=== PATIENT | female | born 1935 | race Caucasian/White ===

== ENCOUNTER 2018-09-27 10:06 | Inpatient (IN) | payer MEDICARE, OTHER ==
[2018-09-27] MEDS ORDERED: Albuterol/Ipratropium 3.0-0.5 MG/3 ML Neb Soln NEB PRN (10:23)
[2018-09-27] MEDS ORDERED: Sodium Chloride 0.9% 5 ML Syringe FLUSH PRN (10:23)
[2018-09-27] MEDS ORDERED: [UNRECOGNIZED DRUG - OTHER] ONE (11:00)
[2018-09-27] MEDS: Levofloxacin/Dextrose 5%-Water 100 ML IV SCH (12:00)
[2018-09-27] MEDS: Albuterol/Ipratropium 3.0-0.5 MG/3 ML Neb Soln NEB SCH ×3 (12:02→21:32)
[2018-09-27] MEDS: [UNRECOGNIZED DRUG - REMARK] TOP SCH ×4 (12:02→23:07)
[2018-09-27] MEDS: Sodium Chloride 7% 4 ML Neb Soln NEB SCH ×3 (12:02→21:32)
[2018-09-27] MEDS: Levofloxacin/Dextrose 5%-Water 50 ML IV SCH (13:04)
--- NOTE | 2018-09-27 13:33 | PCM.HP ---
H&P History of Present Illness - General Date of Service: 09/27/18 Admit Problem/Dx: Admission Diagnosis/Problem Admission Diagnosis/Problem Pneumonia - History of Present Illness Initial Comments - Free Text/Narative: Mrs. Davis is an 83yoF who was initially admitted to [facility] due to significant shortness of breath, hypoxia respiratory failure due to pneumonia. She is alert recent resident of [facility] from [facility] following an inpatient stay at [facility] in [place] for a recurrent hemorrhagic cerebellar CVA. She was mechanically intubated and subsequently had tracheostomy and PEG tube placement. She had an extended treatment course for VAP with levofloxacin. She was unable to have tracheostomy removed due to increased secretions. She was treated in acute care at [facility] for antibiotics and aggressive pulmonary toileting due to complexity of care, time-consuming care components not a good candidate for return back to [place]. She was admitted into SNF here at [facility] awaiting [facility] a [facility] likely in the [facility]. - Related Data Allergies/Adverse Reactions: Allergies Allergy/AdvReac Type Severity Reaction Status Date / Time No Known Drug Allergies Allergy Cannot Verified 09/27/18 11:18 Remember Home Medications: Home Meds Albuterol/Ipratropium [DuoNeb 3.0-0.5 MG/3 ML] 1 vial NEB ONETIME PRN 09/20/18 [ History] Albuterol/Ipratropium [DuoNeb 3.0-0.5 MG/3 ML] 1 vial NEB QID 09/20/18 [History] Bumetanide 0.5 mg PEGTUBE DAILY 09/20/18 [History] Carvedilol 25 mg PEGTUBE BIDMEALS 09/20/18 [History] Cholecalciferol (Vitamin D3) [Vitamin D3] 2,000 unit PEGTUBE DAILY 09/20/18 [ History] Lisinopril 2.5 mg PEGTUBE DAILY 09/20/18 [History] Omeprazole 20 mg PEGTUBE BIDAC 09/20/18 [History] Sertraline [Zoloft] 50 mg PEGTUBE DAILY 09/20/18 [History] amLODIPine [Norvasc] 5 mg PEGTUBE DAILY 09/20/18 [History] atorvaSTATin [Lipitor] 10 mg PEGTUBE BEDTIME 09/20/18 [History] Latanoprost [Xalatan] 1 drop EYEBOTH DAILY 09/22/18 [History] Sodium Chloride 7% [HyperSal 7%] 4 ml NEB QID 09/22/18 [History] Past Medical History HEENT History: Reports: Cataract, Impaired Vision Cardiovascular History: Reports: Hypertension Respiratory History: Reports: Other (See Below) Other Respiratory History: tracheostomy since CVA in July, [place], hx pneumonia Gastrointestinal History: Reports: Colon Polyp Genitourinary History: Reports: Urinary Incontinence, Other (See Below) Other Genitourinary History: UTI now 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 3 years ago and July 2108 - hemoragic strokes First on L second on R -unable to speak due to trach - moves to request - transfers with [facility]standable to make needs known Psychiatric History: Reports: Depression Endocrine/Metabolic History: Reports: Vitamin D Deficiency Hematologic History: Reports: None - Infectious Disease History Infectious Disease History: Reports: Chicken Pox - Past Surgical History HEENT Surgical History: Reports: Cataract Surgery Cardiovascular Surgical History: Reports: None GI Surgical History: Reports: Colonoscopy, Other (See Below) Other GI Surgeries/Procedures: peg tube in place - continues feeding. alot of drooling - suctions mouth out per self Female Surgical History: Reports: None Endocrine Surgical History: Reports: None Neurological Surgical History: Reports: None Social & Family History - Family History Family Medical History: Unobtainable - Tobacco Use Smoking Status *Q: Never Smoker - Caffeine Use Caffeine Use: Reports: None Caffeine Use Comment: PEG tube. - Recreational Drug Use Recreational Drug Use: No H&P Review of Systems - Review of Systems: Review Of Systems: See Below General: Denies: Fever Exam - Exam Exam: See Below - Vital Signs Vital Signs: Last Vital Signs Temp 97.9 F 09/27/18 11:33 Pulse 73 09/27/18 11:33 Resp 22 H 09/27/18 11:33 BP 135/79 09/27/18 11:33 Pulse Ox 94 L 09/27/18 12:11 Weight: 152 lb - Exam Quality Assessment: Supplemental Oxygen. No: Skin Breakdown (No skin breakdown however erythremia) General: Alert, Cooperative, Mild Distress HEENT: EOMI, Hearing Intact Neck: Supple Lungs: Rhonchi. No: Wheezing Cardiovascular: Regular Rate, Regular Rhythm, Normal S1, Normal S2 GI/Abdominal Exam: Soft, Other (PEG tube). No: Distended, Rigid (Female) Exam: Deferred Rectal (Female) Exam: Deferred Back Exam: No: CVA Tenderness (L), CVA Tenderness (R) Extremities: Normal Capillary Refill. No: Pedal Edema Peripheral Pulses: 1+: Posterior Tibial (R), Dorsalis Pedis (L), 2+: Radial (L) , Radial (R), Posterior Tibial (L) Skin: Other (Redness to buttocks) Neurological: Normal Tone, Sensation Intact, Focal Deficit. No: Normal Speech Neuro Extensive - Mental Status: Alert Neuro Extensive - Motor, Sensory, Reflexes: Motor/Sensory Deficits Psychiatric: Alert Problem List Initiated/Reviewed/Updated: Yes Orders Last 24hrs: Active Orders 24 hr Category Date Time Status Patient Status [ADT] Routine ADT 09/27/18 10:36 Ordered Communication Order [RC] 0600,1200,1800,0000 Care 09/27/18 10:23 Active Communication Order [RC] Q8HR Care 09/27/18 10:23 Active Feeding Tube Managment [Enteral Feedings] [RC] 0600, Care 09/27/18 10:23 Active 1200,1800,0000 Intake and Output [RC] 1400,2200,0600 Care 09/27/18 10:23 Active Oxygen Therapy [RC] PRN Care 09/27/18 10:23 Active Peripheral IV Care [RC] QSHIFT Care 09/27/18 10:23 Active RT Aerosol Therapy [RC] ASDIRECTED Care 09/27/18 10:24 Active RT Sputum Induction [RC] Click to Edit Care 09/27/18 10:23 Active Tube Feeding [Enteral Feedings] [RC] CONTINUOUS Care 09/27/18 10:23 Active Vital Signs [RC] 0300,0700,1100,1500,1900,2300 Care 09/27/18 10:23 Active Albuterol/Ipratropium [DuoNeb 3.0-0.5 MG/3 ML] Med 09/27/18 10:23 Active 3 ml NEB BEDTIME PRN Albuterol/Ipratropium [DuoNeb 3.0-0.5 MG/3 ML] Med 09/27/18 11:00 Active 3 ml NEB QIDRT Carvedilol [Coreg] Med 09/27/18 21:00 Active 25 mg PEGTUBE BID Cholecalciferol (Vitamin D3) [Vitamin D3] Med 09/28/18 09:00 Active 2,000 units PEGTUBE DAILY Latanoprost [Xalatan 0.005% Ophth Soln] Med 09/28/18 09:00 Active 0 ml EYEBOTH DAILY Levofloxacin/Dextrose 5%-Water [Levaquin in D5W 250 MG/ Med 09/27/18 12:30 Active 50 ML] 50 ml IV Q48H Levofloxacin/Dextrose 5%-Water [Levaquin in D5W 500 MG/ Med 09/27/18 11:30 Active 100 ML] 100 ml IV Q48H Lisinopril [Prinivil] Med 09/28/18 09:00 Active 5 mg PEGTUBE DAILY Non-Formulary Medication [NF Drug] Med 09/27/18 11:00 Active 1 each TOP Q4HR Omeprazole [FIRST-Omeprazole] Med 09/27/18 17:30 Active 10 each GTUBE BIDAC Psyllium Husk/Aspartame [Metamucil Sugar Free] Med 09/28/18 09:00 Active 1 pkt PEGTUBE DAILY Sertraline [Zoloft] Med 09/28/18 09:00 Active 50 mg PEGTUBE DAILY Sodium Chloride 0.9% [Saline Flush] Med 09/27/18 10:23 Active 10 ml FLUSH Q8HR PRN Sodium Chloride 7% [HyperSal 7%] Med 09/27/18 11:00 Active 4 ml NEB QIDRT amLODIPine [Norvasc] Med 09/28/18 09:00 Active 5 mg FTUBE DAILY atorvaSTATin [Lipitor] Med 09/27/18 21:00 Active 10 mg PEGTUBE BEDTIME cefTRIAXone [Rocephin] Med 09/27/18 17:00 Active 1 gm IVPUSH Q24H Antiembolic Hose [OM.PC] Routine Oth 09/27/18 10:23 Ordered Peripheral IV Insertion Adult [OM.PC] Routine Oth 09/27/18 10:23 Ordered Code Status [Resuscitation Status] Routine Resus Stat 09/27/18 10:38 Ordered Medication Orders Albuterol/Ipratropium (Duoneb 3.0-0.5 Mg/3 Ml) 3 ml NEB QIDRT LIANNE Last Admin: 09/27/18 12:02 Dose: Albuterol/Ipratropium (Duoneb 3.0-0.5 Mg/3 Ml) 3 ml NEB BEDTIME PRN PRN Reason: Shortness of Breath Amlodipine Besylate (Norvasc) 5 mg FTUBE DAILY [facility] Atorvastatin Calcium (Lipitor) 10 mg PEGTUBE BEDTIME LIANNE Carvedilol (Coreg) 25 mg PEGTUBE BID [facility] Ceftriaxone Sodium (Rocephin) 1 gm IVPUSH Q24H LIANNE Cholecalciferol (Vitamin D3) 2,000 units PEGTUBE DAILY [facility] Levofloxacin/Dextrose (Levaquin In D5w 500 Mg/100 Ml) 100 mls @ 100 mls/hr IV Q48H [facility] Last Admin: 09/27/18 12:00 Dose: 100 mls/hr Levofloxacin/Dextrose (Levaquin In D5w 250 Mg/50 Ml) 50 mls @ 50 mls/hr IV Q48H [facility] Last Admin: 09/27/18 13:04 Dose: 50 mls/hr Latanoprost (Xalatan 0.005% Ophth Soln) 0 ml EYEBOTH DAILY [facility] Lisinopril (Prinivil) 5 mg PEGTUBE DAILY [facility] Non-Form Get (Ointment) 1 each TOP Q4HR [facility] Last Admin: 09/27/18 12:02 Dose: 1 each Omeprazole (First-Omeprazole) 10 each GTUBE BIDAC LIANNE Psyllium Husk (Metamucil Sugar Free) 1 pkt PEGTUBE DAILY [facility] Sertraline HCl (Zoloft) 50 mg PEGTUBE DAILY [facility] Sodium Chloride (Saline Flush) 10 ml FLUSH Q8HR PRN PRN Reason: Keep Vein Open Sodium Chloride (Hypersal 7%) 4 ml NEB QIDRT [facility] Last Admin: 09/27/18 12:02 Dose: Assessment/Plan Comment:: HISTORY OF PRESENT ILLNESS: Mrs. Davis is an 83yoF who was initially admitted to [facility] due to significant shortness of breath, hypoxia respiratory failure due to pneumonia. She is alert recent resident of [facility] from [facility] following an inpatient stay at [facility] in [place] for a recurrent hemorrhagic cerebellar CVA. She was mechanically intubated and subsequently had tracheostomy and PEG tube placement. She had an extended treatment course for VAP with levofloxacin. She was unable to have tracheostomy removed due to increased secretions. She was treated in acute care at [facility] for antibiotics and aggressive pulmonary toileting due to complexity of care, time-consuming care components not a good candidate for return back to [place]. She was admitted into SNF here at [facility] awaiting placement back to a [facility] with subacute capabilities likely in the [place] area. Primary hospital problems Pneumonia, POA, HCAP, recent VAP, on abx Syncopal/unresponsive event at [facility] Acute on chronic hypoxic respiratory failure, Possible aspiration event Increased secretions, improving Tracheostomy status Leukocytosis, neutrophilia UTI, Escherichia coli, pseudomonal Protein calorie malnutrition Stable Chronic problems HFpEF, restarted JERMAINE inhibition therapy Elevated troponin, likely type II, trended down Hx recurrent intracerebral hemorrhages Atrial fibrillation: [id number] VASc high, Continue carvedilol. Anticoagulation contraindicated HTN, restarted amlodipine 09/21 HLD: Continue atorvastatin. GERD: Continue omeprazole. Changed to suspension Vitamin D deficiency: Continue vitamin D. Depression, major, recurrent: Continue sertraline Glaucoma: Continue latanoprost. Maintenance Saline locked, NPO. Reduced residual parameters, No emesis or vomiting, PEG tube feedings, changed to Isosource, add psyllium PPX: Teds, Pharmacologic DVT prophylaxis contraindicated in the setting of recurrent hemorrhagic CVA; PPI for GI prophylaxis, changed to suspension Code status: DNR. Emergency contact: (Naga), Son (Lew). Patient's sister on rounds this morning, she was updated on patient's status and agrees with plan of care. Disposition: Placed in SNF here at [facility], ongoing antibiotics and aggressive pulmonary toileting, awaiting placement back to a long-term care center with subacute capabilities--likely in the [facility]. PT consult. Changed to feeding to Isosource, add psyllium
[2018-09-27] MEDS: Sodium Chloride 0.9% 10 ML Syringe FLUSH PRN (17:08)
[2018-09-27] MEDS: cefTRIAXone 1 GM Vial IVPUSH SCH (17:08)
[2018-09-27] MEDS: Omeprazole 2 MG/ML 150 ML Kit GTUBE SCH (18:10)
[2018-09-27] MEDS: atorvaSTATin 10 MG Tab PEGTUBE SCH (21:31)
[2018-09-27] MEDS: Carvedilol 12.5 MG Tab PEGTUBE SCH (21:31)
[2018-09-28] MEDS: [UNRECOGNIZED DRUG - REMARK] TOP SCH ×6 (01:30→22:30)
[2018-09-28] MEDS: Sodium Chloride 7% 4 ML Neb Soln NEB SCH ×4 (05:52→21:51)
[2018-09-28] MEDS: Albuterol/Ipratropium 3.0-0.5 MG/3 ML Neb Soln NEB SCH ×4 (05:52→21:50)
[2018-09-28 07:53] LABS: ANION GAP 12.8 mmol/L (5-15); CHLORIDE,CL 99 mmol/L (98-115); SODIUM,NA 141 mmol/L (136-145)
[2018-09-28] MEDS: Omeprazole 2 MG/ML 150 ML Kit GTUBE SCH ×2 (08:58→17:17)
[2018-09-28] MEDS: Sodium Chloride 0.9% 10 ML Syringe FLUSH PRN ×3 (09:09→16:47)
[2018-09-28] MEDS: Carvedilol 12.5 MG Tab PEGTUBE SCH ×2 (09:53→20:57)
[2018-09-28] MEDS: amLODIPine 5 MG Tab FTUBE SCH (09:56)
[2018-09-28] MEDS: Psyllium Husk Powder Sugar Free 5.85 GM Packet PEGTUBE SCH (09:56)
[2018-09-28] MEDS: Lisinopril 5 MG Tab PEGTUBE SCH (09:57)
[2018-09-28] MEDS: Cholecalciferol (Vitamin D3) 1,000 Unit Tab PEGTUBE SCH (09:57)
[2018-09-28] MEDS: Sertraline 50 MG Tab PEGTUBE SCH (09:58)
[2018-09-28] MEDS: Latanoprost 0.005% Ophth Soln 2.5 ML Bottle EYEBOTH SCH (10:09)
[2018-09-28] MEDS: cefTRIAXone 1 GM Vial IVPUSH SCH (16:43)
[2018-09-28] MEDS: atorvaSTATin 10 MG Tab PEGTUBE SCH (20:57)
[2018-09-29] MEDS: [UNRECOGNIZED DRUG - REMARK] TOP SCH ×5 (04:05→19:23)
[2018-09-29] MEDS: Sodium Chloride 7% 4 ML Neb Soln NEB SCH ×4 (05:36→21:55)
[2018-09-29] MEDS: Albuterol/Ipratropium 3.0-0.5 MG/3 ML Neb Soln NEB SCH ×4 (05:36→21:55)
[2018-09-29] MEDS: Omeprazole 2 MG/ML 150 ML Kit GTUBE SCH ×2 (06:36→17:32)
[2018-09-29] MEDS: Sodium Chloride 0.9% 10 ML Syringe FLUSH PRN (06:36)
[2018-09-29] MEDS: Carvedilol 12.5 MG Tab PEGTUBE SCH ×2 (09:12→21:25)
[2018-09-29] MEDS: Psyllium Husk Powder Sugar Free 5.85 GM Packet PEGTUBE SCH (09:13)
[2018-09-29] MEDS: amLODIPine 5 MG Tab FTUBE SCH (09:14)
[2018-09-29] MEDS: Lisinopril 5 MG Tab PEGTUBE SCH (09:14)
[2018-09-29] MEDS: Cholecalciferol (Vitamin D3) 1,000 Unit Tab PEGTUBE SCH (09:14)
[2018-09-29] MEDS: Sertraline 50 MG Tab PEGTUBE SCH (09:15)
[2018-09-29] MEDS: Latanoprost 0.005% Ophth Soln 2.5 ML Bottle EYEBOTH SCH (09:15)
[2018-09-29] MEDS: Levofloxacin/Dextrose 5%-Water 100 ML IV SCH (12:07)
[2018-09-29] MEDS: Levofloxacin/Dextrose 5%-Water 50 ML IV SCH (13:33)
[2018-09-29] MEDS: cefTRIAXone 1 GM Vial IVPUSH SCH (16:40)
[2018-09-29] MEDS: atorvaSTATin 10 MG Tab PEGTUBE SCH (21:25)
[2018-09-30] MEDS: [UNRECOGNIZED DRUG - REMARK] TOP SCH ×5 (01:21→16:22)
[2018-09-30] MEDS: Albuterol/Ipratropium 3.0-0.5 MG/3 ML Neb Soln NEB SCH ×4 (04:49→21:48)
[2018-09-30] MEDS: Sodium Chloride 7% 4 ML Neb Soln NEB SCH ×4 (04:49→21:48)
[2018-09-30] MEDS: Omeprazole 2 MG/ML 150 ML Kit GTUBE SCH ×2 (06:30→17:35)
[2018-09-30] MEDS: Psyllium Husk Powder Sugar Free 5.85 GM Packet PEGTUBE SCH (08:58)
[2018-09-30] MEDS: Cholecalciferol (Vitamin D3) 1,000 Unit Tab PEGTUBE SCH (09:00)
[2018-09-30] MEDS: Latanoprost 0.005% Ophth Soln 2.5 ML Bottle EYEBOTH SCH (09:00)
[2018-09-30] MEDS: Sertraline 50 MG Tab PEGTUBE SCH (09:01)
[2018-09-30] MEDS: Carvedilol 12.5 MG Tab PEGTUBE SCH ×2 (09:05→20:07)
[2018-09-30] MEDS: Lisinopril 5 MG Tab PEGTUBE SCH (09:05)
[2018-09-30] MEDS: amLODIPine 5 MG Tab FTUBE SCH (09:05)
[2018-09-30] MEDS: Sodium Chloride 0.9% 10 ML Syringe FLUSH PRN (16:30)
[2018-09-30] MEDS: cefTRIAXone 1 GM Vial IVPUSH SCH (16:31)
[2018-09-30] MEDS: Zinc Oxide/Eucerin/Nystatin/Karaya 237 ML JAR TOP SCH (20:07)
[2018-09-30] MEDS: atorvaSTATin 10 MG Tab PEGTUBE SCH (20:07)
[2018-10-01] MEDS: Sodium Chloride 0.9% 10 ML Syringe FLUSH PRN ×3 (05:43→17:11)
[2018-10-01] MEDS: Sodium Chloride 7% 4 ML Neb Soln NEB SCH ×4 (06:22→21:23)
[2018-10-01] MEDS: Albuterol/Ipratropium 3.0-0.5 MG/3 ML Neb Soln NEB SCH ×4 (06:22→21:22)
[2018-10-01] MEDS: Carvedilol 12.5 MG Tab PEGTUBE SCH ×2 (08:38→20:35)
[2018-10-01] MEDS: Lisinopril 5 MG Tab PEGTUBE SCH (08:39)
[2018-10-01] MEDS: amLODIPine 5 MG Tab FTUBE SCH (08:39)
[2018-10-01] MEDS: Sertraline 50 MG Tab PEGTUBE SCH (08:40)
[2018-10-01] MEDS: Cholecalciferol (Vitamin D3) 1,000 Unit Tab PEGTUBE SCH (08:40)
[2018-10-01] MEDS: Omeprazole 2 MG/ML 150 ML Kit GTUBE SCH ×2 (08:45→17:08)
[2018-10-01] MEDS: Latanoprost 0.005% Ophth Soln 2.5 ML Bottle EYEBOTH SCH (08:53)
[2018-10-01] MEDS: Psyllium Husk Powder Sugar Free 5.85 GM Packet PEGTUBE SCH (09:01)
[2018-10-01] MEDS: Zinc Oxide/Eucerin/Nystatin/Karaya 237 ML JAR TOP SCH ×4 (09:14→20:35)
[2018-10-01] MEDS: Levofloxacin/Dextrose 5%-Water 100 ML IV SCH (11:18)
[2018-10-01] MEDS: Sodium Chloride 0.9% 50 ML IV SCH (11:31)
[2018-10-01] MEDS: Levofloxacin/Dextrose 5%-Water 50 ML IV SCH (12:34)
[2018-10-01] MEDS: cefTRIAXone 1 GM Vial IVPUSH SCH (17:08)
[2018-10-01] MEDS: atorvaSTATin 10 MG Tab PEGTUBE SCH (20:35)
[2018-10-02] MEDS: Albuterol/Ipratropium 3.0-0.5 MG/3 ML Neb Soln NEB SCH ×4 (06:00→22:10)
[2018-10-02] MEDS: Sodium Chloride 7% 4 ML Neb Soln NEB SCH ×4 (06:00→22:10)
[2018-10-02] MEDS: Latanoprost 0.005% Ophth Soln 2.5 ML Bottle EYEBOTH SCH (08:07)
[2018-10-02] MEDS: Omeprazole 2 MG/ML 150 ML Kit GTUBE SCH ×2 (08:07→17:55)
[2018-10-02] MEDS: Psyllium Husk Powder Sugar Free 5.85 GM Packet PEGTUBE SCH (08:08)
[2018-10-02] MEDS: Cholecalciferol (Vitamin D3) 1,000 Unit Tab PEGTUBE SCH (08:09)
[2018-10-02] MEDS: amLODIPine 5 MG Tab FTUBE SCH (08:09)
[2018-10-02] MEDS: Sertraline 50 MG Tab PEGTUBE SCH (08:09)
[2018-10-02] MEDS: Lisinopril 5 MG Tab PEGTUBE SCH (08:09)
[2018-10-02] MEDS: B.Bifidum/B.Longum/L.Acidophilus/L.Rhamnosus (Probiotic) Cap PEGTUBE SCH (08:09)
[2018-10-02] MEDS: Carvedilol 12.5 MG Tab PEGTUBE SCH ×2 (08:09→22:00)
[2018-10-02] MEDS: Zinc Oxide/Eucerin/Nystatin/Karaya 237 ML JAR TOP SCH ×4 (08:10→22:00)
[2018-10-02] MEDS: Sodium Chloride 0.9% 50 ML IV SCH (11:28)
[2018-10-02] MEDS: cefTRIAXone 1 GM Vial IVPUSH SCH (17:09)
[2018-10-02] MEDS: Sodium Chloride 0.9% 10 ML Syringe FLUSH PRN (17:10)
[2018-10-02] MEDS: atorvaSTATin 10 MG Tab PEGTUBE SCH (21:59)
[2018-10-03] MEDS: Albuterol/Ipratropium 3.0-0.5 MG/3 ML Neb Soln NEB SCH ×4 (05:20→21:44)
[2018-10-03] MEDS: Sodium Chloride 7% 4 ML Neb Soln NEB SCH ×4 (05:20→21:44)
[2018-10-03] MEDS: Omeprazole 2 MG/ML 150 ML Kit GTUBE SCH ×2 (06:32→16:30)
[2018-10-03] MEDS: B.Bifidum/B.Longum/L.Acidophilus/L.Rhamnosus (Probiotic) Cap PEGTUBE SCH (08:34)
[2018-10-03] MEDS: Carvedilol 12.5 MG Tab PEGTUBE SCH ×2 (08:34→21:27)
[2018-10-03] MEDS: Psyllium Husk Powder Sugar Free 5.85 GM Packet PEGTUBE SCH (08:34)
[2018-10-03] MEDS: Cholecalciferol (Vitamin D3) 1,000 Unit Tab PEGTUBE SCH (08:35)
[2018-10-03] MEDS: amLODIPine 5 MG Tab FTUBE SCH (08:35)
[2018-10-03] MEDS: Latanoprost 0.005% Ophth Soln 2.5 ML Bottle EYEBOTH SCH (08:35)
[2018-10-03] MEDS: Lisinopril 5 MG Tab PEGTUBE SCH (08:35)
[2018-10-03] MEDS: Sertraline 50 MG Tab PEGTUBE SCH (08:35)
[2018-10-03] MEDS: Zinc Oxide/Eucerin/Nystatin/Karaya 237 ML JAR TOP SCH ×4 (09:35→21:27)
[2018-10-03] MEDS: Levofloxacin/Dextrose 5%-Water 100 ML IV SCH (11:19)
[2018-10-03] MEDS: Sodium Chloride 0.9% 50 ML IV SCH (11:26)
[2018-10-03] MEDS: Sodium Chloride 0.9% 10 ML Syringe FLUSH PRN (11:34)
[2018-10-03] MEDS: Levofloxacin/Dextrose 5%-Water 50 ML IV SCH (12:59)
[2018-10-03] MEDS: cefTRIAXone 1 GM Vial IVPUSH SCH (16:19)
[2018-10-03] MEDS: atorvaSTATin 10 MG Tab PEGTUBE SCH (21:27)
[2018-10-04] MEDS: Albuterol/Ipratropium 3.0-0.5 MG/3 ML Neb Soln NEB SCH ×4 (04:33→21:23)
[2018-10-04] MEDS: Sodium Chloride 7% 4 ML Neb Soln NEB SCH ×4 (04:49→21:23)
[2018-10-04] MEDS: Omeprazole 2 MG/ML 150 ML Kit GTUBE SCH ×2 (06:44→17:48)
[2018-10-04] MEDS: B.Bifidum/B.Longum/L.Acidophilus/L.Rhamnosus (Probiotic) Cap PEGTUBE SCH (08:23)
[2018-10-04] MEDS: Sertraline 50 MG Tab PEGTUBE SCH (08:23)
[2018-10-04] MEDS: Cholecalciferol (Vitamin D3) 1,000 Unit Tab PEGTUBE SCH (08:23)
[2018-10-04] MEDS: amLODIPine 5 MG Tab FTUBE SCH (08:23)
[2018-10-04] MEDS: Latanoprost 0.005% Ophth Soln 2.5 ML Bottle EYEBOTH SCH (08:24)
[2018-10-04] MEDS: Carvedilol 12.5 MG Tab PEGTUBE SCH ×2 (08:24→21:28)
[2018-10-04] MEDS: Lisinopril 5 MG Tab PEGTUBE SCH (08:24)
[2018-10-04] MEDS: Zinc Oxide/Eucerin/Nystatin/Karaya 237 ML JAR TOP SCH ×4 (08:24→21:24)
[2018-10-04] MEDS: Psyllium Husk Powder Sugar Free 5.85 GM Packet PEGTUBE SCH ×2 (08:25→21:23)
[2018-10-04] MEDS: Sodium Chloride 0.9% 10 ML Syringe FLUSH PRN ×2 (08:32→16:32)
[2018-10-04] MEDS ORDERED: Fluconazole 100 MG Tab PO ONE (10:05)
[2018-10-04] MEDS ORDERED: guaiFENesin 100 MG/5 ML Soln 5 ML UD Cup PO SCH (11:00)
[2018-10-04] MEDS ORDERED: Fluconazole 100 MG Tab PEGTUBE ONE (11:30)
[2018-10-04] MEDS: guaiFENesin 100 MG/5 ML Soln 5 ML UD Cup PEGTUBE SCH ×2 (17:48→22:26)
[2018-10-04] MEDS: atorvaSTATin 10 MG Tab PEGTUBE SCH (21:24)
[2018-10-05] MEDS: guaiFENesin 100 MG/5 ML Soln 5 ML UD Cup PEGTUBE SCH ×4 (05:37→23:29)
[2018-10-05] MEDS: Albuterol/Ipratropium 3.0-0.5 MG/3 ML Neb Soln NEB SCH ×4 (05:56→21:17)
[2018-10-05] MEDS: Sodium Chloride 7% 4 ML Neb Soln NEB SCH ×4 (05:57→21:17)
[2018-10-05] MEDS: Omeprazole 2 MG/ML 150 ML Kit GTUBE SCH ×2 (07:45→17:00)
[2018-10-05] MEDS: Cholecalciferol (Vitamin D3) 1,000 Unit Tab PEGTUBE SCH (08:28)
[2018-10-05] MEDS: Carvedilol 12.5 MG Tab PEGTUBE SCH ×2 (08:28→20:43)
[2018-10-05] MEDS: B.Bifidum/B.Longum/L.Acidophilus/L.Rhamnosus (Probiotic) Cap PEGTUBE SCH (08:29)
[2018-10-05] MEDS: Sertraline 50 MG Tab PEGTUBE SCH (08:29)
[2018-10-05] MEDS: Lisinopril 5 MG Tab PEGTUBE SCH (08:29)
[2018-10-05] MEDS: amLODIPine 5 MG Tab FTUBE SCH (08:29)
[2018-10-05] MEDS: Psyllium Husk Powder Sugar Free 5.85 GM Packet PEGTUBE SCH ×2 (08:29→20:44)
[2018-10-05] MEDS: Zinc Oxide/Eucerin/Nystatin/Karaya 237 ML JAR TOP SCH ×4 (08:29→20:43)
[2018-10-05] MEDS: Latanoprost 0.005% Ophth Soln 2.5 ML Bottle EYEBOTH SCH (10:03)
[2018-10-05] MEDS: Nystatin Susp 100,000 Unit/ML 5 ML UD Cup PO SCH ×3 (13:53→20:44)
[2018-10-05] MEDS: atorvaSTATin 10 MG Tab PEGTUBE SCH (20:43)
[2018-10-06] MEDS: Sodium Chloride 7% 4 ML Neb Soln NEB SCH ×2 (04:29→14:42)
[2018-10-06] MEDS: Albuterol/Ipratropium 3.0-0.5 MG/3 ML Neb Soln NEB SCH (04:29)
[2018-10-06] MEDS: guaiFENesin 100 MG/5 ML Soln 5 ML UD Cup PEGTUBE SCH ×4 (04:46→22:07)
[2018-10-06] MEDS: Omeprazole 2 MG/ML 150 ML Kit GTUBE SCH ×2 (09:00→17:14)
[2018-10-06] MEDS: Zinc Oxide/Eucerin/Nystatin/Karaya 237 ML JAR TOP SCH ×4 (09:18→22:06)
[2018-10-06] MEDS: Sertraline 50 MG Tab PEGTUBE SCH (09:19)
[2018-10-06] MEDS: B.Bifidum/B.Longum/L.Acidophilus/L.Rhamnosus (Probiotic) Cap PEGTUBE SCH (09:20)
[2018-10-06] MEDS: Lisinopril 5 MG Tab PEGTUBE SCH (09:20)
[2018-10-06] MEDS: amLODIPine 5 MG Tab FTUBE SCH (09:20)
[2018-10-06] MEDS: Psyllium Husk Powder Sugar Free 5.85 GM Packet PEGTUBE SCH ×2 (09:20→22:08)
[2018-10-06] MEDS: Carvedilol 12.5 MG Tab PEGTUBE SCH ×2 (09:20→22:07)
[2018-10-06] MEDS: Cholecalciferol (Vitamin D3) 1,000 Unit Tab PEGTUBE SCH (09:20)
[2018-10-06] MEDS: Nystatin Susp 100,000 Unit/ML 5 ML UD Cup PO SCH ×4 (09:21→22:07)
[2018-10-06] MEDS: Latanoprost 0.005% Ophth Soln 2.5 ML Bottle EYEBOTH SCH (09:22)
[2018-10-06 09:55] LABS: ANION GAP 16.6 mmol/L (5-15); CHLORIDE,CL 97 mmol/L (98-115); SODIUM,NA 145 mmol/L (136-145)
[2018-10-06] MEDS: atorvaSTATin 10 MG Tab PEGTUBE SCH (22:07)
[2018-10-07] MEDS: guaiFENesin 100 MG/5 ML Soln 5 ML UD Cup PEGTUBE SCH ×4 (06:16→22:20)
[2018-10-07] MEDS: Omeprazole 2 MG/ML 150 ML Kit GTUBE SCH ×2 (07:33→17:52)
[2018-10-07] MEDS: Sertraline 50 MG Tab PEGTUBE SCH (09:10)
[2018-10-07] MEDS: Latanoprost 0.005% Ophth Soln 2.5 ML Bottle EYEBOTH SCH (09:11)
[2018-10-07] MEDS: Cholecalciferol (Vitamin D3) 1,000 Unit Tab PEGTUBE SCH (09:11)
[2018-10-07] MEDS: Lisinopril 5 MG Tab PEGTUBE SCH (09:11)
[2018-10-07] MEDS: amLODIPine 5 MG Tab FTUBE SCH (09:11)
[2018-10-07] MEDS: Nystatin Susp 100,000 Unit/ML 5 ML UD Cup PO SCH ×4 (09:12→20:04)
[2018-10-07] MEDS: Psyllium Husk Powder Sugar Free 5.85 GM Packet PEGTUBE SCH ×2 (09:12→20:04)
[2018-10-07] MEDS: B.Bifidum/B.Longum/L.Acidophilus/L.Rhamnosus (Probiotic) Cap PEGTUBE SCH (09:12)
[2018-10-07] MEDS: Zinc Oxide/Eucerin/Nystatin/Karaya 237 ML JAR TOP SCH ×4 (09:13→20:04)
[2018-10-07] MEDS: Carvedilol 12.5 MG Tab PEGTUBE SCH ×2 (09:13→20:03)
--- NOTE | 2018-10-07 11:00 | PCM.PN ---
- General Info Date of Service: 10/07/18 Admission Dx/Problem (Free Text): Pneumonia, deconditioning Subjective Update: Mrs. Davis denies any complaints this morning, including pain or difficulty breathing. Remainder of history limited due to tracheostomy status. Nursing report and documentation shows ongoing improvement in toleration of PEG tube feedings with residuals in the past 48hrs of 5-60. Periods of time between suctioning have increased and more recently has been only superficially with Yankauer and not deep suction. No new concerns. - Patient Data Vitals - Most Recent: Last Vital Signs Temp 36.4 C 10/07/18 06:22 Pulse 73 10/07/18 09:13 Resp 20 10/06/18 06:51 BP 143/76 H 10/07/18 09:13 Pulse Ox 94 L 10/07/18 06:22 Weight - Most Recent: 68.039 kg I&O - Last 24 Hours: Intake & Output 10/06/18 10/07/18 10/07/18 22:59 06:59 14:59 Intake Total 669 500 Balance 669 500 Med Orders - Current: Current Medications Albuterol/Ipratropium (Duoneb 3.0-0.5 Mg/3 Ml) 3 ml NEB BEDTIME PRN PRN Reason: Shortness of Breath Albuterol/Ipratropium (Duoneb 3.0-0.5 Mg/3 Ml) 3 ml NEB QID PRN PRN Reason: Shortness of Breath Amlodipine Besylate (Norvasc) 5 mg FTUBE DAILY [facility] Last Admin: 10/07/18 09:11 Dose: 5 mg Atorvastatin Calcium (Lipitor) 10 mg PEGTUBE BEDTIME LIANNE Last Admin: 10/06/18 22:07 Dose: 10 mg Carvedilol (Coreg) 25 mg PEGTUBE BID [facility] Last Admin: 10/07/18 09:13 Dose: 25 mg Cholecalciferol (Vitamin D3) 2,000 units PEGTUBE DAILY [facility] Last Admin: 10/07/18 09:11 Dose: 2,000 units Guaifenesin (Robitussin) 200 mg PEGTUBE Q6HR [facility] Last Admin: 10/07/18 06:16 Dose: 200 mg Lactobacillus Acidophilus/Rhamnosus (Multi-Lissette Plus) 1 cap PEGTUBE DAILY [facility] Last Admin: 10/07/18 09:12 Dose: 1 cap Latanoprost (Xalatan 0.005% Ophth Soln) 0 ml EYEBOTH DAILY [facility] Last Admin: 10/07/18 09:11 Dose: 1 drop Lisinopril (Prinivil) 5 mg PEGTUBE DAILY [facility] Last Admin: 10/07/18 09:11 Dose: 5 mg Multi-Ingred Cream/Lotion/Oil/Oint (Kmed) 0 ml TOP QID [facility] Last Admin: 10/07/18 09:13 Dose: 1 applic Nystatin (Mycostatin) 5 ml PO QID [facility] Last Admin: 10/07/18 09:12 Dose: 5 ml Omeprazole (First-Omeprazole) 10 each GTUBE BIDAC [facility] Last Admin: 10/07/18 07:33 Dose: 10 ml Psyllium Husk (Metamucil Sugar Free) 1 pkt PEGTUBE BID [facility] Last Admin: 10/07/18 09:12 Dose: 1 pkt Sertraline HCl (Zoloft) 50 mg PEGTUBE DAILY [facility] Last Admin: 10/07/18 09:10 Dose: 50 mg Sodium Chloride (Saline Flush) 10 ml FLUSH Q8HR PRN PRN Reason: Keep Vein Open Last Admin: 10/04/18 16:32 Dose: 10 ml Sodium Chloride (Hypersal 7%) 4 ml NEB QID PRN PRN Reason: Other Discontinued Medications Albuterol/Ipratropium (Duoneb 3.0-0.5 Mg/3 Ml) 3 ml NEB QIDRT [facility] Last Admin: 10/06/18 04:29 Dose: 3 ml Ceftriaxone Sodium (Rocephin) 1 gm IVPUSH Q24H [facility] Stop: 10/03/18 18:00 Last Admin: 10/03/18 16:19 Dose: 1 gm Fluconazole (Diflucan) 150 mg PO ONETIME ONE Stop: 10/04/18 10:06 Last Admin: 10/04/18 11:36 Dose: Not Given Fluconazole (Diflucan) 150 mg PEGTUBE ONETIME ONE Stop: 10/04/18 11:31 Last Admin: 10/04/18 12:35 Dose: 150 mg Guaifenesin (Robitussin) 200 mg PO Q6HR [facility] Last Admin: 10/04/18 12:15 Dose: Not Given Levofloxacin/Dextrose (Levaquin In D5w 500 Mg/100 Ml) 100 mls @ 100 mls/hr IV Q48H [facility] Stop: 10/03/18 13:00 Last Admin: 10/03/18 11:19 Dose: 100 mls/hr Levofloxacin/Dextrose (Levaquin In D5w 250 Mg/50 Ml) 50 mls @ 50 mls/hr IV Q48H [facility] Stop: 10/03/18 13:00 Last Admin: 10/03/18 12:59 Dose: 50 mls/hr Sodium Chloride (Normal Saline) 50 mls @ 20 mls/hr IV DAILY@1130 [facility] Last Admin: 10/03/18 11:26 Dose: Not Given Non-Form Get (Ointment) 1 each TOP Q4HR [facility] Last Admin: 09/30/18 16:22 Dose: 1 each Psyllium Husk (Metamucil Sugar Free) 1 pkt PEGTUBE DAILY [facility] Last Admin: 10/04/18 08:25 Dose: 1 pkt Sodium Chloride (Hypersal 7%) 4 ml NEB QIDRT [facility] Last Admin: 10/06/18 14:42 Dose: Not Given - Exam Physical Findings Comments:: GENERAL: Elderly white female with tracheostomy in place lying in hospital bed in no acute distress. HEENT: Normocephalic, atraumatic. Conjunctiva clear. Nares patent without discharge. Mucous membranes moist, posterior pharynx unremarkable. NECK: Tracheostomy in place without surrounding erythema. CV: Irregularly irregular, no murmurs, rubs, or gallops. 2+ radial pulses. PULMONARY: No distress, diminished breath sounds in bases bilaterally, no wheezes, rales, or rhonchi. ABDOMEN: PEG tube site without surrounding erythema. Positive bowel sounds, soft , nontender, nondistended. EXTREMITIES: No edema, cyanosis, or clubbing. MUSCULOSKELETAL: Moves all extremities. DERMATOLOGIC: Intertriginous areas in groin and under breasts with faint redness. PSYCHIATRIC: Alert, nods and shakes head seemingly appropriate in response to questions. - Problem List Review Problem List Initiated/Reviewed/Updated: Yes - Plan Plan:: HPI summary: Mrs. Davis is an 83yoF with history notable for extended hospitalization at [facility] for a recurrent hemorrhagic cerebellar CVA for which she was mechanically intubated, developed ventilatory associated pneumonia, and subsequently had tracheostomy and PEG tube placement. She was subsequently transferred to [facility]. She was unable to have tracheostomy removed due to increased secretions and was eventually discharged to [facility] in [place], [place]. On 09/20/18, she was initially admitted to the [facility] due to significant shortness of breath, hypoxia, and respiratory failure found to be due to pneumonia and also with NSTEMI. She had clinical improvement with antibiotics and and aggressive pulmonary toileting. Due to complexity of care, she was deemed to not be a good candidate for return back to [facility] and was instead transferred [facility] for ongoing care awaiting improvement in clinical status and eventual appropriate placement closer to family in the [facility]. Interval hospital course: Since admission to [facility], she has finished the 2 week course of antibiotics for pneumonia and has had overall improvement in respiratory status , including less frequent suctioning. Tube feedings have resumed via the PEG tube and she has had overall good toleration of this with recent residuals improved from prior. From a clinical standpoint, she appears to be at her prior baseline respiratory status when she was discharged from [facility], though she has ongoing care needs due to tracheostomy status and PEG tube. 's primary concern is regarding the removal of the tracheostomy, which he states was promised to him to only be in place for a few weeks. Has been working for the last few days with local social work staff as well as with staff at [facility] transitional care unit and [facility] and are coordinating for possible transfer for tracheostomy capping trial and eventual revision if deemed appropriate. Primary hospital problems: Deconditioning, stable Increased secretions, improving, likely at baseline Tracheostomy status Protein calorie malnutrition Pneumonia, bilateral, healthcare acquired, recent VAP, s/p abx course, resolved UTI, Escherichia coli and Pseudomonas, s/p abx course, resolved Stable, chronic problems: HFpEF: Volume status neutral. Continue current management. Hx NSTEMI: Troponin downtrended during acute hospitalization. No ongoing clinical concerns. Hx recurrent intracerebral hemorrhages Atrial fibrillation: Continue carvedilol. [id number] high, but anticoagulation contraindicated in setting of recurrent hemorrhagic CVAs. HTN: Controlled. Continue amlodipine. HLD: Continue atorvastatin. GERD: Continue omeprazole. Vitamin D deficiency: Continue vitamin D. Depression, major, recurrent: Continue sertraline. Glaucoma: Continue latanoprost. Maintenance FEN: No IVF. Electrolytes stable. PEG tube feedings, changed to Osmolyte with psyllium with good toleration. PPX: Teds as pharmacologic DVT prophylaxis contraindicated in setting of recurrent hemorrhagic CVAs. PPI for GI prophylaxis. Code status: DNR. Emergency contact: (Naga) and Son (Lew), who have been notified of patient status on multiple occasions recently. Disposition: Continue on swing bed status. As mentioned above, has been in contact on multiple occasions with outside facilities to consider transfer for possible tracheostomy capping trial and long-term placement. Appreciate social work assistance with ongoing coordination for this patient's care.
[2018-10-07] MEDS: atorvaSTATin 10 MG Tab PEGTUBE SCH (20:03)
[2018-10-08] MEDS: guaiFENesin 100 MG/5 ML Soln 5 ML UD Cup PEGTUBE SCH ×4 (04:03→22:36)
[2018-10-08] MEDS: Omeprazole 2 MG/ML 150 ML Kit GTUBE SCH ×2 (06:31→17:37)
[2018-10-08] MEDS: amLODIPine 5 MG Tab FTUBE SCH (08:12)
[2018-10-08] MEDS: B.Bifidum/B.Longum/L.Acidophilus/L.Rhamnosus (Probiotic) Cap PEGTUBE SCH (08:12)
[2018-10-08] MEDS: Cholecalciferol (Vitamin D3) 1,000 Unit Tab PEGTUBE SCH (08:12)
[2018-10-08] MEDS: Nystatin Susp 100,000 Unit/ML 5 ML UD Cup PO SCH ×4 (08:13→21:56)
[2018-10-08] MEDS: Sertraline 50 MG Tab PEGTUBE SCH (08:13)
[2018-10-08] MEDS: Psyllium Husk Powder Sugar Free 5.85 GM Packet PEGTUBE SCH ×2 (08:13→21:55)
[2018-10-08] MEDS: Latanoprost 0.005% Ophth Soln 2.5 ML Bottle EYEBOTH SCH (08:13)
[2018-10-08] MEDS: Lisinopril 5 MG Tab PEGTUBE SCH (08:13)
[2018-10-08] MEDS: Carvedilol 12.5 MG Tab PEGTUBE SCH ×2 (08:13→21:56)
[2018-10-08] MEDS: Zinc Oxide/Eucerin/Nystatin/Karaya 237 ML JAR TOP SCH (10:03)
[2018-10-08] MEDS: atorvaSTATin 10 MG Tab PEGTUBE SCH (21:55)
[2018-10-09] MEDS: guaiFENesin 100 MG/5 ML Soln 5 ML UD Cup PEGTUBE SCH ×4 (05:46→23:50)
[2018-10-09] MEDS: Omeprazole 2 MG/ML 150 ML Kit GTUBE SCH ×2 (07:22→17:33)
[2018-10-09] MEDS: Latanoprost 0.005% Ophth Soln 2.5 ML Bottle EYEBOTH SCH (08:52)
[2018-10-09] MEDS: Psyllium Husk Powder Sugar Free 5.85 GM Packet PEGTUBE SCH ×2 (08:52→21:07)
[2018-10-09] MEDS: Nystatin Susp 100,000 Unit/ML 5 ML UD Cup PO SCH ×4 (08:54→21:07)
[2018-10-09] MEDS: Cholecalciferol (Vitamin D3) 1,000 Unit Tab PEGTUBE SCH (08:55)
[2018-10-09] MEDS: B.Bifidum/B.Longum/L.Acidophilus/L.Rhamnosus (Probiotic) Cap PEGTUBE SCH (08:55)
[2018-10-09] MEDS: Sertraline 50 MG Tab PEGTUBE SCH (08:55)
[2018-10-09] MEDS: Carvedilol 12.5 MG Tab PEGTUBE SCH ×2 (08:57→21:06)
[2018-10-09] MEDS: amLODIPine 5 MG Tab FTUBE SCH (08:57)
[2018-10-09] MEDS: Lisinopril 5 MG Tab PEGTUBE SCH (08:57)
[2018-10-09] MEDS: atorvaSTATin 10 MG Tab PEGTUBE SCH (21:06)
[2018-10-10] MEDS: Zinc Oxide/Eucerin/Nystatin/Karaya 237 ML JAR TOP PRN ×2 (04:23→11:34)
[2018-10-10] MEDS: guaiFENesin 100 MG/5 ML Soln 5 ML UD Cup PEGTUBE SCH ×4 (05:47→23:55)
[2018-10-10] MEDS: Omeprazole 2 MG/ML 150 ML Kit GTUBE SCH ×2 (07:27→17:30)
[2018-10-10] MEDS: Carvedilol 12.5 MG Tab PEGTUBE SCH ×2 (08:51→21:25)
[2018-10-10] MEDS: Psyllium Husk Powder Sugar Free 5.85 GM Packet PEGTUBE SCH ×2 (08:51→21:32)
[2018-10-10] MEDS: amLODIPine 5 MG Tab FTUBE SCH (08:51)
[2018-10-10] MEDS: B.Bifidum/B.Longum/L.Acidophilus/L.Rhamnosus (Probiotic) Cap PEGTUBE SCH (08:51)
[2018-10-10] MEDS: Lisinopril 5 MG Tab PEGTUBE SCH (08:51)
[2018-10-10] MEDS: Cholecalciferol (Vitamin D3) 1,000 Unit Tab PEGTUBE SCH (08:51)
[2018-10-10] MEDS: Sertraline 50 MG Tab PEGTUBE SCH (08:51)
[2018-10-10] MEDS: Nystatin Susp 100,000 Unit/ML 5 ML UD Cup PO SCH ×4 (08:52→21:43)
[2018-10-10] MEDS: Latanoprost 0.005% Ophth Soln 2.5 ML Bottle EYEBOTH SCH (09:09)
[2018-10-10] MEDS: Fluconazole 100 MG Tab PEGTUBE SCH (12:15)
[2018-10-10] MEDS: atorvaSTATin 10 MG Tab PEGTUBE SCH (21:25)
[2018-10-11] MEDS: guaiFENesin 100 MG/5 ML Soln 5 ML UD Cup PEGTUBE SCH ×4 (05:45→22:10)
[2018-10-11] MEDS: Albuterol/Ipratropium 3.0-0.5 MG/3 ML Neb Soln NEB PRN (06:15)
[2018-10-11] MEDS: Sodium Chloride 7% 4 ML Neb Soln NEB PRN (06:16)
[2018-10-11] MEDS: Sertraline 50 MG Tab PEGTUBE SCH (10:13)
[2018-10-11] MEDS: Latanoprost 0.005% Ophth Soln 2.5 ML Bottle EYEBOTH SCH (10:15)
[2018-10-11] MEDS: Cholecalciferol (Vitamin D3) 1,000 Unit Tab PEGTUBE SCH (10:15)
[2018-10-11] MEDS: B.Bifidum/B.Longum/L.Acidophilus/L.Rhamnosus (Probiotic) Cap PEGTUBE SCH (10:16)
[2018-10-11] MEDS: amLODIPine 5 MG Tab FTUBE SCH (10:16)
[2018-10-11] MEDS: Nystatin Susp 100,000 Unit/ML 5 ML UD Cup PO SCH ×4 (10:16→22:07)
[2018-10-11] MEDS: Lisinopril 5 MG Tab PEGTUBE SCH (10:16)
[2018-10-11] MEDS: Fluconazole 100 MG Tab PEGTUBE SCH (10:17)
[2018-10-11] MEDS: Carvedilol 12.5 MG Tab PEGTUBE SCH ×2 (10:17→22:06)
[2018-10-11] MEDS: Psyllium Husk Powder Sugar Free 5.85 GM Packet PEGTUBE SCH ×2 (10:17→22:08)
[2018-10-11] MEDS: Omeprazole 2 MG/ML 150 ML Kit GTUBE SCH ×2 (10:17→16:40)
[2018-10-11] MEDS: atorvaSTATin 10 MG Tab PEGTUBE SCH (22:07)
[2018-10-12] MEDS: Albuterol/Ipratropium 3.0-0.5 MG/3 ML Neb Soln NEB PRN (04:07)
[2018-10-12] MEDS: Sodium Chloride 7% 4 ML Neb Soln NEB PRN (04:07)
[2018-10-12] MEDS: guaiFENesin 100 MG/5 ML Soln 5 ML UD Cup PEGTUBE SCH ×4 (05:41→22:25)
[2018-10-12 07:56] LABS: CHLORIDE,CL 98 mmol/L (98-115); SODIUM,NA 139 mmol/L (136-145)
--- NOTE | 2018-10-12 08:08 | CR ---
[id number] RAD/RAD Chest PA or AP 1V EXAM: FRONTAL CHEST INDICATION: Decreased oxygenation. COMPARISON: October 04, 2018. DISCUSSION: Significant hypoinflation limits this assessment. Bibasilar atelectasis and possible infiltrates. Tracheostomy appliance overlying the mid to upper trachea. Blunting of lateral costophrenic angles raises the possibility of small effusions. IMPRESSION: 1. Mild bibasilar atelectasis and probable infiltrates. Douglas Acuña MD 10/12/18 0804 Thank you for allowing us to participate in the care of your patient.
[2018-10-12] MEDS: Omeprazole 2 MG/ML 150 ML Kit GTUBE SCH ×2 (08:40→16:45)
[2018-10-12] MEDS: B.Bifidum/B.Longum/L.Acidophilus/L.Rhamnosus (Probiotic) Cap PEGTUBE SCH (08:41)
[2018-10-12] MEDS: Psyllium Husk Powder Sugar Free 5.85 GM Packet PEGTUBE SCH ×2 (08:41→20:24)
[2018-10-12] MEDS: Fluconazole 100 MG Tab PEGTUBE SCH (08:41)
[2018-10-12] MEDS: Cholecalciferol (Vitamin D3) 1,000 Unit Tab PEGTUBE SCH (08:41)
[2018-10-12] MEDS: Sertraline 50 MG Tab PEGTUBE SCH (08:41)
[2018-10-12] MEDS: Nystatin Susp 100,000 Unit/ML 5 ML UD Cup PO SCH ×4 (09:06→20:24)
[2018-10-12] MEDS: Latanoprost 0.005% Ophth Soln 2.5 ML Bottle EYEBOTH SCH (09:09)
[2018-10-12] MEDS: Zinc Oxide/Eucerin/Nystatin/Karaya 237 ML JAR TOP PRN (09:11)
[2018-10-12] MEDS: Sodium Chloride 0.9% 100 ML IV SCH (10:50)
[2018-10-12] MEDS: Piperacillin/Tazobactam 4.5 GM in Sodium Chloride 0.9% 100 ML IV SCH ×3 (11:19→22:25)
[2018-10-12] MEDS: Sodium Chloride 0.9% 10 ML Syringe FLUSH PRN ×3 (14:07→18:30)
[2018-10-12] MEDS: atorvaSTATin 10 MG Tab PEGTUBE SCH (20:24)
[2018-10-13] MEDS: Sodium Chloride 0.9% 10 ML Syringe FLUSH PRN ×4 (05:07→22:22)
[2018-10-13] MEDS: Piperacillin/Tazobactam 4.5 GM in Sodium Chloride 0.9% 100 ML IV SCH ×4 (05:10→22:19)
[2018-10-13] MEDS: Zinc Oxide/Eucerin/Nystatin/Karaya 237 ML JAR TOP PRN (05:29)
[2018-10-13] MEDS: guaiFENesin 100 MG/5 ML Soln 5 ML UD Cup PEGTUBE SCH ×4 (05:29→22:19)
[2018-10-13] MEDS: Sodium Chloride 7% 4 ML Neb Soln NEB PRN (06:07)
[2018-10-13] MEDS: Albuterol/Ipratropium 3.0-0.5 MG/3 ML Neb Soln NEB PRN (06:08)
[2018-10-13] MEDS: Omeprazole 2 MG/ML 150 ML Kit GTUBE SCH ×2 (06:49→17:32)
[2018-10-13] MEDS: Lisinopril 5 MG Tab PEGTUBE SCH (08:59)
[2018-10-13] MEDS: amLODIPine 5 MG Tab FTUBE SCH (08:59)
[2018-10-13] MEDS: Carvedilol 12.5 MG Tab PEGTUBE SCH ×2 (08:59→22:20)
[2018-10-13] MEDS: Sertraline 50 MG Tab PEGTUBE SCH (08:59)
[2018-10-13] MEDS: Fluconazole 100 MG Tab PEGTUBE SCH (08:59)
[2018-10-13] MEDS: Nystatin Susp 100,000 Unit/ML 5 ML UD Cup PO SCH ×4 (09:00→22:19)
[2018-10-13] MEDS: B.Bifidum/B.Longum/L.Acidophilus/L.Rhamnosus (Probiotic) Cap PEGTUBE SCH (09:00)
[2018-10-13] MEDS: Cholecalciferol (Vitamin D3) 1,000 Unit Tab PEGTUBE SCH (09:00)
[2018-10-13] MEDS: Latanoprost 0.005% Ophth Soln 2.5 ML Bottle EYEBOTH SCH (09:00)
[2018-10-13] MEDS: Psyllium Husk Powder Sugar Free 5.85 GM Packet PEGTUBE SCH ×2 (09:00→22:20)
[2018-10-13] MEDS: Sodium Chloride 0.9% 100 ML IV SCH ×2 (10:53→22:54)
[2018-10-13] MEDS: atorvaSTATin 10 MG Tab PEGTUBE SCH (22:20)
[2018-10-14] MEDS: Piperacillin/Tazobactam 4.5 GM in Sodium Chloride 0.9% 100 ML IV SCH ×4 (05:04→22:05)
[2018-10-14] MEDS: guaiFENesin 100 MG/5 ML Soln 5 ML UD Cup PEGTUBE SCH ×4 (05:11→22:05)
[2018-10-14] MEDS: Omeprazole 2 MG/ML 150 ML Kit GTUBE SCH ×2 (07:25→16:47)
[2018-10-14] MEDS: Albuterol/Ipratropium 3.0-0.5 MG/3 ML Neb Soln NEB PRN (07:48)
[2018-10-14] MEDS: Sodium Chloride 7% 4 ML Neb Soln NEB PRN (07:49)
[2018-10-14] MEDS: Nystatin Susp 100,000 Unit/ML 5 ML UD Cup PO SCH ×4 (08:37→21:12)
[2018-10-14] MEDS: Cholecalciferol (Vitamin D3) 1,000 Unit Tab PEGTUBE SCH (08:37)
[2018-10-14] MEDS: B.Bifidum/B.Longum/L.Acidophilus/L.Rhamnosus (Probiotic) Cap PEGTUBE SCH (08:37)
[2018-10-14] MEDS: Fluconazole 100 MG Tab PEGTUBE SCH (08:37)
[2018-10-14] MEDS: amLODIPine 5 MG Tab FTUBE SCH (08:37)
[2018-10-14] MEDS: Lisinopril 5 MG Tab PEGTUBE SCH (08:37)
[2018-10-14] MEDS: Sertraline 50 MG Tab PEGTUBE SCH (08:38)
[2018-10-14] MEDS: Psyllium Husk Powder Sugar Free 5.85 GM Packet PEGTUBE SCH ×2 (08:38→21:12)
[2018-10-14] MEDS: Carvedilol 12.5 MG Tab PEGTUBE SCH ×2 (08:38→21:12)
[2018-10-14] MEDS: Latanoprost 0.005% Ophth Soln 2.5 ML Bottle EYEBOTH SCH (08:40)
[2018-10-14] MEDS: Sodium Chloride 0.9% 100 ML IV SCH (10:31)
[2018-10-14] MEDS: atorvaSTATin 10 MG Tab PEGTUBE SCH (21:12)
[2018-10-15] MEDS: guaiFENesin 100 MG/5 ML Soln 5 ML UD Cup PEGTUBE SCH ×4 (04:48→22:57)
[2018-10-15] MEDS: Piperacillin/Tazobactam 4.5 GM in Sodium Chloride 0.9% 100 ML IV SCH ×4 (04:49→22:58)
[2018-10-15] MEDS: Omeprazole 2 MG/ML 150 ML Kit GTUBE SCH ×2 (07:53→17:13)
[2018-10-15] MEDS: Nystatin Susp 100,000 Unit/ML 5 ML UD Cup PO SCH ×2 (09:09→12:00)
[2018-10-15] MEDS: Cholecalciferol (Vitamin D3) 1,000 Unit Tab PEGTUBE SCH (09:10)
[2018-10-15] MEDS: B.Bifidum/B.Longum/L.Acidophilus/L.Rhamnosus (Probiotic) Cap PEGTUBE SCH (09:10)
[2018-10-15] MEDS: Psyllium Husk Powder Sugar Free 5.85 GM Packet PEGTUBE SCH ×2 (09:11→20:13)
[2018-10-15] MEDS: Sertraline 50 MG Tab PEGTUBE SCH (09:11)
[2018-10-15] MEDS: amLODIPine 5 MG Tab FTUBE SCH (09:12)
[2018-10-15] MEDS: Carvedilol 12.5 MG Tab PEGTUBE SCH ×2 (09:12→20:11)
[2018-10-15] MEDS: Lisinopril 5 MG Tab PEGTUBE SCH (09:13)
[2018-10-15] MEDS: Fluconazole 100 MG Tab PEGTUBE SCH (09:14)
[2018-10-15] MEDS: Latanoprost 0.005% Ophth Soln 2.5 ML Bottle EYEBOTH SCH (09:15)
[2018-10-15] MEDS: Sodium Chloride 0.9% 100 ML IV SCH (10:36)
[2018-10-15] MEDS: Nystatin Susp 100,000 Unit/ML 60 ML Bottle PO SCH ×3 (15:29→20:36)
[2018-10-15] MEDS: atorvaSTATin 10 MG Tab PEGTUBE SCH (20:13)
[2018-10-16] MEDS: Sodium Chloride 0.9% 10 ML Syringe FLUSH PRN ×2 (01:31→05:49)
[2018-10-16] MEDS: Piperacillin/Tazobactam 4.5 GM in Sodium Chloride 0.9% 100 ML IV SCH ×4 (04:57→22:31)
[2018-10-16] MEDS: Sodium Chloride 0.9% 100 ML IV SCH ×2 (04:58→10:45)
[2018-10-16] MEDS: guaiFENesin 100 MG/5 ML Soln 5 ML UD Cup PEGTUBE SCH ×4 (05:08→22:15)
[2018-10-16] MEDS: Omeprazole 2 MG/ML 150 ML Kit GTUBE SCH ×2 (07:24→18:01)
[2018-10-16] MEDS: Cholecalciferol (Vitamin D3) 1,000 Unit Tab PEGTUBE SCH (09:45)
[2018-10-16] MEDS: Psyllium Husk Powder Sugar Free 5.85 GM Packet PEGTUBE SCH ×2 (09:45→21:58)
[2018-10-16] MEDS: B.Bifidum/B.Longum/L.Acidophilus/L.Rhamnosus (Probiotic) Cap PEGTUBE SCH (09:46)
[2018-10-16] MEDS: Sertraline 50 MG Tab PEGTUBE SCH (09:46)
[2018-10-16] MEDS: Fluconazole 100 MG Tab PEGTUBE SCH (09:46)
[2018-10-16] MEDS: Latanoprost 0.005% Ophth Soln 2.5 ML Bottle EYEBOTH SCH (09:46)
[2018-10-16] MEDS: Nystatin Susp 100,000 Unit/ML 60 ML Bottle PO SCH ×4 (09:47→21:59)
[2018-10-16] MEDS: amLODIPine 5 MG Tab FTUBE SCH (09:50)
[2018-10-16] MEDS: Lisinopril 5 MG Tab PEGTUBE SCH (09:50)
[2018-10-16] MEDS: Carvedilol 12.5 MG Tab PEGTUBE SCH ×2 (09:50→21:58)
[2018-10-16] MEDS: atorvaSTATin 10 MG Tab PEGTUBE SCH (21:58)
[2018-10-17] MEDS: Nystatin Susp 100,000 Unit/ML 60 ML Bottle PO SCH ×4 (01:00→20:32)
[2018-10-17] MEDS: guaiFENesin 100 MG/5 ML Soln 5 ML UD Cup PEGTUBE SCH ×4 (04:56→22:31)
[2018-10-17] MEDS: Piperacillin/Tazobactam 4.5 GM in Sodium Chloride 0.9% 100 ML IV SCH ×4 (04:57→22:32)
[2018-10-17] MEDS: Sodium Chloride 0.9% 10 ML Syringe FLUSH PRN ×2 (04:57→05:44)
[2018-10-17] MEDS: Omeprazole 2 MG/ML 150 ML Kit GTUBE SCH ×2 (07:35→17:50)
[2018-10-17] MEDS: B.Bifidum/B.Longum/L.Acidophilus/L.Rhamnosus (Probiotic) Cap PEGTUBE SCH (08:46)
[2018-10-17] MEDS: Fluconazole 100 MG Tab PEGTUBE SCH (08:46)
[2018-10-17] MEDS: Latanoprost 0.005% Ophth Soln 2.5 ML Bottle EYEBOTH SCH (08:46)
[2018-10-17] MEDS: Lisinopril 5 MG Tab PEGTUBE SCH (08:46)
[2018-10-17] MEDS: Cholecalciferol (Vitamin D3) 1,000 Unit Tab PEGTUBE SCH (08:46)
[2018-10-17] MEDS: Sertraline 50 MG Tab PEGTUBE SCH (08:46)
[2018-10-17] MEDS: amLODIPine 5 MG Tab FTUBE SCH (08:46)
[2018-10-17] MEDS: Carvedilol 12.5 MG Tab PEGTUBE SCH ×2 (08:46→20:36)
[2018-10-17] MEDS: Psyllium Husk Powder Sugar Free 5.85 GM Packet PEGTUBE SCH ×2 (10:05→20:32)
--- NOTE | 2018-10-17 10:26 | PCM.PN ---
- General Info Date of Service: 10/17/18 Subjective Update: Mrs. Davis denies any complaints this morning, including pain or difficulty breathing. Remainder of history limited due to tracheostomy status. No new concerns. Has started to ambulate in room some. Functional Status: Reports: Tolerating Diet, Ambulating. Denies: New Symptoms - Review of Systems General: Reports: No Symptoms Pulmonary: Reports: Sputum Cardiovascular: Denies: Chest Pain, Edema Gastrointestinal: Denies: Abdominal Pain Genitourinary: Reports: Incontinence Psychiatric: Denies: Agitation - Patient Data Vitals - Most Recent: Last Vital Signs Temp 97.4 F 10/17/18 06:15 Pulse 68 10/17/18 08:46 Resp 20 10/17/18 06:15 BP 150/71 H 10/17/18 08:46 Pulse Ox 94 L 10/17/18 06:15 Weight - Most Recent: 159 lb 9 oz I&O - Last 24 Hours: Intake & Output 10/16/18 10/17/18 10/17/18 22:59 06:59 14:59 Intake Total 553 1512 Balance 553 1512 Lab Results Last 24 Hours: Laboratory Results - last 24 hr 10/16/18 Range/Units 11:45 Vancomycin Trough 22.7 H* (10-20) ug/mL Med Orders - Current: Current Medications Albuterol/Ipratropium (Duoneb 3.0-0.5 Mg/3 Ml) 3 ml NEB BEDTIME PRN PRN Reason: Shortness of Breath Albuterol/Ipratropium (Duoneb 3.0-0.5 Mg/3 Ml) 3 ml NEB QID PRN PRN Reason: Shortness of Breath Last Admin: 10/14/18 07:48 Dose: 3 ml Amlodipine Besylate (Norvasc) 5 mg FTUBE DAILY [facility] Last Admin: 10/17/18 08:46 Dose: 5 mg Atorvastatin Calcium (Lipitor) 10 mg PEGTUBE BEDTIME [facility] Last Admin: 10/16/18 21:58 Dose: 10 mg Carvedilol (Coreg) 25 mg PEGTUBE BID [facility] Last Admin: 10/17/18 08:46 Dose: 25 mg Cholecalciferol (Vitamin D3) 2,000 units PEGTUBE DAILY [facility] Last Admin: 10/17/18 08:46 Dose: 2,000 units Fluconazole (Diflucan) 200 mg PEGTUBE DAILY [facility] Stop: 10/17/18 11:46 Last Admin: 10/17/18 08:46 Dose: 200 mg Guaifenesin (Robitussin) 200 mg PEGTUBE Q6HR [facility] Last Admin: 10/17/18 04:56 Dose: 200 mg Piperacillin Sod/Tazobactam (Sod 4.5 gm/ Sodium Chloride) 100 mls @ 200 mls/hr IV Q6HR [facility] Last Admin: 10/17/18 04:57 Dose: 200 mls/hr Sodium Chloride (Normal Saline) 100 mls @ 100 mls/hr IV Q24H [facility] Last Admin: 10/16/18 10:45 Dose: 100 mls/hr Vancomycin HCl 1 gm/ Sodium (Chloride) 270 mls @ 180 mls/hr IV Q24H [facility] Last Admin: 10/16/18 23:26 Dose: 180 mls/hr Lactobacillus Acidophilus/Rhamnosus (Multi-Lissette Plus) 1 cap PEGTUBE DAILY [facility] Last Admin: 10/17/18 08:46 Dose: 1 cap Latanoprost (Xalatan 0.005% Ophth Soln) 0 ml EYEBOTH DAILY [facility] Last Admin: 10/17/18 08:46 Dose: 1 drop Lisinopril (Prinivil) 5 mg PEGTUBE DAILY [facility] Last Admin: 10/17/18 08:46 Dose: 5 mg Multi-Ingred Cream/Lotion/Oil/Oint (Kmed) 1 ml TOP QID PRN PRN Reason: Other Last Admin: 10/13/18 05:29 Dose: 1 applic Nystatin (Mycostatin) 5 ml PO QID [facility] Last Admin: 10/17/18 08:50 Dose: 5 ml Omeprazole (First-Omeprazole) 10 each GTUBE BIDAC [facility] Last Admin: 10/17/18 07:35 Dose: 10 ml Psyllium Husk (Metamucil Sugar Free) 1 pkt PEGTUBE BID [facility] Last Admin: 10/17/18 10:05 Dose: 1 pkt Sertraline HCl (Zoloft) 50 mg PEGTUBE DAILY [facility] Last Admin: 10/17/18 08:46 Dose: 50 mg Sodium Chloride (Saline Flush) 10 ml FLUSH Q8HR PRN PRN Reason: Keep Vein Open Last Admin: 10/17/18 05:44 Dose: 10 ml Sodium Chloride (Hypersal 7%) 4 ml NEB QID PRN PRN Reason: Other Last Admin: 10/14/18 07:49 Dose: 4 ml Vancomycin HCl (Pharmacy To Dose - Vancomycin) 1 dose .XX ASDIRECTED [facility] Discontinued Medications Albuterol/Ipratropium (Duoneb 3.0-0.5 Mg/3 Ml) 3 ml NEB QIDRT [facility] Last Admin: 10/06/18 04:29 Dose: 3 ml Bacitracin (Get Ointment) 237 ml .ROUTE .STK-MED ONE Stop: 09/27/18 11:01 Ceftriaxone Sodium (Rocephin) 1 gm IVPUSH Q24H [facility] Stop: 10/03/18 18:00 Last Admin: 10/03/18 16:19 Dose: 1 gm Fluconazole (Diflucan) 150 mg PO ONETIME ONE Stop: 10/04/18 10:06 Last Admin: 10/04/18 11:36 Dose: Not Given Fluconazole (Diflucan) 150 mg PEGTUBE ONETIME ONE Stop: 10/04/18 11:31 Last Admin: 10/04/18 12:35 Dose: 150 mg Guaifenesin (Robitussin) 200 mg PO Q6HR [facility] Last Admin: 10/04/18 12:15 Dose: Not Given Levofloxacin/Dextrose (Levaquin In D5w 500 Mg/100 Ml) 100 mls @ 100 mls/hr IV Q48H [facility] Stop: 10/03/18 13:00 Last Admin: 10/03/18 11:19 Dose: 100 mls/hr Levofloxacin/Dextrose (Levaquin In D5w 250 Mg/50 Ml) 50 mls @ 50 mls/hr IV Q48H [facility] Stop: 10/03/18 13:00 Last Admin: 10/03/18 12:59 Dose: 50 mls/hr Sodium Chloride (Normal Saline) 50 mls @ 20 mls/hr IV DAILY@1130 [facility] Last Admin: 10/03/18 11:26 Dose: Not Given Vancomycin HCl 1 gm/ Sodium (Chloride) 270 mls @ 180 mls/hr IV Q12H [facility] Last Admin: 10/16/18 12:52 Dose: Not Given Multi-Ingred Cream/Lotion/Oil/Oint (Kmed) 0 ml TOP QID [facility] Last Admin: 10/08/18 10:03 Dose: Not Given Non-Form Get (Ointment) 1 each TOP Q4HR [facility] Last Admin: 09/30/18 16:22 Dose: 1 each Nystatin (Mycostatin) 5 ml PO QID [facility] Last Admin: 10/15/18 12:00 Dose: 5 ml Psyllium Husk (Metamucil Sugar Free) 1 pkt PEGTUBE DAILY [facility] Last Admin: 10/04/18 08:25 Dose: 1 pkt Sodium Chloride (Hypersal 7%) 4 ml NEB QIDRT [facility] Last Admin: 10/06/18 14:42 Dose: Not Given - Exam Quality Assessment: Supplemental Oxygen General: Alert, Oriented, Cooperative, No Acute Distress Lungs: Rhonchi Cardiovascular: Regular Rate, Regular Rhythm GI/Abdominal Exam: Soft, No Distention. No: Distended Back Exam: No: CVA Tenderness (L), CVA Tenderness (R) Extremities: No Pedal Edema Peripheral Pulses: 2+: Radial (L), Radial (R) Skin: Warm, Dry, Intact Psy/Mental Status: Alert. No: Agitated - Problem List Review Problem List Initiated/Reviewed/Updated: Yes - My Orders Last 24 Hours: My Active Orders 10/16/18 23:00 Vancomycin 1 gm Sodium Chloride 0.9% [Normal Saline] 250 ml IV Q24H - Plan Plan:: HPI summary: Mrs. 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 She was subsequently transferred to [facility]. She was unable to have tracheostomy removed due to increased secretions and was eventually discharged to [facility] in [place], [place]. On 09/20/18, she was initially admitted to the [facility] due to significant shortness of breath, hypoxia, and respiratory failure found to be due to pneumonia and also with NSTEMI. She had clinical improvement with antibiotics and and aggressive pulmonary toileting. Due to complexity of care, she was deemed to not be a good candidate for return back to [facility] and was instead transferred to [facility] bed status at [facility] for ongoing care awaiting improvement in clinical status and eventual appropriate placement closer to family in the [place] area. Interval hospital course: [facility], she has finished the 2 week course of antibiotics for pneumonia and has had overall improvement in respiratory status , including less frequent suctioning. Tube feedings have resumed via the PEG tube and she has had overall good toleration of this with recent residuals improved from prior. From a clinical standpoint, she appears to be at her prior baseline respiratory status when she was discharged from [facility], though she has ongoing care needs due to tracheostomy status and PEG tube. 's primary concern is regarding the removal of the tracheostomy, which he states was promised to him to only be in place for a few weeks. [facility] and [facility] no willing to accept patient for capping trial at this time. [facility] is a possibility for capping trial at some point. She would likely need overnight capping trial. On Oct 12, patient started to have increased secretions with elevated WBC, Cxr confirmed probable infiltrate. she was stated on dual abx with broad spectrum and vancomycin. No fevers. But has been improving. Update today, patient started to ambulate in room, major improvement in status. Primary hospital problems: Pneumonia, bilateral, HCAP, recurrent. On abx, improving clinically. Deconditioning, stable Ongoing secretions, slight improvment Tracheostomy status Protein calorie malnutrition UTI, Escherichia coli and Pseudomonas, s/p abx course, resolved Stable, chronic problems: HFpEF: Volume status neutral. Continue current management. Hx NSTEMI: Troponin downtrended during acute hospitalization. No ongoing clinical concerns. Hx recurrent intracerebral hemorrhages Atrial fibrillation: Continue carvedilol. [id number] high, but anticoagulation contraindicated in setting of recurrent hemorrhagic CVAs. HTN: Controlled. Continue amlodipine. HLD: Continue atorvastatin. GERD: Continue omeprazole. Vitamin D deficiency: Continue vitamin D. Depression, major, recurrent: Continue sertraline. Glaucoma: Continue latanoprost. Maintenance FEN: No IVF. Electrolytes stable. PEG tube feedings, now on Osmolyte with psyllium with good toleration. Residuals low. PPX: Teds as pharmacologic DVT prophylaxis contraindicated in setting of recurrent hemorrhagic CVAs. PPI for GI prophylaxis. Code status: DNR. Emergency contact: (Naga) and Son (Lew), who have been notified of patient status on multiple occasions recently. Disposition: Continue on swing bed status. Repeat CXR in am with labs, kamily can de- escalate abx. Patient will likely need capping trial as some point in future especially in light of her progressing and and starting to ambulate. cont working with SS here with outside facilities to consider transfer for possible tracheostomy OVERNIGHT capping trial and long-term placement.
[2018-10-17] MEDS: Sodium Chloride 0.9% 100 ML IV SCH (11:29)
[2018-10-17] MEDS: atorvaSTATin 10 MG Tab PEGTUBE SCH (20:32)
[2018-10-18] MEDS: Sodium Chloride 7% 4 ML Neb Soln NEB PRN (04:31)
[2018-10-18] MEDS: Piperacillin/Tazobactam 4.5 GM in Sodium Chloride 0.9% 100 ML IV SCH ×4 (04:32→22:42)
[2018-10-18] MEDS: guaiFENesin 100 MG/5 ML Soln 5 ML UD Cup PEGTUBE SCH ×4 (05:15→22:20)
[2018-10-18] MEDS: Omeprazole 2 MG/ML 150 ML Kit GTUBE SCH ×2 (07:13→17:58)
[2018-10-18 07:40] LABS: ANION GAP 12.8 mmol/L (5-15); CHLORIDE,CL 102 mmol/L (98-115); SODIUM,NA 141 mmol/L (136-145)
[2018-10-18] MEDS: Psyllium Husk Powder Sugar Free 5.85 GM Packet PEGTUBE SCH ×2 (09:27→21:57)
[2018-10-18] MEDS: Lisinopril 5 MG Tab PEGTUBE SCH (09:28)
[2018-10-18] MEDS: Sertraline 50 MG Tab PEGTUBE SCH (09:28)
[2018-10-18] MEDS: amLODIPine 5 MG Tab FTUBE SCH (09:28)
[2018-10-18] MEDS: Latanoprost 0.005% Ophth Soln 2.5 ML Bottle EYEBOTH SCH (09:28)
[2018-10-18] MEDS: B.Bifidum/B.Longum/L.Acidophilus/L.Rhamnosus (Probiotic) Cap PEGTUBE SCH (09:28)
[2018-10-18] MEDS: Nystatin Susp 100,000 Unit/ML 60 ML Bottle PO SCH ×2 (09:28→13:03)
[2018-10-18] MEDS: Cholecalciferol (Vitamin D3) 1,000 Unit Tab PEGTUBE SCH (09:28)
[2018-10-18] MEDS: Carvedilol 12.5 MG Tab PEGTUBE SCH ×2 (09:28→21:50)
[2018-10-18] MEDS ORDERED: Potassium Bicarbonate/Potassium Chloride 25 MEQ Tab.Eff PO ONE ×2 (09:39→17:00)
[2018-10-18] MEDS: Sodium Chloride 0.9% 100 ML IV SCH (10:25)
--- NOTE | 2018-10-18 10:59 | CR ---
[id number] RAD/RAD Chest PA or AP 1V EXAM: SINGLE VIEW CHEST. INDICATION: FOLLOW-UP PNEUMONIA COMPARISON: CORRELATION IS MADE WITH THE EXAM OF OCTOBER 12, 2018. FINDINGS: Bibasilar hypoventilatory changes are seen with pleural reaction. The cardiac silhouette is stable. IMPRESSION: NO CHANGE SINCE LAST EXAM. Alonzo Campos MD 10/18/18 2946 Thank you for allowing us to participate in the care of your patient.
[2018-10-18] MEDS: Nystatin Susp 100,000 Unit/ML 5 ML UD Cup PO SCH ×2 (17:51→22:18)
[2018-10-18] MEDS: atorvaSTATin 10 MG Tab PEGTUBE SCH (21:50)
[2018-10-19] MEDS: Piperacillin/Tazobactam 4.5 GM in Sodium Chloride 0.9% 100 ML IV SCH ×4 (05:06→23:30)
[2018-10-19] MEDS: Sodium Chloride 0.9% 10 ML Syringe FLUSH PRN ×2 (05:09→18:58)
[2018-10-19] MEDS: guaiFENesin 100 MG/5 ML Soln 5 ML UD Cup PEGTUBE SCH ×4 (06:00→23:40)
[2018-10-19 08:27] LABS: ANION GAP 15.3 mmol/L (5-15); CHLORIDE,CL 102 mmol/L (98-115); SODIUM,NA 143 mmol/L (136-145)
[2018-10-19] MEDS: Nystatin Susp 100,000 Unit/ML 5 ML UD Cup PO SCH ×4 (09:00→20:39)
[2018-10-19] MEDS: Latanoprost 0.005% Ophth Soln 2.5 ML Bottle EYEBOTH SCH (09:02)
[2018-10-19] MEDS: Sertraline 50 MG Tab PEGTUBE SCH (09:02)
[2018-10-19] MEDS: amLODIPine 5 MG Tab FTUBE SCH (09:03)
[2018-10-19] MEDS: Cholecalciferol (Vitamin D3) 1,000 Unit Tab PEGTUBE SCH (09:03)
[2018-10-19] MEDS: Carvedilol 12.5 MG Tab PEGTUBE SCH ×2 (09:03→20:41)
[2018-10-19] MEDS: Lisinopril 5 MG Tab PEGTUBE SCH (09:03)
[2018-10-19] MEDS: B.Bifidum/B.Longum/L.Acidophilus/L.Rhamnosus (Probiotic) Cap PEGTUBE SCH (09:03)
[2018-10-19] MEDS: Omeprazole 2 MG/ML 150 ML Kit GTUBE SCH ×2 (09:04→18:45)
[2018-10-19] MEDS: Psyllium Husk Powder Sugar Free 5.85 GM Packet PEGTUBE SCH ×2 (09:04→20:39)
[2018-10-19] MEDS: Sodium Chloride 0.9% 100 ML IV SCH (11:49)
[2018-10-19] MEDS: atorvaSTATin 10 MG Tab PEGTUBE SCH (20:39)
[2018-10-19] MEDS: Zinc Oxide/Eucerin/Nystatin/Karaya 237 ML JAR TOP PRN (21:15)
[2018-10-20] MEDS: Piperacillin/Tazobactam 4.5 GM in Sodium Chloride 0.9% 100 ML IV SCH ×4 (05:17→23:17)
[2018-10-20] MEDS: guaiFENesin 100 MG/5 ML Soln 5 ML UD Cup PEGTUBE SCH ×4 (05:47→22:11)
[2018-10-20] MEDS: Omeprazole 2 MG/ML 150 ML Kit GTUBE SCH ×2 (07:28→17:36)
[2018-10-20] MEDS: Nystatin Susp 100,000 Unit/ML 5 ML UD Cup PO SCH ×2 (09:20→12:47)
[2018-10-20] MEDS: Latanoprost 0.005% Ophth Soln 2.5 ML Bottle EYEBOTH SCH (09:20)
[2018-10-20] MEDS: Cholecalciferol (Vitamin D3) 1,000 Unit Tab PEGTUBE SCH (09:23)
[2018-10-20] MEDS: B.Bifidum/B.Longum/L.Acidophilus/L.Rhamnosus (Probiotic) Cap PEGTUBE SCH (09:23)
[2018-10-20] MEDS: Psyllium Husk Powder Sugar Free 5.85 GM Packet PEGTUBE SCH ×2 (09:23→22:10)
[2018-10-20] MEDS: Sertraline 50 MG Tab PEGTUBE SCH (09:23)
[2018-10-20] MEDS: Lisinopril 5 MG Tab PEGTUBE SCH (09:27)
[2018-10-20] MEDS: amLODIPine 5 MG Tab FTUBE SCH (09:28)
[2018-10-20] MEDS: Carvedilol 12.5 MG Tab PEGTUBE SCH ×2 (09:28→22:10)
[2018-10-20] MEDS: Sodium Chloride 0.9% 10 ML Syringe FLUSH PRN ×2 (10:59→17:38)
[2018-10-20] MEDS: Sodium Chloride 0.9% 100 ML IV SCH (11:00)
[2018-10-20] MEDS: Zinc Oxide/Eucerin/Nystatin/Karaya 237 ML JAR TOP PRN ×3 (12:44→22:42)
[2018-10-20] MEDS: Nystatin Susp 100,000 Unit/ML 60 ML Bottle PO SCH ×2 (17:35→22:10)
[2018-10-20] MEDS: atorvaSTATin 10 MG Tab PEGTUBE SCH (22:09)
[2018-10-21] MEDS: Piperacillin/Tazobactam 4.5 GM in Sodium Chloride 0.9% 100 ML IV SCH ×4 (04:49→23:15)
[2018-10-21] MEDS: guaiFENesin 100 MG/5 ML Soln 5 ML UD Cup PEGTUBE SCH ×4 (04:53→23:52)
[2018-10-21] MEDS: Psyllium Husk Powder Sugar Free 5.85 GM Packet PEGTUBE SCH ×2 (09:30→21:55)
[2018-10-21] MEDS: Lisinopril 5 MG Tab PEGTUBE SCH (09:30)
[2018-10-21] MEDS: Latanoprost 0.005% Ophth Soln 2.5 ML Bottle EYEBOTH SCH (09:30)
[2018-10-21] MEDS: Nystatin Susp 100,000 Unit/ML 60 ML Bottle PO SCH ×4 (09:30→21:56)
[2018-10-21] MEDS: B.Bifidum/B.Longum/L.Acidophilus/L.Rhamnosus (Probiotic) Cap PEGTUBE SCH (09:30)
[2018-10-21] MEDS: Cholecalciferol (Vitamin D3) 1,000 Unit Tab PEGTUBE SCH (09:30)
[2018-10-21] MEDS: Omeprazole 2 MG/ML 150 ML Kit GTUBE SCH ×2 (09:30→18:33)
[2018-10-21] MEDS: amLODIPine 5 MG Tab FTUBE SCH (09:30)
[2018-10-21] MEDS: Sertraline 50 MG Tab PEGTUBE SCH (09:30)
[2018-10-21] MEDS: Carvedilol 12.5 MG Tab PEGTUBE SCH ×2 (09:30→21:55)
[2018-10-21] MEDS: Sodium Chloride 0.9% 100 ML IV SCH ×2 (11:50→23:10)
[2018-10-21] MEDS: Sodium Chloride 0.9% 10 ML Syringe FLUSH PRN ×2 (11:52→13:00)
[2018-10-21] MEDS: atorvaSTATin 10 MG Tab PEGTUBE SCH (21:55)
[2018-10-22] MEDS: Piperacillin/Tazobactam 4.5 GM in Sodium Chloride 0.9% 100 ML IV SCH ×4 (05:28→23:02)
[2018-10-22] MEDS: guaiFENesin 100 MG/5 ML Soln 5 ML UD Cup PEGTUBE SCH ×4 (05:31→23:47)
[2018-10-22] MEDS: Omeprazole 2 MG/ML 150 ML Kit GTUBE SCH ×2 (08:24→18:41)
[2018-10-22] MEDS: Psyllium Husk Powder Sugar Free 5.85 GM Packet PEGTUBE SCH ×2 (08:24→21:21)
[2018-10-22] MEDS: Cholecalciferol (Vitamin D3) 1,000 Unit Tab PEGTUBE SCH (08:24)
[2018-10-22] MEDS: Latanoprost 0.005% Ophth Soln 2.5 ML Bottle EYEBOTH SCH (08:24)
[2018-10-22] MEDS: Lisinopril 5 MG Tab PEGTUBE SCH (08:24)
[2018-10-22] MEDS: Carvedilol 12.5 MG Tab PEGTUBE SCH ×2 (08:25→21:23)
[2018-10-22] MEDS: Nystatin Susp 100,000 Unit/ML 60 ML Bottle PO SCH ×4 (08:25→21:33)
[2018-10-22] MEDS: Sertraline 50 MG Tab PEGTUBE SCH (08:25)
[2018-10-22] MEDS: amLODIPine 5 MG Tab FTUBE SCH (08:25)
[2018-10-22] MEDS: B.Bifidum/B.Longum/L.Acidophilus/L.Rhamnosus (Probiotic) Cap PEGTUBE SCH (08:25)
[2018-10-22] MEDS: Sodium Chloride 0.9% 100 ML IV SCH (12:10)
[2018-10-22] MEDS: Sodium Chloride 0.9% 10 ML Syringe FLUSH PRN (12:50)
[2018-10-22] MEDS: atorvaSTATin 10 MG Tab PEGTUBE SCH (21:21)
[2018-10-23] MEDS: Piperacillin/Tazobactam 4.5 GM in Sodium Chloride 0.9% 100 ML IV SCH ×4 (05:37→23:28)
[2018-10-23] MEDS: guaiFENesin 100 MG/5 ML Soln 5 ML UD Cup PEGTUBE SCH ×2 (05:37→11:42)
[2018-10-23] MEDS: Sodium Chloride 0.9% 10 ML Syringe FLUSH PRN ×4 (05:40→23:29)
[2018-10-23] MEDS: Omeprazole 2 MG/ML 150 ML Kit GTUBE SCH ×2 (06:33→17:24)
[2018-10-23] MEDS: Sertraline 50 MG Tab PEGTUBE SCH (08:33)
[2018-10-23] MEDS: Nystatin Susp 100,000 Unit/ML 60 ML Bottle PO SCH ×4 (08:33→20:26)
[2018-10-23] MEDS: Latanoprost 0.005% Ophth Soln 2.5 ML Bottle EYEBOTH SCH (08:33)
[2018-10-23] MEDS: Psyllium Husk Powder Sugar Free 5.85 GM Packet PEGTUBE SCH ×2 (08:33→20:25)
[2018-10-23] MEDS: Lisinopril 5 MG Tab PEGTUBE SCH (08:34)
[2018-10-23] MEDS: amLODIPine 5 MG Tab FTUBE SCH (08:34)
[2018-10-23] MEDS: Carvedilol 12.5 MG Tab PEGTUBE SCH ×2 (08:34→20:25)
[2018-10-23] MEDS: Cholecalciferol (Vitamin D3) 1,000 Unit Tab PEGTUBE SCH (08:34)
[2018-10-23] MEDS: B.Bifidum/B.Longum/L.Acidophilus/L.Rhamnosus (Probiotic) Cap PEGTUBE SCH (08:34)
[2018-10-23] MEDS: Sodium Chloride 0.9% 100 ML IV SCH (10:38)
[2018-10-23] MEDS ORDERED: Lisinopril 20 MG Tab PO SCH (12:30)
[2018-10-23] MEDS ORDERED: Lisinopril 5 MG Tab PO ONE (13:28)
[2018-10-23] MEDS: atorvaSTATin 10 MG Tab PEGTUBE SCH (20:25)
[2018-10-24] MEDS: Piperacillin/Tazobactam 4.5 GM in Sodium Chloride 0.9% 100 ML IV SCH ×4 (05:09→23:21)
[2018-10-24] MEDS: Sodium Chloride 0.9% 10 ML Syringe FLUSH PRN ×4 (05:12→23:18)
[2018-10-24] MEDS: Omeprazole 2 MG/ML 150 ML Kit GTUBE SCH ×2 (06:12→18:06)
[2018-10-24] MEDS: Latanoprost 0.005% Ophth Soln 2.5 ML Bottle EYEBOTH SCH (08:26)
[2018-10-24] MEDS: Nystatin Susp 100,000 Unit/ML 60 ML Bottle PO SCH ×4 (08:26→20:27)
[2018-10-24] MEDS: Cholecalciferol (Vitamin D3) 1,000 Unit Tab PEGTUBE SCH (08:28)
[2018-10-24] MEDS: amLODIPine 5 MG Tab FTUBE SCH (08:29)
[2018-10-24] MEDS: B.Bifidum/B.Longum/L.Acidophilus/L.Rhamnosus (Probiotic) Cap PEGTUBE SCH (08:29)
[2018-10-24] MEDS: Sertraline 50 MG Tab PEGTUBE SCH (08:29)
[2018-10-24] MEDS: Lisinopril 20 MG Tab PO SCH (08:29)
[2018-10-24] MEDS: Carvedilol 12.5 MG Tab PEGTUBE SCH ×2 (08:29→20:31)
[2018-10-24] MEDS: Psyllium Husk Powder Sugar Free 5.85 GM Packet PEGTUBE SCH ×2 (08:30→20:26)
[2018-10-24] MEDS: Sodium Chloride 0.9% 100 ML IV SCH (11:12)
[2018-10-24] MEDS: atorvaSTATin 10 MG Tab PEGTUBE SCH (20:26)
[2018-10-25] MEDS: Piperacillin/Tazobactam 4.5 GM in Sodium Chloride 0.9% 100 ML IV SCH (05:13)
[2018-10-25] MEDS: Omeprazole 2 MG/ML 150 ML Kit GTUBE SCH ×2 (06:16→17:46)
[2018-10-25] MEDS: Sodium Chloride 7% 4 ML Neb Soln NEB PRN (06:55)
[2018-10-25] MEDS: Albuterol/Ipratropium 3.0-0.5 MG/3 ML Neb Soln NEB PRN (06:56)
[2018-10-25] MEDS: B.Bifidum/B.Longum/L.Acidophilus/L.Rhamnosus (Probiotic) Cap PEGTUBE SCH (08:06)
[2018-10-25] MEDS: Psyllium Husk Powder Sugar Free 5.85 GM Packet PEGTUBE SCH ×2 (08:06→20:23)
[2018-10-25] MEDS: Nystatin Susp 100,000 Unit/ML 60 ML Bottle PO SCH ×4 (08:08→20:24)
[2018-10-25] MEDS: Lisinopril 20 MG Tab PO SCH (08:08)
[2018-10-25] MEDS: amLODIPine 5 MG Tab FTUBE SCH (08:08)
[2018-10-25] MEDS: Cholecalciferol (Vitamin D3) 1,000 Unit Tab PEGTUBE SCH (08:09)
[2018-10-25] MEDS: Latanoprost 0.005% Ophth Soln 2.5 ML Bottle EYEBOTH SCH (08:09)
[2018-10-25] MEDS: Sertraline 50 MG Tab PEGTUBE SCH (08:10)
[2018-10-25] MEDS: Carvedilol 12.5 MG Tab PEGTUBE SCH ×2 (08:31→20:24)
[2018-10-25] MEDS: Sodium Chloride 0.9% 100 ML IV SCH (17:57)
[2018-10-25] MEDS: atorvaSTATin 10 MG Tab PEGTUBE SCH (20:23)
[2018-10-26] MEDS: Omeprazole 2 MG/ML 150 ML Kit GTUBE SCH ×2 (06:14→17:20)
[2018-10-26] MEDS: Sodium Chloride 7% 4 ML Neb Soln NEB PRN (06:31)
[2018-10-26] MEDS: Albuterol/Ipratropium 3.0-0.5 MG/3 ML Neb Soln NEB PRN (06:32)
[2018-10-26] MEDS: Psyllium Husk Powder Sugar Free 5.85 GM Packet PEGTUBE SCH ×2 (08:33→21:35)
[2018-10-26] MEDS: Cholecalciferol (Vitamin D3) 1,000 Unit Tab PEGTUBE SCH (08:34)
[2018-10-26] MEDS: Nystatin Susp 100,000 Unit/ML 60 ML Bottle PO SCH (08:35)
[2018-10-26] MEDS: B.Bifidum/B.Longum/L.Acidophilus/L.Rhamnosus (Probiotic) Cap PEGTUBE SCH (08:35)
[2018-10-26] MEDS: Sertraline 50 MG Tab PEGTUBE SCH (08:35)
[2018-10-26] MEDS: Carvedilol 12.5 MG Tab PEGTUBE SCH ×2 (08:36→21:23)
[2018-10-26] MEDS: Latanoprost 0.005% Ophth Soln 2.5 ML Bottle EYEBOTH SCH (08:36)
[2018-10-26] MEDS: amLODIPine 5 MG Tab FTUBE SCH (08:36)
[2018-10-26] MEDS: Lisinopril 20 MG Tab PO SCH (08:37)
[2018-10-26] MEDS ORDERED: Fluconazole 100 MG Tab PEGTUBE ONE ×2 (09:00→11:00)
[2018-10-26] MEDS: atorvaSTATin 10 MG Tab PEGTUBE SCH (21:23)
[2018-10-27] MEDS: Sodium Chloride 7% 4 ML Neb Soln NEB PRN (06:03)
[2018-10-27] MEDS: Albuterol/Ipratropium 3.0-0.5 MG/3 ML Neb Soln NEB PRN (06:03)
[2018-10-27] MEDS: Omeprazole 2 MG/ML 150 ML Kit GTUBE SCH ×2 (06:48→17:15)
[2018-10-27 07:55] LABS: ANION GAP 13.8 mmol/L (5-15); CHLORIDE,CL 97 mmol/L (98-115); SODIUM,NA 142 mmol/L (136-145)
[2018-10-27] MEDS: B.Bifidum/B.Longum/L.Acidophilus/L.Rhamnosus (Probiotic) Cap PEGTUBE SCH (09:49)
[2018-10-27] MEDS: Latanoprost 0.005% Ophth Soln 2.5 ML Bottle EYEBOTH SCH (09:49)
[2018-10-27] MEDS: Psyllium Husk Powder Sugar Free 5.85 GM Packet PEGTUBE SCH ×2 (09:49→21:03)
[2018-10-27] MEDS: Sertraline 50 MG Tab PEGTUBE SCH (09:49)
[2018-10-27] MEDS: Fluconazole 100 MG Tab PEGTUBE SCH (09:49)
[2018-10-27] MEDS: Cholecalciferol (Vitamin D3) 1,000 Unit Tab PEGTUBE SCH (09:49)
--- NOTE | 2018-10-27 09:52 | PCM.PN ---
- General Info Date of Service: 10/27/18 Subjective Update: Mrs. Davis denies any complaints this morning, including pain or difficulty breathing. Remainder of history limited due to tracheostomy status. No new concerns. Has started to ambulate in room some. Functional Status: Reports: Pain Controlled, Urinating, New Symptoms (this morning nursing staff and respiratory therapists noticed possible aspiration with thicker mucus secretions decreased saturations however improved quite rapidly after aggressive suctioning with mucous plug removal.) - Review of Systems General: Denies: Fever Pulmonary: Reports: Sputum Cardiovascular: Denies: Edema Gastrointestinal: Reports: Other. Denies: Diarrhea - Patient Data Vitals - Most Recent: Last Vital Signs Temp 97.3 F 10/27/18 06:12 Pulse 74 10/27/18 06:12 Resp 20 10/27/18 06:12 BP 133/70 10/27/18 06:12 Pulse Ox 84 L 10/27/18 06:12 Weight - Most Recent: 151 lb 3.2 oz I&O - Last 24 Hours: Intake & Output 10/26/18 10/27/18 10/27/18 22:59 06:59 14:59 Intake Total 471 993 Balance 471 993 Lab Results Last 24 Hours: Laboratory Results - last 24 hr 10/27/18 Range/Units 07:25 Sodium 142 (136-145) mmol/L Potassium 3.1 L (3.3-5.3) mmol/L Chloride 97 L (98-115) mmol/L Carbon Dioxide 34.3 H (21.0-32.0) mmol/L Anion Gap 13.8 (5-15) mmol/L BUN 18 (6-25) mg/dL Creatinine 0.54 (0.51-1.17) mg/dL Est Cr Clr Drug Dosing 65.30 mL/min Estimated GFR (MDRD) > 60 mL/min Glucose 128 H (75 - 99) mg/dL Calcium 9.2 (8.7-10.3) mg/dL Med Orders - Current: Current Medications Albuterol/Ipratropium (Duoneb 3.0-0.5 Mg/3 Ml) 3 ml NEB BEDTIME PRN PRN Reason: Shortness of Breath Last Admin: 10/18/18 04:31 Dose: 3 ml Albuterol/Ipratropium (Duoneb 3.0-0.5 Mg/3 Ml) 3 ml NEB QID PRN PRN Reason: Shortness of Breath Last Admin: 10/27/18 06:03 Dose: 3 ml Amlodipine Besylate (Norvasc) 5 mg FTUBE DAILY [facility] Last Admin: 10/26/18 08:36 Dose: 5 mg Atorvastatin Calcium (Lipitor) 10 mg PEGTUBE BEDTIME [facility] Last Admin: 10/26/18 21:23 Dose: 10 mg Carvedilol (Coreg) 25 mg PEGTUBE BID [facility] Last Admin: 10/26/18 21:23 Dose: 25 mg Cholecalciferol (Vitamin D3) 2,000 units PEGTUBE DAILY [facility] Last Admin: 10/26/18 08:34 Dose: 2,000 units Fluconazole (Diflucan) 100 mg PEGTUBE DAILY [facility] Stop: 11/02/18 09:01 Lactobacillus Acidophilus/Rhamnosus (Multi-Lissette Plus) 1 cap PEGTUBE DAILY [facility] Last Admin: 10/26/18 08:35 Dose: 1 cap Latanoprost (Xalatan 0.005% Ophth Soln) 0 ml EYEBOTH DAILY [facility] Last Admin: 10/26/18 08:36 Dose: 1 drop Lisinopril (Prinivil) 20 mg PO DAILY [facility] Last Admin: 10/26/18 08:37 Dose: 20 mg Multi-Ingred Cream/Lotion/Oil/Oint (Kmed) 1 ml TOP QID PRN PRN Reason: Other Last Admin: 10/20/18 22:42 Dose: 1 applic Omeprazole (First-Omeprazole) 10 each GTUBE 0600,1800 [facility] Last Admin: 10/27/18 06:48 Dose: 10 ml Psyllium Husk (Metamucil Sugar Free) 1 pkt PEGTUBE BID [facility] Last Admin: 10/26/18 21:35 Dose: 1 pkt Sertraline HCl (Zoloft) 50 mg PEGTUBE DAILY [facility] Last Admin: 10/26/18 08:35 Dose: 50 mg Sodium Chloride (Saline Flush) 10 ml FLUSH Q8HR PRN PRN Reason: Keep Vein Open Last Admin: 10/24/18 23:18 Dose: 10 ml Sodium Chloride (Hypersal 7%) 4 ml NEB QID PRN PRN Reason: Other Last Admin: 10/27/18 06:03 Dose: 4 ml Discontinued Medications Albuterol/Ipratropium (Duoneb 3.0-0.5 Mg/3 Ml) 3 ml NEB QIDRT [facility] Last Admin: 10/06/18 04:29 Dose: 3 ml Bacitracin (Get Ointment) 237 ml .ROUTE .STK-MED ONE Stop: 09/27/18 11:01 Ceftriaxone Sodium (Rocephin) 1 gm IVPUSH Q24H [facility] Stop: 10/03/18 18:00 Last Admin: 10/03/18 16:19 Dose: 1 gm Fluconazole (Diflucan) 150 mg PO ONETIME ONE Stop: 10/04/18 10:06 Last Admin: 10/04/18 11:36 Dose: Not Given Fluconazole (Diflucan) 150 mg PEGTUBE ONETIME ONE Stop: 10/04/18 11:31 Last Admin: 10/04/18 12:35 Dose: 150 mg Fluconazole (Diflucan) 200 mg PEGTUBE DAILY [facility] Stop: 10/17/18 11:46 Last Admin: 10/17/18 08:46 Dose: 200 mg Fluconazole (Diflucan) 200 mg PEGTUBE ONETIME ONE Stop: 10/26/18 09:01 Last Admin: 10/26/18 11:28 Dose: Not Given Fluconazole (Diflucan) 200 mg PEGTUBE ONETIME ONE Stop: 10/26/18 11:01 Last Admin: 10/26/18 11:30 Dose: 200 mg Guaifenesin (Robitussin) 200 mg PO Q6HR [facility] Last Admin: 10/04/18 12:15 Dose: Not Given Guaifenesin (Robitussin) 200 mg PEGTUBE Q6HR [facility] Last Admin: 10/23/18 11:42 Dose: 200 mg Levofloxacin/Dextrose (Levaquin In D5w 500 Mg/100 Ml) 100 mls @ 100 mls/hr IV Q48H [facility] Stop: 10/03/18 13:00 Last Admin: 10/03/18 11:19 Dose: 100 mls/hr Levofloxacin/Dextrose (Levaquin In D5w 250 Mg/50 Ml) 50 mls @ 50 mls/hr IV Q48H [facility] Stop: 10/03/18 13:00 Last Admin: 10/03/18 12:59 Dose: 50 mls/hr Sodium Chloride (Normal Saline) 50 mls @ 20 mls/hr IV DAILY@1130 [facility] Last Admin: 10/03/18 11:26 Dose: Not Given Piperacillin Sod/Tazobactam (Sod 4.5 gm/ Sodium Chloride) 100 mls @ 200 mls/hr IV Q6HR [facility] Stop: 10/25/18 08:00 Last Admin: 10/25/18 05:13 Dose: 200 mls/hr Vancomycin HCl 1 gm/ Sodium (Chloride) 270 mls @ 180 mls/hr IV Q12H [facility] Last Admin: 10/16/18 12:52 Dose: Not Given Sodium Chloride (Normal Saline) 100 mls @ 100 mls/hr IV Q24H [facility] Last Admin: 10/25/18 17:57 Dose: Not Given Vancomycin HCl 1 gm/ Sodium (Chloride) 270 mls @ 180 mls/hr IV Q24H [facility] Last Admin: 10/19/18 07:29 Dose: Not Given Vancomycin HCl 1.5 gm/ Sodium (Chloride) 250 mls @ 166.667 mls/hr IV Q24H [facility] Stop: 10/25/18 08:00 Last Admin: 10/25/18 00:08 Dose: 166.667 mls/hr Lisinopril (Prinivil) 5 mg PEGTUBE DAILY [facility] Last Admin: 10/23/18 08:34 Dose: 5 mg Lisinopril (Prinivil) 20 mg PO DAILY [facility] Last Admin: 10/23/18 13:30 Dose: Not Given Lisinopril (Prinivil) 15 mg PO ONETIME ONE Stop: 10/23/18 13:29 Last Admin: 10/23/18 14:21 Dose: 15 mg Multi-Ingred Cream/Lotion/Oil/Oint (Kmed) 0 ml TOP QID [facility] Last Admin: 10/08/18 10:03 Dose: Not Given Non-Form Get (Ointment) 1 each TOP Q4HR [facility] Last Admin: 09/30/18 16:22 Dose: 1 each Nystatin (Mycostatin) 5 ml PO QID [facility] Last Admin: 10/15/18 12:00 Dose: 5 ml Nystatin (Mycostatin) 5 ml PO QID [facility] Stop: 10/18/18 15:00 Last Admin: 10/18/18 13:03 Dose: 5 ml Nystatin (Mycostatin) 5 ml PO QID [facility] Last Admin: 10/20/18 12:47 Dose: 5 ml Nystatin (Mycostatin) 5 ml PO QID [facility] Last Admin: 10/26/18 08:35 Dose: 5 ml Omeprazole (First-Omeprazole) 10 each GTUBE BIDAC [facility] Last Admin: 10/23/18 17:24 Dose: 10 ml Potassium Bicarb/Potassium Chloride (Potassium Chloride, Effervescent) 25 meq PO ONETIME ONE Stop: 10/18/18 09:40 Last Admin: 10/18/18 10:26 Dose: 25 meq Potassium Bicarb/Potassium Chloride (Potassium Chloride, Effervescent) 25 meq PO ONETIME ONE Stop: 10/18/18 17:01 Last Admin: 10/18/18 17:51 Dose: 25 meq Psyllium Husk (Metamucil Sugar Free) 1 pkt PEGTUBE DAILY [facility] Last Admin: 10/04/18 08:25 Dose: 1 pkt Sodium Chloride (Hypersal 7%) 4 ml NEB QIDRT [facility] Last Admin: 10/06/18 14:42 Dose: Not Given Vancomycin HCl (Pharmacy To Dose - Vancomycin) 1 dose .XX ASDIRECTED [facility] - Exam Quality Assessment: Supplemental Oxygen General: Alert, Cooperative Neck: No JVD Lungs: Rhonchi (rhonchi anterior right grimes) GI/Abdominal Exam: Soft, Other (slightly hypotensive bowel tones). No: Distended, Rigid, Rebound, Tender (Female) Exam: Deferred Extremities: No Pedal Edema Peripheral Pulses: 2+: Radial (L), Radial (R) Psy/Mental Status: Alert. No: Agitated - Problem List Review Problem List Initiated/Reviewed/Updated: Yes - My Orders Last 24 Hours: My Active Orders 10/27/18 11:00 Pulse Oximetry [RC] Q4HR - Plan Plan:: HPI summary: Mrs. Davis is an 83yoF with history notable for extended hospitalization at [facility] in [place] for a recurrent hemorrhagic cerebellar CVA for which she was mechanically intubated, developed ventilatory associated pneumonia, and subsequently had tracheostomy and PEG tube placement. She was subsequently transferred to [facility]3]. She was unable to have tracheostomy removed due to increased secretions and was eventually discharged to [facility] in [place], [place]. On 09/20/18, she was initially admitted to the [facility] due to significant shortness of breath, hypoxia, and respiratory failure found to be due to pneumonia and also with NSTEMI. She had clinical improvement with antibiotics and and aggressive pulmonary toileting. Due to complexity of care, she was deemed to not be a good candidate for return back to [facility] and was instead transferred to swing bed status at [facility] for ongoing care awaiting improvement in clinical status and eventual appropriate placement closer to family in the [facility]. Patient's latest antibiotic course completed October 25 due to aspiration On the morning of October 27 she did have an increased residual 195 mL with possible mucus/aspi mucus plugging which required aggressive suctioning. Oxygen saturation did decrease mid 80s however this did improve quickly after removal of mucous. From a clinical standpoint, she appears to vacillate between requiring aggressive suctioning and it improves for a considerable time frame. 's primary concern is regarding the removal of the tracheostomy, which he states was promised to him to only be in place for a few weeks. [facility] and [facility] no willing to accept patient for capping trial at this time. [facility] is a possibility for capping trial at some point. She would likely need overnight capping trial. On Oct 12, patient started to have increased secretions with elevated WBC, Cxr confirmed probable infiltrate. she was stated on dual abx with broad spectrum and vancomycin however antibiotics were discontinued on October 25 after completion. No fevers. Update today, this morning patient required aggressive suctioning due to likely mucus plugging and/or aspiration with the O2 saturations 84% ostially contributed to higher peg tube residuals 195 mL. after removal of increased secrons improved. Primary hospital problems: Pneumonia, bilateral, HCAP, recurrent, resolved, completed third course of Abx hypokalemia, supplement today Deconditioning, stable Ongoing secretions, Tracheostomy status Protein calorie malnutrition, 6 pound weight loss to date, Stable, chronic problems: HFpEF: Volume status neutral. Continue current management. Hx NSTEMI: Troponin downtrended during acute hospitalization. No ongoing clinical concerns. Hx recurrent intracerebral hemorrhages Atrial fibrillation: Continue carvedilol. [id number] high, but anticoagulation contraindicated in setting of recurrent hemorrhagic CVAs. HTN: Controlled. Continue amlodipine. HLD: Continue atorvastatin. GERD: Continue omeprazole. Vitamin D deficiency: Continue vitamin D. Depression, major, recurrent: Continue sertraline. Glaucoma: Continue latanoprost. Maintenance FEN: No IVF. will need K+ replacment. Cont with PEG tube feedings with Osmolyte with psyllium. residuals higher than expected at 195 ml. since patient is at her minimal caloric intake will add E-mycin /prokinetic agent to assist with reduced residuals. PPX: Teds as pharmacologic DVT prophylaxis contraindicated in setting of recurrent hemorrhagic CVAs. PPI for GI prophylaxis. Code status: DNR. Emergency contact: (Naga) and Son (Lew), who have been notified of patient status on multiple occasions recently. Disposition: Continue on swing bed status. Repeat Cxr today, residuals higher than expected at 195 ml. since patient is at her minimal caloric intake will add E-mycin to assist with reduced residuals. Add 7% saline with duo nebs to increase pulmonary irritation to facilitate coughing/pulmonary toileting effort by patient. cont working with outside facilities in including [facility] in [place] to consider transfer for possible tracheostomy OVERNIGHT capping trial and long- term placement.
[2018-10-27] MEDS: amLODIPine 5 MG Tab FTUBE SCH (09:54)
[2018-10-27] MEDS: Carvedilol 12.5 MG Tab PEGTUBE SCH ×2 (09:55→21:03)
[2018-10-27] MEDS: Lisinopril 20 MG Tab PO SCH (09:55)
[2018-10-27] MEDS: Potassium Bicarbonate/Potassium Chloride 25 MEQ Tab.Eff PO SCH (10:34)
--- NOTE | 2018-10-27 12:32 | CR ---
[id number] RAD/RAD Chest PA or AP 1V EXAM: FRONTAL CHEST INDICATION: Pneumonia. COMPARISON: October 18, 2018. DISCUSSION: Dense left base infiltrates have increased relative to the prior examination. The right lung is clear. Heart size is obscured. A tracheostomy appliance is unchanged in position. IMPRESSION: 1. Dense left base infiltrates have increased. Douglas Acuña MD 10/27/18 [id number] Thank you for allowing us to participate in the care of your patient.
[2018-10-27] MEDS: Erythromycin Ethylsuccinate Susp 200 MG/5 ML 100 ML Bottle PO SCH ×2 (14:38→21:04)
[2018-10-27] MEDS ORDERED: Albuterol/Ipratropium 3.0-0.5 MG/3 ML Neb Soln NEB SCH (21:00)
[2018-10-27] MEDS: atorvaSTATin 10 MG Tab PEGTUBE SCH (21:03)
[2018-10-27] MEDS: Sodium Chloride 7% 4 ML Neb Soln INH SCH (21:04)
[2018-10-27] MEDS: Albuterol/Ipratropium 3.0-0.5 MG/3 ML Neb Soln NEB SCH (21:04)
[2018-10-27] MEDS ORDERED: Erythromycin Ethylsuccinate Susp 200 MG/5 ML 100 ML Bottle PO SCH ×2 (22:00)
[2018-10-28] MEDS: Omeprazole 2 MG/ML 150 ML Kit GTUBE SCH ×2 (05:57→18:08)
[2018-10-28] MEDS: Erythromycin Ethylsuccinate Susp 200 MG/5 ML 100 ML Bottle PO SCH ×2 (05:57→16:01)
[2018-10-28] MEDS: Sodium Chloride 7% 4 ML Neb Soln INH SCH ×2 (08:46→21:28)
[2018-10-28] MEDS: Albuterol/Ipratropium 3.0-0.5 MG/3 ML Neb Soln NEB SCH ×2 (08:46→21:28)
[2018-10-28] MEDS ORDERED: Lisinopril 10 MG Tab PO SCH (09:45)
[2018-10-28] MEDS: Cholecalciferol (Vitamin D3) 1,000 Unit Tab PEGTUBE SCH (10:22)
[2018-10-28] MEDS: Latanoprost 0.005% Ophth Soln 2.5 ML Bottle EYEBOTH SCH (10:22)
[2018-10-28] MEDS: Lisinopril 20 MG Tab PO SCH (10:22)
[2018-10-28] MEDS: Sertraline 50 MG Tab PEGTUBE SCH (10:22)
[2018-10-28] MEDS: Potassium Bicarbonate/Potassium Chloride 25 MEQ Tab.Eff PO SCH (10:22)
[2018-10-28] MEDS: amLODIPine 5 MG Tab FTUBE SCH (10:23)
[2018-10-28] MEDS: Psyllium Husk Powder Sugar Free 5.85 GM Packet PEGTUBE SCH ×2 (10:23→21:32)
[2018-10-28] MEDS: B.Bifidum/B.Longum/L.Acidophilus/L.Rhamnosus (Probiotic) Cap PEGTUBE SCH (10:23)
[2018-10-28] MEDS: Fluconazole 100 MG Tab PEGTUBE SCH (10:23)
[2018-10-28] MEDS: Carvedilol 12.5 MG Tab PEGTUBE SCH ×2 (10:24→21:34)
[2018-10-28] MEDS: Zinc Oxide/Eucerin/Nystatin/Karaya 237 ML JAR TOP PRN ×2 (11:35→16:11)
[2018-10-28 12:13] LABS: ANION GAP 8.4 mmol/L (5-15); CHLORIDE,CL 99 mmol/L (98-115); SODIUM,NA 136 mmol/L (136-145)
[2018-10-28] MEDS ORDERED: Erythromycin Ethylsuccinate Susp 200 MG/5 ML 100 ML Bottle GTUBE SCH (15:42)
[2018-10-28] MEDS: Erythromycin Ethylsuccinate Susp 200 MG/5 ML 100 ML Bottle GTUBE SCH ×2 (16:00→21:31)
[2018-10-28] MEDS: atorvaSTATin 10 MG Tab PEGTUBE SCH (21:35)
[2018-10-29] MEDS: Omeprazole 2 MG/ML 150 ML Kit GTUBE SCH ×2 (05:53→18:32)
[2018-10-29] MEDS: Erythromycin Ethylsuccinate Susp 200 MG/5 ML 100 ML Bottle GTUBE SCH ×3 (05:53→23:20)
[2018-10-29] MEDS: Psyllium Husk Powder Sugar Free 5.85 GM Packet PEGTUBE SCH ×2 (09:35→23:01)
[2018-10-29] MEDS: Sertraline 50 MG Tab PEGTUBE SCH (09:35)
[2018-10-29] MEDS: Potassium Bicarbonate/Potassium Chloride 25 MEQ Tab.Eff PO SCH (09:35)
[2018-10-29] MEDS: Cholecalciferol (Vitamin D3) 1,000 Unit Tab PEGTUBE SCH (09:35)
[2018-10-29] MEDS: B.Bifidum/B.Longum/L.Acidophilus/L.Rhamnosus (Probiotic) Cap PEGTUBE SCH (09:35)
[2018-10-29] MEDS: Fluconazole 100 MG Tab PEGTUBE SCH (09:36)
[2018-10-29] MEDS: amLODIPine 5 MG Tab FTUBE SCH (09:39)
[2018-10-29] MEDS: Lisinopril 20 MG Tab GTUBE SCH (09:39)
[2018-10-29] MEDS: Carvedilol 12.5 MG Tab PEGTUBE SCH ×2 (09:40→23:01)
[2018-10-29] MEDS: Latanoprost 0.005% Ophth Soln 2.5 ML Bottle EYEBOTH SCH (09:47)
[2018-10-29] MEDS: Albuterol/Ipratropium 3.0-0.5 MG/3 ML Neb Soln NEB SCH ×2 (10:17→23:36)
[2018-10-29] MEDS: Sodium Chloride 7% 4 ML Neb Soln INH SCH ×2 (10:18→23:36)
--- NOTE | 2018-10-29 11:50 | PCM.SN ---
- Free Text/Narrative Note: I was consulted to change out the trach for a patient requiring frequent suctioning and respiratory care. This is a patient that suffered a bleed back in June. The last change of the trach was on August 04 at [facility] with no difficulty. I spoke with the son on 10-29-17 whom seemed to understand the necessity for this routine care his mother is requiring at this time. The primary care team has been working diligently to try to get her placed in a facility that would be able to try a wean process and if she did not pass then placing a permanent tracheostomy. Due to the amount of secretion the patient is having, the likelyhood of a successful wean is very minimal. I spoke with her following my discussion with the son and he was very angry. He was raising his voice, and using lots of very inappropriate language. I did ask for him to consent to us changing out this trach for her as part of routine and his response was " If I would like to kill her on Thursday then to go ahead" . I told the that this is not consent and I will let her primary provider know and will contact him again on Thursday. We will not proceed without appropriate consent. Karlene Kolb MOBILE ENGINEER
[2018-10-29] MEDS: atorvaSTATin 10 MG Tab PEGTUBE SCH (23:01)
[2018-10-30] MEDS: Erythromycin Ethylsuccinate Susp 200 MG/5 ML 100 ML Bottle GTUBE SCH ×2 (05:44→18:07)
[2018-10-30] MEDS: Omeprazole 2 MG/ML 150 ML Kit GTUBE SCH ×2 (05:48→18:06)
[2018-10-30] MEDS: Latanoprost 0.005% Ophth Soln 2.5 ML Bottle EYEBOTH SCH (08:55)
[2018-10-30] MEDS: Fluconazole 100 MG Tab PEGTUBE SCH (08:57)
[2018-10-30] MEDS: Cholecalciferol (Vitamin D3) 1,000 Unit Tab PEGTUBE SCH (08:57)
[2018-10-30] MEDS: B.Bifidum/B.Longum/L.Acidophilus/L.Rhamnosus (Probiotic) Cap PEGTUBE SCH (08:57)
[2018-10-30] MEDS: Sertraline 50 MG Tab PEGTUBE SCH (08:57)
[2018-10-30] MEDS: Psyllium Husk Powder Sugar Free 5.85 GM Packet PEGTUBE SCH ×2 (08:58→21:23)
[2018-10-30] MEDS: amLODIPine 5 MG Tab FTUBE SCH (09:01)
[2018-10-30] MEDS: Carvedilol 12.5 MG Tab PEGTUBE SCH ×2 (09:01→21:22)
[2018-10-30] MEDS: Lisinopril 20 MG Tab GTUBE SCH (09:01)
[2018-10-30] MEDS: Potassium Bicarbonate/Potassium Chloride 25 MEQ Tab.Eff GTUBE SCH (09:04)
[2018-10-30] MEDS: Albuterol/Ipratropium 3.0-0.5 MG/3 ML Neb Soln NEB SCH ×2 (09:24→21:21)
[2018-10-30] MEDS: Sodium Chloride 7% 4 ML Neb Soln INH SCH ×2 (09:24→21:21)
[2018-10-30] MEDS: Potassium Bicarbonate/Potassium Chloride 25 MEQ Tab.Eff PO SCH (09:28)
[2018-10-30] MEDS: atorvaSTATin 10 MG Tab PEGTUBE SCH (21:22)
[2018-10-31] MEDS: Erythromycin Ethylsuccinate Susp 200 MG/5 ML 100 ML Bottle GTUBE SCH ×2 (06:00→18:15)
[2018-10-31] MEDS: Omeprazole 2 MG/ML 150 ML Kit GTUBE SCH ×2 (06:00→18:15)
[2018-10-31] MEDS: Fluconazole 100 MG Tab PEGTUBE SCH (08:35)
[2018-10-31] MEDS: Sertraline 50 MG Tab PEGTUBE SCH (08:35)
[2018-10-31] MEDS: B.Bifidum/B.Longum/L.Acidophilus/L.Rhamnosus (Probiotic) Cap PEGTUBE SCH (08:35)
[2018-10-31] MEDS: Lisinopril 20 MG Tab GTUBE SCH (08:35)
[2018-10-31] MEDS: Cholecalciferol (Vitamin D3) 1,000 Unit Tab PEGTUBE SCH (08:35)
[2018-10-31] MEDS: amLODIPine 5 MG Tab FTUBE SCH (08:35)
[2018-10-31] MEDS: Carvedilol 12.5 MG Tab PEGTUBE SCH ×2 (08:36→22:11)
[2018-10-31] MEDS: Potassium Bicarbonate/Potassium Chloride 25 MEQ Tab.Eff GTUBE SCH (08:36)
[2018-10-31] MEDS: Sodium Chloride 7% 4 ML Neb Soln INH SCH ×2 (08:37→22:09)
[2018-10-31] MEDS: Latanoprost 0.005% Ophth Soln 2.5 ML Bottle EYEBOTH SCH (08:37)
[2018-10-31] MEDS: Albuterol/Ipratropium 3.0-0.5 MG/3 ML Neb Soln NEB SCH ×2 (08:37→22:09)
[2018-10-31] MEDS: Psyllium Husk Powder Sugar Free 5.85 GM Packet PEGTUBE SCH ×2 (09:07→22:16)
[2018-10-31] MEDS: Zinc Oxide/Eucerin/Nystatin/Karaya 237 ML JAR TOP PRN (19:30)
[2018-10-31] MEDS: atorvaSTATin 10 MG Tab PEGTUBE SCH (22:10)
[2018-11-01] MEDS: Omeprazole 2 MG/ML 150 ML Kit GTUBE SCH ×2 (05:47→18:52)
[2018-11-01] MEDS: Erythromycin Ethylsuccinate Susp 200 MG/5 ML 100 ML Bottle GTUBE SCH ×2 (05:47→18:51)
[2018-11-01] MEDS: Carvedilol 12.5 MG Tab PEGTUBE SCH ×2 (08:19→21:28)
[2018-11-01] MEDS: amLODIPine 5 MG Tab FTUBE SCH (08:20)
[2018-11-01] MEDS: Lisinopril 20 MG Tab GTUBE SCH (08:20)
[2018-11-01] MEDS: Latanoprost 0.005% Ophth Soln 2.5 ML Bottle EYEBOTH SCH (08:21)
[2018-11-01] MEDS: Sodium Chloride 7% 4 ML Neb Soln INH SCH ×2 (08:38→21:23)
[2018-11-01] MEDS: Albuterol/Ipratropium 3.0-0.5 MG/3 ML Neb Soln NEB SCH ×2 (08:38→21:23)
[2018-11-01] MEDS ORDERED: Glycopyrrolate 0.2 MG/ML 5 ML MDV IVPUSH SCH (10:30)
[2018-11-01] MEDS ORDERED: Albuterol/Ipratropium 3.0-0.5 MG/3 ML Neb Soln NEB SCH (10:30)
[2018-11-01] MEDS: Sodium Chloride 0.9% 10 ML Syringe FLUSH PRN (10:58)
[2018-11-01] MEDS: Zinc Oxide/Eucerin/Nystatin/Karaya 237 ML JAR TOP PRN ×2 (11:09→18:53)
[2018-11-01] MEDS: Sertraline 50 MG Tab PEGTUBE SCH (11:38)
[2018-11-01] MEDS: Fluconazole 100 MG Tab PEGTUBE SCH (11:38)
[2018-11-01] MEDS: Potassium Bicarbonate/Potassium Chloride 25 MEQ Tab.Eff GTUBE SCH (11:39)
[2018-11-01] MEDS: Psyllium Husk Powder Sugar Free 5.85 GM Packet PEGTUBE SCH ×2 (11:39→21:28)
[2018-11-01] MEDS: Cholecalciferol (Vitamin D3) 1,000 Unit Tab PEGTUBE SCH (11:39)
[2018-11-01] MEDS: B.Bifidum/B.Longum/L.Acidophilus/L.Rhamnosus (Probiotic) Cap PEGTUBE SCH (11:39)
[2018-11-01 12:09] LABS: ANION GAP 14.4 mmol/L (5-15); CHLORIDE,CL 100 mmol/L (98-115); SODIUM,NA 142 mmol/L (136-145)
[2018-11-01] MEDS: atorvaSTATin 10 MG Tab PEGTUBE SCH (21:28)
[2018-11-02] MEDS: Erythromycin Ethylsuccinate Susp 200 MG/5 ML 100 ML Bottle GTUBE SCH ×2 (05:59→17:32)
[2018-11-02] MEDS: Omeprazole 2 MG/ML 150 ML Kit GTUBE SCH ×2 (06:01→17:32)
[2018-11-02] MEDS: Albuterol/Ipratropium 3.0-0.5 MG/3 ML Neb Soln NEB SCH ×2 (08:33→20:57)
[2018-11-02] MEDS: Psyllium Husk Powder Sugar Free 5.85 GM Packet PEGTUBE SCH ×2 (09:08→21:02)
[2018-11-02] MEDS: Sertraline 50 MG Tab PEGTUBE SCH (09:08)
[2018-11-02] MEDS: Potassium Bicarbonate/Potassium Chloride 25 MEQ Tab.Eff GTUBE SCH (09:08)
[2018-11-02] MEDS: Carvedilol 12.5 MG Tab PEGTUBE SCH ×2 (09:08→21:02)
[2018-11-02] MEDS: B.Bifidum/B.Longum/L.Acidophilus/L.Rhamnosus (Probiotic) Cap PEGTUBE SCH (09:09)
[2018-11-02] MEDS: Cholecalciferol (Vitamin D3) 1,000 Unit Tab PEGTUBE SCH (09:09)
[2018-11-02] MEDS: Lisinopril 20 MG Tab GTUBE SCH (09:09)
[2018-11-02] MEDS: Fluconazole 100 MG Tab PEGTUBE SCH (09:10)
[2018-11-02] MEDS: amLODIPine 5 MG Tab FTUBE SCH (09:10)
[2018-11-02] MEDS: Latanoprost 0.005% Ophth Soln 2.5 ML Bottle EYEBOTH SCH (09:32)
[2018-11-02] MEDS: Zinc Oxide/Eucerin/Nystatin/Karaya 237 ML JAR TOP PRN (09:33)
[2018-11-02] MEDS: Sodium Chloride 7% 4 ML Neb Soln INH SCH ×2 (09:33→20:57)
[2018-11-02] MEDS: atorvaSTATin 10 MG Tab PEGTUBE SCH (21:02)
--- NOTE | 2018-11-02 22:43 | PCM.PN ---
- General Info Date of Service: 11/01/18 Subjective Update: Mrs. Davis denies any complaints this morning, including pain or difficulty breathing. Remainder of history limited due to tracheostomy status. Nursing report and documentation notes increased need for suctioning. No new concerns. - Patient Data Vitals - Most Recent: Last Vital Signs Temp 36.4 C 11/02/18 09:05 Pulse 90 11/02/18 21:02 Resp 26 H 11/02/18 09:05 BP 143/80 H 11/02/18 21:02 Pulse Ox 92 L 11/02/18 18:29 Weight - Most Recent: 65.589 kg I&O - Last 24 Hours: Intake & Output 11/02/18 11/02/18 11/02/18 06:59 14:59 22:59 Intake Total 646 204 378 Balance 646 204 378 Med Orders - Current: Current Medications Albuterol/Ipratropium (Duoneb 3.0-0.5 Mg/3 Ml) 3 ml NEB BEDTIME PRN PRN Reason: Shortness of Breath Last Admin: 10/18/18 04:31 Dose: 3 ml Albuterol/Ipratropium (Duoneb 3.0-0.5 Mg/3 Ml) 3 ml NEB QID PRN PRN Reason: Shortness of Breath Last Admin: 10/27/18 06:03 Dose: 3 ml Albuterol/Ipratropium (Duoneb 3.0-0.5 Mg/3 Ml) 3 ml NEB BID [facility] Last Admin: 11/02/18 20:57 Dose: 3 ml Albuterol/Ipratropium (Duoneb 3.0-0.5 Mg/3 Ml) 3 ml NEB ONETIME ONE Stop: 11/03/18 10:31 Amlodipine Besylate (Norvasc) 5 mg FTUBE DAILY [facility] Last Admin: 11/02/18 09:10 Dose: 5 mg Atorvastatin Calcium (Lipitor) 10 mg PEGTUBE BEDTIME [facility] Last Admin: 11/02/18 21:02 Dose: 10 mg Carvedilol (Coreg) 25 mg PEGTUBE BID [facility] Last Admin: 11/02/18 21:02 Dose: 25 mg Cholecalciferol (Vitamin D3) 2,000 units PEGTUBE DAILY [facility] Last Admin: 11/02/18 09:09 Dose: 2,000 units Erythromycin Ethylsuccinate (Eryped 200) 250 mg GTUBE Q12H [facility] Last Admin: 11/02/18 17:32 Dose: 5 ml Glycopyrrolate () 0.2 mg IVPUSH ONETIME ONE Stop: 11/03/18 10:46 Lactobacillus Acidophilus/Rhamnosus (Multi-Lissette Plus) 1 cap PEGTUBE DAILY [facility] Last Admin: 11/02/18 09:09 Dose: 1 cap Latanoprost (Xalatan 0.005% Ophth Soln) 0 ml EYEBOTH DAILY [facility] Last Admin: 11/02/18 09:32 Dose: 1 drop Lisinopril (Prinivil) 30 mg GTUBE DAILY [facility] Last Admin: 11/02/18 09:09 Dose: 30 mg Multi-Ingred Cream/Lotion/Oil/Oint (Kmed) 1 ml TOP QID PRN PRN Reason: Other Last Admin: 11/02/18 09:33 Dose: 1 applic Omeprazole (First-Omeprazole) 10 each GTUBE 0600,1800 [facility] Last Admin: 11/02/18 17:32 Dose: 10 ml Potassium Bicarb/Potassium Chloride (Potassium Chloride, Effervescent) 25 meq GTUBE DAILY [facility] Last Admin: 11/02/18 09:08 Dose: 25 meq Psyllium Husk (Metamucil Sugar Free) 1 pkt PEGTUBE BID [facility] Last Admin: 11/02/18 21:02 Dose: 1 pkt Sertraline HCl (Zoloft) 50 mg PEGTUBE DAILY [facility] Last Admin: 11/02/18 09:08 Dose: 50 mg Sodium Chloride (Saline Flush) 10 ml FLUSH Q8HR PRN PRN Reason: Keep Vein Open Last Admin: 11/01/18 10:58 Dose: 10 ml Sodium Chloride (Hypersal 7%) 4 ml NEB QID PRN PRN Reason: Other Last Admin: 10/27/18 06:03 Dose: 4 ml Sodium Chloride (Hypersal 7%) 4 ml INH BID [facility] Last Admin: 11/02/18 20:57 Dose: 4 ml Discontinued Medications Albuterol/Ipratropium (Duoneb 3.0-0.5 Mg/3 Ml) 3 ml NEB QIDRT [facility] Last Admin: 10/06/18 04:29 Dose: 3 ml Albuterol/Ipratropium (Duoneb 3.0-0.5 Mg/3 Ml) 3 ml NEB BIDRT LIANNE Albuterol/Ipratropium (Duoneb 3.0-0.5 Mg/3 Ml) 3 ml NEB ONETIME@1030 [facility] Stop: 11/01/18 12:00 Last Admin: 11/01/18 10:34 Dose: 3 ml Bacitracin (Get Ointment) 237 ml .ROUTE .STK-MED ONE Stop: 09/27/18 11:01 Ceftriaxone Sodium (Rocephin) 1 gm IVPUSH Q24H [facility] Stop: 10/03/18 18:00 Last Admin: 10/03/18 16:19 Dose: 1 gm Erythromycin (Lisandro-Tab) 250 mg PO Q8HR [facility] Last Admin: 10/27/18 14:32 Dose: Not Given Erythromycin Ethylsuccinate (Eryped 200) 250 mg PO Q8HR [facility] Erythromycin Ethylsuccinate (Eryped 200) 250 mg PO Q8HR [facility] Erythromycin Ethylsuccinate (Eryped 200) 250 mg PO Q8HR [facility] Last Admin: 10/28/18 16:01 Dose: Not Given Erythromycin Ethylsuccinate (Eryped 200) 250 mg GTUBE Q8HR [facility] Erythromycin Ethylsuccinate (Eryped 200) 250 mg GTUBE Q8HR [facility] Last Admin: 10/30/18 05:44 Dose: 6.25 ml Fluconazole (Diflucan) 150 mg PO ONETIME ONE Stop: 10/04/18 10:06 Last Admin: 10/04/18 11:36 Dose: Not Given Fluconazole (Diflucan) 150 mg PEGTUBE ONETIME ONE Stop: 10/04/18 11:31 Last Admin: 10/04/18 12:35 Dose: 150 mg Fluconazole (Diflucan) 200 mg PEGTUBE DAILY [facility] Stop: 10/17/18 11:46 Last Admin: 10/17/18 08:46 Dose: 200 mg Fluconazole (Diflucan) 200 mg PEGTUBE ONETIME ONE Stop: 10/26/18 09:01 Last Admin: 10/26/18 11:28 Dose: Not Given Fluconazole (Diflucan) 100 mg PEGTUBE DAILY [facility] Stop: 11/02/18 09:01 Last Admin: 11/02/18 09:10 Dose: 100 mg Fluconazole (Diflucan) 200 mg PEGTUBE ONETIME ONE Stop: 10/26/18 11:01 Last Admin: 10/26/18 11:30 Dose: 200 mg Glycopyrrolate (Robinul) 0.2 mg IVPUSH ONETIME@1030 [facility] Stop: 11/01/18 12:00 Last Admin: 11/01/18 10:56 Dose: 0.2 mg Guaifenesin (Robitussin) 200 mg PO Q6HR [facility] Last Admin: 10/04/18 12:15 Dose: Not Given Guaifenesin (Robitussin) 200 mg PEGTUBE Q6HR [facility] Last Admin: 10/23/18 11:42 Dose: 200 mg Levofloxacin/Dextrose (Levaquin In D5w 500 Mg/100 Ml) 100 mls @ 100 mls/hr IV Q48H [facility] Stop: 10/03/18 13:00 Last Admin: 10/03/18 11:19 Dose: 100 mls/hr Levofloxacin/Dextrose (Levaquin In D5w 250 Mg/50 Ml) 50 mls @ 50 mls/hr IV Q48H [facility] Stop: 10/03/18 13:00 Last Admin: 10/03/18 12:59 Dose: 50 mls/hr Sodium Chloride (Normal Saline) 50 mls @ 20 mls/hr IV DAILY@1130 [facility] Last Admin: 10/03/18 11:26 Dose: Not Given Piperacillin Sod/Tazobactam (Sod 4.5 gm/ Sodium Chloride) 100 mls @ 200 mls/hr IV Q6HR [facility] Stop: 10/25/18 08:00 Last Admin: 10/25/18 05:13 Dose: 200 mls/hr Vancomycin HCl 1 gm/ Sodium (Chloride) 270 mls @ 180 mls/hr IV Q12H [facility] Last Admin: 10/16/18 12:52 Dose: Not Given Sodium Chloride (Normal Saline) 100 mls @ 100 mls/hr IV Q24H [facility] Last Admin: 10/25/18 17:57 Dose: Not Given Vancomycin HCl 1 gm/ Sodium (Chloride) 270 mls @ 180 mls/hr IV Q24H [facility] Last Admin: 10/19/18 07:29 Dose: Not Given Vancomycin HCl 1.5 gm/ Sodium (Chloride) 250 mls @ 166.667 mls/hr IV Q24H [facility] Stop: 10/25/18 08:00 Last Admin: 10/25/18 00:08 Dose: 166.667 mls/hr Lisinopril (Prinivil) 5 mg PEGTUBE DAILY [facility] Last Admin: 10/23/18 08:34 Dose: 5 mg Lisinopril (Prinivil) 20 mg PO DAILY [facility] Last Admin: 10/23/18 13:30 Dose: Not Given Lisinopril (Prinivil) 15 mg PO ONETIME ONE Stop: 10/23/18 13:29 Last Admin: 10/23/18 14:21 Dose: 15 mg Lisinopril (Prinivil) 20 mg PO DAILY [facility] Stop: 10/28/18 12:00 Last Admin: 10/28/18 10:22 Dose: 20 mg Lisinopril (Prinivil) 10 mg PO ONETIME [facility] Stop: 10/28/18 10:00 Multi-Ingred Cream/Lotion/Oil/Oint (Kmed) 0 ml TOP QID [facility] Last Admin: 10/08/18 10:03 Dose: Not Given Non-Form Get (Ointment) 1 each TOP Q4HR [facility] Last Admin: 09/30/18 16:22 Dose: 1 each Nystatin (Mycostatin) 5 ml PO QID [facility] Last Admin: 10/15/18 12:00 Dose: 5 ml Nystatin (Mycostatin) 5 ml PO QID [facility] Stop: 10/18/18 15:00 Last Admin: 10/18/18 13:03 Dose: 5 ml Nystatin (Mycostatin) 5 ml PO QID [facility] Last Admin: 10/20/18 12:47 Dose: 5 ml Nystatin (Mycostatin) 5 ml PO QID [facility] Last Admin: 10/26/18 08:35 Dose: 5 ml Omeprazole (First-Omeprazole) 10 each GTUBE BIDAC [facility] Last Admin: 10/23/18 17:24 Dose: 10 ml Potassium Bicarb/Potassium Chloride (Potassium Chloride, Effervescent) 25 meq PO ONETIME ONE Stop: 10/18/18 09:40 Last Admin: 10/18/18 10:26 Dose: 25 meq Potassium Bicarb/Potassium Chloride (Potassium Chloride, Effervescent) 25 meq PO ONETIME ONE Stop: 10/18/18 17:01 Last Admin: 10/18/18 17:51 Dose: 25 meq Potassium Bicarb/Potassium Chloride (Potassium Chloride, Effervescent) 25 meq PO DAILY [facility] Last Admin: 10/30/18 09:28 Dose: Not Given Psyllium Husk (Metamucil Sugar Free) 1 pkt PEGTUBE DAILY [facility] Last Admin: 10/04/18 08:25 Dose: 1 pkt Sodium Chloride (Hypersal 7%) 4 ml NEB QIDRT [facility] Last Admin: 10/06/18 14:42 Dose: Not Given Vancomycin HCl (Pharmacy To Dose - Vancomycin) 1 dose .XX ASDIRECTED LIANNE - Exam Physical Findings Comments:: GENERAL: Elderly white female with tracheostomy in place lying in hospital bed in no acute distress. HEENT: Normocephalic, atraumatic. Conjunctiva clear. Nares patent without discharge. Mucous membranes moist, posterior pharynx unremarkable. NECK: Tracheostomy in place without surrounding erythema. CV: Irregularly irregular, no murmurs, rubs, or gallops. 2+ radial pulses. PULMONARY: No distress, diminished breath sounds in bases bilaterally, no wheezes, rales, or rhonchi. ABDOMEN: PEG tube site without surrounding erythema. Positive bowel sounds, soft , nontender, nondistended. EXTREMITIES: No edema, cyanosis, or clubbing. MUSCULOSKELETAL: Moves all extremities, minimally on right DERMATOLOGIC: Intertriginous areas in groin and under breasts with faint redness. PSYCHIATRIC: Alert, nods and shakes head seemingly appropriate in response to questions. - Problem List Review Problem List Initiated/Reviewed/Updated: Yes - Plan Plan:: HPI summary: Mrs. 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 She was subsequently transferred to [facility]. She was unable to have tracheostomy removed due to increased secretions and was eventually discharged to [facility] in [place], [place]. On 09/20/18, she was initially admitted to the [facility] due to significant shortness of breath, hypoxia, and respiratory failure found to be due to pneumonia and also with NSTEMI. She had clinical improvement with antibiotics and and aggressive pulmonary toileting. Due to complexity of care, she was deemed to not be a good candidate for return back to [facility] and was instead transferred to swing bed status at [facility] for ongoing care awaiting improvement in clinical status and eventual appropriate placement closer to family in the [place] area. Interval hospital course: Early after admission to [facility] bed status, she finished the 2 week course of antibiotics for pneumonia and had overall improvement in respiratory status, including less frequent suctioning. Tube feedings were resumed via the PEG tube and she had overall good toleration of this with recent residuals improved from prior. From a clinical standpoint, she appeared to be at her prior baseline respiratory status when she was discharged from [facility], though she has ongoing care needs due to tracheostomy status and PEG tube. 's primary concern is regarding the removal of the tracheostomy, which he states was promised to him to only be in place for a few weeks. Due to worsening respiratory status in mid-September, fitting with recurrent pneumonia, she was again placed on antibiotic course, which finished on 10/25/18. Aggressive suctioning was required following an episode of mucous plugging and possible aspiration given an increased residual of 195mL. She appears to vacillate between requiring aggressive suctioning at times and improvement for a considerable time frame at other times. Efforts to find accepting facility for capping trial and long-term care have been unsuccessful to date. In addition to extensive efforts by case management staff, providers have spoken with staff at [facility], [facility], [facility], [facility], and [facility]. Primary hospital problems: Pneumonia, bilateral, HCAP, recurrent, resolved, completed third course of antibiotic 10/25/18 Deconditioning, stable Ongoing secretions Tracheostomy status Protein calorie malnutrition Hypokalemia Stable, chronic problems: HFpEF: Volume status neutral. Continue current management. Hx NSTEMI: Troponin downtrended during acute hospitalization. No ongoing clinical concerns. Hx recurrent intracerebral hemorrhages Atrial fibrillation: Continue carvedilol. [id number] high, but anticoagulation contraindicated in setting of recurrent hemorrhagic CVAs. HTN: Controlled. Continue amlodipine. HLD: Continue atorvastatin. GERD: Continue omeprazole. Vitamin D deficiency: Continue vitamin D. Depression, major, recurrent: Continue sertraline. Glaucoma: Continue latanoprost. Maintenance: FEN: No IVF. Electrolytes normal. Continue with PEG tube feedings with Osmolyte with psyllium along with erythromycin for motility improvement. PPX: Teds as pharmacologic DVT prophylaxis contraindicated in setting of recurrent hemorrhagic CVAs. PPI for GI prophylaxis. Code status: DNR/DNI/Comfort Care, updated at 11/01/18 care conference. Emergency contacts: (Naga) and Sons (Lew and [place]). Disposition: Continue on swing bed status. Continue working with outside facilities for consideration of transfer for possible tracheostomy capping trial as well as long-term care. Appreciate social work assistance with ongoing coordination for this patient's care. Care conference held with Naga Gifford, Lew, Kar, granddaughter and her boyfriend as well as staff members as detailed in Case Management note. Patient' s recent and current medical status and requirements were discussed as well as anticipated ongoing requirements. Also discussed concerns about inappropriate interactions by Naga with staff. Consent for tracheostomy tube change was obtained, which is planned for 11/03/18. Will continue extensive efforts to find accepting facility for possible tracheostomy capping trial as well as long-term care.
[2018-11-03] MEDS: Erythromycin Ethylsuccinate Susp 200 MG/5 ML 100 ML Bottle GTUBE SCH ×2 (06:38→17:36)
[2018-11-03] MEDS: Omeprazole 2 MG/ML 150 ML Kit GTUBE SCH ×2 (06:38→17:36)
[2018-11-03] MEDS: Albuterol/Ipratropium 3.0-0.5 MG/3 ML Neb Soln NEB PRN (07:44)
[2018-11-03] MEDS: Glycopyrrolate 0.2 MG/ML 5 ML MDV IVPUSH ONE ×2 (08:35)
--- NOTE | 2018-11-03 09:05 | PCM.SN ---
- Free Text/Narrative Note: Pt was optimized with a neb treatment, increased oxygen concentration, and a dose of robinal IV. Consent to change the trach was obtained per the at the care conference on Thursday. 829, inner cannula was removed, cuff deflated and was unable to remove the outer cannula of the trach due to resistance. Primary care physician, Dr Sj Gutierrez was notified and will make arrangements for the patient to be sent to a higher level of care to change her trach. Pt tolerated the procedure without difficulty. Even while the cuff was deflated, pt had a strong cough and the trach remained in place as though the cuff was still up. Patient had her inner cannula replaced, suctioned well, cuff inflated, and placed back on humidified oxygen. Primary care will notify family once arrangements have been made. Karlene Kolb SLEEVE BASTER
[2018-11-03] MEDS: Potassium Bicarbonate/Potassium Chloride 25 MEQ Tab.Eff GTUBE SCH (09:31)
[2018-11-03] MEDS: Latanoprost 0.005% Ophth Soln 2.5 ML Bottle EYEBOTH SCH (09:31)
[2018-11-03] MEDS: Psyllium Husk Powder Sugar Free 5.85 GM Packet PEGTUBE SCH ×2 (09:31→20:46)
[2018-11-03] MEDS: Sertraline 50 MG Tab PEGTUBE SCH (09:31)
[2018-11-03] MEDS: Lisinopril 20 MG Tab GTUBE SCH (09:32)
[2018-11-03] MEDS: B.Bifidum/B.Longum/L.Acidophilus/L.Rhamnosus (Probiotic) Cap PEGTUBE SCH (09:32)
[2018-11-03] MEDS: Cholecalciferol (Vitamin D3) 1,000 Unit Tab PEGTUBE SCH (09:32)
[2018-11-03] MEDS: amLODIPine 5 MG Tab FTUBE SCH (09:33)
[2018-11-03] MEDS: Carvedilol 12.5 MG Tab PEGTUBE SCH ×2 (09:33→20:51)
[2018-11-03] MEDS: Albuterol/Ipratropium 3.0-0.5 MG/3 ML Neb Soln NEB SCH ×2 (09:58→20:46)
[2018-11-03] MEDS: Sodium Chloride 7% 4 ML Neb Soln INH SCH ×2 (09:59→20:46)
--- NOTE | 2018-11-03 10:12 | PCM.SN ---
- Free Text/Narrative Note: I spoke with the son Kar Davis in regards to my inability to remove the tracheostomy as planned and discussed with him that the primary care team was notified and would begin to work on a plan to have her sent to a higher level of care to change the tracheostomy. The son verbalized understanding and wished to update his father. I did say that once arrangements have been made they would be notified. Also made him aware that the procedure may need to be done in [place] if they are unable to accommodate in [facility]. Karlene Kolb FIELD COUNSEL
[2018-11-03] MEDS ORDERED: Albuterol/Ipratropium 3.0-0.5 MG/3 ML Neb Soln NEB ONE (10:30)
[2018-11-03] MEDS: atorvaSTATin 10 MG Tab PEGTUBE SCH (20:47)
[2018-11-04] MEDS: Omeprazole 2 MG/ML 150 ML Kit GTUBE SCH ×2 (06:07→18:14)
[2018-11-04] MEDS: Erythromycin Ethylsuccinate Susp 200 MG/5 ML 100 ML Bottle GTUBE SCH ×2 (06:07→18:14)
[2018-11-04] MEDS: Albuterol/Ipratropium 3.0-0.5 MG/3 ML Neb Soln NEB SCH ×2 (08:14→20:52)
[2018-11-04] MEDS: Sodium Chloride 7% 4 ML Neb Soln INH SCH ×2 (08:14→20:52)
[2018-11-04] MEDS: Lisinopril 20 MG Tab GTUBE SCH (08:44)
[2018-11-04] MEDS: Latanoprost 0.005% Ophth Soln 2.5 ML Bottle EYEBOTH SCH (08:44)
[2018-11-04] MEDS: Psyllium Husk Powder Sugar Free 5.85 GM Packet PEGTUBE SCH ×2 (08:44→21:13)
[2018-11-04] MEDS: amLODIPine 5 MG Tab FTUBE SCH (08:45)
[2018-11-04] MEDS: Potassium Bicarbonate/Potassium Chloride 25 MEQ Tab.Eff GTUBE SCH (08:45)
[2018-11-04] MEDS: B.Bifidum/B.Longum/L.Acidophilus/L.Rhamnosus (Probiotic) Cap PEGTUBE SCH (08:45)
[2018-11-04] MEDS: Sertraline 50 MG Tab PEGTUBE SCH (08:45)
[2018-11-04] MEDS: Carvedilol 12.5 MG Tab PEGTUBE SCH ×2 (08:45→20:59)
[2018-11-04] MEDS: Cholecalciferol (Vitamin D3) 1,000 Unit Tab PEGTUBE SCH (08:45)
[2018-11-04] MEDS: Zinc Oxide/Eucerin/Nystatin/Karaya 237 ML JAR TOP PRN (17:01)
[2018-11-04] MEDS: atorvaSTATin 10 MG Tab PEGTUBE SCH (20:52)
[2018-11-05] MEDS: Erythromycin Ethylsuccinate Susp 200 MG/5 ML 100 ML Bottle GTUBE SCH ×2 (06:34→17:26)
[2018-11-05] MEDS: Omeprazole 2 MG/ML 150 ML Kit GTUBE SCH ×2 (06:34→17:25)
[2018-11-05] MEDS: Albuterol/Ipratropium 3.0-0.5 MG/3 ML Neb Soln NEB SCH ×2 (08:08→21:44)
[2018-11-05] MEDS: Sodium Chloride 7% 4 ML Neb Soln INH SCH ×2 (08:09→21:44)
[2018-11-05] MEDS: B.Bifidum/B.Longum/L.Acidophilus/L.Rhamnosus (Probiotic) Cap PEGTUBE SCH (08:43)
[2018-11-05] MEDS: Sertraline 50 MG Tab PEGTUBE SCH (08:44)
[2018-11-05] MEDS: Psyllium Husk Powder Sugar Free 5.85 GM Packet PEGTUBE SCH ×2 (08:44→21:51)
[2018-11-05] MEDS: Potassium Bicarbonate/Potassium Chloride 25 MEQ Tab.Eff GTUBE SCH (08:44)
[2018-11-05] MEDS: Carvedilol 12.5 MG Tab PEGTUBE SCH ×2 (08:44→21:53)
[2018-11-05] MEDS: Lisinopril 20 MG Tab GTUBE SCH (08:44)
[2018-11-05] MEDS: Cholecalciferol (Vitamin D3) 1,000 Unit Tab PEGTUBE SCH (08:44)
[2018-11-05] MEDS: Latanoprost 0.005% Ophth Soln 2.5 ML Bottle EYEBOTH SCH (08:45)
[2018-11-05] MEDS: amLODIPine 5 MG Tab FTUBE SCH (08:45)
--- NOTE | 2018-11-05 14:23 | PCM.PN ---
- General Info Date of Service: 11/04/18 Subjective Update: Animal review of systems due to the patient unable to verbally communicate, review of systems mainly taken from facial cues and nodding yes or no Functional Status: Reports: Pain Controlled, Tolerating Diet (PEG tube feeding low residuals), Urinating. Denies: Ambulating, New Symptoms - Review of Systems General: Reports: Weakness Pulmonary: Reports: Cough, Sputum. Denies: Shortness of Breath, Wheezing Cardiovascular: Reports: No Symptoms Gastrointestinal: Denies: Abdominal Pain, Constipation, Decreased Appetite, Diarrhea, Nausea, Vomiting Genitourinary: Reports: Incontinence Skin: Reports: No Symptoms Neurological: Reports: Pre-Existing Deficit, Weakness. Denies: Confusion, Headache, Numbness Psychiatric: Reports: No Symptoms - Patient Data Vitals - Most Recent: Last Vital Signs Temp 98.0 F 11/05/18 07:00 Pulse 76 11/05/18 08:44 Resp 22 H 11/05/18 07:00 BP 146/73 H 11/05/18 08:45 Pulse Ox 93 L 11/05/18 11:00 Weight - Most Recent: 144 lb 6.4 oz I&O - Last 24 Hours: Intake & Output 11/04/18 11/05/18 11/05/18 22:59 06:59 14:59 Intake Total 150 975 352 Output Total 30 Balance 120 975 352 Med Orders - Current: Current Medications Albuterol/Ipratropium (Duoneb 3.0-0.5 Mg/3 Ml) 3 ml NEB BEDTIME PRN PRN Reason: Shortness of Breath Last Admin: 10/18/18 04:31 Dose: 3 ml Albuterol/Ipratropium (Duoneb 3.0-0.5 Mg/3 Ml) 3 ml NEB QID PRN PRN Reason: Shortness of Breath Last Admin: 11/03/18 07:44 Dose: 3 ml Albuterol/Ipratropium (Duoneb 3.0-0.5 Mg/3 Ml) 3 ml NEB BID [facility] Last Admin: 11/05/18 08:08 Dose: 3 ml Amlodipine Besylate (Norvasc) 5 mg FTUBE DAILY [facility] Last Admin: 11/05/18 08:45 Dose: 5 mg Atorvastatin Calcium (Lipitor) 10 mg PEGTUBE BEDTIME [facility] Last Admin: 11/04/18 20:52 Dose: 10 mg Carvedilol (Coreg) 25 mg PEGTUBE BID [facility] Last Admin: 11/05/18 08:44 Dose: 25 mg Cholecalciferol (Vitamin D3) 2,000 units PEGTUBE DAILY [facility] Last Admin: 11/05/18 08:44 Dose: 2,000 units Erythromycin Ethylsuccinate (Eryped 200) 120 mg GTUBE Q12H [facility] Last Admin: 11/05/18 06:34 Dose: 3 ml Lactobacillus Acidophilus/Rhamnosus (Multi-Lissette Plus) 1 cap PEGTUBE DAILY [facility] Last Admin: 11/05/18 08:43 Dose: 1 cap Latanoprost (Xalatan 0.005% Ophth Soln) 0 ml EYEBOTH DAILY [facility] Last Admin: 11/05/18 08:45 Dose: 1 drop Lisinopril (Prinivil) 30 mg GTUBE DAILY [facility] Last Admin: 11/05/18 08:44 Dose: 30 mg Multi-Ingred Cream/Lotion/Oil/Oint (Kmed) 1 ml TOP QID PRN PRN Reason: Other Last Admin: 11/04/18 17:01 Dose: 1 applic Omeprazole (First-Omeprazole) 10 each GTUBE 0600,1800 [facility] Last Admin: 11/05/18 06:34 Dose: 10 ml Potassium Bicarb/Potassium Chloride (Potassium Chloride, Effervescent) 25 meq GTUBE DAILY [facility] Last Admin: 11/05/18 08:44 Dose: 25 meq Psyllium Husk (Metamucil Sugar Free) 1 pkt PEGTUBE BID [facility] Last Admin: 11/05/18 08:44 Dose: 1 pkt Sertraline HCl (Zoloft) 50 mg PEGTUBE DAILY [facility] Last Admin: 11/05/18 08:44 Dose: 50 mg Sodium Chloride (Saline Flush) 10 ml FLUSH Q8HR PRN PRN Reason: Keep Vein Open Last Admin: 11/01/18 10:58 Dose: 10 ml Sodium Chloride (Hypersal 7%) 4 ml NEB QID PRN PRN Reason: Other Last Admin: 10/27/18 06:03 Dose: 4 ml Sodium Chloride (Hypersal 7%) 4 ml INH BID [facility] Last Admin: 11/05/18 08:09 Dose: 4 ml Discontinued Medications Albuterol/Ipratropium (Duoneb 3.0-0.5 Mg/3 Ml) 3 ml NEB QIDRT LIANNE Last Admin: 10/06/18 04:29 Dose: 3 ml Albuterol/Ipratropium (Duoneb 3.0-0.5 Mg/3 Ml) 3 ml NEB BIDRT LIANNE Albuterol/Ipratropium (Duoneb 3.0-0.5 Mg/3 Ml) 3 ml NEB ONETIME@1030 [facility] Stop: 11/01/18 12:00 Last Admin: 11/01/18 10:34 Dose: 3 ml Albuterol/Ipratropium (Duoneb 3.0-0.5 Mg/3 Ml) 3 ml NEB ONETIME ONE Stop: 11/03/18 10:31 Last Admin: 11/03/18 10:00 Dose: Not Given Bacitracin (Get Ointment) 237 ml .ROUTE .STK-MED ONE Stop: 09/27/18 11:01 Ceftriaxone Sodium (Rocephin) 1 gm IVPUSH Q24H [facility] Stop: 10/03/18 18:00 Last Admin: 10/03/18 16:19 Dose: 1 gm Erythromycin (Lisandro-Tab) 250 mg PO Q8HR [facility] Last Admin: 10/27/18 14:32 Dose: Not Given Erythromycin Ethylsuccinate (Eryped 200) 250 mg PO Q8HR LIANNE Erythromycin Ethylsuccinate (Eryped 200) 250 mg PO Q8HR LIANNE Erythromycin Ethylsuccinate (Eryped 200) 250 mg PO Q8HR [facility] Last Admin: 10/28/18 16:01 Dose: Not Given Erythromycin Ethylsuccinate (Eryped 200) 250 mg GTUBE Q8HR [facility] Erythromycin Ethylsuccinate (Eryped 200) 250 mg GTUBE Q8HR [facility] Last Admin: 10/30/18 05:44 Dose: 6.25 ml Erythromycin Ethylsuccinate (Eryped 200) 250 mg GTUBE Q12H [facility] Last Admin: 11/04/18 06:07 Dose: 6.25 ml Fluconazole (Diflucan) 150 mg PO ONETIME ONE Stop: 10/04/18 10:06 Last Admin: 10/04/18 11:36 Dose: Not Given Fluconazole (Diflucan) 150 mg PEGTUBE ONETIME ONE Stop: 10/04/18 11:31 Last Admin: 10/04/18 12:35 Dose: 150 mg Fluconazole (Diflucan) 200 mg PEGTUBE DAILY [facility] Stop: 10/17/18 11:46 Last Admin: 10/17/18 08:46 Dose: 200 mg Fluconazole (Diflucan) 200 mg PEGTUBE ONETIME ONE Stop: 10/26/18 09:01 Last Admin: 10/26/18 11:28 Dose: Not Given Fluconazole (Diflucan) 100 mg PEGTUBE DAILY [facility] Stop: 11/02/18 09:01 Last Admin: 11/02/18 09:10 Dose: 100 mg Fluconazole (Diflucan) 200 mg PEGTUBE ONETIME ONE Stop: 10/26/18 11:01 Last Admin: 10/26/18 11:30 Dose: 200 mg Glycopyrrolate (Robinul) 0.2 mg IVPUSH ONETIME@1030 [facility] Stop: 11/01/18 12:00 Last Admin: 11/01/18 10:56 Dose: 0.2 mg Glycopyrrolate () 0.2 mg IVPUSH ONETIME ONE Stop: 11/03/18 10:46 Last Admin: 11/04/18 14:51 Dose: Not Given Glycopyrrolate (Robinul) 0.2 mg IVPUSH ONETIME ONE Stop: 11/03/18 10:46 Last Admin: 11/03/18 08:35 Dose: 0.2 mg Guaifenesin (Robitussin) 200 mg PO Q6HR [facility] Last Admin: 10/04/18 12:15 Dose: Not Given Guaifenesin (Robitussin) 200 mg PEGTUBE Q6HR [facility] Last Admin: 10/23/18 11:42 Dose: 200 mg Levofloxacin/Dextrose (Levaquin In D5w 500 Mg/100 Ml) 100 mls @ 100 mls/hr IV Q48H [facility] Stop: 10/03/18 13:00 Last Admin: 10/03/18 11:19 Dose: 100 mls/hr Levofloxacin/Dextrose (Levaquin In D5w 250 Mg/50 Ml) 50 mls @ 50 mls/hr IV Q48H [facility] Stop: 10/03/18 13:00 Last Admin: 10/03/18 12:59 Dose: 50 mls/hr Sodium Chloride (Normal Saline) 50 mls @ 20 mls/hr IV DAILY@1130 [facility] Last Admin: 10/03/18 11:26 Dose: Not Given Piperacillin Sod/Tazobactam (Sod 4.5 gm/ Sodium Chloride) 100 mls @ 200 mls/hr IV Q6HR [facility] Stop: 10/25/18 08:00 Last Admin: 10/25/18 05:13 Dose: 200 mls/hr Vancomycin HCl 1 gm/ Sodium (Chloride) 270 mls @ 180 mls/hr IV Q12H [facility] Last Admin: 10/16/18 12:52 Dose: Not Given Sodium Chloride (Normal Saline) 100 mls @ 100 mls/hr IV Q24H [facility] Last Admin: 10/25/18 17:57 Dose: Not Given Vancomycin HCl 1 gm/ Sodium (Chloride) 270 mls @ 180 mls/hr IV Q24H [facility] Last Admin: 10/19/18 07:29 Dose: Not Given Vancomycin HCl 1.5 gm/ Sodium (Chloride) 250 mls @ 166.667 mls/hr IV Q24H [facility] Stop: 10/25/18 08:00 Last Admin: 10/25/18 00:08 Dose: 166.667 mls/hr Lisinopril (Prinivil) 5 mg PEGTUBE DAILY [facility] Last Admin: 10/23/18 08:34 Dose: 5 mg Lisinopril (Prinivil) 20 mg PO DAILY [facility] Last Admin: 10/23/18 13:30 Dose: Not Given Lisinopril (Prinivil) 15 mg PO ONETIME ONE Stop: 10/23/18 13:29 Last Admin: 10/23/18 14:21 Dose: 15 mg Lisinopril (Prinivil) 20 mg PO DAILY [facility] Stop: 10/28/18 12:00 Last Admin: 10/28/18 10:22 Dose: 20 mg Lisinopril (Prinivil) 10 mg PO ONETIME [facility] Stop: 10/28/18 10:00 Multi-Ingred Cream/Lotion/Oil/Oint (Kmed) 0 ml TOP QID [facility] Last Admin: 10/08/18 10:03 Dose: Not Given Non-Form Get (Ointment) 1 each TOP Q4HR [facility] Last Admin: 09/30/18 16:22 Dose: 1 each Nystatin (Mycostatin) 5 ml PO QID [facility] Last Admin: 10/15/18 12:00 Dose: 5 ml Nystatin (Mycostatin) 5 ml PO QID LIANNE Stop: 10/18/18 15:00 Last Admin: 10/18/18 13:03 Dose: 5 ml Nystatin (Mycostatin) 5 ml PO QID [facility] Last Admin: 10/20/18 12:47 Dose: 5 ml Nystatin (Mycostatin) 5 ml PO QID [facility] Last Admin: 10/26/18 08:35 Dose: 5 ml Omeprazole (First-Omeprazole) 10 each GTUBE BIDAC [facility] Last Admin: 10/23/18 17:24 Dose: 10 ml Potassium Bicarb/Potassium Chloride (Potassium Chloride, Effervescent) 25 meq PO ONETIME ONE Stop: 10/18/18 09:40 Last Admin: 10/18/18 10:26 Dose: 25 meq Potassium Bicarb/Potassium Chloride (Potassium Chloride, Effervescent) 25 meq PO ONETIME ONE Stop: 10/18/18 17:01 Last Admin: 10/18/18 17:51 Dose: 25 meq Potassium Bicarb/Potassium Chloride (Potassium Chloride, Effervescent) 25 meq PO DAILY [facility] Last Admin: 10/30/18 09:28 Dose: Not Given Psyllium Husk (Metamucil Sugar Free) 1 pkt PEGTUBE DAILY [facility] Last Admin: 10/04/18 08:25 Dose: 1 pkt Sodium Chloride (Hypersal 7%) 4 ml NEB QIDRT [facility] Last Admin: 10/06/18 14:42 Dose: Not Given Vancomycin HCl (Pharmacy To Dose - Vancomycin) 1 dose .XX ASDIRECTED [facility] - Exam Quality Assessment: Supplemental Oxygen (60% oxygen oxygen concentration require overt cuff trach) General: Alert, No Acute Distress Neck: Supple Lungs: Rhonchi Cardiovascular: Regular Rate, Regular Rhythm GI/Abdominal Exam: Soft. No: Distended Back Exam: No: CVA Tenderness (L), CVA Tenderness (R) Extremities: No Pedal Edema Skin: Warm, Dry, Intact Psy/Mental Status: Alert. No: Anxious, Agitated - Problem List Review Problem List Initiated/Reviewed/Updated: Yes - Plan Plan:: HPI summary: Mrs. Davis is an 83yoF with history notable for extended hospitalization at [facility] for a recurrent hemorrhagic cerebellar CVA for which she was mechanically intubated, developed ventilatory associated pneumonia, and subsequently had tracheostomy and PEG tube placement. She was subsequently transferred to [facility]. She was unable to have tracheostomy removed due to increased secretions and was eventually discharged to [facility] in [place], [place]. On 09/20/18, she was initially admitted to the [facility] due to significant shortness of breath, hypoxia, and respiratory failure found to be due to pneumonia and also with NSTEMI. She had clinical improvement with antibiotics and and aggressive pulmonary toileting. Due to complexity of care, she was deemed to not be a good candidate for return back to [facility] and was instead transferred to swing bed status at [facility] for ongoing care awaiting improvement in clinical status and eventual appropriate placement closer to family in the [facility]. Patient's latest antibiotic course completed October 25 due to aspiration On the morning of October 27 she did have an increased residual 195 mL with possible mucus/aspi mucus plugging which required aggressive suctioning. Oxygen saturation did decrease mid 80s however this did improve quickly after removal of mucous. From a clinical standpoint, she appears to vacillate between requiring aggressive suctioning and it improves for a considerable time frame. 's primary concern is regarding the removal of the tracheostomy, which he states was promised to him to only be in place for a few weeks. [facility] and [facility] no willing to accept patient for capping trial at this time. [facility] is a possibility for capping trial at some point. She would likely need overnight capping trial. On Oct 12, patient started to have increased secretions with elevated WBC, Cxr confirmed probable infiltrate. she was stated on dual abx with broad spectrum and vancomycin however antibiotics were discontinued on October 25 after completion. No fevers. Update today, no major change in patient condition. Ongoing suctioning requirements. The need for trach change out arrangements have been made Primary hospital problems: Pneumonia, bilateral, HCAP, recurrent, resolved, completed third course of Abx Deconditioning, stable Ongoing secretions, Tracheostomy status, plans have been made for change out and possible capping trial Protein calorie malnutrition, Stable, chronic problems: HFpEF: Volume status neutral. Continue current management. Hx NSTEMI: Troponin downtrended during acute hospitalization. No ongoing clinical concerns. Hx recurrent intracerebral hemorrhages Atrial fibrillation: Continue carvedilol. [id number] high, but anticoagulation contraindicated in setting of recurrent hemorrhagic CVAs. HTN: Medications have been adjusted due to elevated blood pressures. Now improving. HLD: Continue atorvastatin. GERD: Continue omeprazole. Vitamin D deficiency: Continue vitamin D. Depression, major, recurrent: Continue sertraline. Glaucoma: Continue latanoprost. Maintenance FEN: No IVF. Cont with PEG tube feedings with Osmolyte with psyllium. residuals good since added E-mycin /prokinetic agent. PPX: Teds as pharmacologic DVT prophylaxis contraindicated in setting of recurrent hemorrhagic CVAs. PPI for GI prophylaxis. Code status: DNR. Emergency contact: (Naga) and Son (Lew), who have been notified of patient status on multiple occasions recently. Disposition: Long discussion with ENT [facility] Dr Metcal[place]. Over the course of 1-2 weeks there is a plan on transferring patient via ambulance as outpatient setting in the emergency department for trach replacement with possible capping trial at that time. Information regarding size and type have been forwarded to [place] one call--Radha. ENTs nurse would help communicate and coordinate this effort. Plans on returning back to [facility] after procedure. [facility] will be notified regarding time and date and transfer arrangements. Local EMS department will be notified regarding plans
[2018-11-05] MEDS: atorvaSTATin 10 MG Tab PEGTUBE SCH (21:53)
[2018-11-06] MEDS: Erythromycin Ethylsuccinate Susp 200 MG/5 ML 100 ML Bottle GTUBE SCH ×2 (05:51→19:01)
[2018-11-06] MEDS: Omeprazole 2 MG/ML 150 ML Kit GTUBE SCH ×2 (05:51→19:02)
[2018-11-06] MEDS: Latanoprost 0.005% Ophth Soln 2.5 ML Bottle EYEBOTH SCH (08:52)
[2018-11-06] MEDS: Potassium Bicarbonate/Potassium Chloride 25 MEQ Tab.Eff GTUBE SCH (08:53)
[2018-11-06] MEDS: Albuterol/Ipratropium 3.0-0.5 MG/3 ML Neb Soln NEB SCH ×2 (08:53→21:33)
[2018-11-06] MEDS: Sodium Chloride 7% 4 ML Neb Soln INH SCH ×2 (08:53→21:33)
[2018-11-06] MEDS: Carvedilol 12.5 MG Tab PEGTUBE SCH ×2 (08:54→21:33)
[2018-11-06] MEDS: Cholecalciferol (Vitamin D3) 1,000 Unit Tab PEGTUBE SCH (08:54)
[2018-11-06] MEDS: Lisinopril 20 MG Tab GTUBE SCH (08:55)
[2018-11-06] MEDS: Psyllium Husk Powder Sugar Free 5.85 GM Packet PEGTUBE SCH ×2 (08:55→21:36)
[2018-11-06] MEDS: B.Bifidum/B.Longum/L.Acidophilus/L.Rhamnosus (Probiotic) Cap PEGTUBE SCH (08:55)
[2018-11-06] MEDS: amLODIPine 5 MG Tab FTUBE SCH (08:56)
[2018-11-06] MEDS: Sertraline 50 MG Tab PEGTUBE SCH (08:56)
[2018-11-06] MEDS: atorvaSTATin 10 MG Tab PEGTUBE SCH (21:34)
[2018-11-07] MEDS: Erythromycin Ethylsuccinate Susp 200 MG/5 ML 100 ML Bottle GTUBE SCH ×2 (06:05→17:40)
[2018-11-07] MEDS: Omeprazole 2 MG/ML 150 ML Kit GTUBE SCH ×2 (06:06→17:40)
[2018-11-07] MEDS: Zinc Oxide/Eucerin/Nystatin/Karaya 237 ML JAR TOP PRN ×4 (06:06→20:53)
[2018-11-07] MEDS: Albuterol/Ipratropium 3.0-0.5 MG/3 ML Neb Soln NEB SCH ×2 (09:08→20:54)
[2018-11-07] MEDS: Carvedilol 12.5 MG Tab PEGTUBE SCH ×2 (09:08→20:54)
[2018-11-07] MEDS: Sodium Chloride 7% 4 ML Neb Soln INH SCH ×2 (09:09→20:55)
[2018-11-07] MEDS: amLODIPine 5 MG Tab FTUBE SCH (09:09)
[2018-11-07] MEDS: Psyllium Husk Powder Sugar Free 5.85 GM Packet PEGTUBE SCH ×2 (09:09→20:55)
[2018-11-07] MEDS: B.Bifidum/B.Longum/L.Acidophilus/L.Rhamnosus (Probiotic) Cap PEGTUBE SCH (09:09)
[2018-11-07] MEDS: Lisinopril 20 MG Tab GTUBE SCH (09:09)
[2018-11-07] MEDS: Potassium Bicarbonate/Potassium Chloride 25 MEQ Tab.Eff GTUBE SCH (09:09)
[2018-11-07] MEDS: Cholecalciferol (Vitamin D3) 1,000 Unit Tab PEGTUBE SCH (09:10)
[2018-11-07] MEDS: Latanoprost 0.005% Ophth Soln 2.5 ML Bottle EYEBOTH SCH (09:10)
[2018-11-07] MEDS: Sertraline 50 MG Tab PEGTUBE SCH (09:10)
[2018-11-07] MEDS: atorvaSTATin 10 MG Tab PEGTUBE SCH (20:55)
[2018-11-08] MEDS: Erythromycin Ethylsuccinate Susp 200 MG/5 ML 100 ML Bottle GTUBE SCH ×2 (05:30→17:21)
[2018-11-08] MEDS: Omeprazole 2 MG/ML 150 ML Kit GTUBE SCH ×2 (05:30→17:21)
[2018-11-08] MEDS: Sodium Chloride 7% 4 ML Neb Soln INH SCH ×2 (08:44→20:46)
[2018-11-08] MEDS: Albuterol/Ipratropium 3.0-0.5 MG/3 ML Neb Soln NEB SCH ×2 (08:44→20:46)
[2018-11-08] MEDS: Cholecalciferol (Vitamin D3) 1,000 Unit Tab PEGTUBE SCH (09:08)
[2018-11-08] MEDS: Carvedilol 12.5 MG Tab PEGTUBE SCH ×2 (09:08→20:45)
[2018-11-08] MEDS: Psyllium Husk Powder Sugar Free 5.85 GM Packet PEGTUBE SCH ×2 (09:08→20:44)
[2018-11-08] MEDS: Potassium Bicarbonate/Potassium Chloride 25 MEQ Tab.Eff GTUBE SCH (09:08)
[2018-11-08] MEDS: B.Bifidum/B.Longum/L.Acidophilus/L.Rhamnosus (Probiotic) Cap PEGTUBE SCH (09:09)
[2018-11-08] MEDS: Lisinopril 20 MG Tab GTUBE SCH (09:09)
[2018-11-08] MEDS: Sertraline 50 MG Tab PEGTUBE SCH (09:10)
[2018-11-08] MEDS: amLODIPine 5 MG Tab FTUBE SCH (09:10)
[2018-11-08] MEDS: Latanoprost 0.005% Ophth Soln 2.5 ML Bottle EYEBOTH SCH (09:46)
[2018-11-08] MEDS: guaiFENesin 100 MG/5 ML Soln 5 ML UD Cup PO PRN (12:20)
[2018-11-08] MEDS: atorvaSTATin 10 MG Tab PEGTUBE SCH (20:45)
[2018-11-09] MEDS: Omeprazole 2 MG/ML 150 ML Kit GTUBE SCH ×2 (05:27→18:03)
[2018-11-09] MEDS: Erythromycin Ethylsuccinate Susp 200 MG/5 ML 100 ML Bottle GTUBE SCH ×2 (05:28→18:04)
[2018-11-09] MEDS: Albuterol/Ipratropium 3.0-0.5 MG/3 ML Neb Soln NEB SCH ×2 (08:20→20:39)
[2018-11-09] MEDS: Sodium Chloride 7% 4 ML Neb Soln INH SCH ×2 (08:21→20:39)
[2018-11-09] MEDS: Latanoprost 0.005% Ophth Soln 2.5 ML Bottle EYEBOTH SCH (09:11)
[2018-11-09] MEDS: Psyllium Husk Powder Sugar Free 5.85 GM Packet PEGTUBE SCH ×2 (09:14→20:55)
[2018-11-09] MEDS: Potassium Bicarbonate/Potassium Chloride 25 MEQ Tab.Eff GTUBE SCH (09:15)
[2018-11-09] MEDS: B.Bifidum/B.Longum/L.Acidophilus/L.Rhamnosus (Probiotic) Cap PEGTUBE SCH (09:15)
[2018-11-09] MEDS: Sertraline 50 MG Tab PEGTUBE SCH (09:16)
[2018-11-09] MEDS: Cholecalciferol (Vitamin D3) 1,000 Unit Tab PEGTUBE SCH (09:16)
[2018-11-09] MEDS: amLODIPine 5 MG Tab FTUBE SCH (09:22)
[2018-11-09] MEDS: Carvedilol 12.5 MG Tab PEGTUBE SCH ×2 (09:22→20:43)
[2018-11-09] MEDS: Lisinopril 20 MG Tab GTUBE SCH (09:23)
[2018-11-09 09:39] LABS: ANION GAP 17.9 mmol/L (5-15); CHLORIDE,CL 94 mmol/L (98-115); SODIUM,NA 139 mmol/L (136-145)
--- NOTE | 2018-11-09 11:41 | CR ---
[id number] RAD/RAD Chest PA or AP 1V EXAM: RAD Chest PA or AP 1V INDICATION: INCREASED OXYGEN NEEDS. COMPARISON: October 27, 2018. DISCUSSION: Tracheostomy tube in place. Cardiomediastinal silhouette is stable in size and contour. Elevation of left hemidiaphragm. No effusion, pneumothorax, or edema. Small to moderate left pleural effusion with associated compressive atelectasis. Superimposed infiltrate is not excluded.. IMPRESSION: Stable small to moderate left pleural effusion with associated compressive atelectasis. Superimposed infiltrate is not excluded. Follow-up imaging is recommended. Yoshi Malloy DO 11/09/18 1140 Thank you for allowing us to participate in the care of your patient.
--- NOTE | 2018-11-09 12:39 | PCM.PN ---
- General Info Date of Service: 11/09/18 Subjective Update: minimal review of systems due to the patient unable to verbally communicate, review of systems mainly taken from facial cues and nodding yes or no Functional Status: Reports: Pain Controlled, Tolerating Diet (Low residuals), Urinating, New Symptoms (Had a drop in oxygen saturations with increased mucus production this morning.). Denies: Ambulating - Review of Systems General: Reports: Weakness. Denies: Fever Pulmonary: Reports: Shortness of Breath, Cough, Sputum Cardiovascular: Denies: Chest Pain, Palpitations, Dyspnea on Exertion, Edema Gastrointestinal: Denies: Abdominal Pain, Diarrhea, Nausea Genitourinary: Reports: Incontinence Neurological: Reports: Pre-Existing Deficit Psychiatric: Denies: Confusion - Patient Data Vitals - Most Recent: Last Vital Signs Temp 98.9 F 11/09/18 06:58 Pulse 99 11/09/18 09:22 Resp 22 H 11/09/18 06:58 BP 153/96 H 11/09/18 09:23 Pulse Ox 92 L 11/09/18 11:00 Weight - Most Recent: 143 lb 12.8 oz I&O - Last 24 Hours: Intake & Output 11/08/18 11/09/18 11/09/18 22:59 06:59 14:59 Intake Total 369 808 471 Balance 369 808 471 Lab Results Last 24 Hours: Laboratory Results - last 24 hr 11/09/18 11/09/18 Range/Units 09:10 09:10 WBC 15.34 H (5.00-10.00) 10^3/uL RBC 3.99 (3.80-5.50) 10^6/uL Hgb 12.0 (12.0-16.0) g/dL Hct 36.5 L (37.0-47.0) % MCV 91.5 (82.0-92.0) fL MCH 30.1 (27.0-31.0) pg MCHC 32.9 (32.0-36.0) g/dL RDW 14.8 H (11.5-14.5) % Plt Count 353 (150-400) 10^3/uL MPV 10.3 (7.4-10.4) fL Immature Gran % (Auto) 0.7 (0.0-5.0) % Neut % (Auto) 86.7 H (50.0-70.0) % Lymph % (Auto) 5.7 L (20.0-40.0) % [place] % (Auto) 5.8 (2.0-8.0) % Eos % (Auto) 0.9 L (1.0-3.0) % Baso % (Auto) 0.2 (0.0-1.0) % Immature Gran # (Auto) 0.11 (0.00-0.50) 10^3/uL Neut # (Auto) 13.29 H (2.50-7.00) 10^3/uL Lymph # (Auto) 0.88 L (1.00-4.00) 10^3/uL [place] # (Auto) 0.89 H (0.10-0.80) 10^3/uL Eos # (Auto) 0.14 (0.10-0.30) 10^3/uL Baso # (Auto) 0.03 (0.00-0.10) 10^3/uL Sodium 139 (136-145) mmol/L Potassium 4.4 (3.3-5.3) mmol/L Chloride 94 L (98-115) mmol/L Carbon Dioxide 31.5 (21.0-32.0) mmol/L Anion Gap 17.9 H (5-15) mmol/L BUN 12 (6-25) mg/dL Creatinine 0.48 L (0.51-1.17) mg/dL Est Cr Clr Drug Dosing 73.46 mL/min Estimated GFR (MDRD) > 60 mL/min Glucose 165 H (75 - 99) mg/dL Calcium 9.2 (8.7-10.3) mg/dL Med Orders - Current: Current Medications Albuterol/Ipratropium (Duoneb 3.0-0.5 Mg/3 Ml) 3 ml NEB BEDTIME PRN PRN Reason: Shortness of Breath Last Admin: 10/18/18 04:31 Dose: 3 ml Albuterol/Ipratropium (Duoneb 3.0-0.5 Mg/3 Ml) 3 ml NEB QID PRN PRN Reason: Shortness of Breath Last Admin: 11/03/18 07:44 Dose: 3 ml Albuterol/Ipratropium (Duoneb 3.0-0.5 Mg/3 Ml) 3 ml NEB BID [facility] Last Admin: 11/09/18 08:20 Dose: 3 ml Amlodipine Besylate (Norvasc) 5 mg FTUBE DAILY [facility] Last Admin: 11/09/18 09:22 Dose: 5 mg Atorvastatin Calcium (Lipitor) 10 mg PEGTUBE BEDTIME [facility] Last Admin: 11/08/18 20:45 Dose: 10 mg Carvedilol (Coreg) 25 mg PEGTUBE BID [facility] Last Admin: 11/09/18 09:22 Dose: 25 mg Cholecalciferol (Vitamin D3) 2,000 units PEGTUBE DAILY [facility] Last Admin: 11/09/18 09:16 Dose: 2,000 units Erythromycin Ethylsuccinate (Eryped 200) 250 mg GTUBE Q12H [facility] Last Admin: 11/09/18 05:28 Dose: 6.25 ml Guaifenesin (Robitussin) 100 mg PO Q6H PRN PRN Reason: Cough Stop: 11/10/18 23:59 Last Admin: 11/08/18 12:20 Dose: 100 mg Lactobacillus Acidophilus/Rhamnosus (Multi-Lissette Plus) 1 cap PEGTUBE DAILY [facility] Last Admin: 11/09/18 09:15 Dose: 1 cap Latanoprost (Xalatan 0.005% Ophth Soln) 0 ml EYEBOTH DAILY [facility] Last Admin: 11/09/18 09:11 Dose: 1 drop Lisinopril (Prinivil) 40 mg GTUBE DAILY [facility] Last Admin: 11/09/18 09:23 Dose: 40 mg Multi-Ingred Cream/Lotion/Oil/Oint (Kmed) 1 ml TOP QID PRN PRN Reason: Other Last Admin: 11/07/18 20:53 Dose: 1 applic Omeprazole (First-Omeprazole) 10 each GTUBE 0600,1800 [facility] Last Admin: 11/09/18 05:27 Dose: 10 ml Potassium Bicarb/Potassium Chloride (Potassium Chloride, Effervescent) 25 meq GTUBE DAILY [facility] Last Admin: 11/09/18 09:15 Dose: 25 meq Psyllium Husk (Metamucil Sugar Free) 1 pkt PEGTUBE BID [facility] Last Admin: 11/09/18 09:14 Dose: 1 pkt Sertraline HCl (Zoloft) 50 mg PEGTUBE DAILY [facility] Last Admin: 11/09/18 09:16 Dose: 50 mg Sodium Chloride (Saline Flush) 10 ml FLUSH Q8HR PRN PRN Reason: Keep Vein Open Last Admin: 11/01/18 10:58 Dose: 10 ml Sodium Chloride (Hypersal 7%) 4 ml NEB QID PRN PRN Reason: Other Last Admin: 10/27/18 06:03 Dose: 4 ml Sodium Chloride (Hypersal 7%) 4 ml INH BID [facility] Last Admin: 11/09/18 08:21 Dose: 4 ml Discontinued Medications Albuterol/Ipratropium (Duoneb 3.0-0.5 Mg/3 Ml) 3 ml NEB QIDRT LIANNE Last Admin: 10/06/18 04:29 Dose: 3 ml Albuterol/Ipratropium (Duoneb 3.0-0.5 Mg/3 Ml) 3 ml NEB BIDRT LIANNE Albuterol/Ipratropium (Duoneb 3.0-0.5 Mg/3 Ml) 3 ml NEB ONETIME@1030 [facility] Stop: 11/01/18 12:00 Last Admin: 11/01/18 10:34 Dose: 3 ml Albuterol/Ipratropium (Duoneb 3.0-0.5 Mg/3 Ml) 3 ml NEB ONETIME ONE Stop: 11/03/18 10:31 Last Admin: 11/03/18 10:00 Dose: Not Given Bacitracin (Get Ointment) 237 ml .ROUTE .STK-MED ONE Stop: 09/27/18 11:01 Ceftriaxone Sodium (Rocephin) 1 gm IVPUSH Q24H [facility] Stop: 10/03/18 18:00 Last Admin: 10/03/18 16:19 Dose: 1 gm Erythromycin (Lisandro-Tab) 250 mg PO Q8HR [facility] Last Admin: 10/27/18 14:32 Dose: Not Given Erythromycin Ethylsuccinate (Eryped 200) 250 mg PO Q8HR [facility] Erythromycin Ethylsuccinate (Eryped 200) 250 mg PO Q8HR [facility] Erythromycin Ethylsuccinate (Eryped 200) 250 mg PO Q8HR [facility] Last Admin: 10/28/18 16:01 Dose: Not Given Erythromycin Ethylsuccinate (Eryped 200) 250 mg GTUBE Q8HR [facility] Erythromycin Ethylsuccinate (Eryped 200) 250 mg GTUBE Q8HR [facility] Last Admin: 10/30/18 05:44 Dose: 6.25 ml Erythromycin Ethylsuccinate (Eryped 200) 250 mg GTUBE Q12H [facility] Last Admin: 11/04/18 06:07 Dose: 6.25 ml Erythromycin Ethylsuccinate (Eryped 200) 120 mg GTUBE Q12H [facility] Last Admin: 11/08/18 05:30 Dose: 3 ml Fluconazole (Diflucan) 150 mg PO ONETIME ONE Stop: 10/04/18 10:06 Last Admin: 10/04/18 11:36 Dose: Not Given Fluconazole (Diflucan) 150 mg PEGTUBE ONETIME ONE Stop: 10/04/18 11:31 Last Admin: 10/04/18 12:35 Dose: 150 mg Fluconazole (Diflucan) 200 mg PEGTUBE DAILY [facility] Stop: 10/17/18 11:46 Last Admin: 10/17/18 08:46 Dose: 200 mg Fluconazole (Diflucan) 200 mg PEGTUBE ONETIME ONE Stop: 10/26/18 09:01 Last Admin: 10/26/18 11:28 Dose: Not Given Fluconazole (Diflucan) 100 mg PEGTUBE DAILY [facility] Stop: 11/02/18 09:01 Last Admin: 11/02/18 09:10 Dose: 100 mg Fluconazole (Diflucan) 200 mg PEGTUBE ONETIME ONE Stop: 10/26/18 11:01 Last Admin: 10/26/18 11:30 Dose: 200 mg Glycopyrrolate (Robinul) 0.2 mg IVPUSH ONETIME@1030 [facility] Stop: 11/01/18 12:00 Last Admin: 11/01/18 10:56 Dose: 0.2 mg Glycopyrrolate () 0.2 mg IVPUSH ONETIME ONE Stop: 11/03/18 10:46 Last Admin: 11/04/18 14:51 Dose: Not Given Glycopyrrolate (Robinul) 0.2 mg IVPUSH ONETIME ONE Stop: 11/03/18 10:46 Last Admin: 11/03/18 08:35 Dose: 0.2 mg Guaifenesin (Robitussin) 200 mg PO Q6HR [facility] Last Admin: 10/04/18 12:15 Dose: Not Given Guaifenesin (Robitussin) 200 mg PEGTUBE Q6HR [facility] Last Admin: 10/23/18 11:42 Dose: 200 mg Levofloxacin/Dextrose (Levaquin In D5w 500 Mg/100 Ml) 100 mls @ 100 mls/hr IV Q48H [facility] Stop: 10/03/18 13:00 Last Admin: 10/03/18 11:19 Dose: 100 mls/hr Levofloxacin/Dextrose (Levaquin In D5w 250 Mg/50 Ml) 50 mls @ 50 mls/hr IV Q48H [facility] Stop: 10/03/18 13:00 Last Admin: 10/03/18 12:59 Dose: 50 mls/hr Sodium Chloride (Normal Saline) 50 mls @ 20 mls/hr IV DAILY@1130 [facility] Last Admin: 10/03/18 11:26 Dose: Not Given Piperacillin Sod/Tazobactam (Sod 4.5 gm/ Sodium Chloride) 100 mls @ 200 mls/hr IV Q6HR [facility] Stop: 10/25/18 08:00 Last Admin: 10/25/18 05:13 Dose: 200 mls/hr Vancomycin HCl 1 gm/ Sodium (Chloride) 270 mls @ 180 mls/hr IV Q12H [facility] Last Admin: 10/16/18 12:52 Dose: Not Given Sodium Chloride (Normal Saline) 100 mls @ 100 mls/hr IV Q24H [facility] Last Admin: 10/25/18 17:57 Dose: Not Given Vancomycin HCl 1 gm/ Sodium (Chloride) 270 mls @ 180 mls/hr IV Q24H [facility] Last Admin: 10/19/18 07:29 Dose: Not Given Vancomycin HCl 1.5 gm/ Sodium (Chloride) 250 mls @ 166.667 mls/hr IV Q24H [facility] Stop: 10/25/18 08:00 Last Admin: 10/25/18 00:08 Dose: 166.667 mls/hr Lisinopril (Prinivil) 5 mg PEGTUBE DAILY [facility] Last Admin: 10/23/18 08:34 Dose: 5 mg Lisinopril (Prinivil) 20 mg PO DAILY [facility] Last Admin: 10/23/18 13:30 Dose: Not Given Lisinopril (Prinivil) 15 mg PO ONETIME ONE Stop: 10/23/18 13:29 Last Admin: 10/23/18 14:21 Dose: 15 mg Lisinopril (Prinivil) 20 mg PO DAILY [facility] Stop: 10/28/18 12:00 Last Admin: 10/28/18 10:22 Dose: 20 mg Lisinopril (Prinivil) 10 mg PO ONETIME [facility] Stop: 10/28/18 10:00 Lisinopril (Prinivil) 30 mg GTUBE DAILY [facility] Last Admin: 11/07/18 09:09 Dose: 30 mg Multi-Ingred Cream/Lotion/Oil/Oint (Kmed) 0 ml TOP QID [facility] Last Admin: 10/08/18 10:03 Dose: Not Given Non-Form Get (Ointment) 1 each TOP Q4HR [facility] Last Admin: 09/30/18 16:22 Dose: 1 each Nystatin (Mycostatin) 5 ml PO QID [facility] Last Admin: 10/15/18 12:00 Dose: 5 ml Nystatin (Mycostatin) 5 ml PO QID [facility] Stop: 10/18/18 15:00 Last Admin: 10/18/18 13:03 Dose: 5 ml Nystatin (Mycostatin) 5 ml PO QID [facility] Last Admin: 10/20/18 12:47 Dose: 5 ml Nystatin (Mycostatin) 5 ml PO QID [facility] Last Admin: 10/26/18 08:35 Dose: 5 ml Omeprazole (First-Omeprazole) 10 each GTUBE BIDAC [facility] Last Admin: 10/23/18 17:24 Dose: 10 ml Potassium Bicarb/Potassium Chloride (Potassium Chloride, Effervescent) 25 meq PO ONETIME ONE Stop: 10/18/18 09:40 Last Admin: 10/18/18 10:26 Dose: 25 meq Potassium Bicarb/Potassium Chloride (Potassium Chloride, Effervescent) 25 meq PO ONETIME ONE Stop: 10/18/18 17:01 Last Admin: 10/18/18 17:51 Dose: 25 meq Potassium Bicarb/Potassium Chloride (Potassium Chloride, Effervescent) 25 meq PO DAILY [facility] Last Admin: 10/30/18 09:28 Dose: Not Given Psyllium Husk (Metamucil Sugar Free) 1 pkt PEGTUBE DAILY [facility] Last Admin: 10/04/18 08:25 Dose: 1 pkt Sodium Chloride (Hypersal 7%) 4 ml NEB QIDRT [facility] Last Admin: 10/06/18 14:42 Dose: Not Given Vancomycin HCl (Pharmacy To Dose - Vancomycin) 1 dose .XX ASDIRECTED LIANNE - Exam Quality Assessment: Supplemental Oxygen (Increased oxygen requirements 80% from 60) General: Alert, Mild Distress Neck: Supple, No JVD Lungs: Rhonchi Cardiovascular: Regular Rate, Regular Rhythm GI/Abdominal Exam: Normal Bowel Sounds, Soft, No Distention Extremities: No Pedal Edema Neurological: No New Focal Deficit Psy/Mental Status: Alert - Problem List Review Problem List Initiated/Reviewed/Updated: Yes - My Orders Last 24 Hours: My Active Orders 11/09/18 10:00 RESPIRATORY CULT [MREF] Routine - Plan Plan:: HPI summary: Mrs. Davis is an 83yoF with history notable for extended hospitalization at [facility] in [place] for a recurrent hemorrhagic cerebellar CVA for which she was mechanically intubated, developed ventilatory associated pneumonia, and subsequently had tracheostomy and PEG tube placement. She was subsequently transferred to [facility]. She was unable to have tracheostomy removed due to increased secretions and was eventually discharged to [facility] in [place], [place]. On 09/20/18, she was initially admitted to the [facility] due to significant shortness of breath, hypoxia, and respiratory failure found to be due to pneumonia and also with NSTEMI. She had clinical improvement with antibiotics and and aggressive pulmonary toileting. Due to complexity of care, she was deemed to not be a good candidate for return back to [facility] and was instead transferred to swing bed status at [facility] for ongoing care awaiting improvement in clinical status and eventual appropriate placement closer to family in the [facility]. Patient's latest antibiotic course completed October 25 due to aspiration On the morning of October 27 she did have an increased residual 195 mL with possible mucus/aspi mucus plugging which required aggressive suctioning. Oxygen saturation did decrease mid 80s however this did improve quickly after removal of mucous. From a clinical standpoint, she appears to vacillate between requiring aggressive suctioning and it improves for a considerable time frame. 's primary concern is regarding the removal of the tracheostomy, which he states was promised to him to only be in place for a few weeks. [facility] and [facility] no willing to accept patient for capping trial at this time. Lakisha Ritchie is a possibility for capping trial at some point. She would likely need overnight capping trial. On Oct 12, patient started to have increased secretions with elevated WBC, Cxr confirmed probable infiltrate. she was stated on dual abx with broad spectrum and vancomycin however antibiotics were discontinued on October 25 after completion. No fevers. Update today, increased oxygen requirements today from 60% to 80% with more sputum production requiring more aggressive suctioning. Once patient's cleared more comfortable with O2 sats low 90s, CBC 15,000 today. Sputum culture obtained. Primary hospital problems: R/O Pneumonia, CXR today, sputum culture today, pro-calcitonin, CRP Deconditioning, stable Ongoing secretions, Tracheostomy status, plans have been made for change out and possible capping trial Protein calorie malnutrition, MDRO Stable, chronic problems: HFpEF: Volume status neutral. Continue current management. Hx NSTEMI: Troponin downtrended during acute hospitalization. No ongoing clinical concerns. Hx recurrent intracerebral hemorrhages Atrial fibrillation: Continue carvedilol. [id number] high, but anticoagulation contraindicated in setting of recurrent hemorrhagic CVAs. HTN: Medications have been adjusted due to elevated blood pressures. Now improving. HLD: Continue atorvastatin. GERD: Continue omeprazole. Vitamin D deficiency: Continue vitamin D. Depression, major, recurrent: Continue sertraline. Glaucoma: Continue latanoprost. Maintenance FEN: No IVF. Cont with PEG tube feedings with Osmolyte with psyllium. residuals good since added E-mycin /prokinetic agent. PPX: Teds as pharmacologic DVT prophylaxis contraindicated in setting of recurrent hemorrhagic CVAs. PPI for GI prophylaxis. Code status: DNR. Emergency contact: (Naga) and Son (Lew), who have been notified of patient status on multiple occasions recently. Disposition: Chest x-ray today, pro-calcitonin, CRP, sputum culture. While rounding this morning spouse Naga quite verbally abusive telling me he did manage immediate transfer and that he has a physician that will accept her and he wants her transfer to [facility]. I explained to him we need an accepting facility's last physician and we are currently attempting to make arrangements for trach change out. Patient was interruptive, poor eye contact and and did not want to hear what I had to say. Overall plan[facility] Eventual plan to transferring patient via ambulance as outpatient setting in the emergency department for trach replacement with possible capping trial at that time. Information regarding size and type have been forwarded to [facility] one call-- Radha. ENTs nurse would help communicate and coordinate this effort. Plans on returning back to [facility] after procedure. [facility] will be notified regarding time and date and transfer arrangements. Local EMS department [facility] has been notified of the regarding plans. Transferring to facility highly possible however return visit may require further logistic such as transferring facility bringing patient back
[2018-11-09] MEDS: guaiFENesin 100 MG/5 ML Soln 5 ML UD Cup PO PRN (13:42)
[2018-11-09] MEDS: Albuterol/Ipratropium 3.0-0.5 MG/3 ML Neb Soln NEB PRN (14:19)
[2018-11-09] MEDS: Sodium Chloride 7% 4 ML Neb Soln NEB PRN (14:19)
[2018-11-09] MEDS ORDERED: ALPRAZolam 0.25 MG Tab GTUBE ONE (15:20)
[2018-11-09] MEDS ORDERED: Sodium Chloride 0.9% 100 ML SDV FLUSH PRN (19:57)
[2018-11-09] MEDS ORDERED: Piperacillin/Tazobactam 3.375 GM in Sodium Chloride 0.9% 100 ML IV SCH (20:00)
[2018-11-09] MEDS: Piperacillin/Tazobactam/Dext 3.375 GM in Premix Bag 1 BAG IV SCH (20:05)
[2018-11-09] MEDS: Sodium Chloride 0.9% 10 ML Syringe FLUSH PRN (20:10)
[2018-11-09] MEDS: atorvaSTATin 10 MG Tab PEGTUBE SCH (20:42)
[2018-11-10] MEDS: Piperacillin/Tazobactam/Dext 3.375 GM in Premix Bag 1 BAG IV SCH ×4 (02:40→21:11)
[2018-11-10] MEDS: Erythromycin Ethylsuccinate Susp 200 MG/5 ML 100 ML Bottle GTUBE SCH ×2 (06:03→17:48)
[2018-11-10] MEDS: Omeprazole 2 MG/ML 150 ML Kit GTUBE SCH ×2 (06:04→17:49)
[2018-11-10] MEDS: Sodium Chloride 0.9% 10 ML Syringe FLUSH PRN ×2 (07:57→14:25)
[2018-11-10] MEDS: Albuterol/Ipratropium 3.0-0.5 MG/3 ML Neb Soln NEB SCH ×3 (08:11→17:13)
[2018-11-10] MEDS: Sodium Chloride 7% 4 ML Neb Soln INH SCH ×3 (08:12→17:13)
[2018-11-10] MEDS: Lisinopril 20 MG Tab GTUBE SCH (08:49)
[2018-11-10] MEDS: Cholecalciferol (Vitamin D3) 1,000 Unit Tab PEGTUBE SCH (08:49)
[2018-11-10] MEDS: B.Bifidum/B.Longum/L.Acidophilus/L.Rhamnosus (Probiotic) Cap PEGTUBE SCH (08:49)
[2018-11-10] MEDS: amLODIPine 5 MG Tab FTUBE SCH (08:49)
[2018-11-10] MEDS: Sertraline 50 MG Tab PEGTUBE SCH (08:50)
[2018-11-10] MEDS: Psyllium Husk Powder Sugar Free 5.85 GM Packet PEGTUBE SCH ×2 (08:50→22:23)
[2018-11-10] MEDS: Latanoprost 0.005% Ophth Soln 2.5 ML Bottle EYEBOTH SCH (08:50)
[2018-11-10] MEDS: Carvedilol 12.5 MG Tab PEGTUBE SCH ×2 (08:50→22:23)
[2018-11-10] MEDS: Potassium Bicarbonate/Potassium Chloride 25 MEQ Tab.Eff GTUBE SCH (08:50)
[2018-11-10] MEDS: guaiFENesin 100 MG/5 ML Soln 5 ML UD Cup PO PRN (12:33)
[2018-11-10] MEDS ORDERED: Sodium Chloride 0.9% 100 ML IV SCH (14:00)
[2018-11-10] MEDS: Sodium Chloride 0.9% 100 ML IV SCH (15:11)
[2018-11-10] MEDS ORDERED: Sodium Chloride 7% 4 ML Neb Soln INH SCH (17:00)
[2018-11-10] MEDS: atorvaSTATin 10 MG Tab PEGTUBE SCH (22:23)
[2018-11-11] MEDS: Albuterol/Ipratropium 3.0-0.5 MG/3 ML Neb Soln NEB SCH ×5 (00:37→23:52)
[2018-11-11] MEDS: Sodium Chloride 7% 4 ML Neb Soln INH SCH ×5 (00:37→23:52)
[2018-11-11] MEDS: Piperacillin/Tazobactam/Dext 3.375 GM in Premix Bag 1 BAG IV SCH ×4 (01:00→21:46)
[2018-11-11] MEDS: Erythromycin Ethylsuccinate Susp 200 MG/5 ML 100 ML Bottle GTUBE SCH ×2 (05:28→18:22)
[2018-11-11] MEDS: Omeprazole 2 MG/ML 150 ML Kit GTUBE SCH ×2 (05:28→18:22)
[2018-11-11] MEDS: Sodium Chloride 0.9% 10 ML Syringe FLUSH PRN (08:31)
[2018-11-11] MEDS: Sertraline 50 MG Tab PEGTUBE SCH (08:46)
[2018-11-11] MEDS: Psyllium Husk Powder Sugar Free 5.85 GM Packet PEGTUBE SCH ×2 (08:46→21:46)
[2018-11-11] MEDS: Cholecalciferol (Vitamin D3) 1,000 Unit Tab PEGTUBE SCH (08:46)
[2018-11-11] MEDS: Potassium Bicarbonate/Potassium Chloride 25 MEQ Tab.Eff GTUBE SCH (08:46)
[2018-11-11] MEDS: B.Bifidum/B.Longum/L.Acidophilus/L.Rhamnosus (Probiotic) Cap PEGTUBE SCH (08:46)
[2018-11-11] MEDS: Carvedilol 12.5 MG Tab PEGTUBE SCH ×2 (08:48→21:46)
[2018-11-11] MEDS: Lisinopril 20 MG Tab GTUBE SCH (08:48)
[2018-11-11] MEDS: amLODIPine 5 MG Tab FTUBE SCH (08:48)
[2018-11-11] MEDS: Latanoprost 0.005% Ophth Soln 2.5 ML Bottle EYEBOTH SCH (09:00)
[2018-11-11] MEDS ORDERED: guaiFENesin 100 MG/5 ML Soln 5 ML UD Cup PEGTUBE PRN (11:15)
[2018-11-11] MEDS: Sodium Chloride 0.9% 100 ML IV SCH (14:04)
[2018-11-11] MEDS: atorvaSTATin 10 MG Tab PEGTUBE SCH (21:47)
[2018-11-12] MEDS: Piperacillin/Tazobactam/Dext 3.375 GM in Premix Bag 1 BAG IV SCH ×2 (01:21→08:48)
[2018-11-12] MEDS: Erythromycin Ethylsuccinate Susp 200 MG/5 ML 100 ML Bottle GTUBE SCH ×2 (05:47→18:00)
[2018-11-12] MEDS: Omeprazole 2 MG/ML 150 ML Kit GTUBE SCH ×2 (05:48→18:02)
[2018-11-12] MEDS: Sodium Chloride 7% 4 ML Neb Soln INH SCH ×4 (05:58→22:09)
[2018-11-12] MEDS: Albuterol/Ipratropium 3.0-0.5 MG/3 ML Neb Soln NEB SCH ×4 (05:58→22:09)
[2018-11-12] MEDS: Psyllium Husk Powder Sugar Free 5.85 GM Packet PEGTUBE SCH ×2 (09:02→21:27)
[2018-11-12] MEDS: B.Bifidum/B.Longum/L.Acidophilus/L.Rhamnosus (Probiotic) Cap PEGTUBE SCH (09:02)
[2018-11-12] MEDS: Lisinopril 20 MG Tab GTUBE SCH (09:02)
[2018-11-12] MEDS: Potassium Bicarbonate/Potassium Chloride 25 MEQ Tab.Eff GTUBE SCH (09:02)
[2018-11-12] MEDS: Cholecalciferol (Vitamin D3) 1,000 Unit Tab PEGTUBE SCH (09:02)
[2018-11-12] MEDS: Sertraline 50 MG Tab PEGTUBE SCH (09:02)
[2018-11-12] MEDS: Carvedilol 12.5 MG Tab PEGTUBE SCH ×2 (09:05→21:27)
[2018-11-12] MEDS: amLODIPine 5 MG Tab FTUBE SCH (09:07)
[2018-11-12] MEDS: Latanoprost 0.005% Ophth Soln 2.5 ML Bottle EYEBOTH SCH (09:08)
[2018-11-12] MEDS ORDERED: Glycopyrrolate 0.2 MG/ML 5 ML MDV IVPUSH PRN (09:51)
[2018-11-12] MEDS: Levofloxacin/Dextrose 5%-Water 100 ML IV SCH (11:17)
[2018-11-12] MEDS: Levofloxacin/Dextrose 5%-Water 50 ML IV SCH (12:25)
[2018-11-12] MEDS: Sodium Chloride 0.9% 100 ML IV SCH (13:35)
[2018-11-12] MEDS: Zinc Oxide/Eucerin/Nystatin/Karaya 237 ML JAR TOP PRN (14:41)
[2018-11-12] MEDS: atorvaSTATin 10 MG Tab PEGTUBE SCH (21:27)
[2018-11-13] MEDS: Albuterol/Ipratropium 3.0-0.5 MG/3 ML Neb Soln NEB SCH ×4 (05:15→22:38)
[2018-11-13] MEDS: Sodium Chloride 7% 4 ML Neb Soln INH SCH ×4 (05:15→22:38)
[2018-11-13] MEDS: Erythromycin Ethylsuccinate Susp 200 MG/5 ML 100 ML Bottle GTUBE SCH ×2 (05:38→17:28)
[2018-11-13] MEDS: Omeprazole 2 MG/ML 150 ML Kit GTUBE SCH ×2 (05:38→17:29)
[2018-11-13] MEDS: Cholecalciferol (Vitamin D3) 1,000 Unit Tab PEGTUBE SCH (08:35)
[2018-11-13] MEDS: amLODIPine 5 MG Tab FTUBE SCH (08:35)
[2018-11-13] MEDS: Sertraline 50 MG Tab PEGTUBE SCH (08:35)
[2018-11-13] MEDS: Lisinopril 20 MG Tab GTUBE SCH (08:35)
[2018-11-13] MEDS: Potassium Bicarbonate/Potassium Chloride 25 MEQ Tab.Eff GTUBE SCH (08:35)
[2018-11-13] MEDS: Carvedilol 12.5 MG Tab PEGTUBE SCH ×2 (08:36→20:46)
[2018-11-13] MEDS: Psyllium Husk Powder Sugar Free 5.85 GM Packet PEGTUBE SCH ×2 (08:36→20:47)
[2018-11-13] MEDS: B.Bifidum/B.Longum/L.Acidophilus/L.Rhamnosus (Probiotic) Cap PEGTUBE SCH (08:36)
[2018-11-13] MEDS: Latanoprost 0.005% Ophth Soln 2.5 ML Bottle EYEBOTH SCH (08:37)
[2018-11-13] MEDS: Zinc Oxide/Eucerin/Nystatin/Karaya 237 ML JAR TOP PRN (09:43)
[2018-11-13] MEDS: Levofloxacin/Dextrose 5%-Water 100 ML IV SCH (11:07)
[2018-11-13] MEDS: Sodium Chloride 0.9% 100 ML IV SCH (11:08)
[2018-11-13] MEDS: Levofloxacin/Dextrose 5%-Water 50 ML IV SCH (12:25)
[2018-11-13] MEDS: atorvaSTATin 10 MG Tab PEGTUBE SCH (20:46)
[2018-11-14] MEDS: Albuterol/Ipratropium 3.0-0.5 MG/3 ML Neb Soln NEB SCH ×3 (05:15→16:27)
[2018-11-14] MEDS: Sodium Chloride 7% 4 ML Neb Soln INH SCH ×3 (05:16→16:27)
[2018-11-14] MEDS: Zinc Oxide/Eucerin/Nystatin/Karaya 237 ML JAR TOP PRN ×2 (05:31→09:22)
[2018-11-14] MEDS: Erythromycin Ethylsuccinate Susp 200 MG/5 ML 100 ML Bottle GTUBE SCH ×2 (05:56→18:09)
[2018-11-14] MEDS: Omeprazole 2 MG/ML 150 ML Kit GTUBE SCH ×2 (05:57→18:09)
[2018-11-14] MEDS: Lisinopril 20 MG Tab GTUBE SCH (09:20)
[2018-11-14] MEDS: Sertraline 50 MG Tab PEGTUBE SCH (09:20)
[2018-11-14] MEDS: Psyllium Husk Powder Sugar Free 5.85 GM Packet PEGTUBE SCH ×2 (09:20→21:14)
[2018-11-14] MEDS: Cholecalciferol (Vitamin D3) 1,000 Unit Tab PEGTUBE SCH (09:20)
[2018-11-14] MEDS: Potassium Bicarbonate/Potassium Chloride 25 MEQ Tab.Eff GTUBE SCH (09:20)
[2018-11-14] MEDS: B.Bifidum/B.Longum/L.Acidophilus/L.Rhamnosus (Probiotic) Cap PEGTUBE SCH (09:21)
[2018-11-14] MEDS: Carvedilol 12.5 MG Tab PEGTUBE SCH ×2 (09:21→21:13)
[2018-11-14] MEDS: amLODIPine 5 MG Tab FTUBE SCH (09:21)
[2018-11-14] MEDS: Latanoprost 0.005% Ophth Soln 2.5 ML Bottle EYEBOTH SCH (09:22)
[2018-11-14] MEDS: Levofloxacin/Dextrose 5%-Water 100 ML IV SCH (10:49)
[2018-11-14] MEDS: Sodium Chloride 0.9% 100 ML IV SCH (10:50)
[2018-11-14] MEDS: Sodium Chloride 0.9% 10 ML Syringe FLUSH PRN (10:56)
[2018-11-14] MEDS: Levofloxacin/Dextrose 5%-Water 50 ML IV SCH (12:18)
[2018-11-14] MEDS: atorvaSTATin 10 MG Tab PEGTUBE SCH (21:14)
[2018-11-15] MEDS: Sodium Chloride 7% 4 ML Neb Soln INH SCH ×5 (00:38→22:14)
[2018-11-15] MEDS: Albuterol/Ipratropium 3.0-0.5 MG/3 ML Neb Soln NEB SCH ×5 (00:38→22:14)
[2018-11-15] MEDS: Omeprazole 2 MG/ML 150 ML Kit GTUBE SCH ×2 (06:39→17:45)
[2018-11-15] MEDS: Erythromycin Ethylsuccinate Susp 200 MG/5 ML 100 ML Bottle GTUBE SCH ×2 (06:39→17:44)
[2018-11-15] MEDS: B.Bifidum/B.Longum/L.Acidophilus/L.Rhamnosus (Probiotic) Cap PEGTUBE SCH (09:10)
[2018-11-15] MEDS: Cholecalciferol (Vitamin D3) 1,000 Unit Tab PEGTUBE SCH (09:11)
[2018-11-15] MEDS: Carvedilol 12.5 MG Tab PEGTUBE SCH ×2 (09:12→20:52)
[2018-11-15] MEDS: amLODIPine 5 MG Tab FTUBE SCH (09:12)
[2018-11-15] MEDS: Sertraline 50 MG Tab PEGTUBE SCH (09:13)
[2018-11-15] MEDS: Lisinopril 20 MG Tab GTUBE SCH (09:13)
[2018-11-15] MEDS: Potassium Bicarbonate/Potassium Chloride 25 MEQ Tab.Eff GTUBE SCH (09:14)
[2018-11-15] MEDS: Psyllium Husk Powder Sugar Free 5.85 GM Packet PEGTUBE SCH ×2 (09:14→20:53)
[2018-11-15] MEDS: Latanoprost 0.005% Ophth Soln 2.5 ML Bottle EYEBOTH SCH (10:54)
[2018-11-15] MEDS: Levofloxacin/Dextrose 5%-Water 100 ML IV SCH (10:55)
[2018-11-15] MEDS: Zinc Oxide/Eucerin/Nystatin/Karaya 237 ML JAR TOP PRN (10:55)
[2018-11-15] MEDS: Sodium Chloride 0.9% 100 ML IV SCH (10:58)
[2018-11-15] MEDS: Levofloxacin/Dextrose 5%-Water 50 ML IV SCH (13:04)
[2018-11-15] MEDS: atorvaSTATin 10 MG Tab PEGTUBE SCH (20:45)
[2018-11-16] MEDS: Albuterol/Ipratropium 3.0-0.5 MG/3 ML Neb Soln NEB SCH ×4 (05:57→22:00)
[2018-11-16] MEDS: Sodium Chloride 7% 4 ML Neb Soln INH SCH ×4 (05:58→22:00)
[2018-11-16] MEDS: Erythromycin Ethylsuccinate Susp 200 MG/5 ML 100 ML Bottle GTUBE SCH ×2 (06:22→18:40)
[2018-11-16] MEDS: Omeprazole 2 MG/ML 150 ML Kit GTUBE SCH ×2 (06:22→18:40)
[2018-11-16] MEDS: Sertraline 50 MG Tab PEGTUBE SCH (10:01)
[2018-11-16] MEDS: Latanoprost 0.005% Ophth Soln 2.5 ML Bottle EYEBOTH SCH (10:02)
[2018-11-16] MEDS: Potassium Bicarbonate/Potassium Chloride 25 MEQ Tab.Eff GTUBE SCH (10:03)
[2018-11-16] MEDS: Lisinopril 20 MG Tab GTUBE SCH (10:03)
[2018-11-16] MEDS: amLODIPine 5 MG Tab FTUBE SCH (10:03)
[2018-11-16] MEDS: Cholecalciferol (Vitamin D3) 1,000 Unit Tab PEGTUBE SCH (10:03)
[2018-11-16] MEDS: B.Bifidum/B.Longum/L.Acidophilus/L.Rhamnosus (Probiotic) Cap PEGTUBE SCH (10:04)
[2018-11-16] MEDS: Carvedilol 12.5 MG Tab PEGTUBE SCH ×2 (10:04→21:47)
[2018-11-16] MEDS: Psyllium Husk Powder Sugar Free 5.85 GM Packet PEGTUBE SCH ×2 (10:04→21:45)
[2018-11-16] MEDS: Levofloxacin/Dextrose 5%-Water 100 ML IV SCH ×2 (11:58→12:02)
[2018-11-16] MEDS: Sodium Chloride 0.9% 100 ML IV SCH (11:59)
[2018-11-16] MEDS: Levofloxacin/Dextrose 5%-Water 50 ML IV SCH (13:07)
[2018-11-16] MEDS: atorvaSTATin 10 MG Tab PEGTUBE SCH (21:46)
[2018-11-17] MEDS: Albuterol/Ipratropium 3.0-0.5 MG/3 ML Neb Soln NEB SCH ×4 (05:48→23:42)
[2018-11-17] MEDS: Sodium Chloride 7% 4 ML Neb Soln INH SCH ×4 (05:48→23:42)
[2018-11-17] MEDS: Sodium Chloride 7% 4 ML Neb Soln NEB PRN (05:49)
[2018-11-17] MEDS: Omeprazole 2 MG/ML 150 ML Kit GTUBE SCH ×2 (06:30→18:20)
[2018-11-17] MEDS: Erythromycin Ethylsuccinate Susp 200 MG/5 ML 100 ML Bottle GTUBE SCH ×2 (06:30→18:20)
[2018-11-17] MEDS: Latanoprost 0.005% Ophth Soln 2.5 ML Bottle EYEBOTH SCH (08:39)
[2018-11-17] MEDS: Cholecalciferol (Vitamin D3) 1,000 Unit Tab PEGTUBE SCH (08:40)
[2018-11-17] MEDS: Sertraline 50 MG Tab PEGTUBE SCH (08:40)
[2018-11-17] MEDS: Carvedilol 12.5 MG Tab PEGTUBE SCH ×2 (08:40→21:44)
[2018-11-17] MEDS: Potassium Bicarbonate/Potassium Chloride 25 MEQ Tab.Eff GTUBE SCH (08:40)
[2018-11-17] MEDS: Lisinopril 20 MG Tab GTUBE SCH (08:41)
[2018-11-17] MEDS: Psyllium Husk Powder Sugar Free 5.85 GM Packet PEGTUBE SCH (08:41)
[2018-11-17] MEDS: B.Bifidum/B.Longum/L.Acidophilus/L.Rhamnosus (Probiotic) Cap PEGTUBE SCH (08:42)
[2018-11-17] MEDS: amLODIPine 5 MG Tab FTUBE SCH (08:42)
[2018-11-17] MEDS ORDERED: Glycopyrrolate 0.2 MG/ML 5 ML MDV IVPUSH PRN (10:32)
--- NOTE | 2018-11-17 11:43 | CR ---
[id number] RAD/RAD Chest PA or AP 1V EXAM: RAD Chest PA or AP 1V INDICATION: PREOP CLEARANCE,FOLLOW UP PNEUMONIA. COMPARISON: November 09, 2018. DISCUSSION: Cardiomegaly central vascular congestion superimposed on changes of COPD. Findings are similar to the prior examination. Blunting of the costophrenic sulci possibly represent small bilateral pleural effusions. However, this could be summation artifact from overlapping soft tissue structures. Tracheostomy tube in place. IMPRESSION: Improved aeration of the left lung base is likely sequela of increased ventilatory effort by the patient. Otherwise, no significant change from the prior examination. Shiv Long MD 11/17/18 1142 Thank you for allowing us to participate in the care of your patient.
[2018-11-17] MEDS: Sodium Chloride 0.9% 100 ML IV SCH (12:18)
[2018-11-17] MEDS: Levofloxacin/Dextrose 5%-Water 100 ML IV SCH (12:19)
[2018-11-17] MEDS: Levofloxacin/Dextrose 5%-Water 50 ML IV SCH (13:32)
[2018-11-17] MEDS: Zinc Oxide/Eucerin/Nystatin/Karaya 237 ML JAR TOP PRN (19:11)
[2018-11-17] MEDS: atorvaSTATin 10 MG Tab PEGTUBE SCH (21:43)
[2018-11-18] MEDS: Psyllium Husk Powder Sugar Free 5.85 GM Packet PEGTUBE SCH ×3 (00:37→23:07)
[2018-11-18] MEDS: Albuterol/Ipratropium 3.0-0.5 MG/3 ML Neb Soln NEB SCH ×4 (05:38→22:50)
[2018-11-18] MEDS: Sodium Chloride 7% 4 ML Neb Soln INH SCH ×4 (05:38→22:50)
[2018-11-18] MEDS: Omeprazole 2 MG/ML 150 ML Kit GTUBE SCH ×2 (06:31→17:25)
[2018-11-18] MEDS: Erythromycin Ethylsuccinate Susp 200 MG/5 ML 100 ML Bottle GTUBE SCH ×2 (06:32→17:25)
[2018-11-18] MEDS: Sertraline 50 MG Tab PEGTUBE SCH (09:27)
[2018-11-18] MEDS: amLODIPine 5 MG Tab FTUBE SCH (09:27)
[2018-11-18] MEDS: Lisinopril 20 MG Tab GTUBE SCH (09:27)
[2018-11-18] MEDS: Carvedilol 12.5 MG Tab PEGTUBE SCH ×2 (09:27→21:19)
[2018-11-18] MEDS: B.Bifidum/B.Longum/L.Acidophilus/L.Rhamnosus (Probiotic) Cap PEGTUBE SCH (09:27)
[2018-11-18] MEDS: Latanoprost 0.005% Ophth Soln 2.5 ML Bottle EYEBOTH SCH (09:28)
[2018-11-18] MEDS: Cholecalciferol (Vitamin D3) 1,000 Unit Tab PEGTUBE SCH (09:28)
[2018-11-18] MEDS: Levofloxacin/Dextrose 5%-Water 100 ML IV SCH (11:39)
[2018-11-18] MEDS: Sodium Chloride 0.9% 100 ML IV SCH (11:39)
[2018-11-18] MEDS: Potassium Bicarbonate/Potassium Chloride 25 MEQ Tab.Eff GTUBE SCH (11:52)
[2018-11-18] MEDS: Levofloxacin/Dextrose 5%-Water 50 ML IV SCH (12:49)
[2018-11-18] MEDS: atorvaSTATin 10 MG Tab PEGTUBE SCH (21:20)
[2018-11-19] MEDS: Zinc Oxide/Eucerin/Nystatin/Karaya 237 ML JAR TOP PRN (04:39)
[2018-11-19] MEDS: Omeprazole 2 MG/ML 150 ML Kit GTUBE SCH ×3 (04:39→17:37)
[2018-11-19] MEDS: Albuterol/Ipratropium 3.0-0.5 MG/3 ML Neb Soln NEB SCH ×4 (05:43→22:42)
[2018-11-19] MEDS: Sodium Chloride 7% 4 ML Neb Soln INH SCH (05:43)
[2018-11-19] MEDS: Erythromycin Ethylsuccinate Susp 200 MG/5 ML 100 ML Bottle GTUBE SCH (06:18)
[2018-11-19] MEDS: B.Bifidum/B.Longum/L.Acidophilus/L.Rhamnosus (Probiotic) Cap PEGTUBE SCH (09:07)
[2018-11-19] MEDS: Latanoprost 0.005% Ophth Soln 2.5 ML Bottle EYEBOTH SCH (09:07)
[2018-11-19] MEDS: Sertraline 50 MG Tab PEGTUBE SCH (09:07)
[2018-11-19] MEDS: Cholecalciferol (Vitamin D3) 1,000 Unit Tab PEGTUBE SCH (09:07)
[2018-11-19] MEDS: Carvedilol 12.5 MG Tab PEGTUBE SCH ×2 (09:09→21:47)
[2018-11-19] MEDS: amLODIPine 5 MG Tab FTUBE SCH (09:09)
[2018-11-19] MEDS: Lisinopril 20 MG Tab GTUBE SCH (09:10)
[2018-11-19] MEDS ORDERED: Ondansetron 4 MG/2 ML SDV IVPUSH PRN (10:16)
[2018-11-19] MEDS: Levofloxacin/Dextrose 5%-Water 100 ML IV SCH (10:51)
[2018-11-19] MEDS: Sodium Chloride 0.9% 100 ML IV SCH (10:52)
[2018-11-19] MEDS: Psyllium Husk Powder Sugar Free 5.85 GM Packet PEGTUBE SCH (11:09)
[2018-11-19] MEDS: Potassium Bicarbonate/Potassium Chloride 25 MEQ Tab.Eff GTUBE SCH (11:09)
[2018-11-19] MEDS: Levofloxacin/Dextrose 5%-Water 50 ML IV SCH (12:06)
[2018-11-19] MEDS ORDERED: Sodium Chloride 0.9% 250 ML IV SCH (14:00)
[2018-11-19] MEDS: atorvaSTATin 10 MG Tab PEGTUBE SCH (21:47)
[2018-11-20] MEDS: Acetaminophen Susp 160 MG/5 ML 120 ML Bottle PO PRN ×2 (01:05→22:07)
[2018-11-20] MEDS: Psyllium Husk Powder Sugar Free 5.85 GM Packet PEGTUBE SCH ×3 (01:24→23:23)
[2018-11-20] MEDS: Albuterol/Ipratropium 3.0-0.5 MG/3 ML Neb Soln NEB SCH ×4 (05:38→23:06)
[2018-11-20] MEDS: Omeprazole 2 MG/ML 150 ML Kit GTUBE SCH ×2 (05:49→18:28)
[2018-11-20] MEDS: Sertraline 50 MG Tab PEGTUBE SCH (09:13)
[2018-11-20] MEDS: Lisinopril 20 MG Tab GTUBE SCH (09:13)
[2018-11-20] MEDS: B.Bifidum/B.Longum/L.Acidophilus/L.Rhamnosus (Probiotic) Cap PEGTUBE SCH (09:13)
[2018-11-20] MEDS: Carvedilol 12.5 MG Tab PEGTUBE SCH ×2 (09:13→21:55)
[2018-11-20] MEDS: Cholecalciferol (Vitamin D3) 1,000 Unit Tab PEGTUBE SCH (09:13)
[2018-11-20] MEDS: amLODIPine 5 MG Tab FTUBE SCH (09:13)
[2018-11-20] MEDS: Latanoprost 0.005% Ophth Soln 2.5 ML Bottle EYEBOTH SCH (11:08)
[2018-11-20] MEDS: Levofloxacin/Dextrose 5%-Water 100 ML IV SCH (12:15)
[2018-11-20] MEDS: Sodium Chloride 0.9% 100 ML IV SCH (12:15)
[2018-11-20] MEDS: Potassium Bicarbonate/Potassium Chloride 25 MEQ Tab.Eff GTUBE SCH (12:46)
[2018-11-20] MEDS: Levofloxacin/Dextrose 5%-Water 50 ML IV SCH (13:28)
[2018-11-20] MEDS: atorvaSTATin 10 MG Tab PEGTUBE SCH (21:55)
[2018-11-21] MEDS: Albuterol/Ipratropium 3.0-0.5 MG/3 ML Neb Soln NEB SCH ×4 (04:09→22:23)
[2018-11-21] MEDS: Omeprazole 2 MG/ML 150 ML Kit GTUBE SCH ×2 (05:47→17:12)
[2018-11-21] MEDS: B.Bifidum/B.Longum/L.Acidophilus/L.Rhamnosus (Probiotic) Cap PEGTUBE SCH (09:32)
[2018-11-21] MEDS: Cholecalciferol (Vitamin D3) 1,000 Unit Tab PEGTUBE SCH (09:33)
[2018-11-21] MEDS: Sertraline 50 MG Tab PEGTUBE SCH (09:33)
[2018-11-21] MEDS: Lisinopril 20 MG Tab GTUBE SCH (09:39)
[2018-11-21] MEDS: amLODIPine 5 MG Tab FTUBE SCH (09:39)
[2018-11-21] MEDS: Carvedilol 12.5 MG Tab PEGTUBE SCH ×2 (09:39→22:09)
[2018-11-21] MEDS: Latanoprost 0.005% Ophth Soln 2.5 ML Bottle EYEBOTH SCH (09:47)
[2018-11-21] MEDS ORDERED: Loperamide 2 MG Cap PO PRN (10:23)
[2018-11-21] MEDS: Psyllium Husk Powder Sugar Free 5.85 GM Packet PEGTUBE SCH (11:53)
[2018-11-21] MEDS: Potassium Bicarbonate/Potassium Chloride 25 MEQ Tab.Eff GTUBE SCH (11:53)
[2018-11-21] MEDS: Levofloxacin/Dextrose 5%-Water 100 ML IV SCH (11:53)
[2018-11-21] MEDS: Sodium Chloride 0.9% 100 ML IV SCH (11:53)
[2018-11-21] MEDS: Levofloxacin/Dextrose 5%-Water 50 ML IV SCH (13:27)
[2018-11-21] MEDS ORDERED: Carvedilol 12.5 MG Tab ONE (22:03)
[2018-11-21] MEDS: atorvaSTATin 10 MG Tab PEGTUBE SCH (22:09)
[2018-11-22] MEDS: Zinc Oxide/Eucerin/Nystatin/Karaya 237 ML JAR TOP PRN ×3 (02:00→13:44)
[2018-11-22] MEDS: Omeprazole 2 MG/ML 150 ML Kit GTUBE SCH ×2 (06:00→18:37)
[2018-11-22] MEDS: Albuterol/Ipratropium 3.0-0.5 MG/3 ML Neb Soln NEB SCH ×4 (06:02→23:44)
[2018-11-22] MEDS: B.Bifidum/B.Longum/L.Acidophilus/L.Rhamnosus (Probiotic) Cap PEGTUBE SCH (09:48)
[2018-11-22] MEDS: Sertraline 50 MG Tab PEGTUBE SCH (09:48)
[2018-11-22] MEDS: Cholecalciferol (Vitamin D3) 1,000 Unit Tab PEGTUBE SCH (09:48)
[2018-11-22] MEDS: Carvedilol 12.5 MG Tab PEGTUBE SCH ×2 (09:49→21:14)
[2018-11-22] MEDS: amLODIPine 5 MG Tab FTUBE SCH (09:49)
[2018-11-22] MEDS: Lisinopril 20 MG Tab GTUBE SCH (09:49)
[2018-11-22] MEDS: Metoclopramide 10 MG/2 ML SDV IVPUSH SCH ×2 (11:09→18:35)
[2018-11-22] MEDS: Sodium Chloride 0.9% 10 ML Syringe FLUSH PRN (11:10)
[2018-11-22] MEDS: Sodium Chloride 0.9% 100 ML IV SCH (14:33)
[2018-11-22] MEDS: Levofloxacin/Dextrose 5%-Water 100 ML IV SCH (14:34)
[2018-11-22] MEDS: Latanoprost 0.005% Ophth Soln 2.5 ML Bottle EYEBOTH SCH (14:36)
[2018-11-22] MEDS: Potassium Bicarbonate/Potassium Chloride 25 MEQ Tab.Eff GTUBE SCH (14:37)
[2018-11-22] MEDS: Levofloxacin/Dextrose 5%-Water 50 ML IV SCH (15:45)
[2018-11-22] MEDS: Psyllium Husk Powder Sugar Free 5.85 GM Packet PEGTUBE SCH ×2 (18:31→23:38)
[2018-11-22] MEDS: atorvaSTATin 10 MG Tab PEGTUBE SCH (21:14)
[2018-11-23] MEDS: Sodium Chloride 0.9% 10 ML Syringe FLUSH PRN ×3 (00:55→16:59)
[2018-11-23] MEDS: Metoclopramide 10 MG/2 ML SDV IVPUSH SCH ×3 (00:55→16:59)
[2018-11-23] MEDS: Omeprazole 2 MG/ML 150 ML Kit GTUBE SCH ×2 (05:35→18:21)
[2018-11-23] MEDS: Albuterol/Ipratropium 3.0-0.5 MG/3 ML Neb Soln NEB SCH ×4 (05:35→23:38)
[2018-11-23] MEDS: Lisinopril 20 MG Tab GTUBE SCH (08:36)
[2018-11-23] MEDS: amLODIPine 5 MG Tab FTUBE SCH (08:36)
[2018-11-23] MEDS: B.Bifidum/B.Longum/L.Acidophilus/L.Rhamnosus (Probiotic) Cap PEGTUBE SCH (08:36)
[2018-11-23] MEDS: Cholecalciferol (Vitamin D3) 1,000 Unit Tab PEGTUBE SCH (08:36)
[2018-11-23] MEDS: Sertraline 50 MG Tab PEGTUBE SCH (08:36)
[2018-11-23] MEDS: Latanoprost 0.005% Ophth Soln 2.5 ML Bottle EYEBOTH SCH (08:37)
[2018-11-23] MEDS: Carvedilol 12.5 MG Tab PEGTUBE SCH ×2 (08:39→20:37)
[2018-11-23] MEDS: Zinc Oxide/Eucerin/Nystatin/Karaya 237 ML JAR TOP PRN ×2 (09:15→18:50)
[2018-11-23] MEDS: Levofloxacin/Dextrose 5%-Water 100 ML IV SCH (11:21)
[2018-11-23] MEDS: Sodium Chloride 0.9% 100 ML IV SCH (11:21)
[2018-11-23] MEDS: Potassium Bicarbonate/Potassium Chloride 25 MEQ Tab.Eff GTUBE SCH (12:33)
[2018-11-23] MEDS: Levofloxacin/Dextrose 5%-Water 50 ML IV SCH (12:33)
[2018-11-23] MEDS: atorvaSTATin 10 MG Tab PEGTUBE SCH (20:37)
[2018-11-24] MEDS: Albuterol/Ipratropium 3.0-0.5 MG/3 ML Neb Soln NEB SCH ×4 (05:25→23:22)
[2018-11-24] MEDS: Omeprazole 2 MG/ML 150 ML Kit GTUBE SCH ×2 (05:26→18:32)
[2018-11-24] MEDS: Carvedilol 12.5 MG Tab PEGTUBE SCH ×2 (09:25→21:37)
[2018-11-24] MEDS: Lisinopril 20 MG Tab GTUBE SCH (09:25)
[2018-11-24] MEDS: amLODIPine 5 MG Tab FTUBE SCH (09:26)
[2018-11-24] MEDS: Sertraline 50 MG Tab PEGTUBE SCH (09:26)
[2018-11-24] MEDS: Cholecalciferol (Vitamin D3) 1,000 Unit Tab PEGTUBE SCH (09:26)
[2018-11-24] MEDS: B.Bifidum/B.Longum/L.Acidophilus/L.Rhamnosus (Probiotic) Cap PEGTUBE SCH (09:26)
[2018-11-24] MEDS: Latanoprost 0.005% Ophth Soln 2.5 ML Bottle EYEBOTH SCH (09:27)
--- NOTE | 2018-11-24 10:57 | PCM.PN ---
- General Info Date of Service: 11/24/18 Subjective Update: history limited due to tracheostomy status. Nursing reporting leakage around PEG tube site only on administration of Metamucil report. He is requiring less suctioning. Functional Status: Reports: Pain Controlled, Tolerating Diet, New Symptoms ( Nurses report leakage around G-tube only on Metamucil administration). Denies: Ambulating - Review of Systems General: Reports: Weakness. Denies: Fever HEENT: Reports: No Symptoms Pulmonary: Denies: Cough Gastrointestinal: Denies: Abdominal Pain, Diarrhea, Nausea Genitourinary: Reports: Incontinence Neurological: Reports: Pre-Existing Deficit Psychiatric: Denies: Agitation - Patient Data Vitals - Most Recent: Last Vital Signs Temp 98.5 F 11/24/18 06:53 Pulse 67 11/24/18 09:25 Resp 20 11/24/18 06:53 BP 142/78 H 11/24/18 09:26 Pulse Ox 96 11/24/18 09:00 Weight - Most Recent: 145 lb 5 oz I&O - Last 24 Hours: Intake & Output 11/23/18 11/24/18 11/24/18 22:59 06:59 14:59 Intake Total 582 407 Balance 582 407 Armand Results Last 24 Hours: Microbiology 11/22/18 18:45 Gram Stain - Final Wound - Abdomen Med Orders - Current: Current Medications Acetaminophen (Tylenol Solution 160 Mg/5 Ml) 640 mg PO Q4H PRN PRN Reason: Pain/Fever Last Admin: 11/20/18 22:07 Dose: 20 ml Albuterol/Ipratropium (Duoneb 3.0-0.5 Mg/3 Ml) 3 ml NEB BEDTIME PRN PRN Reason: Shortness of Breath Last Admin: 10/18/18 04:31 Dose: 3 ml Albuterol/Ipratropium (Duoneb 3.0-0.5 Mg/3 Ml) 3 ml NEB QID PRN PRN Reason: Shortness of Breath Last Admin: 11/09/18 14:19 Dose: 3 ml Albuterol/Ipratropium (Duoneb 3.0-0.5 Mg/3 Ml) 3 ml NEB Q6HRRT LIANNE Last Admin: 11/24/18 05:25 Dose: 3 ml Amlodipine Besylate (Norvasc) 5 mg FTUBE DAILY [facility] Last Admin: 11/24/18 09:26 Dose: 5 mg Atorvastatin Calcium (Lipitor) 10 mg PEGTUBE BEDTIME [facility] Last Admin: 11/23/18 20:37 Dose: 10 mg Carvedilol (Coreg) 25 mg PEGTUBE BID [facility] Last Admin: 11/24/18 09:25 Dose: 25 mg Cholecalciferol (Vitamin D3) 2,000 units PEGTUBE DAILY [facility] Last Admin: 11/24/18 09:26 Dose: 2,000 units Guaifenesin (Robitussin) 100 mg PEGTUBE Q4H PRN PRN Reason: Cough Levofloxacin/Dextrose (Levaquin In D5w 250 Mg/50 Ml) 50 mls @ 50 mls/hr IV Q24H [facility] Last Admin: 11/23/18 12:33 Dose: 50 mls/hr Levofloxacin/Dextrose (Levaquin In D5w 500 Mg/100 Ml) 100 mls @ 100 mls/hr IV Q24H [facility] Last Admin: 11/23/18 11:21 Dose: 100 mls/hr Sodium Chloride (Normal Saline) 100 mls @ 100 mls/hr IV DAILY@1100 [facility] Last Admin: 11/23/18 11:21 Dose: 100 mls/hr Lactobacillus Acidophilus/Rhamnosus (Multi-Lissette Plus) 1 cap PEGTUBE DAILY [facility] Last Admin: 11/24/18 09:26 Dose: 1 cap Latanoprost (Xalatan 0.005% Ophth Soln) 0 ml EYEBOTH DAILY [facility] Last Admin: 11/24/18 09:27 Dose: 1 drop Lisinopril (Prinivil) 40 mg GTUBE DAILY [facility] Last Admin: 11/24/18 09:25 Dose: 40 mg Loperamide HCl (Imodium) 1 - 2 mg PO ASDIRECTED PRN PRN Reason: Diarrhea Multi-Ingred Cream/Lotion/Oil/Oint (Kmed) 1 ml TOP QID PRN PRN Reason: Other Last Admin: 11/23/18 18:50 Dose: 1 applic Omeprazole (First-Omeprazole) 10 each GTUBE 0600,1800 [facility] Last Admin: 11/24/18 05:26 Dose: 10 ml Ondansetron HCl (Zofran) 4 mg IVPUSH Q6H PRN PRN Reason: Nausea/Vomiting Last Admin: 11/19/18 11:15 Dose: 4 mg Potassium Bicarb/Potassium Chloride (Potassium Chloride, Effervescent) 25 meq GTUBE DAILY@1200 [facility] Last Admin: 11/23/18 12:33 Dose: 25 meq Psyllium Husk (Metamucil Sugar Free) 1 pkt PEGTUBE 0000,1200 [facility] Last Admin: 11/22/18 23:38 Dose: Not Given Ramelteon (Rozerem) 8 mg PEGTUBE BEDTIME [facility] Last Admin: 11/23/18 20:37 Dose: 8 mg Sertraline HCl (Zoloft) 50 mg PEGTUBE DAILY [facility] Last Admin: 11/24/18 09:26 Dose: 50 mg Sodium Chloride (Saline Flush) 10 ml FLUSH Q8HR PRN PRN Reason: Keep Vein Open Last Admin: 11/23/18 16:59 Dose: 10 ml Sodium Chloride (Hypersal 7%) 4 ml NEB QID PRN PRN Reason: Other Last Admin: 11/17/18 05:49 Dose: 4 ml Discontinued Medications Albuterol/Ipratropium (Duoneb 3.0-0.5 Mg/3 Ml) 3 ml NEB QIDRT [facility] Last Admin: 10/06/18 04:29 Dose: 3 ml Albuterol/Ipratropium (Duoneb 3.0-0.5 Mg/3 Ml) 3 ml NEB BIDRT [facility] Albuterol/Ipratropium (Duoneb 3.0-0.5 Mg/3 Ml) 3 ml NEB BID [facility] Last Admin: 11/10/18 08:11 Dose: 3 ml Albuterol/Ipratropium (Duoneb 3.0-0.5 Mg/3 Ml) 3 ml NEB ONETIME@1030 [facility] Stop: 11/01/18 12:00 Last Admin: 11/01/18 10:34 Dose: 3 ml Albuterol/Ipratropium (Duoneb 3.0-0.5 Mg/3 Ml) 3 ml NEB ONETIME ONE Stop: 11/03/18 10:31 Last Admin: 11/03/18 10:00 Dose: Not Given Alprazolam (Xanax) 0.25 mg GTUBE NOW ONE Stop: 11/09/18 15:21 Last Admin: 11/09/18 15:32 Dose: 0.25 mg Bacitracin (Get Ointment) 237 ml .ROUTE .STK-MED ONE Stop: 09/27/18 11:01 Carvedilol (Coreg) Confirm Administered Dose 12.5 mg .ROUTE .STK-MED ONE Stop: 11/21/18 22:04 Last Admin: 11/21/18 22:08 Dose: Not Given Ceftriaxone Sodium (Rocephin) 1 gm IVPUSH Q24H [facility] Stop: 10/03/18 18:00 Last Admin: 10/03/18 16:19 Dose: 1 gm Erythromycin (Lisandro-Tab) 250 mg PO Q8HR [facility] Last Admin: 10/27/18 14:32 Dose: Not Given Erythromycin Ethylsuccinate (Eryped 200) 250 mg PO Q8HR LIANNE Erythromycin Ethylsuccinate (Eryped 200) 250 mg PO Q8HR [facility] Erythromycin Ethylsuccinate (Eryped 200) 250 mg PO Q8HR [facility] Last Admin: 10/28/18 16:01 Dose: Not Given Erythromycin Ethylsuccinate (Eryped 200) 250 mg GTUBE Q8HR LIANNE Erythromycin Ethylsuccinate (Eryped 200) 250 mg GTUBE Q8HR [facility] Last Admin: 10/30/18 05:44 Dose: 6.25 ml Erythromycin Ethylsuccinate (Eryped 200) 250 mg GTUBE Q12H [facility] Last Admin: 11/04/18 06:07 Dose: 6.25 ml Erythromycin Ethylsuccinate (Eryped 200) 120 mg GTUBE Q12H [facility] Last Admin: 11/08/18 05:30 Dose: 3 ml Erythromycin Ethylsuccinate (Eryped 200) 250 mg GTUBE Q12H [facility] Last Admin: 11/19/18 06:18 Dose: 6.25 ml Fluconazole (Diflucan) 150 mg PO ONETIME ONE Stop: 10/04/18 10:06 Last Admin: 10/04/18 11:36 Dose: Not Given Fluconazole (Diflucan) 150 mg PEGTUBE ONETIME ONE Stop: 10/04/18 11:31 Last Admin: 10/04/18 12:35 Dose: 150 mg Fluconazole (Diflucan) 200 mg PEGTUBE DAILY [facility] Stop: 10/17/18 11:46 Last Admin: 10/17/18 08:46 Dose: 200 mg Fluconazole (Diflucan) 200 mg PEGTUBE ONETIME ONE Stop: 10/26/18 09:01 Last Admin: 10/26/18 11:28 Dose: Not Given Fluconazole (Diflucan) 100 mg PEGTUBE DAILY [facility] Stop: 11/02/18 09:01 Last Admin: 11/02/18 09:10 Dose: 100 mg Fluconazole (Diflucan) 200 mg PEGTUBE ONETIME ONE Stop: 10/26/18 11:01 Last Admin: 10/26/18 11:30 Dose: 200 mg Glycopyrrolate (Robinul) 0.2 mg IVPUSH ONETIME@1030 [facility] Stop: 11/01/18 12:00 Last Admin: 11/01/18 10:56 Dose: 0.2 mg Glycopyrrolate () 0.2 mg IVPUSH ONETIME ONE Stop: 11/03/18 10:46 Last Admin: 11/04/18 14:51 Dose: Not Given Glycopyrrolate (Robinul) 0.2 mg IVPUSH ONETIME ONE Stop: 11/03/18 10:46 Last Admin: 11/03/18 08:35 Dose: 0.2 mg Glycopyrrolate (Robinul) 0.1 mg IVPUSH Q4H PRN PRN Reason: secrections Glycopyrrolate (Robinul) 0.2 mg IVPUSH Q4H PRN PRN Reason: secrections Guaifenesin (Robitussin) 200 mg PO Q6HR [facility] Last Admin: 10/04/18 12:15 Dose: Not Given Guaifenesin (Robitussin) 200 mg PEGTUBE Q6HR [facility] Last Admin: 10/23/18 11:42 Dose: 200 mg Guaifenesin (Robitussin) 100 mg PO Q6H PRN PRN Reason: Cough Stop: 11/10/18 23:59 Last Admin: 11/10/18 12:33 Dose: 100 mg Levofloxacin/Dextrose (Levaquin In D5w 500 Mg/100 Ml) 100 mls @ 100 mls/hr IV Q48H [facility] Stop: 10/03/18 13:00 Last Admin: 10/03/18 11:19 Dose: 100 mls/hr Levofloxacin/Dextrose (Levaquin In D5w 250 Mg/50 Ml) 50 mls @ 50 mls/hr IV Q48H [facility] Stop: 10/03/18 13:00 Last Admin: 10/03/18 12:59 Dose: 50 mls/hr Sodium Chloride (Normal Saline) 50 mls @ 20 mls/hr IV DAILY@1130 [facility] Last Admin: 10/03/18 11:26 Dose: Not Given Piperacillin Sod/Tazobactam (Sod 4.5 gm/ Sodium Chloride) 100 mls @ 200 mls/hr IV Q6HR [facility] Stop: 10/25/18 08:00 Last Admin: 10/25/18 05:13 Dose: 200 mls/hr Vancomycin HCl 1 gm/ Sodium (Chloride) 270 mls @ 180 mls/hr IV Q12H [facility] Last Admin: 10/16/18 12:52 Dose: Not Given Sodium Chloride (Normal Saline) 100 mls @ 100 mls/hr IV Q24H [facility] Last Admin: 10/25/18 17:57 Dose: Not Given Vancomycin HCl 1 gm/ Sodium (Chloride) 270 mls @ 180 mls/hr IV Q24H [facility] Last Admin: 10/19/18 07:29 Dose: Not Given Vancomycin HCl 1.5 gm/ Sodium (Chloride) 250 mls @ 166.667 mls/hr IV Q24H [facility] Stop: 10/25/18 08:00 Last Admin: 10/25/18 00:08 Dose: 166.667 mls/hr Piperacillin Sod/Tazobactam (Sod 3.375 gm/ Sodium Chloride) 100 mls @ 200 mls/ hr IV Q6H [facility] Piperacillin/Tazobactam/ (Dextrose 3.375 gm/ Premix) 50 mls @ 100 mls/hr IV Q6H [facility] Last Admin: 11/12/18 08:48 Dose: 100 mls/hr Sodium Chloride (Normal Saline) 100 mls @ 100 mls/hr IV 1400 [facility] Last Admin: 11/10/18 14:24 Dose: Not Given Sodium Chloride (Normal Saline) 100 mls @ 100 mls/hr IV 1400 [facility] Last Admin: 11/12/18 13:35 Dose: 100 mls/hr Sodium Chloride (Normal Saline) 250 mls @ 100 mls/hr IV ONETIME [facility] Stop: 11/19/18 23:59 Last Admin: 11/19/18 13:44 Dose: 100 mls/hr Lisinopril (Prinivil) 5 mg PEGTUBE DAILY [facility] Last Admin: 10/23/18 08:34 Dose: 5 mg Lisinopril (Prinivil) 20 mg PO DAILY [facility] Last Admin: 10/23/18 13:30 Dose: Not Given Lisinopril (Prinivil) 15 mg PO ONETIME ONE Stop: 10/23/18 13:29 Last Admin: 10/23/18 14:21 Dose: 15 mg Lisinopril (Prinivil) 20 mg PO DAILY [facility] Stop: 10/28/18 12:00 Last Admin: 10/28/18 10:22 Dose: 20 mg Lisinopril (Prinivil) 10 mg PO ONETIME [facility] Stop: 10/28/18 10:00 Lisinopril (Prinivil) 30 mg GTUBE DAILY [facility] Last Admin: 11/07/18 09:09 Dose: 30 mg Metoclopramide HCl (Reglan) 5 mg IVPUSH Q8H [facility] Stop: 11/23/18 23:59 Last Admin: 11/23/18 16:59 Dose: 5 mg Multi-Ingred Cream/Lotion/Oil/Oint (Kmed) 0 ml TOP QID [facility] Last Admin: 10/08/18 10:03 Dose: Not Given Non-Form Get (Ointment) 1 each TOP Q4HR [facility] Last Admin: 09/30/18 16:22 Dose: 1 each Nystatin (Mycostatin) 5 ml PO QID [facility] Last Admin: 10/15/18 12:00 Dose: 5 ml Nystatin (Mycostatin) 5 ml PO QID [facility] Stop: 10/18/18 15:00 Last Admin: 10/18/18 13:03 Dose: 5 ml Nystatin (Mycostatin) 5 ml PO QID [facility] Last Admin: 10/20/18 12:47 Dose: 5 ml Nystatin (Mycostatin) 5 ml PO QID [facility] Last Admin: 10/26/18 08:35 Dose: 5 ml Omeprazole (First-Omeprazole) 10 each GTUBE BIDAC [facility] Last Admin: 10/23/18 17:24 Dose: 10 ml Potassium Bicarb/Potassium Chloride (Potassium Chloride, Effervescent) 25 meq PO ONETIME ONE Stop: 10/18/18 09:40 Last Admin: 10/18/18 10:26 Dose: 25 meq Potassium Bicarb/Potassium Chloride (Potassium Chloride, Effervescent) 25 meq PO ONETIME ONE Stop: 10/18/18 17:01 Last Admin: 10/18/18 17:51 Dose: 25 meq Potassium Bicarb/Potassium Chloride (Potassium Chloride, Effervescent) 25 meq PO DAILY [facility] Last Admin: 10/30/18 09:28 Dose: Not Given Potassium Bicarb/Potassium Chloride (Potassium Chloride, Effervescent) 25 meq GTUBE DAILY [facility] Last Admin: 11/17/18 08:40 Dose: 25 meq Psyllium Husk (Metamucil Sugar Free) 1 pkt PEGTUBE DAILY [facility] Last Admin: 10/04/18 08:25 Dose: 1 pkt Psyllium Husk (Metamucil Sugar Free) 1 pkt PEGTUBE BID [facility] Last Admin: 11/17/18 08:41 Dose: 1 pkt Ramelteon (Rozerem) 8 mg PO BEDTIME [facility] Sodium Chloride (Hypersal 7%) 4 ml NEB QIDRT [facility] Last Admin: 10/06/18 14:42 Dose: Not Given Sodium Chloride (Hypersal 7%) 4 ml INH BID [facility] Last Admin: 11/10/18 12:11 Dose: 4 ml Sodium Chloride (Normal Saline) 100 ml FLUSH ASDIRECTED PRN PRN Reason: IV Use Last Admin: 11/09/18 20:13 Dose: 100 ml Sodium Chloride (Hypersal 7%) 4 ml INH QID LIANNE Sodium Chloride (Hypersal 7%) 4 ml INH Q6HRRT [facility] Last Admin: 11/19/18 05:43 Dose: 4 ml Vancomycin HCl (Pharmacy To Dose - Vancomycin) 1 dose .XX ASDIRECTED [facility] - Exam Quality Assessment: Supplemental Oxygen General: Alert, Cooperative, No Acute Distress Neck: Supple Lungs: Clear to Auscultation, Normal Respiratory Effort Cardiovascular: Regular Rate, Regular Rhythm GI/Abdominal Exam: Soft, Non-Tender, No Distention, Other (Decreased bowel tones ). No: Distended, Guarding (Female) Exam: Deferred Back Exam: No: CVA Tenderness (L), CVA Tenderness (R) Extremities: No: Pedal Edema Peripheral Pulses: 2+: Radial (L), Radial (R) Skin: Warm, Dry, Intact, Other (Very slight skin irritation around site of G- tube however no excoriation) Neurological: Normal Tone, Sensation Intact Psy/Mental Status: Alert - Problem List Review Problem List Initiated/Reviewed/Updated: Yes - Plan Plan:: Mrs. 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 She was subsequently transferred to [facility]. She was unable to have tracheostomy removed due to increased secretions and was eventually discharged to [facility] in [place], [place]. On 09/20/18, she was initially admitted to the [facility] due to significant shortness of breath, hypoxia, and respiratory failure found to be due to pneumonia and also with NSTEMI. She had clinical improvement with antibiotics and and aggressive pulmonary toileting. Due to complexity of care, she was deemed to not be a good candidate for return back to [facility] and was instead transferred to swing bed status at [facility] for ongoing care awaiting improvement in clinical status and eventual appropriate placement closer to family in the [facility]. Patient's latest antibiotic course completed October 25 due to aspiration On the morning of October 27 she did have an increased residual 195 mL with possible mucus/aspi mucus plugging which required aggressive suctioning. Oxygen saturation did decrease mid 80s however this did improve quickly after removal of mucous. From a clinical standpoint, she appears to vacillate between requiring aggressive suctioning and it improves for a considerable time frame. 's primary concern is regarding the removal of the tracheostomy, which he states was promised to him to only be in place for a few weeks. [facility] and [facility] no willing to accept patient for capping trial at this time. [facility] is a possibility for capping trial at some point. She would likely need overnight capping trial. On Oct 12, patient started to have increased secretions with elevated WBC, Cxr confirmed probable infiltrate. she was stated on dual abx with broad spectrum and vancomycin however antibiotics were discontinued on October 25 after completion. No fevers. Update today, no increase in oxygen requirements, less vomiting, does have some leakage around G-tube with only with Metamucil administration. Some mild skin irritation around G-tube site however no excoriation. Requiring less suctioning. Primary hospital problems: Deconditioning, stable Ongoing secretions, this is improved. Tracheostomy status, plans have been made for change out and possible capping trial Protein calorie malnutrition, going to feedings. MDRO Stable, chronic problems: HFpEF: Volume status neutral. Continue current management. Hx NSTEMI: Troponin downtrended during acute hospitalization. No ongoing clinical concerns. Hx recurrent intracerebral hemorrhages Atrial fibrillation: Continue carvedilol. [id number] high, but anticoagulation contraindicated in setting of recurrent hemorrhagic CVAs. HTN: Medications have been adjusted due to elevated blood pressures. Now improving. HLD: Continue atorvastatin. GERD: Continue omeprazole. Vitamin D deficiency: Continue vitamin D. Depression, major, recurrent: Continue sertraline. Glaucoma: Continue latanoprost. Maintenance FEN: No IVF. Cont with PEG tube feedings with Osmolyte with psyllium. Discontinued erythromycin prokinetic agent. PPX: Teds as pharmacologic DVT prophylaxis contraindicated in setting of recurrent hemorrhagic CVAs. PPI for GI prophylaxis. Code status: DNR. Disposition: plan is to transfer patient to [facility] this Thursday for tracheostomy change out. Information regarding size and type have been forwarded to [facility] call--Radha. ENTs nurse would help communicate and coordinate this effort. Plans on returning back to [facility] after procedure. She may need PICC line placement if ongoing IV required. CBC BMP today. HPI summary: Mrs. 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 She was subsequently transferred to [facility]. She was unable to have tracheostomy removed due to increased secretions and was eventually discharged to [facility] in [place], [place]. On 09/20/18, she was initially admitted to the [facility] due to significant shortness of breath, hypoxia, and respiratory failure found to be due to pneumonia and also with NSTEMI. She had clinical improvement with antibiotics and and aggressive pulmonary toileting. Due to complexity of care, she was deemed to not be a good candidate for return back to [facility] and was instead transferred to swing bed status at [facility] for ongoing care awaiting improvement in clinical status and eventual appropriate placement closer to family in the [place] area. Interval hospital course: Early after admission to [facility], she finished the 2 week course of antibiotics for pneumonia and had overall improvement in respiratory status, including less frequent suctioning. Tube feedings were resumed via the PEG tube and she had overall good toleration of this with recent residuals improved from prior. From a clinical standpoint, she appeared to be at her prior baseline respiratory status when she was discharged from [facility], though she has ongoing care needs due to tracheostomy status and PEG tube. 's primary concern is regarding the removal of the tracheostomy, which he states was promised to him to only be in place for a few weeks. Due to worsening respiratory status in mid-September, fitting with recurrent pneumonia, she was again placed on antibiotic course, which finished on 10/25/18. Aggressive suctioning was required following an episode of mucous plugging and possible aspiration given an increased residual of 195mL. She appears to vacillate between requiring aggressive suctioning at times and improvement for a considerable time frame at other times. Efforts to find accepting facility for capping trial and penitentiary care have been unsuccessful to date. In addition to extensive efforts by case management staff, providers have spoken with staff at [facility], [facility], [facility], [facility], and [facility]. Primary hospital problems: Pneumonia, bilateral, HCAP, recurrent, resolved, completed third course of antibiotic 10/25/18 Deconditioning, stable Ongoing secretions Tracheostomy status Protein calorie malnutrition Hypokalemia Stable, chronic problems: HFpEF: Volume status neutral. Continue current management. Hx NSTEMI: Troponin downtrended during acute hospitalization. No ongoing clinical concerns. Hx recurrent intracerebral hemorrhages Atrial fibrillation: Continue carvedilol. [id number] high, but anticoagulation contraindicated in setting of recurrent hemorrhagic CVAs. HTN: Controlled. Continue amlodipine. HLD: Continue atorvastatin. GERD: Continue omeprazole. Vitamin D deficiency: Continue vitamin D. Depression, major, recurrent: Continue sertraline. Glaucoma: Continue latanoprost. Maintenance: FEN: No IVF. Electrolytes normal. Continue with PEG tube feedings with Osmolyte with psyllium along with erythromycin for motility improvement. PPX: Teds as pharmacologic DVT prophylaxis contraindicated in setting of recurrent hemorrhagic CVAs. PPI for GI prophylaxis. Code status: DNR/DNI/Comfort Care, updated at 11/01/18 care conference. Emergency contacts: (Naga) and Sons (Lew and Kar). Disposition: Continue on swing bed status. Continue working with outside facilities for consideration of transfer for possible tracheostomy capping trial as well as [facility] care. Appreciate social work assistance with ongoing coordination for this patient's care. Care conference held with Naga Gifford Kevin, Kip, granddaughter and her boyfriend as well as staff members as detailed in Case Management note. Patient' s recent and current medical status and requirements were discussed as well as anticipated ongoing requirements. Also discussed concerns about inappropriate interactions by Naga with staff. Consent for tracheostomy tube change was obtained, which is planned for 11/03/18. Will continue extensive efforts to find accepting facility for possible tracheostomy capping trial as well as [facility] care.
[2018-11-24 11:55] LABS: ANION GAP 23.2 mmol/L (5-15); CHLORIDE,CL 97 mmol/L (98-115); SODIUM,NA 149 mmol/L (136-145)
[2018-11-24] MEDS: Levofloxacin/Dextrose 5%-Water 100 ML IV SCH (12:50)
[2018-11-24] MEDS: Sodium Chloride 0.9% 100 ML IV SCH (12:50)
[2018-11-24] MEDS: Levofloxacin/Dextrose 5%-Water 50 ML IV SCH (14:05)
[2018-11-24] MEDS: Potassium Bicarbonate/Potassium Chloride 25 MEQ Tab.Eff GTUBE SCH (16:03)
[2018-11-24] MEDS: Zinc Oxide/Eucerin/Nystatin/Karaya 237 ML JAR TOP PRN (18:46)
[2018-11-24] MEDS: atorvaSTATin 10 MG Tab PEGTUBE SCH (21:37)
[2018-11-24] MEDS: Psyllium Husk Powder Sugar Free 5.85 GM Packet PEGTUBE SCH (23:22)
[2018-11-25] MEDS: Albuterol/Ipratropium 3.0-0.5 MG/3 ML Neb Soln NEB SCH ×4 (05:47→22:06)
[2018-11-25] MEDS: Omeprazole 2 MG/ML 150 ML Kit GTUBE SCH ×2 (06:03→18:16)
[2018-11-25] MEDS: Cholecalciferol (Vitamin D3) 1,000 Unit Tab PEGTUBE SCH (10:05)
[2018-11-25] MEDS: Sertraline 50 MG Tab PEGTUBE SCH (10:05)
[2018-11-25] MEDS: Lisinopril 20 MG Tab GTUBE SCH (10:05)
[2018-11-25] MEDS: B.Bifidum/B.Longum/L.Acidophilus/L.Rhamnosus (Probiotic) Cap PEGTUBE SCH (10:05)
[2018-11-25] MEDS: amLODIPine 5 MG Tab FTUBE SCH (10:06)
[2018-11-25] MEDS: Carvedilol 12.5 MG Tab PEGTUBE SCH ×2 (10:06→20:59)
[2018-11-25] MEDS: Sodium Chloride 0.9% 100 ML IV SCH (10:08)
[2018-11-25] MEDS: Levofloxacin 500 MG Tab GTUBE SCH (10:14)
[2018-11-25] MEDS ORDERED: Levofloxacin 500 MG Tab GTUBE SCH (11:00)
[2018-11-25] MEDS: Potassium Bicarbonate/Potassium Chloride 25 MEQ Tab.Eff GTUBE SCH (12:40)
[2018-11-25] MEDS: Latanoprost 0.005% Ophth Soln 2.5 ML Bottle EYEBOTH SCH (12:40)
[2018-11-25] MEDS: Psyllium Husk Powder Sugar Free 5.85 GM Packet PEGTUBE SCH ×2 (12:41→23:03)
[2018-11-25] MEDS: Acetaminophen Susp 160 MG/5 ML 120 ML Bottle PO PRN (12:54)
[2018-11-25] MEDS: Zinc Oxide/Eucerin/Nystatin/Karaya 237 ML JAR TOP PRN ×2 (12:55→18:25)
[2018-11-25] MEDS: atorvaSTATin 10 MG Tab PEGTUBE SCH (21:00)
[2018-11-26] MEDS: Albuterol/Ipratropium 3.0-0.5 MG/3 ML Neb Soln NEB SCH ×4 (05:39→22:10)
[2018-11-26] MEDS: Omeprazole 2 MG/ML 150 ML Kit GTUBE SCH ×2 (06:12→17:18)
[2018-11-26] MEDS: Sertraline 50 MG Tab PEGTUBE SCH (08:55)
[2018-11-26] MEDS: amLODIPine 5 MG Tab FTUBE SCH (08:55)
[2018-11-26] MEDS: Carvedilol 12.5 MG Tab PEGTUBE SCH ×2 (08:55→20:10)
[2018-11-26] MEDS: Levofloxacin 500 MG Tab GTUBE SCH (08:56)
[2018-11-26] MEDS: Lisinopril 20 MG Tab GTUBE SCH (08:56)
[2018-11-26] MEDS: Cholecalciferol (Vitamin D3) 1,000 Unit Tab PEGTUBE SCH (08:58)
[2018-11-26] MEDS: B.Bifidum/B.Longum/L.Acidophilus/L.Rhamnosus (Probiotic) Cap PEGTUBE SCH (08:58)
[2018-11-26] MEDS: Latanoprost 0.005% Ophth Soln 2.5 ML Bottle EYEBOTH SCH (09:02)
[2018-11-26] MEDS: Psyllium Husk Powder Sugar Free 5.85 GM Packet PEGTUBE SCH ×2 (13:47→23:37)
[2018-11-26] MEDS: Potassium Bicarbonate/Potassium Chloride 25 MEQ Tab.Eff GTUBE SCH (13:47)
[2018-11-26] MEDS: Zinc Oxide/Eucerin/Nystatin/Karaya 237 ML JAR TOP PRN (20:10)
[2018-11-26] MEDS: atorvaSTATin 10 MG Tab PEGTUBE SCH (20:10)
[2018-11-27] MEDS: Albuterol/Ipratropium 3.0-0.5 MG/3 ML Neb Soln NEB SCH ×4 (06:03→22:12)
[2018-11-27] MEDS: Omeprazole 2 MG/ML 150 ML Kit GTUBE SCH ×2 (06:08→17:34)
[2018-11-27] MEDS: Levofloxacin 500 MG Tab GTUBE SCH (09:24)
[2018-11-27] MEDS: Carvedilol 12.5 MG Tab PEGTUBE SCH ×2 (09:25→21:54)
[2018-11-27] MEDS: Sertraline 50 MG Tab PEGTUBE SCH (09:25)
[2018-11-27] MEDS: B.Bifidum/B.Longum/L.Acidophilus/L.Rhamnosus (Probiotic) Cap PEGTUBE SCH (09:25)
[2018-11-27] MEDS: Cholecalciferol (Vitamin D3) 1,000 Unit Tab PEGTUBE SCH (09:26)
[2018-11-27] MEDS: amLODIPine 5 MG Tab FTUBE SCH (09:26)
[2018-11-27] MEDS: Lisinopril 20 MG Tab GTUBE SCH (09:26)
[2018-11-27] MEDS: Latanoprost 0.005% Ophth Soln 2.5 ML Bottle EYEBOTH SCH (10:51)
[2018-11-27] MEDS: Potassium Bicarbonate/Potassium Chloride 25 MEQ Tab.Eff GTUBE SCH (11:49)
[2018-11-27] MEDS: Psyllium Husk Powder Sugar Free 5.85 GM Packet PEGTUBE SCH (11:49)
[2018-11-27] MEDS: Zinc Oxide/Eucerin/Nystatin/Karaya 237 ML JAR TOP PRN (13:39)
[2018-11-27] MEDS: atorvaSTATin 10 MG Tab PEGTUBE SCH (21:54)
[2018-11-28] MEDS: Psyllium Husk Powder Sugar Free 5.85 GM Packet PEGTUBE SCH ×2 (00:58→11:35)
[2018-11-28] MEDS: Albuterol/Ipratropium 3.0-0.5 MG/3 ML Neb Soln NEB SCH ×4 (05:27→22:10)
[2018-11-28] MEDS: Omeprazole 2 MG/ML 150 ML Kit GTUBE SCH ×2 (05:37→17:27)
[2018-11-28] MEDS: Latanoprost 0.005% Ophth Soln 2.5 ML Bottle EYEBOTH SCH (09:20)
[2018-11-28] MEDS: Levofloxacin 500 MG Tab GTUBE SCH (09:22)
[2018-11-28] MEDS: Lisinopril 20 MG Tab GTUBE SCH (09:23)
[2018-11-28] MEDS: Cholecalciferol (Vitamin D3) 1,000 Unit Tab PEGTUBE SCH (09:23)
[2018-11-28] MEDS: amLODIPine 5 MG Tab FTUBE SCH (09:24)
[2018-11-28] MEDS: Sertraline 50 MG Tab PEGTUBE SCH (09:24)
[2018-11-28] MEDS: B.Bifidum/B.Longum/L.Acidophilus/L.Rhamnosus (Probiotic) Cap PEGTUBE SCH (09:24)
[2018-11-28] MEDS: Carvedilol 12.5 MG Tab PEGTUBE SCH ×2 (09:26→22:11)
[2018-11-28] MEDS: Potassium Bicarbonate/Potassium Chloride 25 MEQ Tab.Eff GTUBE SCH (11:35)
[2018-11-28] MEDS: atorvaSTATin 10 MG Tab PEGTUBE SCH (22:11)
[2018-11-29] MEDS: Psyllium Husk Powder Sugar Free 5.85 GM Packet PEGTUBE SCH ×2 (00:28→12:57)
[2018-11-29] MEDS: Albuterol/Ipratropium 3.0-0.5 MG/3 ML Neb Soln NEB SCH ×4 (05:45→21:59)
[2018-11-29] MEDS: Omeprazole 2 MG/ML 150 ML Kit GTUBE SCH ×2 (05:53→17:15)
[2018-11-29] MEDS: Cholecalciferol (Vitamin D3) 1,000 Unit Tab PEGTUBE SCH (08:42)
[2018-11-29] MEDS: B.Bifidum/B.Longum/L.Acidophilus/L.Rhamnosus (Probiotic) Cap PEGTUBE SCH (08:43)
[2018-11-29] MEDS: Sertraline 50 MG Tab PEGTUBE SCH (08:43)
[2018-11-29] MEDS: amLODIPine 5 MG Tab FTUBE SCH (08:44)
[2018-11-29] MEDS: Lisinopril 20 MG Tab GTUBE SCH (08:44)
[2018-11-29] MEDS: Carvedilol 12.5 MG Tab PEGTUBE SCH ×2 (08:45→20:32)
[2018-11-29] MEDS: Latanoprost 0.005% Ophth Soln 2.5 ML Bottle EYEBOTH SCH (08:45)
[2018-11-29] MEDS ORDERED: Sulfamethoxazole/Trimethoprim 800-160 MG Tab GTUBE SCH (10:00)
--- NOTE | 2018-11-29 10:56 | PCM.SN ---
- Free Text/Narrative Note: Levofloxacin discontinued s/p >14 day course of pneumonia with clinical resolution. Ceftriaxone started for G-tube site culture showing E.coli with some resistance to alternate antibiotics.
[2018-11-29] MEDS: Potassium Bicarbonate/Potassium Chloride 25 MEQ Tab.Eff GTUBE SCH (12:57)
[2018-11-29] MEDS: cefTRIAXone 1 GM Vial IM SCH (14:13)
[2018-11-29] MEDS: Zinc Oxide/Eucerin/Nystatin/Karaya 237 ML JAR TOP PRN (14:31)
[2018-11-29] MEDS: atorvaSTATin 10 MG Tab PEGTUBE SCH (20:32)
[2018-11-30] MEDS: Psyllium Husk Powder Sugar Free 5.85 GM Packet PEGTUBE SCH ×3 (00:07→23:31)
[2018-11-30] MEDS: Albuterol/Ipratropium 3.0-0.5 MG/3 ML Neb Soln NEB SCH ×4 (05:19→23:08)
[2018-11-30] MEDS: Omeprazole 2 MG/ML 150 ML Kit GTUBE SCH ×2 (06:01→17:41)
[2018-11-30] MEDS: cefTRIAXone 1 GM Vial IM SCH (09:49)
[2018-11-30] MEDS: B.Bifidum/B.Longum/L.Acidophilus/L.Rhamnosus (Probiotic) Cap PEGTUBE SCH (09:54)
[2018-11-30] MEDS: Carvedilol 12.5 MG Tab PEGTUBE SCH ×2 (09:55→21:22)
[2018-11-30] MEDS: Lisinopril 20 MG Tab GTUBE SCH (09:55)
[2018-11-30] MEDS: Sertraline 50 MG Tab PEGTUBE SCH (09:55)
[2018-11-30] MEDS: amLODIPine 5 MG Tab FTUBE SCH (09:55)
[2018-11-30] MEDS: Latanoprost 0.005% Ophth Soln 2.5 ML Bottle EYEBOTH SCH (09:56)
[2018-11-30] MEDS: Cholecalciferol (Vitamin D3) 1,000 Unit Tab PEGTUBE SCH (09:56)
[2018-11-30] MEDS: Potassium Bicarbonate/Potassium Chloride 25 MEQ Tab.Eff GTUBE SCH (12:31)
[2018-11-30] MEDS: atorvaSTATin 10 MG Tab PEGTUBE SCH (21:22)
[2018-12-01] MEDS: Omeprazole 2 MG/ML 150 ML Kit GTUBE SCH ×2 (05:41→17:03)
[2018-12-01] MEDS: Albuterol/Ipratropium 3.0-0.5 MG/3 ML Neb Soln NEB SCH ×4 (05:55→23:06)
[2018-12-01] MEDS: cefTRIAXone 1 GM Vial IM SCH (08:23)
[2018-12-01] MEDS: amLODIPine 5 MG Tab FTUBE SCH (08:25)
[2018-12-01] MEDS: Sertraline 50 MG Tab PEGTUBE SCH (08:25)
[2018-12-01] MEDS: Lisinopril 20 MG Tab GTUBE SCH (08:25)
[2018-12-01] MEDS: B.Bifidum/B.Longum/L.Acidophilus/L.Rhamnosus (Probiotic) Cap PEGTUBE SCH (08:25)
[2018-12-01] MEDS: Cholecalciferol (Vitamin D3) 1,000 Unit Tab PEGTUBE SCH (08:25)
[2018-12-01] MEDS: Latanoprost 0.005% Ophth Soln 2.5 ML Bottle EYEBOTH SCH (08:25)
[2018-12-01] MEDS: Carvedilol 12.5 MG Tab PEGTUBE SCH ×2 (08:25→20:21)
[2018-12-01] MEDS: Potassium Bicarbonate/Potassium Chloride 25 MEQ Tab.Eff GTUBE SCH (11:16)
[2018-12-01] MEDS: Psyllium Husk Powder Sugar Free 5.85 GM Packet PEGTUBE SCH ×2 (11:16→23:06)
[2018-12-01] MEDS: atorvaSTATin 10 MG Tab PEGTUBE SCH (20:21)
[2018-12-02] MEDS: Albuterol/Ipratropium 3.0-0.5 MG/3 ML Neb Soln NEB SCH ×4 (05:51→23:41)
[2018-12-02] MEDS: Omeprazole 2 MG/ML 150 ML Kit GTUBE SCH ×2 (06:10→17:00)
[2018-12-02] MEDS: amLODIPine 5 MG Tab FTUBE SCH (08:53)
[2018-12-02] MEDS: Lisinopril 20 MG Tab GTUBE SCH (08:53)
[2018-12-02] MEDS: cefTRIAXone 1 GM Vial IM SCH (08:53)
[2018-12-02] MEDS: Latanoprost 0.005% Ophth Soln 2.5 ML Bottle EYEBOTH SCH (08:53)
[2018-12-02] MEDS: Carvedilol 12.5 MG Tab PEGTUBE SCH ×2 (08:54→21:04)
[2018-12-02] MEDS: B.Bifidum/B.Longum/L.Acidophilus/L.Rhamnosus (Probiotic) Cap PEGTUBE SCH (08:54)
[2018-12-02] MEDS: Sertraline 50 MG Tab PEGTUBE SCH (08:54)
[2018-12-02] MEDS: Cholecalciferol (Vitamin D3) 1,000 Unit Tab PEGTUBE SCH (08:54)
[2018-12-02] MEDS: Psyllium Husk Powder Sugar Free 5.85 GM Packet PEGTUBE SCH ×2 (12:13→23:55)
[2018-12-02] MEDS: Potassium Bicarbonate/Potassium Chloride 25 MEQ Tab.Eff GTUBE SCH (12:13)
[2018-12-02] MEDS: Erythromycin Ethylsuccinate Susp 200 MG/5 ML 100 ML Bottle PO SCH ×2 (13:35→17:00)
[2018-12-02] MEDS: atorvaSTATin 10 MG Tab PEGTUBE SCH (21:04)
[2018-12-03] MEDS: Albuterol/Ipratropium 3.0-0.5 MG/3 ML Neb Soln NEB SCH ×4 (05:26→23:31)
[2018-12-03] MEDS: Omeprazole 2 MG/ML 150 ML Kit GTUBE SCH ×2 (05:54→18:11)
[2018-12-03] MEDS: Erythromycin Ethylsuccinate Susp 200 MG/5 ML 100 ML Bottle PO SCH ×2 (05:56→18:11)
[2018-12-03] MEDS: Latanoprost 0.005% Ophth Soln 2.5 ML Bottle EYEBOTH SCH (08:12)
[2018-12-03] MEDS: cefTRIAXone 1 GM Vial IM SCH (08:12)
[2018-12-03] MEDS: B.Bifidum/B.Longum/L.Acidophilus/L.Rhamnosus (Probiotic) Cap PEGTUBE SCH (08:13)
[2018-12-03] MEDS: Cholecalciferol (Vitamin D3) 1,000 Unit Tab PEGTUBE SCH (08:13)
[2018-12-03] MEDS: Sertraline 50 MG Tab PEGTUBE SCH (08:13)
[2018-12-03] MEDS: Lisinopril 20 MG Tab GTUBE SCH (08:14)
[2018-12-03] MEDS: Carvedilol 12.5 MG Tab PEGTUBE SCH ×2 (08:14→21:27)
[2018-12-03] MEDS: amLODIPine 5 MG Tab FTUBE SCH (08:15)
[2018-12-03] MEDS: Psyllium Husk Powder Sugar Free 5.85 GM Packet PEGTUBE SCH ×2 (12:47→23:29)
[2018-12-03] MEDS: Potassium Bicarbonate/Potassium Chloride 25 MEQ Tab.Eff GTUBE SCH (12:47)
[2018-12-03] MEDS: atorvaSTATin 10 MG Tab PEGTUBE SCH (21:26)
[2018-12-04] MEDS: Omeprazole 2 MG/ML 150 ML Kit GTUBE SCH ×2 (06:19→17:23)
[2018-12-04] MEDS: Erythromycin Ethylsuccinate Susp 200 MG/5 ML 100 ML Bottle PO SCH ×2 (06:19→17:23)
[2018-12-04] MEDS: Albuterol/Ipratropium 3.0-0.5 MG/3 ML Neb Soln NEB SCH ×4 (06:21→22:09)
[2018-12-04] MEDS: cefTRIAXone 1 GM Vial IM SCH (08:05)
[2018-12-04] MEDS: B.Bifidum/B.Longum/L.Acidophilus/L.Rhamnosus (Probiotic) Cap PEGTUBE SCH (08:06)
[2018-12-04] MEDS: Carvedilol 12.5 MG Tab PEGTUBE SCH ×2 (08:06→21:23)
[2018-12-04] MEDS: Latanoprost 0.005% Ophth Soln 2.5 ML Bottle EYEBOTH SCH (08:06)
[2018-12-04] MEDS: amLODIPine 5 MG Tab FTUBE SCH (08:06)
[2018-12-04] MEDS: Lisinopril 20 MG Tab GTUBE SCH (08:07)
[2018-12-04] MEDS: Cholecalciferol (Vitamin D3) 1,000 Unit Tab PEGTUBE SCH (08:07)
[2018-12-04] MEDS: Sertraline 50 MG Tab PEGTUBE SCH (08:07)
[2018-12-04] MEDS: Zinc Oxide/Eucerin/Nystatin/Karaya 237 ML JAR TOP PRN (11:50)
[2018-12-04] MEDS: Psyllium Husk Powder Sugar Free 5.85 GM Packet PEGTUBE SCH (11:51)
[2018-12-04] MEDS: Potassium Bicarbonate/Potassium Chloride 25 MEQ Tab.Eff GTUBE SCH (11:51)
[2018-12-04] MEDS: atorvaSTATin 10 MG Tab PEGTUBE SCH (21:23)
[2018-12-05] MEDS: Psyllium Husk Powder Sugar Free 5.85 GM Packet PEGTUBE SCH ×2 (02:32→11:35)
[2018-12-05] MEDS: Erythromycin Ethylsuccinate Susp 200 MG/5 ML 100 ML Bottle PO SCH ×2 (05:17→18:07)
[2018-12-05] MEDS: Omeprazole 2 MG/ML 150 ML Kit GTUBE SCH ×2 (05:17→18:07)
[2018-12-05] MEDS: Albuterol/Ipratropium 3.0-0.5 MG/3 ML Neb Soln NEB SCH ×4 (05:17→22:12)
[2018-12-05] MEDS: Latanoprost 0.005% Ophth Soln 2.5 ML Bottle EYEBOTH SCH (08:11)
[2018-12-05] MEDS: Lisinopril 20 MG Tab GTUBE SCH (08:12)
[2018-12-05] MEDS: Carvedilol 12.5 MG Tab PEGTUBE SCH ×2 (08:12→20:37)
[2018-12-05] MEDS: Cholecalciferol (Vitamin D3) 1,000 Unit Tab PEGTUBE SCH (08:12)
[2018-12-05] MEDS: B.Bifidum/B.Longum/L.Acidophilus/L.Rhamnosus (Probiotic) Cap PEGTUBE SCH (08:12)
[2018-12-05] MEDS: Sertraline 50 MG Tab PEGTUBE SCH (08:12)
[2018-12-05] MEDS: amLODIPine 5 MG Tab FTUBE SCH (08:14)
[2018-12-05] MEDS: Potassium Bicarbonate/Potassium Chloride 25 MEQ Tab.Eff GTUBE SCH (11:35)
[2018-12-05] MEDS: Zinc Oxide/Eucerin/Nystatin/Karaya 237 ML JAR TOP PRN (11:39)
[2018-12-05] MEDS: atorvaSTATin 10 MG Tab PEGTUBE SCH (20:36)
[2018-12-06] MEDS: Psyllium Husk Powder Sugar Free 5.85 GM Packet PEGTUBE SCH ×2 (00:19→11:33)
[2018-12-06] MEDS: Albuterol/Ipratropium 3.0-0.5 MG/3 ML Neb Soln NEB SCH ×4 (05:04→22:02)
[2018-12-06] MEDS: Erythromycin Ethylsuccinate Susp 200 MG/5 ML 100 ML Bottle PO SCH ×2 (06:15→17:14)
[2018-12-06] MEDS: Omeprazole 2 MG/ML 150 ML Kit GTUBE SCH ×2 (06:16→17:14)
[2018-12-06] MEDS: Cholecalciferol (Vitamin D3) 1,000 Unit Tab PEGTUBE SCH (08:32)
[2018-12-06] MEDS: Sertraline 50 MG Tab PEGTUBE SCH (08:32)
[2018-12-06] MEDS: Carvedilol 12.5 MG Tab PEGTUBE SCH ×2 (08:32→21:47)
[2018-12-06] MEDS: Lisinopril 20 MG Tab GTUBE SCH (08:32)
[2018-12-06] MEDS: B.Bifidum/B.Longum/L.Acidophilus/L.Rhamnosus (Probiotic) Cap PEGTUBE SCH (08:33)
[2018-12-06] MEDS: amLODIPine 5 MG Tab FTUBE SCH (08:33)
[2018-12-06] MEDS: Latanoprost 0.005% Ophth Soln 2.5 ML Bottle EYEBOTH SCH (08:35)
[2018-12-06] MEDS: Potassium Bicarbonate/Potassium Chloride 25 MEQ Tab.Eff GTUBE SCH (11:33)
[2018-12-06] MEDS: atorvaSTATin 10 MG Tab PEGTUBE SCH (21:47)
[2018-12-07] MEDS: Psyllium Husk Powder Sugar Free 5.85 GM Packet PEGTUBE SCH ×3 (00:17→23:14)
[2018-12-07] MEDS: Albuterol/Ipratropium 3.0-0.5 MG/3 ML Neb Soln NEB SCH ×4 (05:36→23:06)
[2018-12-07] MEDS: Omeprazole 2 MG/ML 150 ML Kit GTUBE SCH ×2 (06:21→17:03)
[2018-12-07] MEDS: Erythromycin Ethylsuccinate Susp 200 MG/5 ML 100 ML Bottle PO SCH ×3 (06:21→17:03)
[2018-12-07] MEDS: Carvedilol 12.5 MG Tab PEGTUBE SCH ×2 (08:38→20:42)
[2018-12-07] MEDS: Cholecalciferol (Vitamin D3) 1,000 Unit Tab PEGTUBE SCH (08:39)
[2018-12-07] MEDS: B.Bifidum/B.Longum/L.Acidophilus/L.Rhamnosus (Probiotic) Cap PEGTUBE SCH (08:39)
[2018-12-07] MEDS: Sertraline 50 MG Tab PEGTUBE SCH (08:39)
[2018-12-07] MEDS: Lisinopril 20 MG Tab GTUBE SCH (08:39)
[2018-12-07] MEDS: amLODIPine 5 MG Tab FTUBE SCH (08:39)
[2018-12-07] MEDS: Latanoprost 0.005% Ophth Soln 2.5 ML Bottle EYEBOTH SCH (08:40)
[2018-12-07] MEDS: Potassium Bicarbonate/Potassium Chloride 25 MEQ Tab.Eff GTUBE SCH (11:12)
[2018-12-07] MEDS: Zinc Oxide/Eucerin/Nystatin/Karaya 237 ML JAR TOP PRN (17:03)
[2018-12-07] MEDS: atorvaSTATin 10 MG Tab PEGTUBE SCH (20:41)
[2018-12-08] MEDS: Albuterol/Ipratropium 3.0-0.5 MG/3 ML Neb Soln NEB SCH ×4 (05:13→22:07)
[2018-12-08] MEDS: Omeprazole 2 MG/ML 150 ML Kit GTUBE SCH ×2 (06:14→18:12)
[2018-12-08] MEDS: Erythromycin Ethylsuccinate Susp 200 MG/5 ML 100 ML Bottle PO SCH ×3 (06:15→18:12)
[2018-12-08 09:22] LABS: ANION GAP 8.7 mmol/L (5-15); CHLORIDE,CL 98 mmol/L (98-115); SODIUM,NA 136 mmol/L (136-145)
--- NOTE | 2018-12-08 09:26 | PCM.PN ---
- General Info Date of Service: 12/08/18 Subjective Update: Admitted review of systems due to patient noncommunicative due to trach Functional Status: Reports: Pain Controlled. Denies: Tolerating Diet (Nurses have reporting higher residuals lately) - Review of Systems General: Reports: Weakness, Fatigue. Denies: Fever Gastrointestinal: Denies: Constipation, Diarrhea, Vomiting Genitourinary: Reports: Incontinence Neurological: Reports: Pre-Existing Deficit Psychiatric: Denies: Agitation - Patient Data Vitals - Most Recent: Last Vital Signs Temp 96.9 F 12/08/18 06:13 Pulse 75 12/08/18 06:13 Resp 20 12/08/18 06:13 BP 126/77 12/08/18 06:13 Pulse Ox 94 L 12/08/18 06:42 Weight - Most Recent: 139 lb I&O - Last 24 Hours: Intake & Output 12/07/18 12/08/18 12/08/18 22:59 06:59 14:59 Intake Total 996 Balance 996 Lab Results Last 24 Hours: Laboratory Results - last 24 hr 12/08/18 Range/Units 08:50 WBC 9.14 (5.00-10.00) 10^3/uL RBC 3.76 L (3.80-5.50) 10^6/uL Hgb 11.2 L (12.0-16.0) g/dL Hct 35.2 L (37.0-47.0) % MCV 93.6 H (82.0-92.0) fL MCH 29.8 (27.0-31.0) pg MCHC 31.8 L (32.0-36.0) g/dL RDW 15.2 H (11.5-14.5) % Plt Count 287 D (150-400) 10^3/uL MPV 9.8 (7.4-10.4) fL Immature Gran % (Auto) 0.4 (0.0-5.0) % Neut % (Auto) 76.4 H (50.0-70.0) % Lymph % (Auto) 11.5 L (20.0-40.0) % Pitt % (Auto) 8.3 H (2.0-8.0) % Eos % (Auto) 3.2 H (1.0-3.0) % Baso % (Auto) 0.2 (0.0-1.0) % Immature Gran # (Auto) 0.04 (0.00-0.50) 10^3/uL Neut # (Auto) 6.98 (2.50-7.00) 10^3/uL Lymph # (Auto) 1.05 (1.00-4.00) 10^3/uL Pitt # (Auto) 0.76 (0.10-0.80) 10^3/uL Eos # (Auto) 0.29 (0.10-0.30) 10^3/uL Baso # (Auto) 0.02 (0.00-0.10) 10^3/uL Med Orders - Current: Current Medications Acetaminophen (Tylenol Solution 160 Mg/5 Ml) 640 mg PO Q4H PRN PRN Reason: Pain/Fever Last Admin: 11/25/18 12:54 Dose: 20 ml Albuterol/Ipratropium (Duoneb 3.0-0.5 Mg/3 Ml) 3 ml NEB BEDTIME PRN PRN Reason: Shortness of Breath Last Admin: 10/18/18 04:31 Dose: 3 ml Albuterol/Ipratropium (Duoneb 3.0-0.5 Mg/3 Ml) 3 ml NEB QID PRN PRN Reason: Shortness of Breath Last Admin: 11/09/18 14:19 Dose: 3 ml Albuterol/Ipratropium (Duoneb 3.0-0.5 Mg/3 Ml) 3 ml NEB Q6HRRT [facility] Last Admin: 12/08/18 05:13 Dose: 3 ml Amlodipine Besylate (Norvasc) 5 mg FTUBE DAILY [facility] Last Admin: 12/07/18 08:39 Dose: 5 mg Atorvastatin Calcium (Lipitor) 10 mg PEGTUBE BEDTIME [facility] Last Admin: 12/07/18 20:41 Dose: 10 mg Carvedilol (Coreg) 25 mg PEGTUBE BID [facility] Last Admin: 12/07/18 20:42 Dose: 25 mg Cholecalciferol (Vitamin D3) 2,000 units PEGTUBE DAILY [facility] Last Admin: 12/07/18 08:39 Dose: 2,000 units Erythromycin Ethylsuccinate (Eryped 200) 250 mg PO TID@0600,1200,1800 [facility] Last Admin: 12/08/18 06:15 Dose: 6.25 ml Guaifenesin (Robitussin) 100 mg PEGTUBE Q4H PRN PRN Reason: Cough Lactobacillus Acidophilus/Rhamnosus (Multi-Lissette Plus) 1 cap PEGTUBE DAILY [facility] Last Admin: 12/07/18 08:39 Dose: 1 cap Latanoprost (Xalatan 0.005% Ophth Soln) 0 ml EYEBOTH DAILY [facility] Last Admin: 12/07/18 08:40 Dose: 1 drop Lisinopril (Prinivil) 40 mg GTUBE DAILY [facility] Last Admin: 12/07/18 08:39 Dose: 40 mg Loperamide HCl (Imodium) 1 - 2 mg PO ASDIRECTED PRN PRN Reason: Diarrhea Multi-Ingred Cream/Lotion/Oil/Oint (Kmed) 1 ml TOP QID PRN PRN Reason: Other Last Admin: 12/07/18 17:03 Dose: 1 applic Omeprazole (First-Omeprazole) 10 each GTUBE 0600,1800 [facility] Last Admin: 12/08/18 06:14 Dose: 10 ml Ondansetron HCl (Zofran) 4 mg IVPUSH Q6H PRN PRN Reason: Nausea/Vomiting Last Admin: 11/19/18 11:15 Dose: 4 mg Potassium Bicarb/Potassium Chloride (Potassium Chloride, Effervescent) 25 meq GTUBE DAILY@1200 [facility] Last Admin: 12/07/18 11:12 Dose: 25 meq Psyllium Husk (Metamucil Sugar Free) 1 pkt PEGTUBE 0000,1200 [facility] Last Admin: 12/07/18 23:14 Dose: 1 pkt Ramelteon (Rozerem) 8 mg PEGTUBE BEDTIME [facility] Last Admin: 12/07/18 20:41 Dose: 8 mg Sertraline HCl (Zoloft) 50 mg PEGTUBE DAILY [facility] Last Admin: 12/07/18 08:39 Dose: 50 mg Sodium Chloride (Saline Flush) 10 ml FLUSH Q8HR PRN PRN Reason: Keep Vein Open Last Admin: 11/23/18 16:59 Dose: 10 ml Sodium Chloride (Hypersal 7%) 4 ml NEB QID PRN PRN Reason: Other Last Admin: 11/17/18 05:49 Dose: 4 ml Discontinued Medications Albuterol/Ipratropium (Duoneb 3.0-0.5 Mg/3 Ml) 3 ml NEB QIDRT [facility] Last Admin: 10/06/18 04:29 Dose: 3 ml Albuterol/Ipratropium (Duoneb 3.0-0.5 Mg/3 Ml) 3 ml NEB BIDRT [facility] Albuterol/Ipratropium (Duoneb 3.0-0.5 Mg/3 Ml) 3 ml NEB BID [facility] Last Admin: 11/10/18 08:11 Dose: 3 ml Albuterol/Ipratropium (Duoneb 3.0-0.5 Mg/3 Ml) 3 ml NEB ONETIME@1030 [facility] Stop: 11/01/18 12:00 Last Admin: 11/01/18 10:34 Dose: 3 ml Albuterol/Ipratropium (Duoneb 3.0-0.5 Mg/3 Ml) 3 ml NEB ONETIME ONE Stop: 11/03/18 10:31 Last Admin: 11/03/18 10:00 Dose: Not Given Alprazolam (Xanax) 0.25 mg GTUBE NOW ONE Stop: 11/09/18 15:21 Last Admin: 11/09/18 15:32 Dose: 0.25 mg Bacitracin (Get Ointment) 237 ml .ROUTE .STK-MED ONE Stop: 09/27/18 11:01 Carvedilol (Coreg) Confirm Administered Dose 12.5 mg .ROUTE .STK-MED ONE Stop: 11/21/18 22:04 Last Admin: 11/21/18 22:08 Dose: Not Given Ceftriaxone Sodium (Rocephin) 1 gm IVPUSH Q24H [facility] Stop: 10/03/18 18:00 Last Admin: 10/03/18 16:19 Dose: 1 gm Ceftriaxone Sodium (Rocephin) 1 gm IM DAILY [facility] Stop: 12/04/18 11:01 Last Admin: 12/04/18 08:05 Dose: 1 gm Erythromycin (Lisandro-Tab) 250 mg PO Q8HR [facility] Last Admin: 10/27/18 14:32 Dose: Not Given Erythromycin Ethylsuccinate (Eryped 200) 250 mg PO Q8HR [facility] Erythromycin Ethylsuccinate (Eryped 200) 250 mg PO Q8HR [facility] Erythromycin Ethylsuccinate (Eryped 200) 250 mg PO Q8HR [facility] Last Admin: 10/28/18 16:01 Dose: Not Given Erythromycin Ethylsuccinate (Eryped 200) 250 mg GTUBE Q8HR [facility] Erythromycin Ethylsuccinate (Eryped 200) 250 mg GTUBE Q8HR [facility] Last Admin: 10/30/18 05:44 Dose: 6.25 ml Erythromycin Ethylsuccinate (Eryped 200) 250 mg GTUBE Q12H [facility] Last Admin: 11/04/18 06:07 Dose: 6.25 ml Erythromycin Ethylsuccinate (Eryped 200) 120 mg GTUBE Q12H [facility] Last Admin: 11/08/18 05:30 Dose: 3 ml Erythromycin Ethylsuccinate (Eryped 200) 250 mg GTUBE Q12H [facility] Last Admin: 11/19/18 06:18 Dose: 6.25 ml Erythromycin Ethylsuccinate (Eryped 200) 250 mg PO BID@0600,1800 [facility] Last Admin: 12/06/18 06:15 Dose: 6.25 ml Fluconazole (Diflucan) 150 mg PO ONETIME ONE Stop: 10/04/18 10:06 Last Admin: 10/04/18 11:36 Dose: Not Given Fluconazole (Diflucan) 150 mg PEGTUBE ONETIME ONE Stop: 10/04/18 11:31 Last Admin: 10/04/18 12:35 Dose: 150 mg Fluconazole (Diflucan) 200 mg PEGTUBE DAILY [facility] Stop: 10/17/18 11:46 Last Admin: 10/17/18 08:46 Dose: 200 mg Fluconazole (Diflucan) 200 mg PEGTUBE ONETIME ONE Stop: 10/26/18 09:01 Last Admin: 10/26/18 11:28 Dose: Not Given Fluconazole (Diflucan) 100 mg PEGTUBE DAILY [facility] Stop: 11/02/18 09:01 Last Admin: 11/02/18 09:10 Dose: 100 mg Fluconazole (Diflucan) 200 mg PEGTUBE ONETIME ONE Stop: 10/26/18 11:01 Last Admin: 10/26/18 11:30 Dose: 200 mg Glycopyrrolate (Robinul) 0.2 mg IVPUSH ONETIME@1030 [facility] Stop: 11/01/18 12:00 Last Admin: 11/01/18 10:56 Dose: 0.2 mg Glycopyrrolate () 0.2 mg IVPUSH ONETIME ONE Stop: 11/03/18 10:46 Last Admin: 11/04/18 14:51 Dose: Not Given Glycopyrrolate (Robinul) 0.2 mg IVPUSH ONETIME ONE Stop: 11/03/18 10:46 Last Admin: 11/03/18 08:35 Dose: 0.2 mg Glycopyrrolate (Robinul) 0.1 mg IVPUSH Q4H PRN PRN Reason: secrections Glycopyrrolate (Robinul) 0.2 mg IVPUSH Q4H PRN PRN Reason: secrections Guaifenesin (Robitussin) 200 mg PO Q6HR [facility] Last Admin: 10/04/18 12:15 Dose: Not Given Guaifenesin (Robitussin) 200 mg PEGTUBE Q6HR [facility] Last Admin: 10/23/18 11:42 Dose: 200 mg Guaifenesin (Robitussin) 100 mg PO Q6H PRN PRN Reason: Cough Stop: 11/10/18 23:59 Last Admin: 11/10/18 12:33 Dose: 100 mg Levofloxacin/Dextrose (Levaquin In D5w 500 Mg/100 Ml) 100 mls @ 100 mls/hr IV Q48H [facility] Stop: 10/03/18 13:00 Last Admin: 10/03/18 11:19 Dose: 100 mls/hr Levofloxacin/Dextrose (Levaquin In D5w 250 Mg/50 Ml) 50 mls @ 50 mls/hr IV Q48H [facility] Stop: 10/03/18 13:00 Last Admin: 10/03/18 12:59 Dose: 50 mls/hr Sodium Chloride (Normal Saline) 50 mls @ 20 mls/hr IV DAILY@1130 [facility] Last Admin: 10/03/18 11:26 Dose: Not Given Piperacillin Sod/Tazobactam (Sod 4.5 gm/ Sodium Chloride) 100 mls @ 200 mls/hr IV Q6HR [facility] Stop: 10/25/18 08:00 Last Admin: 10/25/18 05:13 Dose: 200 mls/hr Vancomycin HCl 1 gm/ Sodium (Chloride) 270 mls @ 180 mls/hr IV Q12H [facility] Last Admin: 10/16/18 12:52 Dose: Not Given Sodium Chloride (Normal Saline) 100 mls @ 100 mls/hr IV Q24H [facility] Last Admin: 10/25/18 17:57 Dose: Not Given Vancomycin HCl 1 gm/ Sodium (Chloride) 270 mls @ 180 mls/hr IV Q24H [facility] Last Admin: 10/19/18 07:29 Dose: Not Given Vancomycin HCl 1.5 gm/ Sodium (Chloride) 250 mls @ 166.667 mls/hr IV Q24H [facility] Stop: 10/25/18 08:00 Last Admin: 10/25/18 00:08 Dose: 166.667 mls/hr Piperacillin Sod/Tazobactam (Sod 3.375 gm/ Sodium Chloride) 100 mls @ 200 mls/ hr IV Q6H [facility] Piperacillin/Tazobactam/ (Dextrose 3.375 gm/ Premix) 50 mls @ 100 mls/hr IV Q6H [facility] Last Admin: 11/12/18 08:48 Dose: 100 mls/hr Sodium Chloride (Normal Saline) 100 mls @ 100 mls/hr IV 1400 [facility] Last Admin: 11/10/18 14:24 Dose: Not Given Sodium Chloride (Normal Saline) 100 mls @ 100 mls/hr IV 1400 [facility] Last Admin: 11/12/18 13:35 Dose: 100 mls/hr Levofloxacin/Dextrose (Levaquin In D5w 250 Mg/50 Ml) 50 mls @ 50 mls/hr IV Q24H [facility] Last Admin: 11/24/18 14:05 Dose: 50 mls/hr Levofloxacin/Dextrose (Levaquin In D5w 500 Mg/100 Ml) 100 mls @ 100 mls/hr IV Q24H [facility] Last Admin: 11/24/18 12:50 Dose: 100 mls/hr Sodium Chloride (Normal Saline) 100 mls @ 100 mls/hr IV DAILY@1100 [facility] Last Admin: 11/25/18 10:08 Dose: Not Given Sodium Chloride (Normal Saline) 250 mls @ 100 mls/hr IV ONETIME [facility] Stop: 11/19/18 23:59 Last Admin: 11/19/18 13:44 Dose: 100 mls/hr Levofloxacin (Levaquin) 750 mg GTUBE DAILY [facility] Levofloxacin (Levaquin) 750 mg GTUBE DAILY [facility] Last Admin: 11/28/18 09:22 Dose: 750 mg Lisinopril (Prinivil) 5 mg PEGTUBE DAILY [facility] Last Admin: 10/23/18 08:34 Dose: 5 mg Lisinopril (Prinivil) 20 mg PO DAILY [facility] Last Admin: 10/23/18 13:30 Dose: Not Given Lisinopril (Prinivil) 15 mg PO ONETIME ONE Stop: 10/23/18 13:29 Last Admin: 10/23/18 14:21 Dose: 15 mg Lisinopril (Prinivil) 20 mg PO DAILY [facility] Stop: 10/28/18 12:00 Last Admin: 10/28/18 10:22 Dose: 20 mg Lisinopril (Prinivil) 10 mg PO ONETIME [facility] Stop: 10/28/18 10:00 Lisinopril (Prinivil) 30 mg GTUBE DAILY [facility] Last Admin: 11/07/18 09:09 Dose: 30 mg Metoclopramide HCl (Reglan) 5 mg IVPUSH Q8H [facility] Stop: 11/23/18 23:59 Last Admin: 11/23/18 16:59 Dose: 5 mg Multi-Ingred Cream/Lotion/Oil/Oint (Kmed) 0 ml TOP QID [facility] Last Admin: 10/08/18 10:03 Dose: Not Given Non-Form Get (Ointment) 1 each TOP Q4HR [facility] Last Admin: 09/30/18 16:22 Dose: 1 each Nystatin (Mycostatin) 5 ml PO QID [facility] Last Admin: 10/15/18 12:00 Dose: 5 ml Nystatin (Mycostatin) 5 ml PO QID [facility] Stop: 10/18/18 15:00 Last Admin: 10/18/18 13:03 Dose: 5 ml Nystatin (Mycostatin) 5 ml PO QID [facility] Last Admin: 10/20/18 12:47 Dose: 5 ml Nystatin (Mycostatin) 5 ml PO QID [facility] Last Admin: 10/26/18 08:35 Dose: 5 ml Omeprazole (First-Omeprazole) 10 each GTUBE BIDAC [facility] Last Admin: 10/23/18 17:24 Dose: 10 ml Potassium Bicarb/Potassium Chloride (Potassium Chloride, Effervescent) 25 meq PO ONETIME ONE Stop: 10/18/18 09:40 Last Admin: 10/18/18 10:26 Dose: 25 meq Potassium Bicarb/Potassium Chloride (Potassium Chloride, Effervescent) 25 meq PO ONETIME ONE Stop: 10/18/18 17:01 Last Admin: 10/18/18 17:51 Dose: 25 meq Potassium Bicarb/Potassium Chloride (Potassium Chloride, Effervescent) 25 meq PO DAILY [facility] Last Admin: 10/30/18 09:28 Dose: Not Given Potassium Bicarb/Potassium Chloride (Potassium Chloride, Effervescent) 25 meq GTUBE DAILY [facility] Last Admin: 11/17/18 08:40 Dose: 25 meq Psyllium Husk (Metamucil Sugar Free) 1 pkt PEGTUBE DAILY [facility] Last Admin: 10/04/18 08:25 Dose: 1 pkt Psyllium Husk (Metamucil Sugar Free) 1 pkt PEGTUBE BID [facility] Last Admin: 11/17/18 08:41 Dose: 1 pkt Ramelteon (Rozerem) 8 mg PO BEDTIME [facility] Sodium Chloride (Hypersal 7%) 4 ml NEB QIDRT [facility] Last Admin: 10/06/18 14:42 Dose: Not Given Sodium Chloride (Hypersal 7%) 4 ml INH BID [facility] Last Admin: 11/10/18 12:11 Dose: 4 ml Sodium Chloride (Normal Saline) 100 ml FLUSH ASDIRECTED PRN PRN Reason: IV Use Last Admin: 11/09/18 20:13 Dose: 100 ml Sodium Chloride (Hypersal 7%) 4 ml INH QID [facility] Sodium Chloride (Hypersal 7%) 4 ml INH Q6HRRT [facility] Last Admin: 11/19/18 05:43 Dose: 4 ml Trimethoprim/Sulfamethoxazole (Septra Ds) 1 tab GTUBE BID [facility] Stop: 12/06/18 10:01 Last Admin: 11/29/18 12:53 Dose: Not Given Vancomycin HCl (Pharmacy To Dose - Vancomycin) 1 dose .XX ASDIRECTED [facility] - Exam Quality Assessment: Supplemental Oxygen General: Alert, Cooperative, No Acute Distress HEENT: Pupils Reactive Neck: Supple Lungs: Clear to Auscultation, Normal Respiratory Effort Cardiovascular: Regular Rate, Regular Rhythm GI/Abdominal Exam: Soft, Abnormal Bowel Sounds, Other (Decreased bowel tones) Back Exam: No: CVA Tenderness (L) Skin: Warm, Dry, Intact Neurological: Other (Bilateral dropfoot forming) Psy/Mental Status: Other (Will open eyes spontaneously verbally) - Problem List Review Problem List Initiated/Reviewed/Updated: Yes - My Orders Last 24 Hours: My Active Orders 12/08/18 08:50 BASIC METABOLIC PANEL,BMP [CHEM] Routine - Plan Plan:: Mrs. 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 She was subsequently transferred to [facility]. She was unable to have tracheostomy removed due to increased secretions and was eventually discharged to [facility] in [place], [place]. On 09/20/18, she was initially admitted to the due to significant shortness of breath, hypoxia, and respiratory failure found to be due to pneumonia and also with NSTEMI. She had clinical improvement with antibiotics and and aggressive pulmonary toileting. Due to complexity of care, she was deemed to not be a good candidate for return back to [facility] and was instead transferred to swing bed status at for ongoing care awaiting improvement in clinical status and eventual appropriate placement closer to family in the [facility]. Patient's latest antibiotic course completed October 25 due to aspiration On the morning of October 27 she did have an increased residual 195 mL with possible mucus/aspi mucus plugging which required aggressive suctioning. Oxygen saturation did decrease mid 80s however this did improve quickly after removal of mucous. From a clinical standpoint, she appears to vacillate between requiring aggressive suctioning and it improves for a considerable time frame. 's primary concern is regarding the removal of the tracheostomy, which he states was promised to him to only be in place for a few weeks. [facility] and [facility] no willing to accept patient for capping trial at this time. [facility] is a possibility for capping trial at some point. She would likely need overnight capping trial. On Oct 12, patient started to have increased secretions with elevated WBC, Cxr confirmed probable infiltrate. she was stated on dual abx with broad spectrum and vancomycin however antibiotics were discontinued on October 25 after completion. No fevers. Update today, completed Ceftriaxone for G-tube site culture showing E.coli with some resistance to alternate antibiotics. Signs of drop foot, nurses reporting higher residuals, consulted with fall internship, recommended no change in rate however will increase E-Mycin to 3 times a day. Add Reglan low-dose limited time. Primary hospital problems: Deconditioning, stable Ongoing secretions, this is improved. Tracheostomy status, plans have been made for change out and possible capping trial Protein calorie malnutrition, ongoing to feedings. Higher residuals, add limited Reglan, increase E-Mycin Signs of drop foot, wedging MDRO Stable, chronic problems: HFpEF: Volume status neutral. Continue current management. Hx NSTEMI: Troponin downtrended during acute hospitalization. No ongoing clinical concerns. Hx recurrent intracerebral hemorrhages Atrial fibrillation: Continue carvedilol. [id number] high, but anticoagulation contraindicated in setting of recurrent hemorrhagic CVAs. HTN: Medications have been adjusted due to elevated blood pressures. now normal HLD: Continue atorvastatin. GERD: Continue omeprazole. Vitamin D deficiency: Continue vitamin D. Depression, major, recurrent: Continue sertraline. Glaucoma: Continue latanoprost. Maintenance FEN: No IVF. Cont with PEG tube feedings with Osmolyte with psyllium. Add back urethra mycin however increased to 3 times a day, limited dose Reglan. PPX: Teds as pharmacologic DVT prophylaxis contraindicated in setting of recurrent hemorrhagic CVAs. PPI for GI prophylaxis. Code status: DNR, comfort measures Disposition: Care conference today, limited dose Reglan, increase E-Mycin to 3 times a day, wedging to prevent foot drop. CBC BMP today.
[2018-12-08] MEDS: Sertraline 50 MG Tab PEGTUBE SCH (09:47)
[2018-12-08] MEDS: Latanoprost 0.005% Ophth Soln 2.5 ML Bottle EYEBOTH SCH (09:47)
[2018-12-08] MEDS: Cholecalciferol (Vitamin D3) 1,000 Unit Tab PEGTUBE SCH (09:48)
[2018-12-08] MEDS: B.Bifidum/B.Longum/L.Acidophilus/L.Rhamnosus (Probiotic) Cap PEGTUBE SCH (09:48)
[2018-12-08] MEDS: amLODIPine 5 MG Tab FTUBE SCH (09:49)
[2018-12-08] MEDS: Carvedilol 12.5 MG Tab PEGTUBE SCH ×2 (09:49→21:40)
[2018-12-08] MEDS: Lisinopril 20 MG Tab GTUBE SCH (09:49)
[2018-12-08] MEDS: Metoclopramide 10 MG Tab PO SCH ×2 (13:13→18:11)
[2018-12-08] MEDS: Psyllium Husk Powder Sugar Free 5.85 GM Packet PEGTUBE SCH (13:14)
[2018-12-08] MEDS: Potassium Bicarbonate/Potassium Chloride 25 MEQ Tab.Eff GTUBE SCH (13:14)
[2018-12-08] MEDS: atorvaSTATin 10 MG Tab PEGTUBE SCH (21:39)
[2018-12-09] MEDS: Psyllium Husk Powder Sugar Free 5.85 GM Packet PEGTUBE SCH ×2 (01:14→15:06)
[2018-12-09] MEDS: Zinc Oxide/Eucerin/Nystatin/Karaya 237 ML JAR TOP PRN (01:23)
[2018-12-09] MEDS: Albuterol/Ipratropium 3.0-0.5 MG/3 ML Neb Soln NEB SCH ×4 (05:32→22:20)
[2018-12-09] MEDS: Omeprazole 2 MG/ML 150 ML Kit GTUBE SCH ×2 (05:49→17:44)
[2018-12-09] MEDS: Erythromycin Ethylsuccinate Susp 200 MG/5 ML 100 ML Bottle PO SCH ×3 (05:49→17:44)
[2018-12-09] MEDS: Metoclopramide 10 MG Tab PO SCH ×3 (06:00→17:45)
[2018-12-09] MEDS: Sertraline 50 MG Tab PEGTUBE SCH (10:51)
[2018-12-09] MEDS: Latanoprost 0.005% Ophth Soln 2.5 ML Bottle EYEBOTH SCH (10:52)
[2018-12-09] MEDS: Cholecalciferol (Vitamin D3) 1,000 Unit Tab PEGTUBE SCH (10:53)
[2018-12-09] MEDS: Lisinopril 20 MG Tab GTUBE SCH (10:53)
[2018-12-09] MEDS: Carvedilol 12.5 MG Tab PEGTUBE SCH ×2 (10:54→22:21)
[2018-12-09] MEDS: B.Bifidum/B.Longum/L.Acidophilus/L.Rhamnosus (Probiotic) Cap PEGTUBE SCH (10:54)
[2018-12-09] MEDS: amLODIPine 5 MG Tab FTUBE SCH (11:00)
[2018-12-09] MEDS: Potassium Bicarbonate/Potassium Chloride 25 MEQ Tab.Eff GTUBE SCH (15:06)
[2018-12-09] MEDS: Nystatin Susp 100,000 Unit/ML 5 ML UD Cup PO SCH ×2 (15:07→22:37)
[2018-12-09] MEDS: Nystatin Crm 15 GM Tube TOP SCH (22:08)
[2018-12-09] MEDS: atorvaSTATin 10 MG Tab PEGTUBE SCH (22:21)
[2018-12-10] MEDS: Psyllium Husk Powder Sugar Free 5.85 GM Packet PEGTUBE SCH ×3 (02:17→23:10)
[2018-12-10] MEDS: Albuterol/Ipratropium 3.0-0.5 MG/3 ML Neb Soln NEB SCH ×4 (05:58→22:59)
[2018-12-10] MEDS: Metoclopramide 10 MG Tab PO SCH ×3 (05:59→18:29)
[2018-12-10] MEDS: Omeprazole 2 MG/ML 150 ML Kit GTUBE SCH ×2 (06:07→18:30)
[2018-12-10] MEDS: Erythromycin Ethylsuccinate Susp 200 MG/5 ML 100 ML Bottle PO SCH ×3 (06:07→18:29)
[2018-12-10] MEDS: Lisinopril 20 MG Tab GTUBE SCH (08:25)
[2018-12-10] MEDS: Sertraline 50 MG Tab PEGTUBE SCH (08:25)
[2018-12-10] MEDS: Carvedilol 12.5 MG Tab PEGTUBE SCH ×2 (08:25→21:32)
[2018-12-10] MEDS: B.Bifidum/B.Longum/L.Acidophilus/L.Rhamnosus (Probiotic) Cap PEGTUBE SCH (08:25)
[2018-12-10] MEDS: Cholecalciferol (Vitamin D3) 1,000 Unit Tab PEGTUBE SCH (08:25)
[2018-12-10] MEDS: amLODIPine 5 MG Tab FTUBE SCH (08:25)
[2018-12-10] MEDS: Latanoprost 0.005% Ophth Soln 2.5 ML Bottle EYEBOTH SCH (08:29)
[2018-12-10] MEDS: Nystatin Crm 15 GM Tube TOP SCH ×2 (08:29→21:32)
[2018-12-10] MEDS: Nystatin Susp 100,000 Unit/ML 5 ML UD Cup PO SCH ×3 (08:59→21:32)
[2018-12-10] MEDS: Potassium Bicarbonate/Potassium Chloride 25 MEQ Tab.Eff GTUBE SCH (12:29)
[2018-12-10] MEDS: atorvaSTATin 10 MG Tab PEGTUBE SCH (21:32)
[2018-12-11] MEDS: Albuterol/Ipratropium 3.0-0.5 MG/3 ML Neb Soln NEB SCH ×4 (05:03→23:17)
[2018-12-11] MEDS ORDERED: Acetaminophen Susp 160 MG/5 ML 120 ML Bottle GTUBE PRN (05:52)
[2018-12-11] MEDS: Omeprazole 2 MG/ML 150 ML Kit GTUBE SCH ×2 (06:30→17:34)
[2018-12-11] MEDS: Erythromycin Ethylsuccinate Susp 200 MG/5 ML 100 ML Bottle GTUBE SCH ×3 (06:30→17:34)
[2018-12-11] MEDS ORDERED: Metoclopramide 10 MG Tab GTUBE SCH (07:00)
[2018-12-11] MEDS: Latanoprost 0.005% Ophth Soln 2.5 ML Bottle EYEBOTH SCH (09:09)
[2018-12-11] MEDS: Nystatin Crm 15 GM Tube TOP SCH ×2 (09:09→21:11)
[2018-12-11] MEDS: Sertraline 50 MG Tab PEGTUBE SCH (09:56)
[2018-12-11] MEDS: Nystatin Susp 100,000 Unit/ML 5 ML UD Cup PO SCH ×3 (09:56→21:10)
[2018-12-11] MEDS: Carvedilol 12.5 MG Tab PEGTUBE SCH ×2 (09:56→21:13)
[2018-12-11] MEDS: Cholecalciferol (Vitamin D3) 1,000 Unit Tab PEGTUBE SCH (09:56)
[2018-12-11] MEDS: B.Bifidum/B.Longum/L.Acidophilus/L.Rhamnosus (Probiotic) Cap PEGTUBE SCH (09:56)
[2018-12-11] MEDS: Lisinopril 20 MG Tab GTUBE SCH (09:57)
[2018-12-11] MEDS: amLODIPine 5 MG Tab FTUBE SCH (09:57)
[2018-12-11] MEDS: Potassium Bicarbonate/Potassium Chloride 25 MEQ Tab.Eff GTUBE SCH (11:31)
[2018-12-11] MEDS: Psyllium Husk Powder Sugar Free 5.85 GM Packet PEGTUBE SCH ×2 (11:31→23:29)
[2018-12-11] MEDS ORDERED: Fluconazole 100 MG Tab PO ONE (19:00)
[2018-12-11] MEDS ORDERED: Fluconazole 100 MG Tab PEGTUBE ONE ×2 (20:00→21:00)
[2018-12-11] MEDS: atorvaSTATin 10 MG Tab PEGTUBE SCH (21:13)
[2018-12-12] MEDS: Albuterol/Ipratropium 3.0-0.5 MG/3 ML Neb Soln NEB SCH ×4 (05:21→22:23)
[2018-12-12] MEDS: Erythromycin Ethylsuccinate Susp 200 MG/5 ML 100 ML Bottle GTUBE SCH ×3 (05:44→17:52)
[2018-12-12] MEDS: Omeprazole 2 MG/ML 150 ML Kit GTUBE SCH ×2 (05:44→17:52)
[2018-12-12] MEDS: Latanoprost 0.005% Ophth Soln 2.5 ML Bottle EYEBOTH SCH (10:11)
[2018-12-12] MEDS: Nystatin Susp 100,000 Unit/ML 5 ML UD Cup PO SCH ×3 (10:11→20:47)
[2018-12-12] MEDS: Carvedilol 12.5 MG Tab PEGTUBE SCH ×2 (10:11→21:00)
[2018-12-12] MEDS: B.Bifidum/B.Longum/L.Acidophilus/L.Rhamnosus (Probiotic) Cap PEGTUBE SCH (10:12)
[2018-12-12] MEDS: Nystatin Crm 15 GM Tube TOP SCH ×2 (10:12→20:47)
[2018-12-12] MEDS: Sertraline 50 MG Tab PEGTUBE SCH (10:12)
[2018-12-12] MEDS: amLODIPine 5 MG Tab FTUBE SCH (10:12)
[2018-12-12] MEDS: Cholecalciferol (Vitamin D3) 1,000 Unit Tab PEGTUBE SCH (10:12)
[2018-12-12] MEDS: Lisinopril 20 MG Tab GTUBE SCH (10:59)
[2018-12-12] MEDS: Potassium Bicarbonate/Potassium Chloride 25 MEQ Tab.Eff GTUBE SCH (12:44)
[2018-12-12] MEDS: Psyllium Husk Powder Sugar Free 5.85 GM Packet PEGTUBE SCH ×2 (12:44→23:17)
[2018-12-12] MEDS: atorvaSTATin 10 MG Tab PEGTUBE SCH (21:00)
[2018-12-13] MEDS: Albuterol/Ipratropium 3.0-0.5 MG/3 ML Neb Soln NEB SCH ×4 (05:36→22:57)
[2018-12-13] MEDS: Erythromycin Ethylsuccinate Susp 200 MG/5 ML 100 ML Bottle GTUBE SCH ×3 (06:00→17:57)
[2018-12-13] MEDS: Omeprazole 2 MG/ML 150 ML Kit GTUBE SCH ×2 (06:00→17:57)
[2018-12-13] MEDS: Cholecalciferol (Vitamin D3) 1,000 Unit Tab PEGTUBE SCH (09:12)
[2018-12-13] MEDS: Carvedilol 12.5 MG Tab PEGTUBE SCH ×2 (09:12→21:20)
[2018-12-13] MEDS: B.Bifidum/B.Longum/L.Acidophilus/L.Rhamnosus (Probiotic) Cap PEGTUBE SCH (09:13)
[2018-12-13] MEDS: Lisinopril 20 MG Tab GTUBE SCH (09:13)
[2018-12-13] MEDS: amLODIPine 5 MG Tab FTUBE SCH (09:13)
[2018-12-13] MEDS: Nystatin Crm 15 GM Tube TOP SCH ×2 (09:14→21:21)
[2018-12-13] MEDS: Sertraline 50 MG Tab PEGTUBE SCH (09:14)
[2018-12-13] MEDS: Latanoprost 0.005% Ophth Soln 2.5 ML Bottle EYEBOTH SCH (09:14)
[2018-12-13] MEDS: Nystatin Susp 100,000 Unit/ML 5 ML UD Cup PO SCH ×3 (09:14→21:21)
[2018-12-13] MEDS: Potassium Bicarbonate/Potassium Chloride 25 MEQ Tab.Eff GTUBE SCH (12:24)
[2018-12-13] MEDS: Psyllium Husk Powder Sugar Free 5.85 GM Packet PEGTUBE SCH ×2 (12:24→23:02)
[2018-12-13] MEDS: atorvaSTATin 10 MG Tab PEGTUBE SCH (21:21)
[2018-12-14] MEDS: Albuterol/Ipratropium 3.0-0.5 MG/3 ML Neb Soln NEB SCH ×4 (05:38→23:27)
[2018-12-14] MEDS: Omeprazole 2 MG/ML 150 ML Kit GTUBE SCH ×2 (06:37→17:47)
[2018-12-14] MEDS: Erythromycin Ethylsuccinate Susp 200 MG/5 ML 100 ML Bottle GTUBE SCH ×3 (06:38→17:47)
[2018-12-14] MEDS: Nystatin Crm 15 GM Tube TOP SCH ×2 (08:31→21:19)
[2018-12-14] MEDS: Sertraline 50 MG Tab PEGTUBE SCH (08:32)
[2018-12-14] MEDS: Carvedilol 12.5 MG Tab PEGTUBE SCH ×2 (08:32→21:18)
[2018-12-14] MEDS: Cholecalciferol (Vitamin D3) 1,000 Unit Tab PEGTUBE SCH (08:32)
[2018-12-14] MEDS: amLODIPine 5 MG Tab FTUBE SCH (08:32)
[2018-12-14] MEDS: Nystatin Susp 100,000 Unit/ML 5 ML UD Cup PO SCH ×3 (08:32→21:19)
[2018-12-14] MEDS: B.Bifidum/B.Longum/L.Acidophilus/L.Rhamnosus (Probiotic) Cap PEGTUBE SCH (08:32)
[2018-12-14] MEDS: Latanoprost 0.005% Ophth Soln 2.5 ML Bottle EYEBOTH SCH (08:32)
[2018-12-14] MEDS: Lisinopril 20 MG Tab GTUBE SCH (08:32)
[2018-12-14] MEDS: Psyllium Husk Powder Sugar Free 5.85 GM Packet PEGTUBE SCH ×2 (11:42→23:27)
[2018-12-14] MEDS: Potassium Bicarbonate/Potassium Chloride 25 MEQ Tab.Eff GTUBE SCH (11:42)
[2018-12-14] MEDS: atorvaSTATin 10 MG Tab PEGTUBE SCH (21:18)
[2018-12-15] MEDS: Albuterol/Ipratropium 3.0-0.5 MG/3 ML Neb Soln NEB SCH ×4 (05:30→22:10)
[2018-12-15] MEDS: Omeprazole 2 MG/ML 150 ML Kit GTUBE SCH ×2 (06:03→17:19)
[2018-12-15] MEDS: Erythromycin Ethylsuccinate Susp 200 MG/5 ML 100 ML Bottle GTUBE SCH ×3 (06:03→17:19)
[2018-12-15] MEDS ORDERED: Fluconazole 100 MG Tab PEGTUBE ONE (09:00)
[2018-12-15] MEDS: Lisinopril 20 MG Tab GTUBE SCH (09:07)
[2018-12-15] MEDS: amLODIPine 5 MG Tab FTUBE SCH (09:07)
[2018-12-15] MEDS: Sertraline 50 MG Tab PEGTUBE SCH (09:07)
[2018-12-15] MEDS: Cholecalciferol (Vitamin D3) 1,000 Unit Tab PEGTUBE SCH (09:07)
[2018-12-15] MEDS: Nystatin Susp 100,000 Unit/ML 5 ML UD Cup PO SCH ×3 (09:07→22:24)
[2018-12-15] MEDS: B.Bifidum/B.Longum/L.Acidophilus/L.Rhamnosus (Probiotic) Cap PEGTUBE SCH (09:07)
[2018-12-15] MEDS: Carvedilol 12.5 MG Tab PEGTUBE SCH ×2 (09:07→21:55)
[2018-12-15] MEDS: Nystatin Crm 15 GM Tube TOP SCH ×2 (09:17→22:07)
[2018-12-15] MEDS: Latanoprost 0.005% Ophth Soln 2.5 ML Bottle EYEBOTH SCH (09:17)
[2018-12-15] MEDS: Psyllium Husk Powder Sugar Free 5.85 GM Packet PEGTUBE SCH (13:48)
[2018-12-15] MEDS: Potassium Bicarbonate/Potassium Chloride 25 MEQ Tab.Eff GTUBE SCH (13:48)
[2018-12-15] MEDS: atorvaSTATin 10 MG Tab PEGTUBE SCH (21:55)
[2018-12-16] MEDS: Psyllium Husk Powder Sugar Free 5.85 GM Packet PEGTUBE SCH ×3 (00:08→23:58)
[2018-12-16] MEDS: Omeprazole 2 MG/ML 150 ML Kit GTUBE SCH ×2 (05:29→17:34)
[2018-12-16] MEDS: Erythromycin Ethylsuccinate Susp 200 MG/5 ML 100 ML Bottle GTUBE SCH ×3 (05:29→17:34)
[2018-12-16] MEDS: Albuterol/Ipratropium 3.0-0.5 MG/3 ML Neb Soln NEB SCH ×4 (05:47→22:14)
[2018-12-16] MEDS: amLODIPine 5 MG Tab FTUBE SCH (09:05)
[2018-12-16] MEDS: Lisinopril 20 MG Tab GTUBE SCH (09:05)
[2018-12-16] MEDS: Carvedilol 12.5 MG Tab PEGTUBE SCH ×2 (09:05→21:53)
[2018-12-16] MEDS: Sertraline 50 MG Tab PEGTUBE SCH (09:05)
[2018-12-16] MEDS: Cholecalciferol (Vitamin D3) 1,000 Unit Tab PEGTUBE SCH (09:05)
[2018-12-16] MEDS: Nystatin Susp 100,000 Unit/ML 5 ML UD Cup PO SCH ×3 (09:05→21:54)
[2018-12-16] MEDS: B.Bifidum/B.Longum/L.Acidophilus/L.Rhamnosus (Probiotic) Cap PEGTUBE SCH (09:05)
[2018-12-16] MEDS: Nystatin Crm 15 GM Tube TOP SCH ×2 (09:05→21:54)
[2018-12-16] MEDS: Latanoprost 0.005% Ophth Soln 2.5 ML Bottle EYEBOTH SCH (09:05)
[2018-12-16] MEDS: Potassium Bicarbonate/Potassium Chloride 25 MEQ Tab.Eff GTUBE SCH (12:07)
[2018-12-16] MEDS: atorvaSTATin 10 MG Tab PEGTUBE SCH (21:54)
[2018-12-17] MEDS: Albuterol/Ipratropium 3.0-0.5 MG/3 ML Neb Soln NEB SCH ×3 (05:36→17:09)
[2018-12-17] MEDS: Erythromycin Ethylsuccinate Susp 200 MG/5 ML 100 ML Bottle GTUBE SCH ×3 (06:13→17:10)
[2018-12-17] MEDS: Omeprazole 2 MG/ML 150 ML Kit GTUBE SCH ×2 (06:13→17:09)
[2018-12-17] MEDS: Latanoprost 0.005% Ophth Soln 2.5 ML Bottle EYEBOTH SCH (08:15)
[2018-12-17] MEDS: Nystatin Crm 15 GM Tube TOP SCH ×2 (08:15→21:20)
[2018-12-17] MEDS: Nystatin Susp 100,000 Unit/ML 5 ML UD Cup PO SCH ×3 (08:15→21:20)
[2018-12-17] MEDS: B.Bifidum/B.Longum/L.Acidophilus/L.Rhamnosus (Probiotic) Cap PEGTUBE SCH (08:16)
[2018-12-17] MEDS: Sertraline 50 MG Tab PEGTUBE SCH (08:16)
[2018-12-17] MEDS: Cholecalciferol (Vitamin D3) 1,000 Unit Tab PEGTUBE SCH (08:16)
[2018-12-17] MEDS: Carvedilol 12.5 MG Tab PEGTUBE SCH ×2 (08:17→21:21)
[2018-12-17] MEDS: amLODIPine 5 MG Tab FTUBE SCH (08:17)
[2018-12-17] MEDS: Lisinopril 20 MG Tab GTUBE SCH (08:17)
[2018-12-17] MEDS: Psyllium Husk Powder Sugar Free 5.85 GM Packet PEGTUBE SCH (11:18)
[2018-12-17] MEDS: Potassium Bicarbonate/Potassium Chloride 25 MEQ Tab.Eff GTUBE SCH (11:18)
[2018-12-17] MEDS: atorvaSTATin 10 MG Tab PEGTUBE SCH (21:20)
[2018-12-18] MEDS: Psyllium Husk Powder Sugar Free 5.85 GM Packet PEGTUBE SCH ×4 (00:18→23:36)
[2018-12-18] MEDS: Albuterol/Ipratropium 3.0-0.5 MG/3 ML Neb Soln NEB SCH ×5 (00:18→23:33)
[2018-12-18] MEDS: Omeprazole 2 MG/ML 150 ML Kit GTUBE SCH ×2 (06:08→17:00)
[2018-12-18] MEDS: Erythromycin Ethylsuccinate Susp 200 MG/5 ML 100 ML Bottle GTUBE SCH ×3 (06:08→17:01)
[2018-12-18] MEDS: Lisinopril 20 MG Tab GTUBE SCH (08:16)
[2018-12-18] MEDS: Cholecalciferol (Vitamin D3) 1,000 Unit Tab PEGTUBE SCH (08:17)
[2018-12-18] MEDS: Latanoprost 0.005% Ophth Soln 2.5 ML Bottle EYEBOTH SCH (08:17)
[2018-12-18] MEDS: amLODIPine 5 MG Tab FTUBE SCH (08:17)
[2018-12-18] MEDS: Nystatin Crm 15 GM Tube TOP SCH (08:17)
[2018-12-18] MEDS: Carvedilol 12.5 MG Tab PEGTUBE SCH ×2 (08:17→21:17)
[2018-12-18] MEDS: B.Bifidum/B.Longum/L.Acidophilus/L.Rhamnosus (Probiotic) Cap PEGTUBE SCH (08:17)
[2018-12-18] MEDS: Nystatin Susp 100,000 Unit/ML 5 ML UD Cup PO SCH ×3 (08:17→21:16)
[2018-12-18] MEDS: Sertraline 50 MG Tab PEGTUBE SCH (08:17)
[2018-12-18] MEDS: Potassium Bicarbonate/Potassium Chloride 25 MEQ Tab.Eff GTUBE SCH (11:01)
[2018-12-18] MEDS ORDERED: Nystatin Crm 15 GM Tube TOP PRN (19:44)
[2018-12-18] MEDS: atorvaSTATin 10 MG Tab PEGTUBE SCH (21:15)
[2018-12-19] MEDS: Albuterol/Ipratropium 3.0-0.5 MG/3 ML Neb Soln NEB SCH ×4 (05:57→23:54)
[2018-12-19] MEDS: Omeprazole 2 MG/ML 150 ML Kit GTUBE SCH ×2 (06:04→18:14)
[2018-12-19] MEDS: Erythromycin Ethylsuccinate Susp 200 MG/5 ML 100 ML Bottle GTUBE SCH ×3 (06:04→18:14)
[2018-12-19] MEDS: B.Bifidum/B.Longum/L.Acidophilus/L.Rhamnosus (Probiotic) Cap PEGTUBE SCH (09:09)
[2018-12-19] MEDS: Carvedilol 12.5 MG Tab PEGTUBE SCH ×2 (09:09→21:18)
[2018-12-19] MEDS: Sertraline 50 MG Tab PEGTUBE SCH (09:09)
[2018-12-19] MEDS: Cholecalciferol (Vitamin D3) 1,000 Unit Tab PEGTUBE SCH (09:09)
[2018-12-19] MEDS: Latanoprost 0.005% Ophth Soln 2.5 ML Bottle EYEBOTH SCH (09:09)
[2018-12-19] MEDS: Lisinopril 20 MG Tab GTUBE SCH (09:09)
[2018-12-19] MEDS: amLODIPine 5 MG Tab FTUBE SCH (09:09)
[2018-12-19] MEDS: Nystatin Susp 100,000 Unit/ML 5 ML UD Cup PO SCH ×3 (09:09→21:46)
[2018-12-19] MEDS: Potassium Bicarbonate/Potassium Chloride 25 MEQ Tab.Eff GTUBE SCH (11:43)
[2018-12-19] MEDS: Psyllium Husk Powder Sugar Free 5.85 GM Packet PEGTUBE SCH ×3 (11:43→23:56)
[2018-12-19] MEDS: Mupirocin Oint 22 GM Tube TOP SCH ×2 (14:03→21:17)
[2018-12-19] MEDS: atorvaSTATin 10 MG Tab PEGTUBE SCH (21:18)
[2018-12-19] MEDS ORDERED: Carvedilol 12.5 MG Tab ONE (21:20)
[2018-12-20] MEDS: Albuterol/Ipratropium 3.0-0.5 MG/3 ML Neb Soln NEB SCH ×4 (05:50→23:51)
[2018-12-20] MEDS: Erythromycin Ethylsuccinate Susp 200 MG/5 ML 100 ML Bottle GTUBE SCH ×3 (05:50→17:28)
[2018-12-20] MEDS: Omeprazole 2 MG/ML 150 ML Kit GTUBE SCH ×2 (05:50→17:28)
[2018-12-20] MEDS: amLODIPine 5 MG Tab FTUBE SCH (09:44)
[2018-12-20] MEDS: B.Bifidum/B.Longum/L.Acidophilus/L.Rhamnosus (Probiotic) Cap PEGTUBE SCH (09:46)
[2018-12-20] MEDS: Sertraline 50 MG Tab PEGTUBE SCH (09:46)
[2018-12-20] MEDS: Lisinopril 20 MG Tab GTUBE SCH (09:46)
[2018-12-20] MEDS: Carvedilol 12.5 MG Tab PEGTUBE SCH ×2 (09:47→21:35)
[2018-12-20] MEDS: Cholecalciferol (Vitamin D3) 1,000 Unit Tab PEGTUBE SCH (09:47)
[2018-12-20] MEDS: Mupirocin Oint 22 GM Tube TOP SCH ×3 (09:48→21:33)
[2018-12-20] MEDS: Latanoprost 0.005% Ophth Soln 2.5 ML Bottle EYEBOTH SCH (09:48)
[2018-12-20] MEDS: Nystatin Susp 100,000 Unit/ML 5 ML UD Cup PO SCH ×3 (09:48→21:31)
[2018-12-20] MEDS: Potassium Bicarbonate/Potassium Chloride 25 MEQ Tab.Eff GTUBE SCH (12:27)
[2018-12-20] MEDS: Psyllium Husk Powder Sugar Free 5.85 GM Packet PEGTUBE SCH (12:28)
[2018-12-20] MEDS: atorvaSTATin 10 MG Tab PEGTUBE SCH (21:31)
[2018-12-21] MEDS: Psyllium Husk Powder Sugar Free 5.85 GM Packet PEGTUBE SCH ×3 (00:04→23:58)
[2018-12-21] MEDS: Omeprazole 2 MG/ML 150 ML Kit GTUBE SCH ×2 (05:41→18:27)
[2018-12-21] MEDS: Erythromycin Ethylsuccinate Susp 200 MG/5 ML 100 ML Bottle GTUBE SCH ×3 (05:42→18:26)
[2018-12-21] MEDS: Albuterol/Ipratropium 3.0-0.5 MG/3 ML Neb Soln NEB SCH ×4 (05:51→22:42)
[2018-12-21 08:12] LABS: ANION GAP 7.1 mmol/L (5-15); CHLORIDE,CL 97 mmol/L (98-115); SODIUM,NA 135 mmol/L (136-145)
[2018-12-21] MEDS: Mupirocin Oint 22 GM Tube TOP SCH ×3 (09:25→21:16)
[2018-12-21] MEDS: Latanoprost 0.005% Ophth Soln 2.5 ML Bottle EYEBOTH SCH (09:25)
[2018-12-21] MEDS: Cholecalciferol (Vitamin D3) 1,000 Unit Tab PEGTUBE SCH (09:31)
[2018-12-21] MEDS: Sertraline 50 MG Tab PEGTUBE SCH (09:31)
[2018-12-21] MEDS: Nystatin Susp 100,000 Unit/ML 5 ML UD Cup PO SCH ×3 (09:31→21:14)
[2018-12-21] MEDS: Lisinopril 20 MG Tab GTUBE SCH (09:32)
[2018-12-21] MEDS: amLODIPine 5 MG Tab FTUBE SCH (09:33)
[2018-12-21] MEDS: B.Bifidum/B.Longum/L.Acidophilus/L.Rhamnosus (Probiotic) Cap PEGTUBE SCH (09:33)
[2018-12-21] MEDS: Carvedilol 12.5 MG Tab PEGTUBE SCH ×2 (09:33→21:14)
[2018-12-21] MEDS: Potassium Bicarbonate/Potassium Chloride 25 MEQ Tab.Eff GTUBE SCH (13:15)
[2018-12-21] MEDS: atorvaSTATin 10 MG Tab PEGTUBE SCH (21:14)
[2018-12-22] MEDS: Omeprazole 2 MG/ML 150 ML Kit GTUBE SCH ×2 (05:35→18:06)
[2018-12-22] MEDS: Erythromycin Ethylsuccinate Susp 200 MG/5 ML 100 ML Bottle GTUBE SCH ×3 (05:35→18:06)
[2018-12-22] MEDS: Albuterol/Ipratropium 3.0-0.5 MG/3 ML Neb Soln NEB SCH ×4 (05:51→22:25)
[2018-12-22] MEDS: Albuterol/Ipratropium 3.0-0.5 MG/3 ML Neb Soln NEB PRN (08:42)
--- NOTE | 2018-12-22 09:39 | PCM.SN ---
- Free Text/Narrative Note: Patient was at 26 days post tracheostomy change in which was done at [facility] in [place]. I was asked to change the tracheostomy today, and i had held her tube feedings after midnight and she recieved a prn neb treatment prior to the change. I spoke with the RT at [facility] in regards to her change that was done on 11-26-18. 0900 I removed her inner cannula of the trach, deflated the cuff and removed the tracheostomy without difficulty. Another 6.0 cuffed tracheostomy was placed with the stylet in place without difficulty. Stylet was removed and an inner cannula was placed, cuff was inflated with 6cc of air. There was just a small amount of blood at the insertion site. Patient tolerated the procedure without difficulty. She was placed back on her humidified oxygen and RT was at the bedside. Karlene Kolb [employer]
[2018-12-22] MEDS: Mupirocin Oint 22 GM Tube TOP SCH ×3 (10:12→21:38)
[2018-12-22] MEDS: Cholecalciferol (Vitamin D3) 1,000 Unit Tab PEGTUBE SCH (10:12)
[2018-12-22] MEDS: Latanoprost 0.005% Ophth Soln 2.5 ML Bottle EYEBOTH SCH (10:12)
[2018-12-22] MEDS: Sertraline 50 MG Tab PEGTUBE SCH (10:13)
[2018-12-22] MEDS: B.Bifidum/B.Longum/L.Acidophilus/L.Rhamnosus (Probiotic) Cap PEGTUBE SCH (10:13)
[2018-12-22] MEDS: Lisinopril 20 MG Tab GTUBE SCH (10:17)
[2018-12-22] MEDS: Carvedilol 12.5 MG Tab PEGTUBE SCH ×2 (10:17→21:39)
[2018-12-22] MEDS: amLODIPine 5 MG Tab FTUBE SCH (10:17)
[2018-12-22] MEDS: Nystatin Susp 100,000 Unit/ML 5 ML UD Cup PO SCH ×3 (10:18→21:39)
[2018-12-22] MEDS: Potassium Bicarbonate/Potassium Chloride 25 MEQ Tab.Eff GTUBE SCH (12:12)
[2018-12-22] MEDS: Psyllium Husk Powder Sugar Free 5.85 GM Packet PEGTUBE SCH ×2 (12:13→22:25)
[2018-12-22] MEDS: atorvaSTATin 10 MG Tab PEGTUBE SCH (21:39)
[2018-12-23] MEDS: Psyllium Husk Powder Sugar Free 5.85 GM Packet PEGTUBE SCH ×2 (01:00→11:57)
[2018-12-23] MEDS: Omeprazole 2 MG/ML 150 ML Kit GTUBE SCH ×2 (05:47→17:15)
[2018-12-23] MEDS: Erythromycin Ethylsuccinate Susp 200 MG/5 ML 100 ML Bottle GTUBE SCH ×3 (05:47→17:15)
[2018-12-23] MEDS: Albuterol/Ipratropium 3.0-0.5 MG/3 ML Neb Soln NEB SCH ×4 (05:55→22:04)
[2018-12-23] MEDS: Cholecalciferol (Vitamin D3) 1,000 Unit Tab PEGTUBE SCH (09:05)
[2018-12-23] MEDS: Nystatin Susp 100,000 Unit/ML 5 ML UD Cup PO SCH ×3 (09:05→21:52)
[2018-12-23] MEDS: Mupirocin Oint 22 GM Tube TOP SCH ×3 (09:05→21:52)
[2018-12-23] MEDS: Latanoprost 0.005% Ophth Soln 2.5 ML Bottle EYEBOTH SCH (09:05)
[2018-12-23] MEDS: B.Bifidum/B.Longum/L.Acidophilus/L.Rhamnosus (Probiotic) Cap PEGTUBE SCH (09:06)
[2018-12-23] MEDS: Sertraline 50 MG Tab PEGTUBE SCH (09:06)
[2018-12-23] MEDS: Carvedilol 12.5 MG Tab PEGTUBE SCH ×2 (09:06→21:53)
[2018-12-23] MEDS: amLODIPine 5 MG Tab FTUBE SCH (09:06)
[2018-12-23] MEDS: Lisinopril 20 MG Tab GTUBE SCH (09:06)
[2018-12-23] MEDS: Potassium Bicarbonate/Potassium Chloride 25 MEQ Tab.Eff GTUBE SCH (11:57)
[2018-12-23] MEDS: atorvaSTATin 10 MG Tab PEGTUBE SCH (21:53)
[2018-12-24] MEDS: Psyllium Husk Powder Sugar Free 5.85 GM Packet PEGTUBE SCH ×2 (00:49→12:10)
[2018-12-24] MEDS: Erythromycin Ethylsuccinate Susp 200 MG/5 ML 100 ML Bottle GTUBE SCH ×3 (05:47→17:03)
[2018-12-24] MEDS: Omeprazole 2 MG/ML 150 ML Kit GTUBE SCH ×2 (05:48→17:03)
[2018-12-24] MEDS: Albuterol/Ipratropium 3.0-0.5 MG/3 ML Neb Soln NEB SCH ×3 (05:57→17:13)
[2018-12-24] MEDS: Latanoprost 0.005% Ophth Soln 2.5 ML Bottle EYEBOTH SCH (08:47)
[2018-12-24] MEDS: Mupirocin Oint 22 GM Tube TOP SCH ×3 (08:47→21:33)
[2018-12-24] MEDS: Nystatin Susp 100,000 Unit/ML 5 ML UD Cup PO SCH ×3 (08:47→21:33)
[2018-12-24] MEDS: Lisinopril 20 MG Tab GTUBE SCH (08:48)
[2018-12-24] MEDS: Sertraline 50 MG Tab PEGTUBE SCH (08:48)
[2018-12-24] MEDS: Cholecalciferol (Vitamin D3) 1,000 Unit Tab PEGTUBE SCH (08:48)
[2018-12-24] MEDS: Carvedilol 12.5 MG Tab PEGTUBE SCH ×2 (08:48→21:34)
[2018-12-24] MEDS: amLODIPine 5 MG Tab FTUBE SCH (08:48)
[2018-12-24] MEDS: B.Bifidum/B.Longum/L.Acidophilus/L.Rhamnosus (Probiotic) Cap PEGTUBE SCH (08:48)
[2018-12-24] MEDS: Potassium Bicarbonate/Potassium Chloride 25 MEQ Tab.Eff GTUBE SCH (12:10)
[2018-12-24] MEDS: atorvaSTATin 10 MG Tab PEGTUBE SCH (21:34)
[2018-12-25] MEDS: Albuterol/Ipratropium 3.0-0.5 MG/3 ML Neb Soln NEB SCH ×4 (00:02→17:08)
[2018-12-25] MEDS: Psyllium Husk Powder Sugar Free 5.85 GM Packet PEGTUBE SCH ×2 (00:02→12:04)
[2018-12-25] MEDS: Erythromycin Ethylsuccinate Susp 200 MG/5 ML 100 ML Bottle GTUBE SCH ×3 (05:40→17:17)
[2018-12-25] MEDS: Omeprazole 2 MG/ML 150 ML Kit GTUBE SCH ×2 (05:45→17:18)
[2018-12-25] MEDS: Lisinopril 20 MG Tab GTUBE SCH (08:55)
[2018-12-25] MEDS: Carvedilol 12.5 MG Tab PEGTUBE SCH ×2 (08:55→20:13)
[2018-12-25] MEDS: Cholecalciferol (Vitamin D3) 1,000 Unit Tab PEGTUBE SCH (08:56)
[2018-12-25] MEDS: amLODIPine 5 MG Tab FTUBE SCH (08:56)
[2018-12-25] MEDS: Latanoprost 0.005% Ophth Soln 2.5 ML Bottle EYEBOTH SCH (08:56)
[2018-12-25] MEDS: Sertraline 50 MG Tab PEGTUBE SCH (08:56)
[2018-12-25] MEDS: B.Bifidum/B.Longum/L.Acidophilus/L.Rhamnosus (Probiotic) Cap PEGTUBE SCH (08:57)
[2018-12-25] MEDS: Mupirocin Oint 22 GM Tube TOP SCH ×3 (08:57→20:13)
[2018-12-25] MEDS: Nystatin Susp 100,000 Unit/ML 5 ML UD Cup PO SCH ×3 (09:18→20:13)
[2018-12-25] MEDS: Potassium Bicarbonate/Potassium Chloride 25 MEQ Tab.Eff GTUBE SCH (12:04)
--- NOTE | 2018-12-25 13:09 | PCM.PN ---
- General Info Date of Service: 12/25/18 Subjective Update: Limited review of systems due to patient noncommunicative due to trach Functional Status: Reports: Tolerating Diet, Urinating. Denies: Ambulating, New Symptoms - Review of Systems General: Denies: Fever HEENT: Reports: No Symptoms Pulmonary: Reports: Shortness of Breath, Cough Cardiovascular: Denies: Edema Gastrointestinal: Reports: Nausea. Denies: Diarrhea Psychiatric: Denies: Agitation - Patient Data Vitals - Most Recent: Last Vital Signs Temp 97.9 F 12/25/18 06:17 Pulse 96 12/25/18 08:55 Resp 20 12/25/18 06:17 BP 158/92 H 12/25/18 08:56 Pulse Ox 98 12/25/18 11:00 Weight - Most Recent: 138 lb 9 oz I&O - Last 24 Hours: Intake & Output 12/24/18 12/25/18 12/25/18 22:59 06:59 14:59 Intake Total 499 700 346 Balance 499 700 346 Med Orders - Current: Current Medications Acetaminophen (Tylenol Solution 160 Mg/5 Ml) 640 mg GTUBE Q4H PRN PRN Reason: Pain/Fever Albuterol/Ipratropium (Duoneb 3.0-0.5 Mg/3 Ml) 3 ml NEB BEDTIME PRN PRN Reason: Shortness of Breath Last Admin: 10/18/18 04:31 Dose: 3 ml Albuterol/Ipratropium (Duoneb 3.0-0.5 Mg/3 Ml) 3 ml NEB QID PRN PRN Reason: Shortness of Breath Last Admin: 12/22/18 08:42 Dose: 3 ml Albuterol/Ipratropium (Duoneb 3.0-0.5 Mg/3 Ml) 3 ml NEB Q6HRRT [facility] Last Admin: 12/25/18 12:05 Dose: 3 ml Amlodipine Besylate (Norvasc) 5 mg FTUBE DAILY [facility] Last Admin: 12/25/18 08:56 Dose: 5 mg Atorvastatin Calcium (Lipitor) 10 mg PEGTUBE BEDTIME [facility] Last Admin: 12/24/18 21:34 Dose: 10 mg Carvedilol (Coreg) 25 mg PEGTUBE BID [facility] Last Admin: 12/25/18 08:55 Dose: 25 mg Cholecalciferol (Vitamin D3) 2,000 units PEGTUBE DAILY [facility] Last Admin: 12/25/18 08:56 Dose: 2,000 units Erythromycin Ethylsuccinate (Eryped 200) 250 mg GTUBE TID@0600,1200,1800 [facility] Last Admin: 12/25/18 12:05 Dose: 6.25 ml Guaifenesin (Robitussin) 100 mg PEGTUBE Q4H PRN PRN Reason: Cough Lactobacillus Acidophilus/Rhamnosus (Multi-Lissette Plus) 1 cap PEGTUBE DAILY [facility] Last Admin: 12/25/18 08:57 Dose: 1 cap Latanoprost (Xalatan 0.005% Ophth Soln) 0 ml EYEBOTH DAILY [facility] Last Admin: 12/25/18 08:56 Dose: 1 drop Lisinopril (Prinivil) 40 mg GTUBE DAILY [facility] Last Admin: 12/25/18 08:55 Dose: 40 mg Loperamide HCl (Imodium) 1 - 2 mg PO ASDIRECTED PRN PRN Reason: Diarrhea Multi-Ingred Cream/Lotion/Oil/Oint (Kmed) 1 ml TOP QID PRN PRN Reason: Other Last Admin: 12/09/18 01:23 Dose: 1 applic Mupirocin (Bactroban Oint) 0 gm TOP TID [facility] Last Admin: 12/25/18 08:57 Dose: 1 applic Nystatin (Mycostatin) 5 ml PO TID [facility] Last Admin: 12/25/18 09:18 Dose: 5 ml Nystatin (Nystatin Crm) 0 gm TOP BID PRN PRN Reason: Rash Omeprazole (First-Omeprazole) 10 each GTUBE 0600,1800 [facility] Last Admin: 12/25/18 05:45 Dose: 10 ml Ondansetron HCl (Zofran) 4 mg IVPUSH Q6H PRN PRN Reason: Nausea/Vomiting Last Admin: 11/19/18 11:15 Dose: 4 mg Potassium Bicarb/Potassium Chloride (Potassium Chloride, Effervescent) 25 meq GTUBE DAILY@1200 [facility] Last Admin: 12/25/18 12:04 Dose: 25 meq Psyllium Husk (Metamucil Sugar Free) 1 pkt PEGTUBE 0000,1200 [facility] Last Admin: 12/25/18 12:04 Dose: 1 pkt Ramelteon (Rozerem) 8 mg PEGTUBE BEDTIME [facility] Last Admin: 12/24/18 21:34 Dose: 8 mg Sertraline HCl (Zoloft) 50 mg PEGTUBE DAILY [facility] Last Admin: 12/25/18 08:56 Dose: 50 mg Sodium Chloride (Saline Flush) 10 ml FLUSH Q8HR PRN PRN Reason: Keep Vein Open Last Admin: 11/23/18 16:59 Dose: 10 ml Sodium Chloride (Hypersal 7%) 4 ml NEB QID PRN PRN Reason: Other Last Admin: 11/17/18 05:49 Dose: 4 ml Discontinued Medications Acetaminophen (Tylenol Solution 160 Mg/5 Ml) 640 mg PO Q4H PRN PRN Reason: Pain/Fever Last Admin: 11/25/18 12:54 Dose: 20 ml Albuterol/Ipratropium (Duoneb 3.0-0.5 Mg/3 Ml) 3 ml NEB QIDRT [facility] Last Admin: 10/06/18 04:29 Dose: 3 ml Albuterol/Ipratropium (Duoneb 3.0-0.5 Mg/3 Ml) 3 ml NEB BIDRT [facility] Albuterol/Ipratropium (Duoneb 3.0-0.5 Mg/3 Ml) 3 ml NEB BID [facility] Last Admin: 11/10/18 08:11 Dose: 3 ml Albuterol/Ipratropium (Duoneb 3.0-0.5 Mg/3 Ml) 3 ml NEB ONETIME@1030 [facility] Stop: 11/01/18 12:00 Last Admin: 11/01/18 10:34 Dose: 3 ml Albuterol/Ipratropium (Duoneb 3.0-0.5 Mg/3 Ml) 3 ml NEB ONETIME ONE Stop: 11/03/18 10:31 Last Admin: 11/03/18 10:00 Dose: Not Given Alprazolam (Xanax) 0.25 mg GTUBE NOW ONE Stop: 11/09/18 15:21 Last Admin: 11/09/18 15:32 Dose: 0.25 mg Bacitracin (Get Ointment) 237 ml .ROUTE .STK-MED ONE Stop: 09/27/18 11:01 Carvedilol (Coreg) Confirm Administered Dose 12.5 mg .ROUTE .STK-MED ONE Stop: 11/21/18 22:04 Last Admin: 11/21/18 22:08 Dose: Not Given Carvedilol (Coreg) Confirm Administered Dose 12.5 mg .ROUTE .STK-MED ONE Stop: 12/19/18 21:21 Last Admin: 12/19/18 21:45 Dose: Not Given Ceftriaxone Sodium (Rocephin) 1 gm IVPUSH Q24H [facility] Stop: 10/03/18 18:00 Last Admin: 10/03/18 16:19 Dose: 1 gm Ceftriaxone Sodium (Rocephin) 1 gm IM DAILY [facility] Stop: 12/04/18 11:01 Last Admin: 12/04/18 08:05 Dose: 1 gm Erythromycin (Lisandro-Tab) 250 mg PO Q8HR [facility] Last Admin: 10/27/18 14:32 Dose: Not Given Erythromycin Ethylsuccinate (Eryped 200) 250 mg PO Q8HR [facility] Erythromycin Ethylsuccinate (Eryped 200) 250 mg PO Q8HR [facility] Erythromycin Ethylsuccinate (Eryped 200) 250 mg PO Q8HR [facility] Last Admin: 10/28/18 16:01 Dose: Not Given Erythromycin Ethylsuccinate (Eryped 200) 250 mg GTUBE Q8HR [facility] Erythromycin Ethylsuccinate (Eryped 200) 250 mg GTUBE Q8HR [facility] Last Admin: 10/30/18 05:44 Dose: 6.25 ml Erythromycin Ethylsuccinate (Eryped 200) 250 mg GTUBE Q12H [facility] Last Admin: 11/04/18 06:07 Dose: 6.25 ml Erythromycin Ethylsuccinate (Eryped 200) 120 mg GTUBE Q12H [facility] Last Admin: 11/08/18 05:30 Dose: 3 ml Erythromycin Ethylsuccinate (Eryped 200) 250 mg GTUBE Q12H [facility] Last Admin: 11/19/18 06:18 Dose: 6.25 ml Erythromycin Ethylsuccinate (Eryped 200) 250 mg PO BID@0600,1800 [facility] Last Admin: 12/06/18 06:15 Dose: 6.25 ml Erythromycin Ethylsuccinate (Eryped 200) 250 mg PO TID@0600,1200,1800 [facility] Last Admin: 12/10/18 18:29 Dose: 6.25 ml Fluconazole (Diflucan) 150 mg PO ONETIME ONE Stop: 10/04/18 10:06 Last Admin: 10/04/18 11:36 Dose: Not Given Fluconazole (Diflucan) 150 mg PEGTUBE ONETIME ONE Stop: 10/04/18 11:31 Last Admin: 10/04/18 12:35 Dose: 150 mg Fluconazole (Diflucan) 200 mg PEGTUBE DAILY [facility] Stop: 10/17/18 11:46 Last Admin: 10/17/18 08:46 Dose: 200 mg Fluconazole (Diflucan) 200 mg PEGTUBE ONETIME ONE Stop: 10/26/18 09:01 Last Admin: 10/26/18 11:28 Dose: Not Given Fluconazole (Diflucan) 100 mg PEGTUBE DAILY [facility] Stop: 11/02/18 09:01 Last Admin: 11/02/18 09:10 Dose: 100 mg Fluconazole (Diflucan) 200 mg PEGTUBE ONETIME ONE Stop: 10/26/18 11:01 Last Admin: 10/26/18 11:30 Dose: 200 mg Fluconazole (Diflucan) 100 mg PEGTUBE ONETIME ONE Stop: 12/15/18 09:01 Last Admin: 12/15/18 09:07 Dose: 100 mg Fluconazole (Diflucan) 150 mg PEGTUBE ONETIME ONE Stop: 12/11/18 21:01 Last Admin: 12/11/18 21:13 Dose: 150 mg Glycopyrrolate (Robinul) 0.2 mg IVPUSH ONETIME@1030 [facility] Stop: 11/01/18 12:00 Last Admin: 11/01/18 10:56 Dose: 0.2 mg Glycopyrrolate () 0.2 mg IVPUSH ONETIME ONE Stop: 11/03/18 10:46 Last Admin: 11/04/18 14:51 Dose: Not Given Glycopyrrolate (Robinul) 0.2 mg IVPUSH ONETIME ONE Stop: 11/03/18 10:46 Last Admin: 11/03/18 08:35 Dose: 0.2 mg Glycopyrrolate (Robinul) 0.1 mg IVPUSH Q4H PRN PRN Reason: secrections Glycopyrrolate (Robinul) 0.2 mg IVPUSH Q4H PRN PRN Reason: secrections Guaifenesin (Robitussin) 200 mg PO Q6HR [facility] Last Admin: 10/04/18 12:15 Dose: Not Given Guaifenesin (Robitussin) 200 mg PEGTUBE Q6HR [facility] Last Admin: 10/23/18 11:42 Dose: 200 mg Guaifenesin (Robitussin) 100 mg PO Q6H PRN PRN Reason: Cough Stop: 11/10/18 23:59 Last Admin: 11/10/18 12:33 Dose: 100 mg Levofloxacin/Dextrose (Levaquin In D5w 500 Mg/100 Ml) 100 mls @ 100 mls/hr IV Q48H [facility] Stop: 10/03/18 13:00 Last Admin: 10/03/18 11:19 Dose: 100 mls/hr Levofloxacin/Dextrose (Levaquin In D5w 250 Mg/50 Ml) 50 mls @ 50 mls/hr IV Q48H [facility] Stop: 10/03/18 13:00 Last Admin: 10/03/18 12:59 Dose: 50 mls/hr Sodium Chloride (Normal Saline) 50 mls @ 20 mls/hr IV DAILY@1130 [facility] Last Admin: 10/03/18 11:26 Dose: Not Given Piperacillin Sod/Tazobactam (Sod 4.5 gm/ Sodium Chloride) 100 mls @ 200 mls/hr IV Q6HR [facility] Stop: 10/25/18 08:00 Last Admin: 10/25/18 05:13 Dose: 200 mls/hr Vancomycin HCl 1 gm/ Sodium (Chloride) 270 mls @ 180 mls/hr IV Q12H [facility] Last Admin: 10/16/18 12:52 Dose: Not Given Sodium Chloride (Normal Saline) 100 mls @ 100 mls/hr IV Q24H [facility] Last Admin: 10/25/18 17:57 Dose: Not Given Vancomycin HCl 1 gm/ Sodium (Chloride) 270 mls @ 180 mls/hr IV Q24H [facility] Last Admin: 10/19/18 07:29 Dose: Not Given Vancomycin HCl 1.5 gm/ Sodium (Chloride) 250 mls @ 166.667 mls/hr IV Q24H [facility] Stop: 10/25/18 08:00 Last Admin: 10/25/18 00:08 Dose: 166.667 mls/hr Piperacillin Sod/Tazobactam (Sod 3.375 gm/ Sodium Chloride) 100 mls @ 200 mls/ hr IV Q6H [facility] Piperacillin/Tazobactam/ (Dextrose 3.375 gm/ Premix) 50 mls @ 100 mls/hr IV Q6H [facility] Last Admin: 11/12/18 08:48 Dose: 100 mls/hr Sodium Chloride (Normal Saline) 100 mls @ 100 mls/hr IV 1400 [facility] Last Admin: 11/10/18 14:24 Dose: Not Given Sodium Chloride (Normal Saline) 100 mls @ 100 mls/hr IV 1400 [facility] Last Admin: 11/12/18 13:35 Dose: 100 mls/hr Levofloxacin/Dextrose (Levaquin In D5w 250 Mg/50 Ml) 50 mls @ 50 mls/hr IV Q24H [facility] Last Admin: 11/24/18 14:05 Dose: 50 mls/hr Levofloxacin/Dextrose (Levaquin In D5w 500 Mg/100 Ml) 100 mls @ 100 mls/hr IV Q24H [facility] Last Admin: 11/24/18 12:50 Dose: 100 mls/hr Sodium Chloride (Normal Saline) 100 mls @ 100 mls/hr IV DAILY@1100 [facility] Last Admin: 11/25/18 10:08 Dose: Not Given Sodium Chloride (Normal Saline) 250 mls @ 100 mls/hr IV ONETIME [facility] Stop: 11/19/18 23:59 Last Admin: 11/19/18 13:44 Dose: 100 mls/hr Levofloxacin (Levaquin) 750 mg GTUBE DAILY [facility] Levofloxacin (Levaquin) 750 mg GTUBE DAILY [facility] Last Admin: 11/28/18 09:22 Dose: 750 mg Lisinopril (Prinivil) 5 mg PEGTUBE DAILY [facility] Last Admin: 10/23/18 08:34 Dose: 5 mg Lisinopril (Prinivil) 20 mg PO DAILY [facility] Last Admin: 10/23/18 13:30 Dose: Not Given Lisinopril (Prinivil) 15 mg PO ONETIME ONE Stop: 10/23/18 13:29 Last Admin: 10/23/18 14:21 Dose: 15 mg Lisinopril (Prinivil) 20 mg PO DAILY [facility] Stop: 10/28/18 12:00 Last Admin: 10/28/18 10:22 Dose: 20 mg Lisinopril (Prinivil) 10 mg PO ONETIME [facility] Stop: 10/28/18 10:00 Lisinopril (Prinivil) 30 mg GTUBE DAILY [facility] Last Admin: 11/07/18 09:09 Dose: 30 mg Metoclopramide HCl (Reglan) 5 mg IVPUSH Q8H [facility] Stop: 11/23/18 23:59 Last Admin: 11/23/18 16:59 Dose: 5 mg Metoclopramide HCl (Reglan) 5 mg PO TIDAC [facility] Stop: 12/11/18 09:00 Last Admin: 12/10/18 18:29 Dose: 5 mg Metoclopramide HCl (Reglan) 5 mg GTUBE TIDAC [facility] Stop: 12/11/18 09:00 Last Admin: 12/11/18 06:31 Dose: 5 mg Multi-Ingred Cream/Lotion/Oil/Oint (Kmed) 0 ml TOP QID [facility] Last Admin: 10/08/18 10:03 Dose: Not Given Non-Form Get (Ointment) 1 each TOP Q4HR [facility] Last Admin: 09/30/18 16:22 Dose: 1 each Nystatin (Mycostatin) 5 ml PO QID [facility] Last Admin: 10/15/18 12:00 Dose: 5 ml Nystatin (Mycostatin) 5 ml PO QID [facility] Stop: 10/18/18 15:00 Last Admin: 10/18/18 13:03 Dose: 5 ml Nystatin (Mycostatin) 5 ml PO QID [facility] Last Admin: 10/20/18 12:47 Dose: 5 ml Nystatin (Mycostatin) 5 ml PO QID [facility] Last Admin: 10/26/18 08:35 Dose: 5 ml Nystatin (Nystatin Crm) 1 gm TOP BID [facility] Last Admin: 12/18/18 08:17 Dose: 1 applic Omeprazole (First-Omeprazole) 10 each GTUBE BIDAC [facility] Last Admin: 10/23/18 17:24 Dose: 10 ml Potassium Bicarb/Potassium Chloride (Potassium Chloride, Effervescent) 25 meq PO ONETIME ONE Stop: 10/18/18 09:40 Last Admin: 10/18/18 10:26 Dose: 25 meq Potassium Bicarb/Potassium Chloride (Potassium Chloride, Effervescent) 25 meq PO ONETIME ONE Stop: 10/18/18 17:01 Last Admin: 10/18/18 17:51 Dose: 25 meq Potassium Bicarb/Potassium Chloride (Potassium Chloride, Effervescent) 25 meq PO DAILY [facility] Last Admin: 10/30/18 09:28 Dose: Not Given Potassium Bicarb/Potassium Chloride (Potassium Chloride, Effervescent) 25 meq GTUBE DAILY [facility] Last Admin: 11/17/18 08:40 Dose: 25 meq Psyllium Husk (Metamucil Sugar Free) 1 pkt PEGTUBE DAILY [facility] Last Admin: 10/04/18 08:25 Dose: 1 pkt Psyllium Husk (Metamucil Sugar Free) 1 pkt PEGTUBE BID [facility] Last Admin: 11/17/18 08:41 Dose: 1 pkt Ramelteon (Rozerem) 8 mg PO BEDTIME [facility] Sodium Chloride (Hypersal 7%) 4 ml NEB QIDRT [facility] Last Admin: 10/06/18 14:42 Dose: Not Given Sodium Chloride (Hypersal 7%) 4 ml INH BID [facility] Last Admin: 11/10/18 12:11 Dose: 4 ml Sodium Chloride (Normal Saline) 100 ml FLUSH ASDIRECTED PRN PRN Reason: IV Use Last Admin: 11/09/18 20:13 Dose: 100 ml Sodium Chloride (Hypersal 7%) 4 ml INH QID [facility] Sodium Chloride (Hypersal 7%) 4 ml INH Q6HRRT [facility] Last Admin: 11/19/18 05:43 Dose: 4 ml Trimethoprim/Sulfamethoxazole (Septra Ds) 1 tab GTUBE BID [facility] Stop: 12/06/18 10:01 Last Admin: 11/29/18 12:53 Dose: Not Given Vancomycin HCl (Pharmacy To Dose - Vancomycin) 1 dose .XX ASDIRECTED [facility] - Exam Quality Assessment: Supplemental Oxygen General: Alert, Cooperative Neck: Supple Lungs: Rhonchi Cardiovascular: Regular Rate, Regular Rhythm GI/Abdominal Exam: Soft, No Distention, Other (Decreased bowel tones). No: Distended, Guarding, Rigid, Tender Extremities: No: Pedal Edema Peripheral Pulses: 2+: Radial (L), Radial (R) Neurological: Normal Tone Psy/Mental Status: Alert - Problem List Review Problem List Initiated/Reviewed/Updated: Yes - Plan Plan:: Mrs. 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 She was subsequently transferred to [facility]. She was unable to have tracheostomy removed due to increased secretions and was eventually discharged to [facility] in [place], [place]. On 09/20/18, she was initially admitted to the [facility] due to significant shortness of breath, hypoxia, and respiratory failure found to be due to pneumonia and also with NSTEMI. She had clinical improvement with antibiotics and and aggressive pulmonary toileting. Due to complexity of care, she was deemed to not be a good candidate for return back to [facility] and was instead transferred to swing bed status at [facility] for ongoing care awaiting improvement in clinical status and eventual appropriate placement closer to family in the [facility]. Patient's latest antibiotic course completed October 25 due to aspiration On the morning of October 27 she did have an increased residual 195 mL with possible mucus/aspi mucus plugging which required aggressive suctioning. Oxygen saturation did decrease mid 80s however this did improve quickly after removal of mucous. From a clinical standpoint, she appears to vacillate between requiring aggressive suctioning and it improves for a considerable time frame. 's primary concern is regarding the removal of the tracheostomy, which he states was promised to him to only be in place for a few weeks. [facility] and [facility] no willing to accept patient for capping trial at this time. [facility] is a possibility for capping trial at some point. She would likely need overnight capping trial. On Oct 12, patient started to have increased secretions with elevated WBC, Cxr confirmed probable infiltrate. she was stated on dual abx with broad spectrum and vancomycin however antibiotics were discontinued on October 25 after completion. No fevers. Update today, upon rounds patient was high Ortega in chair, smiling, appears to be reading. Reviewed blood pressures slightly elevated 158/92 yesterday however they appear otherwise previous few days been normal. Primary hospital problems: Deconditioning, stable Ongoing secretions, this is improved. Tracheostomy status, changed in [place] approximately one month ago and again December 23--no reports of complications Protein calorie malnutrition, ongoing to feedings. Higher residuals, add limited Reglan, increase E-Mycin Signs of drop foot, wedging MDRO, suspect Stable, chronic problems: HFpEF: Volume status neutral. Continue current management. Hx NSTEMI: Troponin downtrended during acute hospitalization. No ongoing clinical concerns. Hx recurrent intracerebral hemorrhages Atrial fibrillation: Continue carvedilol. [id number] high, but anticoagulation contraindicated in setting of recurrent hemorrhagic CVAs. HTN: Medications have been adjusted due to elevated blood pressures. now normal HLD: Continue atorvastatin. GERD: Continue omeprazole. Vitamin D deficiency: Continue vitamin D. Depression, major, recurrent: Continue sertraline. Glaucoma: Continue latanoprost. Maintenance FEN: No IVF. Cont with PEG tube feedings with Osmolyte with psyllium. mycin 3 times a day, no longer on Reglan PPX: Teds as pharmacologic DVT prophylaxis contraindicated in setting of recurrent hemorrhagic CVAs. PPI for GI prophylaxis. Code status: DNR, comfort measures Disposition: Hospice nurse and family to begin on-site training of patient care at [facility] ThursdayDecember 27, in anticipation of potential discharge.
[2018-12-25] MEDS: atorvaSTATin 10 MG Tab PEGTUBE SCH (20:13)
[2018-12-26] MEDS: Omeprazole 2 MG/ML 150 ML Kit GTUBE SCH ×3 (06:00→17:53)
[2018-12-26] MEDS: Erythromycin Ethylsuccinate Susp 200 MG/5 ML 100 ML Bottle GTUBE SCH ×4 (06:00→17:54)
[2018-12-26] MEDS: amLODIPine 5 MG Tab FTUBE SCH ×2 (09:00→11:49)
[2018-12-26] MEDS: B.Bifidum/B.Longum/L.Acidophilus/L.Rhamnosus (Probiotic) Cap PEGTUBE SCH ×2 (09:00→11:48)
[2018-12-26] MEDS: Cholecalciferol (Vitamin D3) 1,000 Unit Tab PEGTUBE SCH ×2 (09:00→11:49)
[2018-12-26] MEDS: Latanoprost 0.005% Ophth Soln 2.5 ML Bottle EYEBOTH SCH ×2 (09:00→11:49)
[2018-12-26] MEDS: Sertraline 50 MG Tab PEGTUBE SCH ×2 (09:00→11:50)
[2018-12-26] MEDS: Lisinopril 20 MG Tab GTUBE SCH ×2 (09:00→11:49)
[2018-12-26] MEDS: Nystatin Susp 100,000 Unit/ML 5 ML UD Cup PO SCH ×4 (09:00→20:30)
[2018-12-26] MEDS: Carvedilol 12.5 MG Tab PEGTUBE SCH ×3 (09:00→20:30)
[2018-12-26] MEDS: Mupirocin Oint 22 GM Tube TOP SCH ×4 (09:00→20:29)
[2018-12-26] MEDS: Albuterol/Ipratropium 3.0-0.5 MG/3 ML Neb Soln NEB SCH ×4 (11:00→17:53)
[2018-12-26] MEDS: Potassium Bicarbonate/Potassium Chloride 25 MEQ Tab.Eff GTUBE SCH (11:44)
[2018-12-26] MEDS: Psyllium Husk Powder Sugar Free 5.85 GM Packet PEGTUBE SCH ×3 (11:45)
[2018-12-26] MEDS: atorvaSTATin 10 MG Tab PEGTUBE SCH (20:31)
[2018-12-27] MEDS: Psyllium Husk Powder Sugar Free 5.85 GM Packet PEGTUBE SCH ×3 (00:05→23:48)
[2018-12-27] MEDS: Albuterol/Ipratropium 3.0-0.5 MG/3 ML Neb Soln NEB SCH ×5 (00:05→23:47)
[2018-12-27] MEDS: Omeprazole 2 MG/ML 150 ML Kit GTUBE SCH ×2 (06:03→17:10)
[2018-12-27] MEDS: Erythromycin Ethylsuccinate Susp 200 MG/5 ML 100 ML Bottle GTUBE SCH ×3 (06:03→17:11)
[2018-12-27] MEDS: amLODIPine 5 MG Tab FTUBE SCH (08:25)
[2018-12-27] MEDS: Carvedilol 12.5 MG Tab PEGTUBE SCH ×2 (08:25→21:24)
[2018-12-27] MEDS: B.Bifidum/B.Longum/L.Acidophilus/L.Rhamnosus (Probiotic) Cap PEGTUBE SCH (08:25)
[2018-12-27] MEDS: Nystatin Susp 100,000 Unit/ML 5 ML UD Cup PO SCH ×3 (08:25→21:24)
[2018-12-27] MEDS: Lisinopril 20 MG Tab GTUBE SCH (08:25)
[2018-12-27] MEDS: Cholecalciferol (Vitamin D3) 1,000 Unit Tab PEGTUBE SCH (08:25)
[2018-12-27] MEDS: Sertraline 50 MG Tab PEGTUBE SCH (08:25)
[2018-12-27] MEDS: Mupirocin Oint 22 GM Tube TOP SCH ×3 (08:26→21:31)
[2018-12-27] MEDS: Latanoprost 0.005% Ophth Soln 2.5 ML Bottle EYEBOTH SCH (08:27)
[2018-12-27] MEDS: Potassium Bicarbonate/Potassium Chloride 25 MEQ Tab.Eff GTUBE SCH (11:31)
[2018-12-27] MEDS: Zinc Oxide/Eucerin/Nystatin/Karaya 237 ML JAR TOP PRN (21:22)
[2018-12-27] MEDS: atorvaSTATin 10 MG Tab PEGTUBE SCH (21:24)
[2018-12-28] MEDS: Omeprazole 2 MG/ML 150 ML Kit GTUBE SCH ×2 (05:40→17:00)
[2018-12-28] MEDS: Erythromycin Ethylsuccinate Susp 200 MG/5 ML 100 ML Bottle GTUBE SCH ×3 (05:41→17:00)
[2018-12-28] MEDS: Albuterol/Ipratropium 3.0-0.5 MG/3 ML Neb Soln NEB SCH ×4 (05:49→22:27)
[2018-12-28] MEDS: Lisinopril 20 MG Tab GTUBE SCH (08:29)
[2018-12-28] MEDS: Sertraline 50 MG Tab PEGTUBE SCH (08:29)
[2018-12-28] MEDS: Mupirocin Oint 22 GM Tube TOP SCH ×3 (08:29→21:12)
[2018-12-28] MEDS: B.Bifidum/B.Longum/L.Acidophilus/L.Rhamnosus (Probiotic) Cap PEGTUBE SCH (08:29)
[2018-12-28] MEDS: Nystatin Susp 100,000 Unit/ML 5 ML UD Cup PO SCH ×3 (08:29→21:13)
[2018-12-28] MEDS: Carvedilol 12.5 MG Tab PEGTUBE SCH ×2 (08:29→21:12)
[2018-12-28] MEDS: Latanoprost 0.005% Ophth Soln 2.5 ML Bottle EYEBOTH SCH (08:29)
[2018-12-28] MEDS: Cholecalciferol (Vitamin D3) 1,000 Unit Tab PEGTUBE SCH (08:30)
[2018-12-28] MEDS: amLODIPine 5 MG Tab FTUBE SCH (08:30)
[2018-12-28] MEDS: Potassium Bicarbonate/Potassium Chloride 25 MEQ Tab.Eff GTUBE SCH (11:16)
[2018-12-28] MEDS: Psyllium Husk Powder Sugar Free 5.85 GM Packet PEGTUBE SCH ×2 (11:16→23:59)
[2018-12-28] MEDS: atorvaSTATin 10 MG Tab PEGTUBE SCH (21:13)
[2018-12-29] MEDS: Omeprazole 2 MG/ML 150 ML Kit GTUBE SCH ×2 (05:44→17:04)
[2018-12-29] MEDS: Erythromycin Ethylsuccinate Susp 200 MG/5 ML 100 ML Bottle GTUBE SCH ×3 (05:45→17:04)
[2018-12-29] MEDS: Albuterol/Ipratropium 3.0-0.5 MG/3 ML Neb Soln NEB SCH ×4 (05:48→23:06)
[2018-12-29] MEDS: Nystatin Susp 100,000 Unit/ML 5 ML UD Cup PO SCH ×3 (08:03→21:03)
[2018-12-29] MEDS: Cholecalciferol (Vitamin D3) 1,000 Unit Tab PEGTUBE SCH (08:03)
[2018-12-29] MEDS: Carvedilol 12.5 MG Tab PEGTUBE SCH ×2 (08:03→21:02)
[2018-12-29] MEDS: B.Bifidum/B.Longum/L.Acidophilus/L.Rhamnosus (Probiotic) Cap PEGTUBE SCH (08:04)
[2018-12-29] MEDS: amLODIPine 5 MG Tab FTUBE SCH (08:04)
[2018-12-29] MEDS: Latanoprost 0.005% Ophth Soln 2.5 ML Bottle EYEBOTH SCH (08:04)
[2018-12-29] MEDS: Sertraline 50 MG Tab PEGTUBE SCH (08:04)
[2018-12-29] MEDS: Mupirocin Oint 22 GM Tube TOP SCH ×3 (08:04→21:02)
[2018-12-29] MEDS: Lisinopril 20 MG Tab GTUBE SCH (08:04)
[2018-12-29] MEDS: Psyllium Husk Powder Sugar Free 5.85 GM Packet PEGTUBE SCH (11:41)
[2018-12-29] MEDS: Potassium Bicarbonate/Potassium Chloride 25 MEQ Tab.Eff GTUBE SCH (11:41)
[2018-12-29] MEDS: atorvaSTATin 10 MG Tab PEGTUBE SCH (21:03)
[2018-12-30] MEDS: Psyllium Husk Powder Sugar Free 5.85 GM Packet PEGTUBE SCH ×2 (00:52→12:37)
[2018-12-30] MEDS: Albuterol/Ipratropium 3.0-0.5 MG/3 ML Neb Soln NEB SCH ×2 (05:51→14:17)
[2018-12-30] MEDS: Omeprazole 2 MG/ML 150 ML Kit GTUBE SCH (06:34)
[2018-12-30] MEDS: Erythromycin Ethylsuccinate Susp 200 MG/5 ML 100 ML Bottle GTUBE SCH ×2 (06:35→13:43)
[2018-12-30] MEDS: Sodium Chloride 7% 4 ML Neb Soln NEB PRN (09:00)
[2018-12-30] MEDS: Albuterol/Ipratropium 3.0-0.5 MG/3 ML Neb Soln NEB PRN (09:00)
[2018-12-30] MEDS: Nystatin Susp 100,000 Unit/ML 5 ML UD Cup PO SCH ×2 (09:27→13:41)
[2018-12-30] MEDS: Carvedilol 12.5 MG Tab PEGTUBE SCH (09:28)
[2018-12-30] MEDS: Cholecalciferol (Vitamin D3) 1,000 Unit Tab PEGTUBE SCH (09:28)
[2018-12-30] MEDS: Lisinopril 20 MG Tab GTUBE SCH (09:29)
[2018-12-30] MEDS: B.Bifidum/B.Longum/L.Acidophilus/L.Rhamnosus (Probiotic) Cap PEGTUBE SCH (09:29)
[2018-12-30] MEDS: Mupirocin Oint 22 GM Tube TOP SCH (09:29)
[2018-12-30] MEDS: Sertraline 50 MG Tab PEGTUBE SCH (09:29)
[2018-12-30] MEDS: amLODIPine 5 MG Tab FTUBE SCH (09:29)
[2018-12-30] MEDS: Latanoprost 0.005% Ophth Soln 2.5 ML Bottle EYEBOTH SCH (09:30)
--- NOTE | 2018-12-30 10:23 | PCM.DCSUM1 ---
Discharge Summary - Hospital Course Diagnosis: Stroke: Yes Modified Noe Scale: Mod.Sev.Disability ;Unable to Walk/Attend Bodily Needs W/ O Assistance Modified Waller Scale Score: 4 - Discharge Data Discharge Date: 12/30/18 Discharge Disposition: DC/Tfer to Hospice - Home 50 Condition: Fair - Patient Summary/Data Consults: Consultations 12/06/18 12:53 Nutrition Reassessment/Plan, Adult [Consult to Ornament Stapler] [CONS] Routine 12/22/18 08:46 Consult to Hospice [CONS] Routine 09/27/18 16:05 Consult to Physical Therapy [PT Evaluation and Treatment] [CONS] Routine 09/30/18 18:50 Consult to Speech Language Pathology [[employer] Evaluation and Treatment] [CONS] Routine - Patient Instructions Feeding Instructions: Osmolite 1.2. Continue feedings at 45 mL per hour Activity: As Tolerated (With 2 assists) Showering/Bathing, Other: Bed bath as needed Notify Provider of: Fever, Nausea and/or Vomiting - Discharge Plan *PRESCRIPTION DRUG MONITORING PROGRAM REVIEWED*: Not Applicable *COPY OF PRESCRIPTION DRUG MONITORING REPORT IN PATIENT LATASHA: Not Applicable Prescriptions/Med Rec: Acetaminophen [Tylenol Solution 160 MG/5 ML] 640 mg GTUBE Q4H PRN #1 bottle PRN Reason: Pain/Fever Albuterol/Ipratropium [DuoNeb 3.0-0.5 MG/3 ML] 1 vial NEB ONETIME PRN #180 ml PRN Reason: SOB during night amLODIPine [Norvasc] 5 mg PEGTUBE DAILY #30 tablet Carvedilol 25 mg PEGTUBE BIDMEALS #60 tablet Erythromycin Ethylsuccinate [Eryped 200] 250 mg GTUBE TID@0600,1200,1800 #100 ml Latanoprost [Xalatan 0.005% Ophth Soln] 1 drop EYEBOTH DAILY #1 bottle Lisinopril [Prinivil] 40 mg GTUBE DAILY #60 tablet Mupirocin Oint [Bactroban Oint] 1 applic TOP TID #22 gm Nutritional Supplement [Osmolite 1.2 Jorge] 45 ml PEGTUBE Q1H #1000 ml Nystatin [Mycostatin] 5 ml PO TID PRN #1 bottle PRN Reason: oral candidiasis Nystatin [Nystatin Crm] 1 applic TOP BID PRN #15 gm PRN Reason: Rash Omeprazole [First-Omeprazole] 20 mg GTUBE 0600,1800 #600 ml Potassium Chloride [Klor-Con M20] 20 meq PEGTUBE DAILY #30 tab.er Psyllium Husk/Aspartame [Metamucil Sugar Free] 1 tsp PEGTUBE 0000,1200 #1 bottle Sertraline [Zoloft] 50 mg PEGTUBE DAILY #30 tablet Home Medications: Home Meds Albuterol/Ipratropium [DuoNeb 3.0-0.5 MG/3 ML] 1 vial NEB QID 09/20/18 [History] Lisinopril 2.5 mg PEGTUBE DAILY 09/20/18 [History] Omeprazole 20 mg PEGTUBE BIDAC 09/20/18 [History] Latanoprost [Xalatan 0.005% Ophth Soln] 1 drop EYEBOTH DAILY 09/22/18 [History] Sodium Chloride 7% [HyperSal 7%] 4 ml NEB QID 09/22/18 [History] Acetaminophen [Tylenol Solution 160 MG/5 ML] 640 mg GTUBE Q4H PRN #1 bottle 05/13 [Rx] Albuterol/Ipratropium [DuoNeb 3.0-0.5 MG/3 ML] 1 vial NEB ONETIME PRN #180 ml [Rx] Carvedilol 25 mg PEGTUBE BIDMEALS #60 tablet 12/30/18 [Rx] Erythromycin Ethylsuccinate [Eryped 200] 250 mg GTUBE TID@0600,1200,1800 #100 ml 12/30/18 [Rx] Latanoprost [Xalatan 0.005% Ophth Soln] 1 drop EYEBOTH DAILY #1 bottle 12/30/18 [Rx] Lisinopril [Prinivil] 40 mg GTUBE DAILY #60 tablet 12/30/18 [Rx] Mupirocin Oint [Bactroban Oint] 1 applic TOP TID #22 gm 12/30/18 [Rx] Nutritional Supplement [Osmolite 1.2 Jorge] 45 ml PEGTUBE Q1H #1000 ml 12/30/18 [ Rx] Nystatin [Mycostatin] 5 ml PO TID PRN #1 bottle 12/30/18 [Rx] Nystatin [Nystatin Crm] 1 applic TOP BID PRN #15 gm 12/30/18 [Rx] Omeprazole [First-Omeprazole] 20 mg GTUBE 0600,1800 #600 ml 12/30/18 [Rx] Potassium Chloride [Klor-Con M20] 20 meq PEGTUBE DAILY #30 tab.er 12/30/18 [Rx] Psyllium Husk/Aspartame [Metamucil Sugar Free] 1 tsp PEGTUBE 0000,1200 #1 bottle 12/30/18 [Rx] Sertraline [Zoloft] 50 mg PEGTUBE DAILY #30 tablet 12/30/18 [Rx] amLODIPine [Norvasc] 5 mg PEGTUBE DAILY #30 tablet 12/30/18 [Rx] Oxygen Therapy Mode: Trach Collar - Discharge Summary/Plan Comment DC Time >30 min.: Yes Discharge Summary/Plan Comment: Final diagnosis Deconditioning, stable Ongoing secretions, varible improvement Tracheostomy status, changed November 26, AND December 22, Protein calorie malnutrition, ongoing to feedings. Signs of drop foot, wedging MDRO, suspect HFpEF: Volume status neutral. Hx NSTEMI: Hx recurrent intracerebral hemorrhages Atrial fibrillation: Continue carvedilol. [id number] high, anticoagulation contraindicated in setting of recurrent hemorrhagic CVAs. HTN: Medications have been adjusted due to elevated blood pressures. now normal HLD: This was discontinued upon discharge GERD: Continue omeprazole. Vitamin D deficiency: Discontinued upon discharge Depression, major, recurrent: Continue sertraline. Glaucoma: Continue latanoprost History summary 83yoF with history notable for extended hospitalization at [facility] for a recurrent hemorrhagic cerebellar CVA for which she was mechanically intubated, developed ventilatory associated pneumonia, and subsequently had tracheostomy and PEG tube placement. She was subsequently transferred to [facility]. She was unable to have tracheostomy removed due to increased secretions and was eventually discharged to [facility] in [place], [place]. On 09/20/18, she was initially admitted to the [facility] due to significant shortness of breath, hypoxia, and respiratory failure found to be due to pneumonia and also with NSTEMI. She had clinical improvement with antibiotics and and aggressive pulmonary toileting. Due to complexity of care, she was deemed to not be a good candidate for return back to [facility] and was instead transferred to swing bed status at [facility] for ongoing care. Swing bed hospital course Patient had variable hospital course requiring aggressive suctioning, frequent courses of antibiotics due to pneumonia, frequent adjustments to feedings due to increase in residuals and gastroparesis. He required at times increase levels of oxygen due to low oxygen saturations. She required extensive pulmonary toileting with aggressive suctioning. Nutrition evaluation consultation for ongoing tube feedings, she was placed on erythromycin due to increase in residuals likely due to gastroparesis. At one point she was transferred for outpatient procedure to [facility] ED for trach tube replacement, subsequently she had replacement approximately one month later here at [facility] by nursing assist without complication. She had blood pressure medication titrated due to elevated blood pressures at times. This was stabilized. Her electrolytes were monitored periodically and potassium replacement was required a PEG tube. Cultures of her wound around her PEG tube showed Escherichia coli along with stenotrophomonas Maltophilia (and resp cx) and was treated with topical and oral antibiotics. chamber worker was heavily involved with care coordination, care conferences and worked very diligently in attempts to place patient closer to home in [place] or other long-term care [facility]. Much effort was made to communicate to spouse and other family members regarding patient's cares, healthcare requirements, nursing requirements. Medication changes/adjustments up on discharge See medication administration record Vitamin D and statin therapy discontinued on discharge Disposition: Patient will be discharged to home hospice. family to begin on-site training of patient care at [facility] day of discharge. - Patient Data Vitals - Most Recent: Last Vital Signs Temp 98.4 F 12/30/18 06:40 Pulse 76 12/30/18 09:28 Resp 18 12/30/18 06:40 BP 132/72 12/30/18 09:29 Pulse Ox 93 L 12/30/18 06:40 Weight - Most Recent: 137 lb 9 oz I&O - Last 24 hours: Intake & Output 12/29/18 12/30/18 12/30/18 22:59 06:59 14:59 Intake Total 483 538 Balance 483 538 Med Orders - Current: Current Medications Acetaminophen (Tylenol Solution 160 Mg/5 Ml) 640 mg GTUBE Q4H PRN PRN Reason: Pain/Fever Albuterol/Ipratropium (Duoneb 3.0-0.5 Mg/3 Ml) 3 ml NEB QID PRN PRN Reason: Shortness of Breath Last Admin: 12/30/18 09:00 Dose: 3 ml Albuterol/Ipratropium (Duoneb 3.0-0.5 Mg/3 Ml) 3 ml NEB Q6HRRT [facility] Last Admin: 12/30/18 05:51 Dose: 3 ml Amlodipine Besylate (Norvasc) 5 mg FTUBE DAILY [facility] Last Admin: 12/30/18 09:29 Dose: 5 mg Atorvastatin Calcium (Lipitor) 10 mg PEGTUBE BEDTIME [facility] Last Admin: 12/29/18 21:03 Dose: 10 mg Carvedilol (Coreg) 25 mg PEGTUBE BID [facility] Last Admin: 12/30/18 09:28 Dose: 25 mg Cholecalciferol (Vitamin D3) 2,000 units PEGTUBE DAILY [facility] Last Admin: 12/30/18 09:28 Dose: 2,000 units Erythromycin Ethylsuccinate (Eryped 200) 250 mg GTUBE TID@0600,1200,1800 [facility] Last Admin: 12/30/18 06:35 Dose: 6.25 ml Lactobacillus Acidophilus/Rhamnosus (Multi-Lissette Plus) 1 cap PEGTUBE DAILY [facility] Last Admin: 12/30/18 09:29 Dose: 1 cap Latanoprost (Xalatan 0.005% Ophth Soln) 0 ml EYEBOTH DAILY [facility] Last Admin: 12/30/18 09:30 Dose: 1 drop Lisinopril (Prinivil) 40 mg GTUBE DAILY [facility] Last Admin: 12/30/18 09:29 Dose: 40 mg Multi-Ingred Cream/Lotion/Oil/Oint (Kmed) 1 ml TOP QID PRN PRN Reason: Other Last Admin: 12/27/18 21:22 Dose: 1 applic Mupirocin (Bactroban Oint) 0 gm TOP TID [facility] Last Admin: 12/30/18 09:29 Dose: 1 applic Nystatin (Mycostatin) 5 ml PO TID [facility] Last Admin: 12/30/18 09:27 Dose: 5 ml Nystatin (Nystatin Crm) 0 gm TOP BID PRN PRN Reason: Rash Omeprazole (First-Omeprazole) 10 each GTUBE 0600,1800 [facility] Last Admin: 12/30/18 06:34 Dose: 10 ml Ondansetron HCl (Zofran) 4 mg IVPUSH Q6H PRN PRN Reason: Nausea/Vomiting Last Admin: 11/19/18 11:15 Dose: 4 mg Potassium Bicarb/Potassium Chloride (Potassium Chloride, Effervescent) 25 meq GTUBE DAILY@1200 [facility] Last Admin: 12/29/18 11:41 Dose: 25 meq Psyllium Husk (Metamucil Sugar Free) 1 pkt PEGTUBE 0000,1200 [facility] Last Admin: 12/30/18 00:52 Dose: 1 pkt Ramelteon (Rozerem) 8 mg PEGTUBE BEDTIME [facility] Last Admin: 12/29/18 21:03 Dose: 8 mg Sertraline HCl (Zoloft) 50 mg PEGTUBE DAILY [facility] Last Admin: 12/30/18 09:29 Dose: 50 mg Sodium Chloride (Saline Flush) 10 ml FLUSH Q8HR PRN PRN Reason: Keep Vein Open Last Admin: 11/23/18 16:59 Dose: 10 ml Sodium Chloride (Hypersal 7%) 4 ml NEB QID PRN PRN Reason: Other Last Admin: 12/30/18 09:00 Dose: 4 ml Discontinued Medications Acetaminophen (Tylenol Solution 160 Mg/5 Ml) 640 mg PO Q4H PRN PRN Reason: Pain/Fever Last Admin: 11/25/18 12:54 Dose: 20 ml Albuterol/Ipratropium (Duoneb 3.0-0.5 Mg/3 Ml) 3 ml NEB QIDRT [facility] Last Admin: 10/06/18 04:29 Dose: 3 ml Albuterol/Ipratropium (Duoneb 3.0-0.5 Mg/3 Ml) 3 ml NEB BEDTIME PRN PRN Reason: Shortness of Breath Last Admin: 10/18/18 04:31 Dose: 3 ml Albuterol/Ipratropium (Duoneb 3.0-0.5 Mg/3 Ml) 3 ml NEB BIDRT LIANNE Albuterol/Ipratropium (Duoneb 3.0-0.5 Mg/3 Ml) 3 ml NEB BID [facility] Last Admin: 11/10/18 08:11 Dose: 3 ml Albuterol/Ipratropium (Duoneb 3.0-0.5 Mg/3 Ml) 3 ml NEB ONETIME@1030 [facility] Stop: 11/01/18 12:00 Last Admin: 11/01/18 10:34 Dose: 3 ml Albuterol/Ipratropium (Duoneb 3.0-0.5 Mg/3 Ml) 3 ml NEB ONETIME ONE Stop: 11/03/18 10:31 Last Admin: 11/03/18 10:00 Dose: Not Given Alprazolam (Xanax) 0.25 mg GTUBE NOW ONE Stop: 11/09/18 15:21 Last Admin: 11/09/18 15:32 Dose: 0.25 mg Bacitracin (Get Ointment) 237 ml .ROUTE .STK-MED ONE Stop: 09/27/18 11:01 Carvedilol (Coreg) Confirm Administered Dose 12.5 mg .ROUTE .STK-MED ONE Stop: 11/21/18 22:04 Last Admin: 11/21/18 22:08 Dose: Not Given Carvedilol (Coreg) Confirm Administered Dose 12.5 mg .ROUTE .STK-MED ONE Stop: 12/19/18 21:21 Last Admin: 12/19/18 21:45 Dose: Not Given Ceftriaxone Sodium (Rocephin) 1 gm IVPUSH Q24H [facility] Stop: 10/03/18 18:00 Last Admin: 10/03/18 16:19 Dose: 1 gm Ceftriaxone Sodium (Rocephin) 1 gm IM DAILY [facility] Stop: 12/04/18 11:01 Last Admin: 12/04/18 08:05 Dose: 1 gm Erythromycin (Lisandro-Tab) 250 mg PO Q8HR [facility] Last Admin: 10/27/18 14:32 Dose: Not Given Erythromycin Ethylsuccinate (Eryped 200) 250 mg PO Q8HR [facility] Erythromycin Ethylsuccinate (Eryped 200) 250 mg PO Q8HR [facility] Erythromycin Ethylsuccinate (Eryped 200) 250 mg PO Q8HR [facility] Last Admin: 10/28/18 16:01 Dose: Not Given Erythromycin Ethylsuccinate (Eryped 200) 250 mg GTUBE Q8HR LIANNE Erythromycin Ethylsuccinate (Eryped 200) 250 mg GTUBE Q8HR [facility] Last Admin: 10/30/18 05:44 Dose: 6.25 ml Erythromycin Ethylsuccinate (Eryped 200) 250 mg GTUBE Q12H [facility] Last Admin: 11/04/18 06:07 Dose: 6.25 ml Erythromycin Ethylsuccinate (Eryped 200) 120 mg GTUBE Q12H [facility] Last Admin: 11/08/18 05:30 Dose: 3 ml Erythromycin Ethylsuccinate (Eryped 200) 250 mg GTUBE Q12H [facility] Last Admin: 11/19/18 06:18 Dose: 6.25 ml Erythromycin Ethylsuccinate (Eryped 200) 250 mg PO BID@0600,1800 [facility] Last Admin: 12/06/18 06:15 Dose: 6.25 ml Erythromycin Ethylsuccinate (Eryped 200) 250 mg PO TID@0600,1200,1800 [facility] Last Admin: 12/10/18 18:29 Dose: 6.25 ml Fluconazole (Diflucan) 150 mg PO ONETIME ONE Stop: 10/04/18 10:06 Last Admin: 10/04/18 11:36 Dose: Not Given Fluconazole (Diflucan) 150 mg PEGTUBE ONETIME ONE Stop: 10/04/18 11:31 Last Admin: 10/04/18 12:35 Dose: 150 mg Fluconazole (Diflucan) 200 mg PEGTUBE DAILY [facility] Stop: 10/17/18 11:46 Last Admin: 10/17/18 08:46 Dose: 200 mg Fluconazole (Diflucan) 200 mg PEGTUBE ONETIME ONE Stop: 10/26/18 09:01 Last Admin: 10/26/18 11:28 Dose: Not Given Fluconazole (Diflucan) 100 mg PEGTUBE DAILY [facility] Stop: 11/02/18 09:01 Last Admin: 11/02/18 09:10 Dose: 100 mg Fluconazole (Diflucan) 200 mg PEGTUBE ONETIME ONE Stop: 10/26/18 11:01 Last Admin: 10/26/18 11:30 Dose: 200 mg Fluconazole (Diflucan) 100 mg PEGTUBE ONETIME ONE Stop: 12/15/18 09:01 Last Admin: 12/15/18 09:07 Dose: 100 mg Fluconazole (Diflucan) 150 mg PEGTUBE ONETIME ONE Stop: 12/11/18 21:01 Last Admin: 12/11/18 21:13 Dose: 150 mg Glycopyrrolate (Robinul) 0.2 mg IVPUSH ONETIME@1030 [facility] Stop: 11/01/18 12:00 Last Admin: 11/01/18 10:56 Dose: 0.2 mg Glycopyrrolate () 0.2 mg IVPUSH ONETIME ONE Stop: 11/03/18 10:46 Last Admin: 11/04/18 14:51 Dose: Not Given Glycopyrrolate (Robinul) 0.2 mg IVPUSH ONETIME ONE Stop: 11/03/18 10:46 Last Admin: 11/03/18 08:35 Dose: 0.2 mg Glycopyrrolate (Robinul) 0.1 mg IVPUSH Q4H PRN PRN Reason: secrections Glycopyrrolate (Robinul) 0.2 mg IVPUSH Q4H PRN PRN Reason: secrections Guaifenesin (Robitussin) 200 mg PO Q6HR [facility] Last Admin: 10/04/18 12:15 Dose: Not Given Guaifenesin (Robitussin) 200 mg PEGTUBE Q6HR [facility] Last Admin: 10/23/18 11:42 Dose: 200 mg Guaifenesin (Robitussin) 100 mg PO Q6H PRN PRN Reason: Cough Stop: 11/10/18 23:59 Last Admin: 11/10/18 12:33 Dose: 100 mg Guaifenesin (Robitussin) 100 mg PEGTUBE Q4H PRN PRN Reason: Cough Levofloxacin/Dextrose (Levaquin In D5w 500 Mg/100 Ml) 100 mls @ 100 mls/hr IV Q48H [facility] Stop: 10/03/18 13:00 Last Admin: 10/03/18 11:19 Dose: 100 mls/hr Levofloxacin/Dextrose (Levaquin In D5w 250 Mg/50 Ml) 50 mls @ 50 mls/hr IV Q48H [facility] Stop: 10/03/18 13:00 Last Admin: 10/03/18 12:59 Dose: 50 mls/hr Sodium Chloride (Normal Saline) 50 mls @ 20 mls/hr IV DAILY@1130 [facility] Last Admin: 10/03/18 11:26 Dose: Not Given Piperacillin Sod/Tazobactam (Sod 4.5 gm/ Sodium Chloride) 100 mls @ 200 mls/hr IV Q6HR [facility] Stop: 10/25/18 08:00 Last Admin: 10/25/18 05:13 Dose: 200 mls/hr Vancomycin HCl 1 gm/ Sodium (Chloride) 270 mls @ 180 mls/hr IV Q12H [facility] Last Admin: 10/16/18 12:52 Dose: Not Given Sodium Chloride (Normal Saline) 100 mls @ 100 mls/hr IV Q24H [facility] Last Admin: 10/25/18 17:57 Dose: Not Given Vancomycin HCl 1 gm/ Sodium (Chloride) 270 mls @ 180 mls/hr IV Q24H [facility] Last Admin: 10/19/18 07:29 Dose: Not Given Vancomycin HCl 1.5 gm/ Sodium (Chloride) 250 mls @ 166.667 mls/hr IV Q24H [facility] Stop: 10/25/18 08:00 Last Admin: 10/25/18 00:08 Dose: 166.667 mls/hr Piperacillin Sod/Tazobactam (Sod 3.375 gm/ Sodium Chloride) 100 mls @ 200 mls/ hr IV Q6H [facility] Piperacillin/Tazobactam/ (Dextrose 3.375 gm/ Premix) 50 mls @ 100 mls/hr IV Q6H [facility] Last Admin: 11/12/18 08:48 Dose: 100 mls/hr Sodium Chloride (Normal Saline) 100 mls @ 100 mls/hr IV 1400 [facility] Last Admin: 11/10/18 14:24 Dose: Not Given Sodium Chloride (Normal Saline) 100 mls @ 100 mls/hr IV 1400 [facility] Last Admin: 11/12/18 13:35 Dose: 100 mls/hr Levofloxacin/Dextrose (Levaquin In D5w 250 Mg/50 Ml) 50 mls @ 50 mls/hr IV Q24H [facility] Last Admin: 11/24/18 14:05 Dose: 50 mls/hr Levofloxacin/Dextrose (Levaquin In D5w 500 Mg/100 Ml) 100 mls @ 100 mls/hr IV Q24H [facility] Last Admin: 11/24/18 12:50 Dose: 100 mls/hr Sodium Chloride (Normal Saline) 100 mls @ 100 mls/hr IV DAILY@1100 [facility] Last Admin: 11/25/18 10:08 Dose: Not Given Sodium Chloride (Normal Saline) 250 mls @ 100 mls/hr IV ONETIME [facility] Stop: 11/19/18 23:59 Last Admin: 01/25/19 13:44 Dose: 100 mls/hr Levofloxacin (Levaquin) 750 mg GTUBE DAILY [facility] Levofloxacin (Levaquin) 750 mg GTUBE DAILY [facility] Last Admin: 11/28/18 09:22 Dose: 750 mg Lisinopril (Prinivil) 5 mg PEGTUBE DAILY [facility] Last Admin: 10/23/18 08:34 Dose: 5 mg Lisinopril (Prinivil) 20 mg PO DAILY [facility] Last Admin: 10/23/18 13:30 Dose: Not Given Lisinopril (Prinivil) 15 mg PO ONETIME ONE Stop: 10/23/18 13:29 Last Admin: 10/23/18 14:21 Dose: 15 mg Lisinopril (Prinivil) 20 mg PO DAILY [facility] Stop: 10/28/18 12:00 Last Admin: 10/28/18 10:22 Dose: 20 mg Lisinopril (Prinivil) 10 mg PO ONETIME [facility] Stop: 10/28/18 10:00 Lisinopril (Prinivil) 30 mg GTUBE DAILY [facility] Last Admin: 11/07/18 09:09 Dose: 30 mg Loperamide HCl (Imodium) 1 - 2 mg PO ASDIRECTED PRN PRN Reason: Diarrhea Metoclopramide HCl (Reglan) 5 mg IVPUSH Q8H [facility] Stop: 11/23/18 23:59 Last Admin: 11/23/18 16:59 Dose: 5 mg Metoclopramide HCl (Reglan) 5 mg PO TIDAC [facility] Stop: 12/11/18 09:00 Last Admin: 12/10/18 18:29 Dose: 5 mg Metoclopramide HCl (Reglan) 5 mg GTUBE TIDAC [facility] Stop: 12/11/18 09:00 Last Admin: 12/11/18 06:31 Dose: 5 mg Multi-Ingred Cream/Lotion/Oil/Oint (Kmed) 0 ml TOP QID [facility] Last Admin: 10/08/18 10:03 Dose: Not Given Non-Form Get (Ointment) 1 each TOP Q4HR [facility] Last Admin: 09/30/18 16:22 Dose: 1 each Nystatin (Mycostatin) 5 ml PO QID [facility] Last Admin: 10/15/18 12:00 Dose: 5 ml Nystatin (Mycostatin) 5 ml PO QID [facility] Stop: 10/18/18 15:00 Last Admin: 10/18/18 13:03 Dose: 5 ml Nystatin (Mycostatin) 5 ml PO QID [facility] Last Admin: 10/20/18 12:47 Dose: 5 ml Nystatin (Mycostatin) 5 ml PO QID [facility] Last Admin: 10/26/18 08:35 Dose: 5 ml Nystatin (Nystatin Crm) 1 gm TOP BID [facility] Last Admin: 12/18/18 08:17 Dose: 1 applic Omeprazole (First-Omeprazole) 10 each GTUBE BIDAC [facility] Last Admin: 10/23/18 17:24 Dose: 10 ml Potassium Bicarb/Potassium Chloride (Potassium Chloride, Effervescent) 25 meq PO ONETIME ONE Stop: 10/18/18 09:40 Last Admin: 10/18/18 10:26 Dose: 25 meq Potassium Bicarb/Potassium Chloride (Potassium Chloride, Effervescent) 25 meq PO ONETIME ONE Stop: 10/18/18 17:01 Last Admin: 10/18/18 17:51 Dose: 25 meq Potassium Bicarb/Potassium Chloride (Potassium Chloride, Effervescent) 25 meq PO DAILY [facility] Last Admin: 10/30/18 09:28 Dose: Not Given Potassium Bicarb/Potassium Chloride (Potassium Chloride, Effervescent) 25 meq GTUBE DAILY [facility] Last Admin: 11/17/18 08:40 Dose: 25 meq Psyllium Husk (Metamucil Sugar Free) 1 pkt PEGTUBE DAILY [facility] Last Admin: 10/04/18 08:25 Dose: 1 pkt Psyllium Husk (Metamucil Sugar Free) 1 pkt PEGTUBE BID [facility] Last Admin: 11/17/18 08:41 Dose: 1 pkt Ramelteon (Rozerem) 8 mg PO BEDTIME [facility] Sodium Chloride (Hypersal 7%) 4 ml NEB QIDRT [facility] Last Admin: 10/06/18 14:42 Dose: Not Given Sodium Chloride (Hypersal 7%) 4 ml INH BID [facility] Last Admin: 11/10/18 12:11 Dose: 4 ml Sodium Chloride (Normal Saline) 100 ml FLUSH ASDIRECTED PRN PRN Reason: IV Use Last Admin: 11/09/18 20:13 Dose: 100 ml Sodium Chloride (Hypersal 7%) 4 ml INH QID LIANNE Sodium Chloride (Hypersal 7%) 4 ml INH Q6HRRT [facility] Last Admin: 11/19/18 05:43 Dose: 4 ml Trimethoprim/Sulfamethoxazole (Septra Ds) 1 tab GTUBE BID [facility] Stop: 12/06/18 10:01 Last Admin: 11/29/18 12:53 Dose: Not Given Vancomycin HCl (Pharmacy To Dose - Vancomycin) 1 dose .XX ASDIRECTED [facility]
[2018-12-30] MEDS: Potassium Bicarbonate/Potassium Chloride 25 MEQ Tab.Eff GTUBE SCH (12:37)
== END 2018-12-30 15:15 | disposition hospice, home (50) | DRG 205 ==
LOC: KA.MS 11:12
PROVIDERS: ADMIT Nurse Practitioner Family; ATTEND Family Medicine
PROC: 0B21XFZ Change Tracheostomy Device in Trachea, External Approach (ICD-10-PCS; principal; 2018-12-22)
DX: J95.851 Ventilator associated pneumonia (principal); J96.21 Acute and chronic respiratory failure with hypoxia; I21.4 Non-ST elevation (NSTEMI) myocardial infarction; K94.22 Gastrostomy infection; N39.0 Urinary tract infection, site not specified; E46 Unspecified protein-calorie malnutrition; I50.30 Unspecified diastolic (congestive) heart failure; Z66 Do not resuscitate; Z51.5 Encounter for palliative care; K31.84 Gastroparesis; B96.20 Unspecified Escherichia coli [E. coli] as the cause of diseases classified elsewhere; B96.89 Other specified bacterial agents as the cause of diseases classified elsewhere; H54.7 Unspecified visual loss; F32.9 Major depressive disorder, single episode, unspecified; E55.9 Vitamin D deficiency, unspecified; R55 Syncope and collapse; B96.5 Pseudomonas (aeruginosa) (mallei) (pseudomallei) as the cause of diseases classified elsewhere; I11.0 Hypertensive heart disease with heart failure; R79.89 Other specified abnormal findings of blood chemistry; I48.91 Unspecified atrial fibrillation; E78.5 Hyperlipidemia, unspecified; K21.9 Gastro-esophageal reflux disease without esophagitis; H40.9 Unspecified glaucoma; T17.990A Other foreign object in respiratory tract, part unspecified in causing asphyxiation, initial encounter; M21.379 Foot drop, unspecified foot; Z16.24 Resistance to multiple antibiotics; Z79.899 Other long term (current) drug therapy; Z98.49 Cataract extraction status, unspecified eye; Z86.010 Personal history of colon polyps; Z86.73 Personal history of transient ischemic attack (TIA), and cerebral infarction without residual deficits; Z79.01 Long term (current) use of anticoagulants; Z93.0 Tracheostomy status; Z68.24 Body mass index [BMI] 24.0-24.9, adult
CPT/HCPCS: 36415; 71045; 80048; 80053; 80202; 82962; 83605; 84145; 85025; 86140; 87070; 87077; 87147; 87186; 87205; 87324; 94640; 97110-GP; 97112-GP; 97116-GP; 97163-GP; 97530-GP; 97537-GP; A9270-GY; G0283-GP; J0696; J1956; J2405; J2543; J2765; J3370; J3490; J7040; J7050; J7620-GY